=== PATIENT | female | born 1945 | race Caucasian/White ===

== ENCOUNTER 2020-06-01 00:33 | Outpatient (CLI) | payer OTHER, SELFPAY ==
[2020-06-01 18:37] LABS: SARS-CoV-2 RNA PCR Negative
== END 2020-06-01 00:34 | disposition home or self-care (01) ==
LOC: ANHCOVIDDT 00:33
PROVIDERS: PCP Family Medicine Adolescent Medicine; Visit Provider Internal Medicine Cardiovascular Disease
DX: Z01.812 Encounter for preprocedural laboratory examination (principal); Z20.828 Contact with and (suspected) exposure to other viral communicable diseases
CPT/HCPCS: 87635; C9803; U0003

== ENCOUNTER 2020-06-04 05:20 | Day surgery (SDC) | payer OTHER, SELFPAY ==
[2020-06-03 13:03] VITALS: BMI 38.8
[2020-06-04] VITALS (10 sets, daily range): BP systolic 123–156; BP diastolic 55–99; PULSE 67–97; RESP 16–25; O2SAT 96–100
--- NOTE | 2020-06-04 09:13 | P.PCNTEE_ITS ---
[facility] TransEsophageal Echocardiogram Date of procedure: 06/04/20 Findings: DATE OF PROCEDURE: 06/04/2020 INDICATION FOR PROCEDURE: Assessment of aortic stenosis BRIEF CLINICAL HISTORY: 74-year-old female with moderate aortic stenosis, hypertension, history of CA breast status post right lumpectomy. Patient has significant shortness of breath on mild exertion. Her recent echocardiogram showed moderate aortic stenosis with valve area 1.1 cm2. Her symptoms appear to be disproportionate to the severity of the aortic stenosis. In light of this, we proceeded with a transesophageal echocardiogram to re-evaluate aortic valve anatomy and assess aortic Stenosis. Benefits, risks and alternatives of the procedure were discussed with the patient and informed consent was taken prior to the procedure. PROCEDURES PERFORMED: 1. Multiplane transesophageal echocardiography with color flow and Doppler assessment 2. Moderate sedation- CPT code 69029 SEDATION: Midazolam 1 mg;Propofol 40 milligram IV; start time 0855 , stop time 0910 , total taee-gj-ifko time 15 minutes; Gallo Mahmood RN was trained observer for moderate sedation. PROCEDURE: After obtaining informed consent, patient was brought to the chest Pain Center. She was given lidocaine gel, followed by 2 sprays of benzocaine spray. Bite block was placed. Patient was positioned in the left lateral position. After adequate sedation with Midazolam and propofol, transesophageal scope was advanced and multiplanar transesophageal echocardiography was performed with and without color flow and Doppler assessment. Patient's vitals were monitored throughout the procedure. Patient tolerated procedure well. There were no immediate procedure related complications. LEFT VENTRICLE: normal LV size, mild LVH, normal LV systolic function, ej ection fraction 60-70%. RIGHT VENTRICLE: Normal size and systolic function LEFT ATRIUM: mild left atrial enlargement, no evidence of left atrial appendage thrombus. RIGHT ATRIUM: normal size ATRIAL SEPTUM: Lipomatous hypertrophy of septum. No evidence of shunt on color Doppler MITRAL VALVE: normal structure, trivial to mild MR. AORTIC VALVE: Aortic valve appears sclerotic, and is trileaflet. Moderate aortic stenosis based on average planimetered valve area of 1.2 cm2. Difficult to assess transaortic gradients on the transgastric view. Mild aortic regurgitation. TRICUSPID VALVE: Normal structure, trivial TR, unable to assess RVSP. PULMONIC VALVE: Not well visualized, trivial regurgitation. PERICARDIUM: Normal, no significant pericardial effusion AORTA: sinus of Valsalva 2.6 cm, sinotubular junction 2.2 cm, ascending aorta 2.8 cm. RHYTHM: Sinus rhythm Conclusions: 1. Normal LV size, mild LVH, normal LVEF, ejection fraction 60- 70%. 2. No evidence of left atrial appendage thrombus; lipomatous atrial septum without shunt on color Doppler 3. Normal mitral valve structure, mild MR. 4. Sclerotic aortic valve, trileaflet; moderate aortic stenosis, average plan admitted area 1.2 cm2; mild aortic regurgitation. 5. Trivial TR, unable to assess RVSP. PLAN/RECOMMENDATIONS- patient will undergo continued clinical and echocardiographic surveillance for progression of aortic stenosis. Outpatient cardiology follow-up.
--- NOTE | 2020-06-04 09:13 | WPDMODSED ---
Moderate Sedation Note-Pt Data Patient Data Allergies Allergy/AdvReac Type Severity Reaction Status Date / Time hydromorphone Allergy Mild Itching Verified 03/31/17 06:27 morphine Allergy Mild Itching Verified 03/31/17 06:27 Home Medications Medication Instructions Recorded Confirmed Type aspirin 81 mg PO DAILY 06/03/20 06/04/20 History calcitonin (salmon) 1 spray INTRANASAL DAILY 06/03/20 06/04/20 History lisinopril 30 mg PO DAILY 06/03/20 06/04/20 History metoclopramide HCl 10 mg PO DAILY 06/03/20 06/04/20 History pantoprazole 40 mg PO BID 06/03/20 06/04/20 History spironolactone 25 mg PO DAILY 06/03/20 06/04/20 History venlafaxine 150 mg PO DAILY 06/03/20 06/04/20 History Sedation/Anesthesia: No previous sedation/anesthesia problems (including family history). PMFSH Social History Social History Smoking status: Never smoker Alcohol intake: never Substance use: never Living arrangements: with family Spiritual care concerns: No Mod Sed Physical Exam Physical Exam Pre Procedural Exam: Normal: Airway Hours since solid foods: 10 Hours since liquid intake: 10 Internal Medicine - PN: Obj Da Vital Signs Vital Signs: Vital Signs - 24 hr 06/04/20 07:28 06/04/20 08:54 06/04/20 09:00 Pulse Rate 97 81 75 Respiratory Rate 24 H 23 H 25 H Blood Pressure 152/84 H 127/99 H 156/65 H Pulse Oximetry 98 100 99 06/04/20 09:05 06/04/20 09:10 Pulse Rate 74 74 Respiratory Rate 25 H 18 Blood Pressure 155/64 H 156/60 H Pulse Oximetry 100 100 ASA Classification/Sedation ASA Classification/Sedation Risks: Risks, benefits and alternatives explained and patient/family accepted plan for sedation. Patient re-evaluated immediately prior to sedation.
--- NOTE | 2020-06-04 09:13 | WPDHPUPDATE1 ---
History and Physical Update Update Date/Time: 06/04/20 09:13 History and Physical has been reviewed, including an updated exam of the patient. There are NO changes in the patient's condition. Risks, benefits, and alternatives have been discussed and questions answered. Patient agrees to proceed with procedure.
--- NOTE | 2020-06-04 11:00 | SUR.PHASEII ---
1030-pt given D/C orders and instructions. Questions answered and verbalized understanding. AOx4. PIV removed intact. Taken via wheelchair to waiting vehicle. Family having car trouble. Pt will waiti with family while car battery recharged. No distress noted or verbalized at time of departure from unit.
== END 2020-06-04 10:30 | disposition home or self-care (01) ==
PROVIDERS: PCP Family Medicine Adolescent Medicine; Visit Provider Internal Medicine Cardiovascular Disease
PROC: (CPT 93312; principal; 2020-06-04 08:30)
DX: I35.2 Nonrheumatic aortic (valve) stenosis with insufficiency (principal); I35.8 Other nonrheumatic aortic valve disorders; I34.0 Nonrheumatic mitral (valve) insufficiency; I10 Essential (primary) hypertension; Z85.3 Personal history of malignant neoplasm of breast
CPT/HCPCS: 93312; 93320; 93325; J2250; J2704; J3010; J7040

== ENCOUNTER 2020-10-24 12:23 | Outpatient (CLI) | payer OTHER, SELFPAY ==
--- NOTE | ~2020-10-24 | US_ITS ---
EXAMINATION: US venous doppler UE LT DATE: 10/24/2020 13:03 INDICATION: Left upper limb swelling. TECHNIQUE: Grayscale ultrasound images without and with compression and Doppler ultrasound images of the left upper extremity veins were obtained. COMPARISON: None. FINDINGS: The visualized portions of the left internal jugular vein, subclavian vein, axillary vein, brachial v eins, basilic vein, cephalic vein, radial vein, and ulnar vein are patent. IMPRESSION: 1. No deep venous thrombosis. Reviewed, dictated and finalized at location A. BILITY HEARING OFFICER
== END 2020-10-24 12:24 | disposition home or self-care (01) ==
PROVIDERS: PCP Family Medicine Adolescent Medicine; Visit Provider Physician Assistant
DX: M79.89 Other specified soft tissue disorders (principal)
CPT/HCPCS: 93971

== ENCOUNTER 2020-12-25 14:48 | Outpatient (CLI) | payer OTHER, MEDICARE, SELFPAY | END 2020-12-25 14:49 | disposition home or self-care (01) | LOC: ANHCOVIDVC 14:48 | PROVIDERS: PCP Family Medicine Adolescent Medicine | DX: Z23 Encounter for immunization (principal) | CPT/HCPCS: 0001A; 91300 ==

== ENCOUNTER 2021-01-15 14:47 | Outpatient (CLI) | payer OTHER, MEDICARE, SELFPAY | END 2021-01-15 14:48 | disposition home or self-care (01) | LOC: ANHCOVIDVC 14:47 | PROVIDERS: PCP Family Medicine Adolescent Medicine | DX: Z23 Encounter for immunization (principal) | CPT/HCPCS: 0002A; 91300 ==

== ENCOUNTER 2021-01-16 12:45 | Outpatient (RCR) | payer SELFPAY | END 2021-01-16 23:59 | disposition home or self-care (01) | LOC: ANHAUDIO 12:45 | PROVIDERS: PCP Family Medicine Adolescent Medicine; Visit Provider Family Medicine Adolescent Medicine | DX: Z46.1 Encounter for fitting and adjustment of hearing aid (principal) | CPT/HCPCS: 92593 ==

== ENCOUNTER 2021-01-16 13:30 | Outpatient (RCR) | payer OTHER, SELFPAY ==
--- NOTE | 2021-01-22 15:17 | PCCPR ---
Lakshmi discharged from program. She is currently admitted in ICU on ventilator following an acute CA. Will discharge at this time and if applicable in the future, will obtain new referral.
== END 2021-01-22 19:30 | disposition home or self-care (01) ==
LOC: ANHCPREHAB 13:30
PROVIDERS: PCP Family Medicine Adolescent Medicine; Visit Provider Internal Medicine Cardiovascular Disease
DX: Z95.2 Presence of prosthetic heart valve (principal)
CPT/HCPCS: 93798

== ENCOUNTER 2021-01-17 05:07 | Inpatient (IN) | payer OTHER, SELFPAY ==
[2021-01-17] VITALS (23 sets, daily range): BP systolic 98–153; BP diastolic 54–122; PULSE 50–100; RESP 12–36; TEMP 36.1–36.8; O2SAT 72–100; BMI 37.5
--- NOTE | 2021-01-17 | ECHO_ITS ---
Patient Info Name: Lakshmi Comer Age: 75 years : 1945 Gender: Female Ht: 60 in Wt: 200 lbs BSA: 2.01 m2 HR: 57 bpm BP: 166 / 63 mmHg Heart Rhythm: Bradycardia, Sinus Rhythm Technical Quality: Good Exam Date: 01/17/2021 11:43 AM Exam Location: [facility] Pulmonary Exam Room: ER 8 Patient Status: Emergency Admit Date: 01/17/2021 Staff Ordering Physician: Everardo Martinez MD Heat Pump Installer: BETTYE MALLORY [facility] Attending Provider: Everardo Martinez MD Referring Physician: Juan BUNN; Exam Type: CA echo doppler color flow Study Info Indications - CHEST PAIN S/P TAVR Complete two-dimensional, color flow and Doppler transthoracic echocardiogram is performed. Summary 1. Complete two-dimensional, color flow and Doppler transthoracic echocardiogram is performed. 2. There is moderate concentric increased left ventricular wall thickness. 3. Left ventricular systolic function is normal, estimated at 60-65%. 4. No wall-motion abnormalities. 5. Left atrial chamber dimension is moderately enlarged. 6. There is no regurgitation of the TAVR aortic valve. 7. Minimal normal transvalvular gradient. Left Ventricle Left ventricular chamber dimension is normal. Left ventricular systolic function is normal, estimated at 60-65%. There is moderate concentric increased left ventricular wall thickness. The left ventricular diastolic function is grade I diastolic dysfunction. No wall-motion abnormalities. Right Ventricle Right ventricular chamber dimension is normal. Left Atria Left atrial chamber dimension is moderately enlarged. Right Atria Right atrial chamber dimension is normal. Aortic Valve The TAVR aortic valve is not well visualized. There is no TAVR aortic valve stenosis. There is no regurgitation of the TAVR aortic valve. Minimal normal transvalvular gradient. Pulmonic Valve The pulmonic valve is not well visualized. Mitral Valve The mitral valve has normal leaflets. There is mild to moderate mitral valve regurgitation. Tricuspid Valve The tricuspid valve leaflets are normal. There is trace tricuspid valve regurgitation. Pericardium/Pleural The pericardium appears normal. Aorta The aortic root size at the sinus of Valsalva is normal. Left Ventricular Outflow Tract Name Value Normal LVOT 2D LVOT Diameter 1.4 cm LVOT Doppler LVOT Peak Gradient 2 mmHg LVOT Mean Gradient 1 mmHg LVOT VTI 17 cm LVOT VTI/AV VTI Ratio 0.4 LVOT Stroke Volume 26 ml LVOT CO 1.4 l/min LVOT CI 0.7 l/min/m2 Pulmonic Valve Name Value Normal PV Doppler PV Peak Gradient 2 mmHg Mitral Valve
--- NOTE | ~2021-01-17 | US_ITS ---
US venous doppler UE DATE: 01/26/2021 12:41 INDICATION: Upper extremity swelling TECHNIQUE: Real-time and color flow imaging and Doppler analysis of the veins of the upper extremitie s COMPARISON: 10/24/2020 venous duplex examination of the left upper extremity FINDINGS: There is spontaneous and phasic flow and normal augmentation and color flow signal and norm al compression where applicable at the internal jugular, subclavian, axillary, brachial, basilic, cep halic, radial and ulnar veins of the right upper extremity. There is likely similar normal flow at the left upper extremity veins with the exception of partial t hrombosis involving the left basilic vein in the region of the PICC catheter. IMPRESSION: Partial left basilic vein thrombosis the region of PICC catheter Reviewed, dictated and finalized at [facility]. Reviewed, dictated and finalized at [facility].
--- NOTE | ~2021-01-17 | XR_ITS ---
EXAMINATION: XR chest ET placement DATE: 01/17/2021 22:46 INDICATION: Endotracheal tube repositioning. TECHNIQUE: A single frontal view of the chest was obtained. COMPARISON: Chest single view at 10:00 PM FINDINGS: There are patchy airspace opacities in all lung zones bilaterally. There is a small left pl eural effusion. No pneumothorax. The heart size is normal. There are changes of aortic valve replacem ent. The endotracheal tube tip is in the right mainstem bronchus. The nasogastric tube tip is beyond the inferior margin of the radiograph, but at least to the stomach. Surgical clips overlie right ches t wall. IMPRESSION: 1. Endotracheal tube tip in the right mainstem bronchus. Retraction 2-3 cm is recommended. I called t his result to Margoth Oshea. 2. Stable diffuse lung disease, consistent with pulmonary edema versus pneumonia. 3. Small left pleural effusion. Reviewed, dictated and finalized at [facility]. IMPRESSION: 1. Endotracheal tube tip in the right mainstem bronchus. Retraction 2-3 cm is r ecommended. I called this result to Margoth Oshea. 2. Stable diffuse lung disease, consistent with pulmonary edema versus pneumoni a. 3. Small left pleural effusion.
--- NOTE | ~2021-01-17 | XR_ITS ---
EXAMINATION: XR chest 1V portable DATE: 02/13/2021 03:08 INDICATION: Ventilated patient with tachypnea and worsening hypoxia. TECHNIQUE: frontal view of the chest was obtained. COMPARISON: Chest radiograph dated 02/11/2021 FINDINGS: Tracheostomy tube at the thoracic inlet. Large bore right internal jugular central venous catheter wi th distal tip at the caudal superior vena cava along side the tip of a left upper extremity periphera lly inserted central venous catheter (PICC). No significant interval change in a diffuse increased interstitial pattern along with mild scattered patchy airspace opacities throughout both lungs. No pneumothorax. Tiny bilateral pleural effusions. C ardiomegaly. Aortic valve replacement. Calcified mediastinal lymph node consistent with old granuloma tous disease. Surgical clips at the right axilla. IMPRESSION: 1. Unchanged diffuse bilateral lung disease consistent with pulmonary edema and/or pneumonia. 2. Tiny bilateral pleural effusions. 3. Cardiomegaly. Reviewed, dictated and finalized at [facility]. IMPRESSION: 1. Unchanged diffuse bilateral lung disease consistent with pulmonary edema and /or pneumonia. 2. Tiny bilateral pleural effusions. 3. Cardiomegaly.
--- NOTE | ~2021-01-17 | XR_ITS ---
EXAMINATION: XR chest 1V portable DATE: 01/22/2021 05:34 INDICATION: Respiratory failure TECHNIQUE: frontal view of the chest was obtained. COMPARISON: Chest radiograph dated 01/21/2021 FINDINGS: Endotracheal tube tip 2.8 cm above the bj. Nasogastric tube extends below the left hemidiaphragm with distal tip collimated off the study. Patient is rotated towards the left with the chin obscurin g the left upper lung zone. Persistent opacities in the bilateral perihilar regions and lower lung zones. Bronchial wall thickeni ng versus bronchial cuffing. Small left pleural effusion. No pneumothorax. Cardiomegaly. Aortic valve repair. Calcified mediastinal lymph nodes consistent with old granulomatous disease. IMPRESSION: 1. Bilateral perihilar and lower lung opacities which could represent pulmonary edema, pneumonia, ate lectasis or some combination thereof. 2. Small left pleural effusion. 3. Cardiomegaly. Reviewed, dictated and finalized at location [facility]. IMPRESSION: 1. Bilateral perihilar and lower lung opacities which could represent pulmonary edema, pneumonia, atelectasis or some combination thereof. 2. Small left pleural effusion. 3. Cardiomegaly.
--- NOTE | ~2021-01-17 | XR_ITS ---
EXAMINATION: XR chest 1V portable DATE: 01/30/2021 05:34 INDICATION: Respiratory failure. Pneumonia. TECHNIQUE: A single frontal view of the chest was obtained. COMPARISON: Chest single view 01/29/2021, chest CT 01/26/2021 FINDINGS: There are airspace opacities in all lung zones bilaterally with a perihilar and right upper lobe predominance. There are small pleural effusions. No pneumothorax. Cardiomegaly is noted. There are changes of aortic valve replacement. The endotracheal tube tip is 3.9 cm above the bj. The na sogastric tube tip is beyond the inferior margin of the radiograph, but at least to the stomach. A le ft upper extremity peripherally inserted central venous catheter (PICC) is seen with tip in the super ior vena cava. There are surgical clips overlying right axilla. IMPRESSION: 1. Worsened diffuse lung disease, consistent with pneumonia without or with superimposed pulmonary ed simeon. 2. Small pleural effusions. 3. Cardiomegaly. Reviewed, dictated and finalized at location [facility]. IMPRESSION: 1. Worsened diffuse lung disease, consistent with pneumonia without or with sup erimposed pulmonary edema. 2. Small pleural effusions. 3. Cardiomegaly.
--- NOTE | ~2021-01-17 | XR_ITS ---
EXAMINATION: XR chest 1V portable DATE: 01/17/2021 21:20 INDICATION: Shortness of breath. TECHNIQUE: A single frontal view of the chest was obtained. COMPARISON: Chest single view at 6:02 AM FINDINGS: There are patchy airspace opacities in all lung zones bilaterally. There is a diffuse inter stitial pattern in the lungs. No pleural effusion or pneumothorax. Cardiomegaly is noted. There are c hanges of heart valve replacement. Calcified mediastinal lymph nodes are consistent with old granulom atous disease. There are surgical clips in right abdomen and right chest. IMPRESSION: 1. Worsened diffuse lung disease, consistent with pulmonary edema versus pneumonia. 2. Cardiomegaly. Reviewed, dictated and finalized at location A. IMPRESSION: 1. Worsened diffuse lung disease, consistent with pulmonary edema versus pneumo celi. 2. Cardiomegaly.
--- NOTE | ~2021-01-17 | XR_ITS ---
EXAMINATION: XR chest 1V portable INDICATION: Respiratory failure TECHNIQUE: Portable AP chest at 0518 hours COMPARISON: 02/04/2021 FINDINGS: A right internal jugular dialysis catheter ends with its tip in the proximal right atrium. There are diffuse interstitial and airspace opacities with worsening in the perihilar distribution. C ardiomegaly is noted. There are changes of endoluminal aortic valve replacement. A tracheostomy is no baldo. No pleural effusion or pneumothorax is identified. A left upper extremity PICC ends with its tip in the midsuperior vena cava. There are surgical clips in the right axilla. IMPRESSION: 1. Diffuse lung disease with interval worsening, consistent with pneumonia and/or pulmonary edema. 2. Cardiomegaly. Reviewed, dictated and finalized at location [facility]. IMPRESSION: 1. Diffuse lung disease with interval worsening, consistent with pneumonia and/ or pulmonary edema. 2. Cardiomegaly.
--- NOTE | ~2021-01-17 | XR_ITS ---
EXAMINATION: XR chest ET placement DATE: 01/17/2021 22:02 INDICATION: Intubation. TECHNIQUE: A single frontal view of the chest was obtained. COMPARISON: Chest single view at 9:21 PM FINDINGS: There are patchy airspace opacities throughout the lungs bilaterally. No pleural effusion o r pneumothorax. The heart size is normal. Calcified mediastinal lymph nodes are consistent with old g ranulomatous disease. There are changes of aortic valve replacement. The endotracheal tube tip is 8 m m above the bj. The nasogastric tube tip is beyond the inferior margin of the radiograph, but at least to the stomach. There are surgical clips in right chest. IMPRESSION: 1. Endotracheal tube tip 8 mm above the bj. 2. Worsened diffuse lung disease, consistent with pulmonary edema versus pneumonia. Reviewed, dictated and finalized at location [facility]. IMPRESSION: 1. Endotracheal tube tip 8 mm above the bj. 2. Worsened diffuse lung disease, consistent with pulmonary edema versus pneumo celi.
--- NOTE | ~2021-01-17 | XR_ITS ---
EXAMINATION: XR chest 1V portable DATE: 02/08/2021 04:59 INDICATION: Oxygen desaturation. TECHNIQUE: A single frontal view of the chest was obtained. COMPARISON: Chest single view 02/06/2021, chest CT 01/26/2021 FINDINGS: Right lateral costophrenic angle is excluded. There are airspace opacities in all lung zone s bilaterally, worst in right upper lobe and at left lung base. There is a small left pleural effusio n. No pneumothorax. Cardiomegaly is noted. There are changes of aortic valve replacement. A tracheost nicole tube is noted. A left upper extremity peripherally inserted central venous catheter (PICC) is see n with tip in the superior vena cava. Calcified mediastinal lymph nodes are consistent with old granu lomatous disease. A right internal jugular central venous catheter is seen with tip in the superior v antonio cava. IMPRESSION: 1. Stable diffuse lung disease, consistent with pneumonia and/or pulmonary edema. 2. Worsened small left pleural effusion. 3. Cardiomegaly. Reviewed, dictated and finalized at location [facility]. IMPRESSION: 1. Stable diffuse lung disease, consistent with pneumonia and/or pulmonary demetris a. 2. Worsened small left pleural effusion. 3. Cardiomegaly.
--- NOTE | ~2021-01-17 | US_ITS ---
EXAMINATION: US renal BI DATE: 01/21/2021 09:36 INDICATION: Acute kidney injury. TECHNIQUE: Multiple ultrasound grayscale images of the kidneys were obtained. COMPARISON: Chest CT 01/18/2021 FINDINGS: The right kidney measures 10.8 x 4.0 x 4.2 cm. The left kidney measures 11.0 x 4.2 x 5.5 cm. The kidn eys demonstrate normal parenchymal echogenicity. There is no hydronephrosis. The bladder is decompres sed by a Loza catheter. IMPRESSION: 1. Normal kidneys. No hydronephrosis. Reviewed, dictated and finalized at [facility].
--- NOTE | ~2021-01-17 | XR_ITS ---
EXAMINATION: XR chest 1V portable DATE: 01/28/2021 05:38 INDICATION: Pneumonia. Pulmonary edema. TECHNIQUE: A single frontal view of the chest was obtained. COMPARISON: Chest single view 01/27/2021 FINDINGS: The patient is rotated to her left. There are patchy airspace opacities in all lung zones b ilaterally, worst in right upper lobe. No pleural effusion or pneumothorax. Cardiomegaly is noted. Th ere are changes of aortic valve replacement. Calcified right hilar lymph nodes are consistent with ol d granulomatous disease. The endotracheal tube tip is 4.0 cm above the bj. A left upper extremity peripherally inserted central venous catheter (PICC) is seen with tip at the superior cavoatrial caitlin ction. The nasogastric tube tip is beyond the inferior margin of the radiograph, but at least to the stomach. Surgical clips overlie right chest. IMPRESSION: 1. Stable diffuse lung disease, likely pneumonia. 2. Cardiomegaly. Reviewed, dictated and finalized at location [facility].
--- NOTE | ~2021-01-17 | CT_ITS ---
EXAMINATION: CTA chest PE protocol DATE: 01/18/2021 07:45 CDT INDICATION: Respiratory failure TECHNIQUE: Computed tomographic angiography (CTA) of the chest was performed with 100 mL Omnipaque-35 0 intravenous contrast. The dose-length product was 813.22 mGy-cm. Maximum intensity projection 3D-re constructions of the aorta and other arteries were constructed by the technologist on a separate work station. Automated exposure control and iterative reconstruction technique were employed. COMPARISON: Chest dated 01/17/2021 FINDINGS: Endotracheal tube tip directed towards right mainstem bronchus. Moderate bilateral pleural effusions. Study is technically adequate without evidence for pulmonary embolism. NG tube in the stom ach. Cardiomegaly. There is an aortic valve replacement. No thoracic lymphadenopathy. Calcified granu reggie of the spleen. Extensive patchy airspace consolidation. No pneumothorax. Dextroscoliosis of the thoracic spine. No acute osseous abnormality. IMPRESSION: 1. No evidence for pulmonary embolism. 2: Extensive bilateral airspace consolidation which may represent pneumonia or edema. 3: Moderate pleural effusions. 4: Cardiomegaly. Reviewed, dictated and finalized at location A.
--- NOTE | ~2021-01-17 | XR_ITS ---
EXAMINATION: XR chest 1V portable DATE: 01/27/2021 05:32 INDICATION: Pneumonia. Pulmonary edema. TECHNIQUE: A single frontal view of the chest was obtained. COMPARISON: Chest single view 01/26/2021, chest CT 01/26/2021 FINDINGS: There are airspace opacities in all lung zones bilaterally, worst in right upper lobe. No p leural effusion or pneumothorax. Cardiomegaly is noted. There are changes of aortic valve replacement . Calcified mediastinal lymph nodes are consistent with old granulomatous disease. The endotracheal t ube tip is 4.1 cm above the bj. A left upper extremity peripherally inserted central venous naomi ter (PICC) is seen with tip in the superior vena cava. The nasogastric tube tip is beyond the inferio r margin of the radiograph, but at least to the stomach. There are surgical clips in right axilla. IMPRESSION: 1. Stable diffuse lung disease, likely pneumonia. 2. Cardiomegaly. Reviewed, dictated and finalized at location [facility].
--- NOTE | ~2021-01-17 | XR_ITS ---
EXAMINATION: XR chest 1V portable INDICATION: Respiratory failure, tracheostomy TECHNIQUE: Portable AP chest at 0741 hours COMPARISON: 02/05/2021 FINDINGS: A right internal jugular dialysis catheter ends with its tip in the distal superior vena ca va. A tracheostomy is in expected position. Changes of endoluminal aortic valve replacement are noted . Diffuse interstitial and airspace opacities persist with overall improvement. There is no pleural e ffusion or pneumothorax. Stable cardiomegaly is noted. A left upper extremity PICC ends with its tip in the superior vena cava. Surgical clips are noted in the right axilla. IMPRESSION: 1. Diffuse lung disease with interval improvement, consistent with pneumonia and/or pulmonary edema. 2. Cardiomegaly. Reviewed, dictated and finalized at location [facility]. IMPRESSION: 1. Diffuse lung disease with interval improvement, consistent with pneumonia an d/or pulmonary edema. 2. Cardiomegaly.
--- NOTE | ~2021-01-17 | XR_ITS ---
EXAMINATION: XR chest 1V portable DATE: 01/31/2021 05:30 INDICATION: Pneumonia. Respiratory failure. TECHNIQUE: A single frontal view of the chest was obtained. COMPARISON: Chest single view 01/30/2021 FINDINGS: There are airspace opacities and interstitial opacities in all lung zones bilaterally with a perihilar predominance. Calcified mediastinal lymph nodes are consistent with old granulomatous dis ease. There is a small left pleural effusion. No pneumothorax. Cardiomegaly is noted. There are das es of aortic valve replacement. The endotracheal tube tip is 3.4 cm above the bj. A left upper ex tremity peripherally inserted central venous catheter (PICC) is seen with tip in the superior vena ca va. The nasogastric tube tip is beyond the inferior margin of the radiograph, but at least to the sto mach. Surgical clips overlie right axilla. IMPRESSION: 1. Stable diffuse lung disease, consistent with pneumonia without or with superimposed pulmonary demetris a. 2. Small left pleural effusion. 3. Cardiomegaly. Reviewed, dictated and finalized at location A. IMPRESSION: 1. Stable diffuse lung disease, consistent with pneumonia without or with super imposed pulmonary edema. 2. Small left pleural effusion. 3. Cardiomegaly.
--- NOTE | ~2021-01-17 | XR_ITS ---
EXAMINATION: XR chest 1V portable DATE: 01/21/2021 05:25 INDICATION: Intubation TECHNIQUE: frontal view of the chest was obtained. COMPARISON: Chest radiograph dated 01/20/2021 FINDINGS: Endotracheal tube tip 2.1 cm above the bj. Nasogastric tube extends below the left hemidiaphragm with distal tip collimated off the study. Coronary artery stenting and change of prior aortic valve repair. Slight increase in airspace opacities in the left mid to lower lung zone and in the right perihilar a nd infrahilar regions. No pneumothorax. Mild cardiomegaly. IMPRESSION: 1. Slight increase in bilateral lung disease, left greater than right, consistent with pulmonary demetris a, pneumonia, atelectasis or some combination thereof, on the left superimposed over a small to moder ate left pleural effusion. 2. Mild cardiomegaly. Reviewed, dictated and finalized at location A. IMPRESSION: 1. Slight increase in bilateral lung disease, left greater than right, consiste nt with pulmonary edema, pneumonia, atelectasis or some combination thereof, on the left superimposed over a small to moderate left pleural effusion. 2. Mild cardiomegaly.
--- NOTE | ~2021-01-17 | XR_ITS ---
EXAMINATION: XR fl guide central line place DATE: 02/04/2021 10:47 INDICATION: Central line placement. TECHNIQUE: 2 intraoperative fluoroscopic views of the chest were obtained. I was not present. Fluoros copy exposure time was 25 seconds. COMPARISON: Chest single view 02/04/2021 FINDINGS: There is a right internal jugular central venous catheter with tip in the superior vena cav a. No pneumothorax. There is a tracheostomy tube in expected position. A left upper extremity periphe rally inserted central venous catheter (PICC) is seen with tip in the superior vena cava. IMPRESSION: 1. New central line tip in superior vena cava. Reviewed, dictated and finalized at location B.
--- NOTE | ~2021-01-17 | US_ITS ---
EXAMINATION: US renal BI DATE: 01/30/2021 13:34 INDICATION: Decreased kidney function. TECHNIQUE: Multiple ultrasound grayscale images of the kidneys were obtained. COMPARISON: CT abdomen and pelvis 01/26/2021 FINDINGS: The right kidney measures 11.2 x 5.1 x 6.1 cm. The left kidney measures 11.4 x 5.7 x 4.8 cm. The kidn eys demonstrate normal parenchymal echogenicity. There is no hydronephrosis. The bladder is decompres sed by Loza catheter. IMPRESSION: 1. Normal kidneys. No hydronephrosis. Reviewed, dictated and finalized at location A.
--- NOTE | ~2021-01-17 | XR_ITS ---
EXAMINATION: XR chest 1V portable INDICATION: Chest pain TECHNIQUE: Portable AP chest at 0604 hours COMPARISON: 08/25/2018 FINDINGS: There is mild atelectasis of the left midlung zone. Cardiomegaly is noted. There are change s of endoluminal aortic valve intervention. There is no pleural effusion or pneumothorax. Surgical cl ips are noted in the right axilla. Surgical clips in the right upper quadrant are likely from prior c holecystectomy. IMPRESSION: 1. Cardiomegaly. Reviewed, dictated and finalized at location A. IMPRESSION: 1. Cardiomegaly.
--- NOTE | ~2021-01-17 | XR_ITS ---
EXAMINATION: XR chest 1V portable DATE: 02/10/2021 05:18 INDICATION: Respiratory failure. TECHNIQUE: A single frontal view of the chest was obtained. COMPARISON: Chest single view 02/08/2021, chest CT 01/26/2021 FINDINGS: There are airspace opacities in all lung zones bilaterally with a perihilar predominance. T here is a small left pleural effusion. No pneumothorax. Cardiomegaly is noted. There are changes of a ortic valve replacement. Calcified mediastinal lymph nodes are consistent with old granulomatous dise ase. There is a tracheostomy tube in expected position. A right internal jugular central venous naomi ter is seen with tip in the superior vena cava. A left upper extremity peripherally inserted central venous catheter (PICC) is seen with tip in the superior vena cava. Surgical clips overlie right axill a. IMPRESSION: 1. Stable diffuse lung disease, consistent with pulmonary edema versus pneumonia. 2. Stable small left pleural effusion. 3. Cardiomegaly. Reviewed, dictated and finalized at location A. IMPRESSION: 1. Stable diffuse lung disease, consistent with pulmonary edema versus pneumoni a. 2. Stable small left pleural effusion. 3. Cardiomegaly.
--- NOTE | ~2021-01-17 | XR_ITS ---
EXAMINATION: XR chest 1V portable DATE: 01/29/2021 05:30 INDICATION: Pneumonia. Respiratory failure. TECHNIQUE: A single frontal view of the chest was obtained. COMPARISON: Chest single view 01/28/2021 FINDINGS: There are airspace opacities in all lung zones bilaterally, worst in right upper lobe. No p leural effusion or pneumothorax. Cardiomegaly is noted. There are changes of aortic valve replacement . The endotracheal tube tip is 7.3 cm above the bj. A left upper extremity peripherally inserted central venous catheter (PICC) is seen with tip in the superior vena cava. The nasogastric tube tip i s beyond the inferior margin of the radiograph, but at least to the stomach. IMPRESSION: 1. Stable diffuse lung disease, likely pneumonia. 2. Cardiomegaly. Reviewed, dictated and finalized at location A.
--- NOTE | ~2021-01-17 | XR_ITS ---
XR chest 1V portable 01/18/2021 05:26 Indication: Respiratory failure Procedure: AP portable chest Comparison: Comparison to multiple prior studies sequentially, with oldest reviewed study dated 03/2021. Findings: Endotracheal tube 1 cm above the bj. NG tube in the stomach. Cardiomegaly. There is ext ensive bilateral airspace disease. No significant effusion. No pneumothorax. There is aortic valve re placement. Impression: 1: Diffuse bilateral airspace disease which may represent edema or pneumonia. 2: Cardiomegaly. Reviewed, dictated and finalized at location A. Impression: 1: Diffuse bilateral airspace disease which may represent edema or pneumonia. 2: Cardiomegaly.
--- NOTE | ~2021-01-17 | XR_ITS ---
EXAMINATION: XR chest 1V portable DATE: 02/01/2021 05:27 INDICATION: Pneumonia. Respiratory failure. TECHNIQUE: frontal view of the chest was obtained. COMPARISON: Chest radiograph dated 01/31/2021 FINDINGS: Endotracheal tube tip 4.0 cm above the bj. Left upper extremity peripherally inserted central isela ous catheter (PICC) tip at the caudal superior vena cava. No significant interval change in bilateral perihilar predominant interstitial and airspace opacities . Small left pleural effusion. No pneumothorax. Cardiomegaly. Aortic valve replacement. Multiple surg ical clips the right axilla. IMPRESSION: 1. Unchanged bilateral perihilar predominant lung disease which could represent pneumonia, pulmonary edema, atelectasis or some combination thereof. 2. Small left pleural effusion. 3. Cardiomegaly. Reviewed, dictated and finalized at location A.
--- NOTE | ~2021-01-17 | XR_ITS ---
EXAMINATION: XR abdomen NG/feed tube insert DATE: 01/17/2021 22:10 INDICATION: Nasogastric tube placement. TECHNIQUE: A supine view of the abdomen was obtained. COMPARISON: None. FINDINGS: The lower abdomen is excluded. There are multiple dilated loops of small bowel. The colon i s decompressed. The nasogastric tube tip is in the distal stomach. Surgical clips in the right upper quadrant are likely from cholecystectomy. IMPRESSION: 1. Nasogastric tube tip in the distal stomach. 2. Dilated small bowel, consistent with adynamic ileus versus small bowel obstruction. Reviewed, dictated and finalized at location A. IMPRESSION: 1. Nasogastric tube tip in the distal stomach. 2. Dilated small bowel, consistent with adynamic ileus versus small bowel obstr uction.
--- NOTE | ~2021-01-17 | XR_ITS ---
EXAMINATION: XR chest 1V portable DATE: 01/20/2021 05:37 INDICATION: Intubation TECHNIQUE: frontal view of the chest was obtained. COMPARISON: Chest radiograph dated 01/19/2021 FINDINGS: Endotracheal tube tip 1.8 cm above the bj. Nasogastric tube extends below the left hemidiaphragm with distal tip collimated off the study. Mild cardiomegaly. Changes of prior aortic valve repair. C oronary artery stenting. Opacities in the left mid and lower lung zone consistent with small left pleural effusion and associa baldo atelectasis and/or pneumonia. Increased perihilar interstitial pattern. Old left rib fracture. IMPRESSION: 1. Increasing small left pleural effusion with associated left basilar atelectasis and/or pneumonia. 2. Bilateral increased perihilar interstitial pattern which could represent pulmonary edema or pneumo celi. 3. Cardiomegaly. Reviewed, dictated and finalized at location A. IMPRESSION: 1. Increasing small left pleural effusion with associated left basilar atelecta sis and/or pneumonia. 2. Bilateral increased perihilar interstitial pattern which could represent pul monary edema or pneumonia. 3. Cardiomegaly.
--- NOTE | ~2021-01-17 | XR_ITS ---
XR chest PICC line DATE: 01/26/2021 11:48 INDICATION: PICC line placement TECHNIQUE: Portable AP chest on 01/26/2021 at 1140 hours COMPARISON: 01/25/2021 portable AP chest at 0749 hours FINDINGS: ET tube in satisfactory position 4.8 cm above bj. NG tube is noted passing toward the s tomach at the inferior limit of the radiograph, the base of the chest excluded from this examination. Left upper extremity PIC catheter tip overlying superior vena cava. Cardiomegaly. Aortic valve repair. Aortic arch calcification. There is pulmonary vascular congestion and redistribution. There are bilateral pulmonary infiltrates, most prominent centrally, particularly in the right upper lobe and right perihilar and to lesser ext ent left perihilar areas, with involvement both lower lungs as well. The infiltrates are likely secon jeaneth to pulmonary edema, but pneumonia and aspiration are not excluded. No pneumothorax. Diffuse osteopenia. Surgical clips overlie the right axillary area consistent with prior axillary node dissection. IMPRESSION: Bilateral pulmonary infiltrates, prominently increased on the right since 01/26/2021; pulm onary edema and pneumonia and aspiration should be considered Reviewed, dictated and finalized at Location A. Reviewed, dictated and finalized at location A. IMPRESSION: Bilateral pulmonary infiltrates, prominently increased on the right since 01/26/2021; pulmonary edema and pneumonia and aspiration should be consid ered
--- NOTE | ~2021-01-17 | XR_ITS ---
XR chest 1V portable 01/19/2021 05:43 Indication: Respiratory distress Procedure: AP portable chest Comparison: Comparison to multiple prior studies sequentially, with oldest reviewed study dated 03/2021. Findings: Endotracheal tube 9 mm above the bj. Recommend retraction 2-3 cm. Heart size mildly enl arged. Prosthetic aortic valve. There is persistent diffuse bilateral airspace disease which is impro unqiue. Small pleural effusions. No pneumothorax. No acute osseous abnormality. Impression: 1: Improving bilateral airspace disease which may represent resolving edema or pneumonia. 2: Small pleural effusions. Reviewed, dictated and finalized at location A. Impression: 1: Improving bilateral airspace disease which may represent resolving edema or pneumonia. 2: Small pleural effusions.
--- NOTE | ~2021-01-17 | XR_ITS ---
XR chest 1V portable DATE: 01/25/2021 07:50 INDICATION: Pneumonia TECHNIQUE: Portable AP chest on 01/25/2021 at 0749 hours COMPARISON: 01/22/2021 portable AP chest at 0517 hours FINDINGS: ET tube in satisfactory position approximately 5 cm above bj. NG tube in stomach. No ce ntral lines. Status post aortic valve repair. Cardiomegaly. Is pulmonary vascular congestion and redistribution. There are bilateral primarily cent ral and lower lung zone infiltrates, greater on the left, suggesting pulmonary edema and/or pneumonia . Diffuse osteopenia. IMPRESSION: Cardiomegaly, pulmonary vascular congestion, bilateral central and lower lung infiltrates . Findings are consistent with congestive heart failure and pulmonary edema. Pneumonia is not exclude d Reviewed, dictated and finalized at location A. IMPRESSION: Cardiomegaly, pulmonary vascular congestion, bilateral central and lower lung infiltrates. Findings are consistent with congestive heart failure a nd pulmonary edema. Pneumonia is not excluded
--- NOTE | ~2021-01-17 | XR_ITS ---
EXAMINATION: XR chest 1V portable DATE: 02/11/2021 05:39 INDICATION: Respiratory failure TECHNIQUE: frontal view of the chest was obtained. COMPARISON: Chest radiograph dated 02/10/2021 FINDINGS: Tracheostomy tube in expected position at the thoracic inlet. Right internal jugular central venous c atheter with distal tip at the caudal superior vena cava. Left upper extremity peripherally inserted central venous catheter (PICC) tip also at the caudal superior vena cava. No significant interval change in airspace opacities throughout both lungs. Likely unchanged small le ft pleural effusion. No pneumothorax or right pleural effusion. Cardiomegaly. Aortic valve replacemen t. Surgical clips at the right axilla. IMPRESSION: 1. Unchanged diffuse bilateral lung disease with pulmonary edema and/or pneumonia. 2. Unchanged small left pleural effusion. 3. Cardiomegaly. Reviewed, dictated and finalized at location A. IMPRESSION: 1. Unchanged diffuse bilateral lung disease with pulmonary edema and/or pneumon ia. 2. Unchanged small left pleural effusion. 3. Cardiomegaly.
--- NOTE | ~2021-01-17 | XR_ITS ---
EXAMINATION: XR chest port-a-cath/central DATE: 02/04/2021 10:47 INDICATION: Dialysis catheter placement. TECHNIQUE: A single frontal view of the chest was obtained. COMPARISON: Chest single view 02/01/2021 FINDINGS: The patient is rotated to her left. There are airspace opacities in all lung zones bilatera lly, right worse than left. There is a diffuse interstitial pattern in the lungs. There is a small le ft pleural effusion. No pneumothorax. Cardiomegaly is noted. There are changes of aortic valve replac ement. The tracheostomy tube tip is 2.5 cm above the bj. A left upper extremity peripherally inse rted central venous catheter (PICC) is seen with tip in the superior vena cava. A right internal jugu lar central venous catheter is seen with tip in the superior vena cava. Surgical clips overlie right axilla. IMPRESSION: 1. Central line tip in superior vena cava. 2. Stable diffuse lung disease, consistent with pulmonary edema versus pneumonia. 3. Stable small left pleural effusion. 4. Cardiomegaly. Reviewed, dictated and finalized at location B. IMPRESSION: 1. Central line tip in superior vena cava. 2. Stable diffuse lung disease, consistent with pulmonary edema versus pneumoni a. 3. Stable small left pleural effusion. 4. Cardiomegaly.
--- NOTE | ~2021-01-17 | CT_ITS ---
EXAMINATION: CT chest abdomen pelvis wo con DATE: 01/26/2021 14:07 INDICATION: Worsening leukocytosis TECHNIQUE: Computed tomography (CT) of the chest, abdomen, and pelvis was performed without intraveno us contrast. Automated exposure control and iterative reconstruction technique were employed. Exam do se: 1673.29 mGy-cm total exam DLP. COMPARISON: 01/18/2021 CT pulmonary scan 01/26/2021 portable AP chest FINDINGS: CHEST CT: ET tube is present, distal tip approximately 4.8 cm above bj in satisfactory position. There is a nasogastric tube in the distal stomach. Status post endovascular aortic valve surgical repair. Cardiomegaly. No pericardial effusion. There is thoracic aortic atherosclerosis but no aneurysm. Coronary artery atherosclerosis. There are extensive patchy consolidating multifocal infiltrates scattered throughout all lobes of bot h lungs, most prominent in the right upper lobe There are mild bilateral pleural effusions. ABDOMEN/PELVIS CT: Examination is limited due to the absence of intravenous contrast material and also because of motion as well as artifact from overlying extremities. Status post cholecystectomy. No bile duct or pancreatic duct dilatation. No hepatic, splenic, pancreatic, and adrenal or renal space-occupying mass lesion is evident on this limited noncontrast examination. No urinary tract calculus or hydroureteronephrosis. There is a Loza catheter within the evacuated ur inary bladder, which is not optimally evaluated as a result. Status post hysterectomy. There is atherosclerotic calcification of the abdominal aorta and at the origins of the celiac and jara perior mesenteric and particularly renal arteries. No abdominal aortic aneurysm. No intraperitoneal or retroperitoneal or pelvic mass lesion or adenopathy or ascites. Normal appendix. No bowel obstruction, bowel wall thickening, pneumatosis or intraperitoneal free air is evident. Severe degenerative disc disease of the lumbar and lumbosacral spine. Degenerative change at the apophyseal joints of the lumbar spine with associated minimal grade 1 ante rolisthesis at L4-5. Diffuse osteopenia. No suspicious osteolytic or osteoblastic lesions are noted. IMPRESSION: Extensive bilateral pneumonia Mild bilateral pleural effusions Cardiomegaly Status post cholecystectomy Status post hysterectomy Reviewed, dictated and finalized at Location A. Reviewed, dictated and finalized at location A.
--- NOTE | ~2021-01-17 | CT_ITS ---
EXAMINATION: CT brain wo con DATE: 01/21/2021 09:54 INDICATION: Altered mental status. TECHNIQUE: Computed tomography (CT) of the head was performed without intravenous contrast. The mA wa s adjusted according to patient size. Iterative reconstruction technique was employed. The dose-lengt h product was 605.33 mGy-cm. COMPARISON: None FINDINGS: There is no intracranial hemorrhage, acute infarction, or abnormal intracranial mass lesion . The ventricles are normal in size. The paranasal sinuses are clear. The mastoid air cells are neli l. There are likely changes of ocular lens replacement surgeries. IMPRESSION: 1. Normal brain. Reviewed, dictated and finalized at location B. IMPRESSION: 1. Normal brain.
--- NOTE | 2021-01-17 05:12 | ECG_ITS ---
Measurements Intervals [place] Rate: 56 P: 81 IA: 136 QRS: 13 QRSD: 106 T: 78 QT: 457 QTc: 441 Interpretive Statements SINUS BRADYCARDIA BORDERLINE ST-T WAVE ABNORMALITY- ANT/HIGH LAT LEADS BASELINE ARTIFACT- I, II BORDERLINE ECG Electronically Signed On 01-17-2021 6:56:36 CDT by Ashok Palma D.O.
--- NOTE | 2021-01-17 05:13 | ED.GENADULT ---
HPI - General Adult General Chief complaint: Chest Pain <Elfego Hubbard MD - Last Filed: 01/17/21 07:11> Stated complaint: cp <Elfego Hubbard MD - Last Filed: 01/17/21 07:11> Time Seen by Provider: 01/17/21 05:07 <Elfego Hubbard MD - Last Filed: 01/17/21 07:11> History of Present Illness HPI narrative: Patient is a 5-year-old female who presents the emergency department chief abdominal pain. Patient reports that this evening she got up to go the bathroom and noticed that started having tightness in her chest. Patient reports she got short of breath diaphoretic when this occurred and EMS was called. Upon EMS arrival the patient had already taken a baby aspirin was given 3 additional aspirin. The patient was given a sublingual nitroglycerin that improved her pain to where it is almost gone at this point. Prehospital EKG showed some minor ST depressions but no ST elevations present on the EKG. Patient reports she has no history of ischemic cardiac disease but reports she has history of valvular disease with a valve replacement. Patient reports that she had a cardiac cath done in the last year at [facility] and did not require any stents to be placed at that time. <Elfego Hubbard MD - Last Filed: 01/17/21 07:11> Related Data Home medications: Home Medications Medication Instructions Recorded Confirmed aspirin 81 mg PO DAILY 06/03/20 12/16/20 calcitonin (salmon) 1 spray INTRANASAL DAILY 06/03/20 12/16/20 lisinopril 30 mg PO DAILY 06/03/20 12/16/20 spironolactone 25 mg PO DAILY 06/03/20 12/16/20 venlafaxine 150 mg PO DAILY 06/03/20 12/16/20 acetaminophen 500 mg PO Q6H PRN 12/16/20 12/16/20 ascorbic acid (vitamin C) [Vitamin 500 mg PO DAILY 12/16/20 12/16/20 C] cholecalciferol (vitamin D3) 50 mcg PO DAILY 12/16/20 12/16/20 [Vitamin D3] clopidogrel 75 mg PO DAILY 12/16/20 12/16/20 furosemide 20 mg PO DAILY 12/16/20 12/16/20 metoprolol succinate 50 mg PO 12/16/20 gwbdhlko-rqk-ceaf-FA-lutein 1 tablet PO DAILY 12/16/20 12/16/20 [Centrum Silver Women] omega 4-ypi-gpq-fish oil [Fish Oil] cap 12/16/20 vitamin E 400 unit PO DAILY 12/16/20 12/16/20 <Elfego Hubbard MD - Last Filed: 01/17/21 07:11> Allergies/adverse reactions: Allergies Allergy/AdvReac Type Severity Reaction Status Date / Time hydromorphone Allergy Mild Itching Verified 01/17/21 05:55 morphine Allergy Mild Itching Verified 01/17/21 05:55 <Elfego Hubbard MD - Last Filed: 01/17/21 07:11> Review of Systems Review of Systems: Narrative: A 10 system review of systems was completed on the patient and is negative except for what is stated in the HPI. Nursing and ancillary documentation was reviewed. <Elfego Hubbard MD - Last Filed: 01/17/21 07:11> PMFSH Family History Family History: Family History Grandparent Hypertension Cerebrovascular accident Father Heart disease <Elfego Hubbard MD - Last Filed: 01/17/21 07:11> Social History Social History: Social History Smoking status: Never smoker Alcohol intake: never Substance use: never Gender identity (if verbalized by the patient): Female Spiritual care concerns: No <Elfego Hubbard MD - Last Filed: 01/17/21 07:11> Comments Patient's past medical history significant for hypertension Surgical history significant for valve replacement Social history the patient denies smoking <Elfego Hubbard MD - Last Filed: 01/17/21 07:11> Exam Narrative: Exam Narrative: GENERAL: Well-appearing, well-nourished, and in no acute distress. HEAD: Normocephalic, atraumatic. EYES: PERRLA and EOMI. ENT: Nares clear, no rhinorrhea or epistaxis. Mucous membranes moist. NECK: Supple. CHEST: Clear to auscultation. No respiratory d
[2021-01-17] MEDS: NITROGLYCERIN SL 0.4 MG TABLET SUBLINGUAL ×2 (05:21→08:23)
[2021-01-17] MEDS: fentaNYL CITRATE INJ (*CRX) 100 MCG/2 ML VIAL 50 MCG IV PUSH (05:21)
[2021-01-17 05:28] LABS: Basophils Absolute Auto 0.1 K/mm3 (0.0-0.1); Basophils Percent Auto 0.9 % (0.2-1.2); Eosinophils Absolute Auto 0.3 K/mm3 (0-0.3); Eosinophils Percent Auto 2.9 % (0-4.4); Hematocrit 39.7 % (37.0-47.0); Immature Granulocyte Absolute 0.05 K/mm3 (0.00-0.031); Immature Granulocyte Percent A 0.4 % (0-0.5); Lymphocytes Absolute Auto 3.15 K/mm3 (0.9-3.2); Lymphocytes Percent Auto 27.9 % (18.3-44.2); Mean Corpuscular HGB Conc 32.7 g/dl (32-36); Mean Corpuscular Hemoglobin 30.6 pg (26-34); Mean Corpuscular Volume 93.4 fl (80-100); Mean Platelet Volume 11.7 fl (7.4-10.4); Monocytes Percent Auto 8.6 % (2.6-8.5); Neutrophils Absolute Auto 6.7 K/mm3 (1.3-6.7); Neutrophils Percent Auto 59.3 % (45.5-73.1); Platelet Count Result 322 k/mm3 (150-375); Red Blood Count 4.25 M/mm3 (4.2-5.4); Red Cell Distribution Width 14.6 % (11.5-14.5); White Blood Count 11.3 K/mm3 (4.5-10.0)
[2021-01-17 05:36] LABS: INR 0.9; Prothrombin Time 13.1 Seconds (11.1-14.7)
[2021-01-17 05:37] LABS: Partial Thromboplastin Time 23.1 SECONDS (22.3-36.8)
[2021-01-17 05:38] LABS: Alanine Aminotransferase 22 U/L (4-35); Albumin Level 4.6 g/dL (3.5-5.1); Alkaline Phosphatase 80 U/L (38-126); Anion Gap 6 mmol/L (8-16); Aspartate Amino Transferase 33 U/L (14-36); Bilirubin,Total 0.4 mg/dL (0.2-1.3); Blood Urea Nitrogen 18 mg/dL (7-17); Calcium 10.1 mg/dL (8.4-10.2); Carbon Dioxide 32 mmol/L (22-30); Chloride 101 mmol/L (98-107); Estimated CRCL calculation 38 ml/min; Estimated Glomerular Filt Rate 48; Glucose 138 mg/dL (65-105); Lipase 58 U/L (23-300); Potassium 3.8 mmol/L (3.4-5.0); Sodium 139 mmol/L (137-145)
[2021-01-17 05:50] LABS: Troponin I < 0.012 ng/mL (0.000-0.034)
--- NOTE | 2021-01-17 07:20 | PC.NURSE ---
Dr Hubbard notified of patient c/o pain 03/22 at this time, no new orders given.
--- NOTE | 2021-01-17 08:06 | ECG_ITS ---
Measurements Intervals [place] Rate: 56 P: 45 NM: 147 QRS: 27 QRSD: 76 T: 85 QT: 428 QTc: 416 Interpretive Statements SINUS BRADYCARDIA ATRIAL PREMATURE COMPLEX ST ABNORMALITY IN ANTERIOR LEADS- CONSIDER ISCHEMIA BASELINE ARTIFACT- II, III ABNORMAL ECG Electronically Signed On 01-17-2021 8:20:57 CDT by Ashok Palma D.O.
--- NOTE | 2021-01-17 08:28 | PC.NURSE ---
Patient states pain was originally 7/10 when first nitro administered now rates 5/10. Second dose given at this time. VS 57 NC, 92% on room air, 21 RR and BP 122/68.
--- NOTE | 2021-01-17 08:33 | PC.NURSE ---
States chest pain is currently 3/10 with second dose of nitro SL. Third dose given at this time. VS 56 W[place], 92% RA, 25 RR and bp 118/72.
--- NOTE | 2021-01-17 08:38 | PC.NURSE ---
Patient c/o pain 2/10 after 3rd dose of nitro. Patient became pale and diaphoretic with bp 98/54. Dr Martinez notified and no new orders.
--- NOTE | 2021-01-17 09:07 | PC.NURSE ---
Patient states at this time feeling much better after the nitro doses. Resting comfortably.
--- NOTE | 2021-01-17 09:29 | PC.NURSE ---
Called lab about d-dimer that was added on @ 08. division order technician called earlier when the order was placed. Joanne from lab states she 'will add it on now'.
[2021-01-17 09:36] LABS: D Dimer 0.73 ug/mL (<0.48)
[2021-01-17] MEDS: HEPARIN SODIUM 5,000 UNITS/ML VIAL 4000 UNITS IV PUSH (10:14)
[2021-01-17] MEDS: HEPARIN SOD/D5W 100 UNITS/ML 25,000 UNITS/250 ML BAG 8 UNITS IV CONT (11:04)
--- NOTE | 2021-01-17 11:13 | PC.NURSE ---
Patient c/o chest pain rating 4/10, Dr Martinez at bedside and verbal order recieved for another dose of nitro SL PRN. Current VS 57 NH, RR 22, pulse ox 92% with BP 121/59.
--- NOTE | 2021-01-17 11:18 | PC.NURSE ---
Patient states chest pain after 1st nitro is 2/10, second dose given. Current VS 54 MT, 92% on room air, RR 19, BP 106/63. Dr Martinez notified of decreased BP and states to continue to give second dose of nitro along with 1 Li NL saline at this time.
[2021-01-17] MEDS: SODIUM CHLORIDE 0.9% IV 1,000 ML 999 ML IV CONT (11:21)
--- NOTE | 2021-01-17 11:23 | PC.NURSE ---
After second dose chest pain noted to be 09/22. VS 54 FL, pulse ox 92% on room air, RR 20 and BP 97/61.
--- NOTE | 2021-01-17 11:27 | PC.NURSE ---
Verbal order Dr Martinez, place patient on 3 Li NC at this time for pulse ox at 90%, also given patient ice chips at this time.
--- NOTE | 2021-01-17 13:21 | ADMGEN ---
This patient, Lakshmi Comer, was admitted to IMU Room 207-01. Patient/family oriented to hospital policies and general routines including ID bracelet, bed and alarms, visiting hours, pain management, procedures, bathroom and other care routines, personal items, smoking policy, room service/diet, and visiting hours. Information on how to activate the Rapid Response Team has been discussed. Patient/Family are encouraged to report perceived risks to care and to ask questions if they do not understand what they are told or what they should do.
[2021-01-17] MEDS: SODIUM CHLORIDE 0.9% IV 1,000 ML 125 ML IV CONT (13:44)
--- NOTE | 2021-01-17 15:32 | PM.CNCAR ---
Assessment and Plan Additional Plan This is a 75-year-old white female with: History of aortic valve disease, aortic stenosis treated with a TAVR valve couple of months ago at [facility]. Her pre TAVR workup did not show any evidence of coronary disease. Surprisingly she is admitted to the hospital with an episode of ischemic sounding chest pain, some ST segment depression and a significant troponin rise. Echocardiogram earlier today did not show any obvious wall motion abnormalities but was not an ideal quality exam. The TAVR valve seems to be functioning well I do not see any aortic regurgitation nor any transvalvular TAVR gradient. At this time I would have to presume this was a embolic event as she is known not to have any coronary atherosclerosis. I would keep her anticoagulated with heparin for at least 24 hours. I am going to resume her clopidogrel, beta-syed lysine a and follow her closely with you. Since we know she did not have any coronary disease a couple of months ago at this point I do not see any strong argument for bringing her to the labor contract analyst here at [facility]. I did discuss with with my partner who performed the TAVR procedure who agrees with this plan as well. Karlos Cedillo MD [facility] History of Present Illness History of Present Illness Consult date/time: 01/17/21 15:32 Reason For Visit: nstemi Narrative: This is a 75-year-old woman I am seeing today at the request of the hospitalist because she came into the emergency room this morning reporting chest pain and by troponin criteria has had a non ST elevation VT. The patient is known to Dr. Conklin of our practice and apparently was referred last year for evaluation of aortic valve disease. She was found to have significant aortic valve stenosis which was felt to be symptomatic with exertional dyspnea. Some of the workup including the esophageal echo was done here at [facility]. She underwent the rest of her workup at [facility] and was treated with a TAVR valve in October of this year. The patient at the time of angiography before her aortic valve procedure was found to have non diseased coronary arteries. The procedure was felt to be successful and uneventful. She was seen in the office after this and was doing well and was referred for phase 2 cardiac rehab. The patient is also significantly obese with a BMI of 37 but otherwise reports that she has hypertension and no other significant medical problems. She was in her usual state of health when at about 4:00 a.m. this morning she was awakened with chest pain. She describes a pressure-like retrosternal pain radiating to the left scapular region which was associated with diaphoresis. After a little while she called 911 and was taken to the hospital's emergency room here where she was evaluated. Her initial ECG was felt to be essentially unremarkable in her troponin level was negative. A 2nd troponin level was elevated at 0.1 and she was then decided to be admitted to the hospital. The ECG at that time demonstrated is some additional precordial ST segment depression in comparison to the admission tracing. She states that at this time I am seeing her in the IMU and her discomfort is minimal, largely abated. She has been treated with intravenous heparin for anticoagulation. The remainder of her cardiac medicines included aspirin, clopidogrel, metoprolol lisinopril and spironolactone. The aspirin has been reordered but none of the other medications. Interestingly her troponin level on the 3rd sample was risen significantly to 6.3. She is relatively comfortable at this time and speaking to her who is with her in the room. Review of Systems Constitutional: Constitutional: Reports fatigue and Reports lethargy Eyes: Eyes: Reports no additional eye complaints ENT: Reports system reviewed and no additional complaints, except as documented Cardiovascular: Cardiovascular: Reports as per HPI Respiratory:
[2021-01-17] MEDS: METOPROLOL SUCCINATE EXT REL 50 MG TABCR PO (16:06)
[2021-01-17 18:01] LABS: Prothrombin Time 13.9 Seconds (11.1-14.7)
[2021-01-17 18:02] LABS: Partial Thromboplastin Time 58.2 SECONDS (22.3-36.8)
[2021-01-17] MEDS: HEPARIN SODIUM 5,000 UNITS/ML VIAL 2500 UNITS IV PUSH (18:09)
[2021-01-17] MEDS: ACETAMINOPHEN 325 MG TABLET 650 MG PO (18:13)
--- NOTE | 2021-01-17 21:09 | ECG_ITS ---
Measurements Intervals [place] Rate: 78 P: AK: 0 QRS: 24 QRSD: 81 T: 63 QT: 321 QTc: 367 Interpretive Statements SINUS RHYTHM LOW QRS VOLTAGE IN PRECORDIAL LEADS NONSPECIFIC ST & T-WAVE ABNORMALITY- INF/HIGH LAT LEADS BASELINE ARTIFACT- I, II, III, AVR, AVL, AVF, V1-V6 BORDERLINE ECG Electronically Signed On 01-18-2021 7:44:22 CDT by Ashok Palma D.O.
[2021-01-17 21:31] LABS: Glucose Point of Care 149 (65-105)
[2021-01-17] MEDS: FENTANYL 2,500MCG/NS250ML(*CRX 2,500 MCG/250 ML BAG 7.5 MCG IV CONT (22:05)
[2021-01-17] MEDS: MIDAZOLAM 100MG/NS 100ML(*CRX) 100 MG/100 ML BAG IV CONT (22:05)
--- NOTE | 2021-01-17 22:10 | PM.IMHP ---
H&P: HPI History of Present Illness Date/Time: 01/17/21 22:10 Chief Complaint: respriatory distress Narrative: Patient is a 75-year-old female who presents the emergency department who presented this am with shortness of breath and chest tightness. She called EMS and was brought in to the hopsital. she had already taken full dose aspirin, SL nitro which improved her pain. Prehospital EKG showed some minor ST depressions but no ST elevations. She has not histoyr of CAD but has hx of TAVR recently done at [facility]. TAVR workup did nt show any evidence of coronary artery dsiease as per cardiology note. ECHO was done today did not show any obvious WMA with well functioning TAVR. She was admitted and heparin gtt was started. her initaill troponi was normal, howeve bumped up to 1.2 and then eventually to 6.3 earlier today. This evening, rapid response was called wtih shortness of breath and respiratory distress, she was diaphoretic and wheezy. Her ivf was stopped. solumedrol given and also iv lasix. CXR with worsening pulmonary edema. she was placed on BIPAP however the respiratory distres continued and eventually needed to be intubated. see rapid sheet. she was enetually transferred to the ICU. Review of Systems Review of Systems: ROS unobtainable: Yes unobtainable due to medical condition PMFSH Family History Family History Grandparent Hypertension Cerebrovascular accident Father Heart disease Social History Social History Smoking status: Never smoker Alcohol intake: never Substance use: never Substance use type: does not use Gender identity (if verbalized by the patient): Male Spiritual care concerns: No Meds Home Medications and Allergies Home Medications Medication Instructions Recorded Confirmed Type aspirin 81 mg PO DAILY 06/03/20 01/17/21 History calcitonin (salmon) 1 spray INTRANASAL DAILY 06/03/20 01/17/21 History lisinopril 30 mg PO DAILY 06/03/20 01/17/21 History spironolactone 25 mg PO DAILY 06/03/20 01/17/21 History venlafaxine 150 mg PO DAILY 06/03/20 01/17/21 History acetaminophen 500 mg PO Q6H PRN 12/16/20 01/17/21 History ascorbic acid (vitamin C) [Vitamin 500 mg PO DAILY 12/16/20 01/17/21 History C] cholecalciferol (vitamin D3) 50 mcg PO DAILY 12/16/20 01/17/21 History [Vitamin D3] clopidogrel 75 mg PO DAILY 12/16/20 01/17/21 History furosemide 20 mg PO DAILY 12/16/20 01/17/21 History metoprolol succinate 50 mg PO DAILY 12/16/20 01/17/21 History errlpekk-ppu-bzdk-FA-lutein 1 tablet PO DAILY 12/16/20 01/17/21 History [Centrum Silver Women] omega 9-fam-jzm-fish oil [Fish Oil] 1 cap PO DAILY 12/16/20 01/17/21 History vitamin E 400 unit PO DAILY 12/16/20 01/17/21 History Allergies Allergy/AdvReac Type Severity Reaction Status Date / Time hydromorphone Allergy Mild Itching Verified 01/17/21 05:55 morphine Allergy Mild Itching Verified 01/17/21 05:55 Vital Signs Vital Signs - 24 hr 01/17/21 05:05 01/17/21 07:16 01/17/21 08:23 Temperature 97.8 F Pulse Rate 57 L 57 L 57 L Respiratory Rate 21 H 23 H 26 H Blood Pressure 140/73 137/68 129/81 Pulse Oximetry 98 93 93 01/17/21 09:06 01/17/21 09:31 01/17/21 10:16 Temperature Pulse Rate 50 L 52 L 57 L Respiratory Rate 12 21 H 18 Blood Pressure 98/54 L 115/57 L 121/63 Pulse Oximetry 92 95 94 01/17/21 11:22 01/17/21 12:27 01/17/21 12:31 Temperature Pulse Rate 54 L 60 60 Respiratory Rate 18 29 H 24 H Blood Pressure 106/63 120/67 128/66 Pulse Oximetry 92 96 95 01/17/21 12:50 01/17/21 13:00 01/17/21 16:00 Temperature 97 F L 98.1 F Pulse Rate 60 62 Respiratory Rate 28 H 24 H Blood Pressure 119/55 L 125/63 Pulse Oximetry 92 92 100 01/17/21 16:06 01/17/21 18:00 01/17/21 20:00 Temperature 98.3 F Pulse Rate 59 L 61 63 Respiratory Rate 28 H Blood Pressure 118/65 Pulse Oxim
--- NOTE | 2021-01-17 22:14 | PC.NURSE ---
At 2100, the patient put on her call light and said she couldn't breathe. Upon entering the room, patient was wheezing, cold and clammy, pale. O2 saturation is 92% on a 3L nasal cannula. Rapid Response was called.
--- NOTE | 2021-01-17 22:17 | PC.NURSE ---
At approximately 2130, the patient was transferred to ICU 10 for emergent intubation. Evelyn Justice NP intubated the patient without difficulty. Patient will need a central line, cramer, and OG tube.
--- NOTE | 2021-01-17 22:19 | PC.NURSE ---
I tried to call Karlos Comer (). There was no answer at [phone]. I then called patient's nephew, Sravan Cabezas and informed him of the patients condition. He will contact the rest of the family and continue to try and contact Karlos Comer. Answered all questions.
--- NOTE | 2021-01-17 22:20 | WPDPROCEDUR ---
Procedures Intubation Intubation Date: 01/17/21 Intubation Time: 21:46 A pre-procedural Time-Out was completed immediately before starting the procedure and confirmed: Patient Identification, Site, Procedure, Patient Position and the Availability of Requisite Equipment: Yes Sedative: etomidate Mg given: 40 Paralytic: succinylcholine Mg given: 60 Laryngoscope: fiber optic video scope ET tube size: cuffed Tube secured depth (cm): 25 Tube secured location: lips Tube placement confirmation: visualized tube passing through cords, equal breath sounds bilaterally and confirmation by capnometry Additional comments: I was able to pass the et tube after the third attempt. I was able to pass the ett after visualization of the cords. Chest x ray was noted that the ett was 8 mm above the bj so we will push the tube further once the patient is further sedated
--- NOTE | 2021-01-17 22:26 | PM.EVENT ---
Event Note Event Note Event Note: A rapid response had been called as patient was very short of breath and we tried the BiPAP we increase the settings up to 18/8 and the patient was still tachypneic and tachycardic she was diaphoretic. The patient was given Lasix IV and Solu-Medrol. Please see rapid she. The patient was taken ICU and intubated and placed on ventilator. Cardiology was notified as well as child & adolescent psychiatrist. The child & adolescent psychiatrist agreed to be the consultation. Her IV with the heparin drip also infiltrated in the left arm. It was difficult to get a IV access on the patient so we decided to do a central line.
[2021-01-17] MEDS: methylPREDNISolone SOD SUCC 125 MG VIAL IV PUSH (22:27)
[2021-01-17] MEDS: FUROSEMIDE INJ 40 MG/4 ML VIAL IV PUSH ×2 (22:29→23:05)
[2021-01-17 22:45] LABS: Alveolar/Arterial O2 Gradient 576.5 mmHg; Base Excess ABG -6.8 mEq/l (+/-2.0); Fractional Inspired Oxygen 100 %; HCO3 ABG 17.9 mEq/l (22.0-26.0); Oxygen Content ABG 21.2 %vol (16.0-22.0); Oxygen Saturation ABG 97.4 % (95.0-100.0); Oxyhemoglobin 96.5 % THb (90.0-100.0); PO2 ABG 102.5 mmHg (80.0-100.0); PO2 FiO2 Ratio Arterial Blood 1.02 %; Total Hemoglobin 15.6 g/dL (12.0-18.0); pH ABG 7.339 (7.350-7.450)
[2021-01-17 22:48] LABS: Device VENTILATOR; Site Drawn LEFT FEMORAL
[2021-01-17 22:49] LABS: Arterial Blood Gas PEEP 8 cmH2O; Arterial Blood Gas Tidal Volume 400 ml; Arterial Blood Gas Vent Mode CMV; Arterial Blood Gas Ventilator rate 16 /MIN
--- NOTE | 2021-01-17 23:14 | P.PCNBED_ITS ---
Procedures Central Line Placement Left Femoral: Central Line Date: 01/17/21 Central Line Time: 23:00 Discussed w/ the patient/family/POA,the placement of a central venous catheter, including its clinical necessity/indication & associated potential risks, benifits and alternatives.: Yes The patient/family/POA understand(s) and acknowledge(s) the need to proceed with central venous catheter insertion as an important element of the patient's clinical management.: Yes Time Out Performed: Yes Patient Position: supine Provider Prep: Max. sterile barrier precautions Local anesthesia used: lidocaine 1% Amount of anesthesia used (ml): 5 Central line lumen inserted: triple Romansh: 7 Length (cm): 16 Depth of Insertion (cm): 16 Post Procedure: sutured in place, good blood return, all ports aspirated, flushed, capped and transparent dressing
--- NOTE | 2021-01-17 23:32 | PC.NURSE ---
Attempted to reach for consent for central line due to lack of access. No answer, was perviously unreachable. Called nephew, Sravan Cabezas, who states he will keep trying to get ahold of [employer] but does not think he will be able too. Sravan Cabezas consents to central line with second verification by Margoth Oshea RN.
[2021-01-17 23:38] LABS: Basophils Absolute Auto 0.1 K/mm3 (0.0-0.1); Basophils Percent Auto 0.4 % (0.2-1.2); Hematocrit 44.4 % (37.0-47.0); Hemoglobin 14.5 g/dL (12.0-15.0); Immature Granulocyte Absolute 0.25 K/mm3 (0.00-0.031); Immature Granulocyte Percent A 0.8 % (0-0.5); Lymphocytes Absolute Auto 0.81 K/mm3 (0.9-3.2); Lymphocytes Percent Auto 2.8 % (18.3-44.2); Mean Corpuscular HGB Conc 32.7 g/dl (32-36); Mean Corpuscular Hemoglobin 30.9 pg (26-34); Mean Corpuscular Volume 94.5 fl (80-100); Mean Platelet Volume 11.4 fl (7.4-10.4); Monocytes Absolute Auto 0.7 K/mm3 (0.1-0.6); Monocytes Percent Auto 2.4 % (2.6-8.5); Neutrophils Absolute Auto 27.5 K/mm3 (1.3-6.7); Neutrophils Percent Auto 93.6 % (45.5-73.1); Platelet Count Result 360 k/mm3 (150-375); Red Cell Distribution Width 14.6 % (11.5-14.5); White Blood Count 29.4 K/mm3 (4.5-10.0)
[2021-01-17] MEDS: HEPARIN SOD/D5W 100 UNITS/ML 25,000 UNITS/250 ML BAG 9 UNITS IV CONT (23:47)
[2021-01-17 23:58] LABS: Alanine Aminotransferase 76 U/L (4-35); Albumin Level 4.2 g/dL (3.5-5.1); Alkaline Phosphatase 74 U/L (38-126); Aspartate Amino Transferase 740 U/L (14-36); Bilirubin,Total 1.2 mg/dL (0.2-1.3); Sodium 138 mmol/L (137-145)
[2021-01-18] VITALS (36 sets, daily range): BP systolic 94–112; BP diastolic 48–73; PULSE 50–77; RESP 16–20; TEMP 36–36.9; O2SAT 95–100
--- NOTE | 2021-01-18 | ECHO_ITS ---
Patient Info Name: Lakshmi Comer Age: 75 years : 1945 Gender: Female Ht: 60 in Wt: 192 lbs BSA: 1.97 m2 HR: 53 bpm BP: 98 / 52 mmHg Heart Rhythm: Sinus Rhythm Technical Quality: Fair Exam Date: 01/18/2021 9:51 AM Exam Location: [facility] Patient Status: Inpatient Admit Date: 01/17/2021 Staff Ordering Physician: Alireza Hidalgo MD Turnaround Planner: Kiana Love RDCS Attending Provider: Karon Lux MD Referring Physician: Rocky HOOVER; Exam Type: CA echo limited w contrast Study Info Complete two-dimensional, color flow and Doppler transthoracic echocardiogram is performed with contrast to opacify the left ventricle and to improve the deliniation of the left ventricle endocardial borders. Contrast/Agitated Saline Contrast/Ag. Saline: Definity Amount: 4.00 ml Summary 1. Left ventricular chamber dimension is normal. 2. Left ventricular systolic function is normal, estimated at 55%. There is mild hypokinesis of the mid and basal anterior wall and severe hypokinesis of the mid and basal inferolateral wall. 3. There is mildly increased left ventricular wall thickness. 4. The prosthetic aortic valve is not well visualized. There is no bioprosthetic aortic valve stenosis. Peak velocity averaging 1.6 m/sec unchanged compared to prior study. No color-flow Doppler evidence of regurgitation yet with the Pedoff probe at least mild regurgitation is suspected. 5. There is mild regurgitation of the bioprosthetic aortic valve. 6. There is mild to moderate mitral valve regurgitation. 7. There is small pericardial effusion with fibrinous material within the pericardial space. No evidence of tamponade physiology. Recommendations * Recommend transesophageal echocardiogram. Left Ventricle Left ventricular chamber dimension is normal. Left ventricular systolic function is normal, estimated at 55%. There is mild hypokinesis of the mid and basal anterior wall and severe hypokinesis of the mid and basal inferolateral wall. There is mildly increased left ventricular wall thickness. The left ventricular diastolic function is abnormal. Right Ventricle Right ventricular chamber dimension is normal. Right ventricular systolic function is normal. Aortic Valve The bioprosthetic aortic valve is not well visualized. The prosthetic aortic valve is not well visualized. There is no bioprosthetic aortic valve stenosis. Peak velocity averaging 1.6 m/sec unchanged compared to prior study. No color-flow Doppler evidence of regurgitation yet with the Pedoff probe at least mild regurgitation is suspected. There is mild regurgitation of the bioprosthetic aortic valve. Pulmonic Valve The pulmonic valve is not well visualized. Mitral Valve The mitral valve has normal leaflets. There is mild to moderate mitral valve regurgitation. The mitral valve annulus is mildly calcified. Tricuspid Valve The tricuspid valve leaflets are not well visualized. There is trace tricuspid valve regurgitation. Unable to estimate PA systolic pressure due to poor spectral resolution of tricuspid regurgitant jet velocity. Pericardium/Pleural The pericardium appears normal. There is small pericardial effusion with fibrinous material within the pericardial space. No evidence of tamponade physiology. Inferior Vena Cava Normal inferior vena cava with >50% collapse upon inspiration consistent with normal right atrial pressure, 5 mmHg. Aorta The aortic root size at the s
--- NOTE | 2021-01-18 00:01 | ECG_ITS ---
Measurements Intervals [place] Rate: 63 P: 51 NC: 133 QRS: 22 QRSD: 93 T: 125 QT: 446 QTc: 458 Interpretive Statements SINUS RHYTHM VENTRICULAR PREMATURE COMPLEX INCOMPLETE RIGHT BUNDLE BRANCH BLOCK NONSPECIFIC ST & T-WAVE ABNORMALITY- ANTEROLAT/HIGH LAT LEADS BORDERLINE ECG Electronically Signed On 01-18-2021 7:45:03 CDT by Ashok Palma D.O.
[2021-01-18 00:04] LABS: Troponin I > 80.000 ng/mL (0.000-0.034)
[2021-01-18 00:16] LABS: NT Pro B Type Natriuretic Pept 3520 pg/mL (5-100)
[2021-01-18 04:57] LABS: Alveolar/Arterial O2 Gradient 233.6 mmHg; Base Excess ABG -2.8 mEq/l (+/-2.0); Carboxyhemoglobin 0.1 % THb (0-2.0); Device VENTILATOR; Fractional Inspired Oxygen 50 %; HCO3 ABG 21.5 mEq/l (22.0-26.0); Methemoglobin ABG 0.2 %THb (0-1.5); Oxygen Content ABG 18.8 %vol (16.0-22.0); Oxygen Saturation ABG 96.1 % (95.0-100.0); Oxyhemoglobin 95.4 % THb (90.0-100.0); PCO2 ABG 36.4 mmHg (35.0-45.0); PO2 FiO2 Ratio Arterial Blood 1.64 %; Reduced Hemoglobin 4.3 %THb (0-5.0); Site Drawn LEFT RADIAL
[2021-01-18 04:58] LABS: Arterial Blood Gas PEEP 8 cmH2O; Arterial Blood Gas Tidal Volume 400 ml; Arterial Blood Gas Vent Mode CMV; Arterial Blood Gas Ventilator rate 16 /MIN
[2021-01-18 06:10] LABS: Basophils Absolute Auto 0.1 K/mm3 (0.0-0.1); Basophils Percent Auto 0.3 % (0.2-1.2); Hematocrit 39.4 % (37.0-47.0); Immature Granulocyte Absolute 0.24 K/mm3 (0.00-0.031); Immature Granulocyte Percent A 0.8 % (0-0.5); Lymphocytes Percent Auto 3.6 % (18.3-44.2); Mean Corpuscular Hemoglobin 30.7 pg (26-34); Mean Corpuscular Volume 93.1 fl (80-100); Mean Platelet Volume 11.7 fl (7.4-10.4); Monocytes Absolute Auto 0.6 K/mm3 (0.1-0.6); Monocytes Percent Auto 1.9 % (2.6-8.5); Neutrophils Absolute Auto 28.5 K/mm3 (1.3-6.7); Neutrophils Percent Auto 93.4 % (45.5-73.1); Platelet Count Result 289 k/mm3 (150-375); Red Blood Count 4.23 M/mm3 (4.2-5.4); Red Cell Distribution Width 14.6 % (11.5-14.5); White Blood Count 30.5 K/mm3 (4.5-10.0)
[2021-01-18 06:28] LABS: Partial Thromboplastin Time 77.3 SECONDS (22.3-36.8)
[2021-01-18 07:26] LABS: Anion Gap 4 mmol/L (8-16); Blood Urea Nitrogen 28 mg/dL (7-17); Calcium 8.8 mg/dL (8.4-10.2); Carbon Dioxide 28 mmol/L (22-30); Chloride 103 mmol/L (98-107); Estimated CRCL calculation 39 ml/min; Estimated Glomerular Filt Rate 48; Glucose 196 mg/dL (65-105); Potassium 4.4 mmol/L (3.4-5.0); Sodium 135 mmol/L (137-145)
[2021-01-18] MEDS: FAMOTIDINE 20 MG/2 ML VIAL IV PUSH ×2 (08:49→21:27)
--- NOTE | 2021-01-18 08:49 | WPDCNINT ---
Assessment and Plan Assessment and plan (1) Acute respiratory failure: Code(s): J96.00 - Acute respiratory failure, unspecified whether with hypoxia or hypercapnia Status: Acute Assessment and Plan: Acute Respiratory failure secondary to pulmonary edema, rule out pneumonia as patient had elevated white count and does show some areas consolidation on CT although CT mostly suggest pulmonary edema and effusions Continue full mechanical ventilation support to prevent hypoxemia/hypercarbia and end organ damage. ABG reviewed and will repeat in am. CTA Chest IMPRESSION: 1. No evidence for pulmonary embolism. 2: Extensive bilateral airspace consolidation which may represent pneumonia or edema. 3: Moderate pleural effusions. 4: Cardiomegaly. Low tidal volume ventilation strategy to prevent volutrauma Cultures Continue empiric vancomycin and cefepime (2) Acute pulmonary edema: Code(s): J81.0 - Acute pulmonary edema Status: Acute Assessment and Plan: Continue Lasix today (3) CHF (congestive heart failure): Code(s): I50.9 - Heart failure, unspecified Status: Acute Assessment and Plan: ECHO Summary 1. Complete two-dimensional, color flow and Doppler transthoracic echocardiogram is performed. 2. There is moderate concentric increased left ventricular wall thickness. 3. Left ventricular systolic function is normal, estimated at 60-65%. 4. No wall-motion abnormalities. 5. Left atrial chamber dimension is moderately enlarged. 6. There is no regurgitation of the TAVR aortic valve. 7. Minimal normal transvalvular gradient. Plan to repeat ECHO today (4) Non-ST elevation NJ (NSTEMI): Code(s): I21.4 - Non-ST elevation (NSTEMI) myocardial infarction Status: Acute Assessment and Plan: Continue IV heparin infusion aspirin Plavix beta-syed and DARYL-inhibitor Hold statin due to elevated liver enzymes at this time Cardiology following (5) S/P TAVR (transcatheter aortic valve replacement): Code(s): Z95.2 - Presence of prosthetic heart valve Status: Acute Assessment and Plan: Plan to repeat echo Additional Plan DVT prophylaxis -heparin infusion Stress ulcer prophylaxis -Pepcid Nutrition -start Tube Feeds Code Status - Full Code Case discussed with Dr. Hidalgo Total Critical Care Time - 35 minutes Due to a high probability of clinically significant, life threatening deterioration, the patient required my highest level of preparedness to intervene emergently and I personally spent this critical care time directly and personally managing the patient. This critical care time included obtaining a history; examining the patient; pulse oximetry; ordering and review of studies; arranging urgent treatment with development of a management plan; evaluation of patient's response to treatment; frequent reassessment; and discussions with other providers. It was exclusive of separately billable procedures and treating other patients and teaching time. Please see Assessment and Plan section and the rest of the note for further information on patient assessment and treatment Network Development Coordinator Consult Note Consult date: 01/18/21 Time Seen: 08:00 HPI: Lakshmi Comer is a 75 year old obese female with past medical history of aortic stenosis status post TAVR in October of this year who presented to ER yesterday morning with chief complaint of chest pain. Patient was seen by Cardiology and was diagnosed with non ST segment elevation NJ. Patient was started on IV heparin along with aspirin beta-syed and an echocardiogram was done. Last night rapid response was called as patient was short of breath and respiratory distress. Chest x-ray suggests pulmonary edema. She was initially placed on BiPAP but did not help and had to be intubated. Patient was intubated, left femoral central venous catheter was placed emergently for poor IV access and patient was t
[2021-01-18] MEDS: FUROSEMIDE INJ 40 MG/4 ML VIAL IV PUSH ×2 (08:50→17:11)
[2021-01-18] MEDS: CLOPIDOGREL BISULFATE 75 MG TABLET PO (08:50)
[2021-01-18] MEDS: ASPIRIN 81 MG CHEWABLE TABLET PO (08:50)
--- NOTE | 2021-01-18 09:12 | PM.PNCARD ---
Progress Note: A&P Assessment and Plan (1) Acute pulmonary edema: Code(s): J81.0 - Acute pulmonary edema Status: Acute Assessment and Plan: Pt with acute respiratory failure with flash pulmonary edema stabilized with intubation and IV Lasix. Elevated WBC possibly due to steroids and stress reaction but pt is not clinically in septic shock (afebrile, BP stable), no clear evidence of pneumonia although cannot exclude as infiltrates more likely pulmonary edema. Very concerning and in setting of marked Trop I elevation >80. [facility] 09/19/20 pre TAVR with no sig CAD and only luminal irregularities in RCA noted. Echo yesterday normal EF without WMA mod LVH. TAVR fxn stable. Cont IV Lasix, wean vent support as able Cont ASA, Clopidogrel, and heparin gtt. Repeat limited 2D Echo JULIÁN Repeat 12 lead EKG. EKG largely unchanged with stable ST depressions without ST elevations. Spent 65 minutes in the care of this patient at bedside and chart review. (2) Non-ST elevation [place] (NSTEMI): Code(s): I21.4 - Non-ST elevation (NSTEMI) myocardial infarction Status: Acute Assessment and Plan: As above. very high Trop I >80 curious in pt with minimal CAD luminal irregularities only on [facility] 09/2020. Other considerations include myocarditis or takotsubo depending upon Echo but coronary embolism and/or acute plaque rupture remain primary concerns. PT is hemodynamically stable and improving with current management. Cont DAPT and heparin gtt. Add statin therapy, but LFT's elevated predominant AST likely secondary to infarction. -2D echo at bedside reviewed. EF 55% moderate mid and basal anterior hypokinesis, possible mid basal inferolateral hypokinesis noted although difficult to visualize. Velocities through prosthetic aortic valve unchanged 1.6 m/sec. Pedoff probe after contrast administration to visualize LV wall motion revealed at least mild aortic regurgitation not visualized with color flow Doppler in any other view however. I personally reviewed prior echocardiogram again no AI appreciated, velocities and gradients unchanged. Most likely mechanism due to thrombotic embolism possibly late complication from TAVR and/or coronary compromise this patient did not have significant obstructive CAD and left heart catheterization is noted. Discussed with interventionalist Dr. Kennedi Casarez who agrees emergent coronary angiography warranted. Depending upon angiography findings, transesophageal echocardiogram may be performed post angiography. Attempted to obtain consent and or inform patient's spouse without success as he is unavailable. Pt's nephew Sravan Cabezas able to be contacted by nursing who reports that the patient's is unstable, apparently attempted suicide last week and cannot be located. They feel he might be a [employer] but are uncertain. He understands he is not legally able to provide consent has been doing so and when informed of the need for emergent cardiac catheterization you agree to would ever we felt was best for Ms. Comer. Given patient's acute decompensation with respiratory failure requiring intubation due to flash pulmonary edema, new WMA in the anterior and inferolateral garcia with marked troponin elevation, coronary angiography to be performed on emergent basis to delineate coronary anatomy and hopes to further stabilize pt and assess prognosis with recommendations on management to follow. Concerns around possible thrombotic complication of TAVR resulting in embolization to coronary artery which may need to be further confirmed with transesophageal echocardiogram. (3) Acute respiratory failure: Code(s): J96.00 - Acute respiratory failure, unspecified whether with hypoxia or hypercapnia Status: Acute Assessment and Plan: Per ciritical care. Intubated, wean as tolerated. IV ABx although seems less likely pneumonia. Cx sent. Pt does not appear to be septic at present. (4) S/P TAVR (transcatheter aortic valv
--- NOTE | 2021-01-18 11:10 | PM.IMPN ---
Progress Note: A&P Assessment and Plan (1) Acute pulmonary edema: Code(s): J81.0 - Acute pulmonary edema Status: Acute Assessment and Plan: Patient is intubated and sedated. Cardiology on consult. Will follow recommendations. (2) Non-ST elevation [place] (NSTEMI): Code(s): I21.4 - Non-ST elevation (NSTEMI) myocardial infarction Status: Acute Assessment and Plan: Cardiology on consult will continue current treatment. (3) S/P TAVR (transcatheter aortic valve replacement): Code(s): Z95.2 - Presence of prosthetic heart valve Status: Acute Assessment and Plan: Continue current plan of care and treatment. Cardiology on consult. (4) Pneumonia: Code(s): J18.9 - Pneumonia, unspecified organism Status: Acute Assessment and Plan: Will continue with antibiotics and follow culture. (5) Acute respiratory failure with hypoxemia: Code(s): J96.01 - Acute respiratory failure with hypoxia Status: Acute Assessment and Plan: Patient is on ventilator with continue monitor oxygen and adjust settings accordingly. Additional Plan # Chest pain/sob: diagnosed with NSTEMI with icnrease in [facility]. on heparin gtt. on aspirin, plavix. # NSTEMI: on heparin gtt. aspirin, plavix, bb, statin. # Acute pulmoanry edema: She was on i fluid running. iv lasix 40 mg iv given during the [employer]. will repeat another again. diuesis with 40 mg iv bid. repeat labs came with elevated wbc. will also cover for possible pneumonia with vancomycin ad cefepime. # hx of aortic valve stenosis s/p recent TAVR # Acute respiratory failure: due to above. intuabted and mechanically ventilated. PRVC: 450 ml/14/5/100%. abg montioring. # HTN # cancer breast s/p right lumpectomy # DVT Proph: heparin gtt Subjective Date/time seen: 01/18/21 11:10 Interval history: Patient was seen during the morning rounds today. Patient is intubated status. No acute distress. Review of Systems Review of Systems: ROS unobtainable: Yes unobtainable due to medical condition Exam Narrative: Exam Narrative: Const: Intubated and sedated HENMT: Mouth: dry mucous membranes Eyes: Sclera: sclerae normal Pupils: Equal, round and reactive pupils present Neck: Neck: supple Thyroid: thyroid normal Other: No carotid bruit, normal upstrokes JVD is difficult to assess but no obvious venous distention Resp: Effort & Inspection:severe respiratory distress Auscultation: wheezes diffusely with crakcles and rhonchi all over her chest. Cardio: Rate: regular rate Rhythm: regular rhythm Other: Soft systolic murmur at the base, no diastolic murmur no gallop GI: GI Palp: Yes Soft to palpation Auscultation: normal bowel sounds, distended, does nto seem tender to touch Skin: General skin exam: normal color Neuro: alert and conversant, moving all extremities Extrem: General: normal to inspection Other: Good pulses, no edema Objective Data Vital Signs Vital Signs: Vital Signs - 24 hr 01/17/21 11:22 01/17/21 12:27 01/17/21 12:31 Temperature Pulse Rate 54 L 60 60 Respiratory Rate 18 29 H 24 H Blood Pressure 106/63 120/67 128/66 Pulse Oximetry 92 96 95 01/17/21 12:50 01/17/21 13:00 01/17/21 16:00 Temperature 36.1 C L 36.7 C Pulse Rate 60 62 Respiratory Rate 28 H 24 H Blood Pressure 119/55 L 125/63 Pulse Oximetry 92 92 100 01/17/21 16:06 01/17/21 18:00 01/17/21 20:00 Temperature 36.8 C Pulse Rate 59 L 61 63 Respiratory Rate 28 H Blood Pressure 118/65 Pulse Oximetry 93 01/17/21 21:00 01/17/21 21:58 01/17/21 22:00 Temperature Pulse Rate 100 93 77 Respiratory Rate 36 H Blood Pressure 153/122 H Pulse Oximetry 93 97 01/17/21 22:05 01/17/21 22:15 01/17/21 22:28 Temperature Pulse Rate 92 92 77 Respiratory Rate 24 H 24 H 26 H Blood Pressure 143/106 H Pulse Oximetry 91 01/17/21 22:30 01/17/21 23:11 01/18/21 00:00 Temperature 36.9 C Pulse Rate 77 68 6
[2021-01-18 12:12] LABS: Partial Thromboplastin Time 100.5 SECONDS (22.3-36.8)
--- NOTE | 2021-01-18 14:06 | P.PCNCC_ITS ---
Cardiac Cath Procedure Note Date of procedure:: 01/18/21 Performing physician:: Pavel Edge MD Assessment and Plan Additional Plan PROCEDURE 1. LHC and coronary angiogram 2. PCI for culprit lesion of NSTEMI with MARIAN INDICATION 1. NSTEMI HISTORY 75 Yrs old female s/p TAVR with medtronic valve presented with NSTEMI and acute heart and respiratory failure PROCEDURE DETAILS Consent obtained from nephew for emergency procedure, patient draped and prepped in sterile fashion. Access obtained in rt [employer] with US and fluoroscopic guidance. Coronary angiogram was obtained with JL3.5 and Jr4 HEMODYNAMICS Aorta: 110/70 LV 120/20 CORONARY ANGIOGRAM 1. Left main: Normal and has take off behind brandy skirt but fills with no difficulty 2. LAD: Large vessel that reaches apex and gives one large diagonal. LAD and diagonal with no obstructive disease 3. LCX: Large non dominant vessel with filling defect, 99% occlusion culprit lesion for NSTEMI 4. RCA (non selective angiogram): Dominant vessel gives PDA and rPL with no o bstructive disease 5. Aortogram was done and revealed no AI INTERVENTION PROCEDURE DETAILS Lesion (pre): mid RCA subtotal occlusion culprit lesion for NSTEMI, 99% occlusion and KARY 1 Anticoagulation with heparin to target ACT 250 sec or longer Anti-platelet therapy with ASA and Plavix Guide catheter: CLS 3.0, It was not possible to achieve selective engagement because left main is behind valve skirt, Lesion crossed with Samurai wire, after making loop in coronary sinus and crossed to distal LCX Balloon angioplasty was done with Emerge 2.0 * 12 then stent done with 2 overlapping stents XIENCE Michelle 3.0 * 12 and 3.0 *8 mm stent. Stent post dilated with Emerge NC 3.0 * 12 at 18 WHITNEY lesion (post): 0% residual stenosis and KARY 3 flow COMPLICATIONS None Catheter and sheath removed and access closed with angioseal with no hematoma and intact distal pulses CONCLUSIONS Successful PCI to LCx acute thrombotic occlusion with 2 MARIAN XIENCE Michelle 3.0 * 12 and 3.0 * 8 mm Likely coronary embolism rather than plaque rupture RECOMMENDATIONS ROMEL (emergency ROMEL to evaluate cardiac source for embolic or valve thrombus) Oral anticoagulation (triple therapy for one week the OAC + Plavix)
--- NOTE | 2021-01-18 14:08 | SUR.OPER ---
Dr. Hidalgo arrives to assist in performing emergent ROMEL.
--- NOTE | 2021-01-18 15:01 | WPDMODSED ---
Moderate Sedation Note-Pt Data Patient Data Diagnosis: Coronary embolization, status post TAVR Present Complaint: intubated/sedated Transesophageal echocardiogram performed in Cardiac catheterization lab post emergent coronary angiography due to concern for thrombotic embolization to coronary artery likely from aortic valve prosthesis resulting in complicated NSTEMI. patient is already receiving sedation with Versed and Fentanyl. Procedure to be performed/Plan: transesophageal echocardiogram Allergies Allergy/AdvReac Type Severity Reaction Status Date / Time hydromorphone Allergy Mild Itching Verified 01/17/21 05:55 morphine Allergy Mild Itching Verified 01/17/21 05:55 Home Medications Medication Instructions Recorded Confirmed Type aspirin 81 mg PO DAILY 06/03/20 01/17/21 History calcitonin (salmon) 1 spray INTRANASAL DAILY 06/03/20 01/17/21 History lisinopril 30 mg PO DAILY 06/03/20 01/17/21 History spironolactone 25 mg PO DAILY 06/03/20 01/17/21 History venlafaxine 150 mg PO DAILY 06/03/20 01/17/21 History acetaminophen 500 mg PO Q6H PRN 12/16/20 01/17/21 History ascorbic acid (vitamin C) [Vitamin 500 mg PO DAILY 12/16/20 01/17/21 History C] cholecalciferol (vitamin D3) 50 mcg PO DAILY 12/16/20 01/17/21 History [Vitamin D3] clopidogrel 75 mg PO DAILY 12/16/20 01/17/21 History furosemide 20 mg PO DAILY 12/16/20 01/17/21 History metoprolol succinate 50 mg PO DAILY 12/16/20 01/17/21 History bfabuksv-kfj-umkl-FA-lutein 1 tablet PO DAILY 12/16/20 01/17/21 History [Centrum Silver Women] omega 6-eea-mrc-fish oil [Fish Oil] 1 cap PO DAILY 12/16/20 01/17/21 History vitamin E 400 unit PO DAILY 12/16/20 01/17/21 History Current Medications: Active Medications Acetaminophen (Acetaminophen 325 Mg Tablet) 650 mg PO Q4H PRN PRN Reason: Mild Pain (1-3) or Fever Last Admin: 01/17/21 18:13 Dose: 650 mg Documented by: Aspirin (Aspirin 81 Mg Chewable Tablet) 81 mg PO DAILY@0800 KINGA Last Admin: 01/18/21 08:50 Dose: 81 mg Documented by: Clopidogrel Bisulfate (Clopidogrel Bisulfate 75 Mg Tablet) 75 mg PO QAM KINGA Last Admin: 01/18/21 08:50 Dose: 75 mg Documented by: Famotidine (Famotidine 20 Mg/2 Ml Vial) 20 mg IV PUSH Q12HR KINGA Last Admin: 01/18/21 08:49 Dose: 20 mg Documented by: Furosemide (Furosemide Inj 40 Mg/4 Ml Vial) 40 mg IV PUSH BID KINGA Last Admin: 01/18/21 08:50 Dose: 40 mg Documented by: Heparin Sodium (Porcine) (Heparin Sodium 5,000 Units/Ml Vial) 4,000 units IV PUSH PRN PRN PRN Reason: aPTT less than 55 seconds Heparin Sodium (Porcine) (Heparin Sodium 5,000 Units/Ml Vial) 2,500 units IV PUSH PRN PRN PRN Reason: aPTT 55 - 70 seconds Last Admin: 01/17/21 18:09 Dose: 2,500 units Documented by: Heparin Sodium/Dextrose (Heparin Sodium/D5w 100 Units/Ml) 25,000 units in 250 mls @ 9 mls/hr IV CONT .Q24H KINGA; Protocol Last Titration: 01/18/21 06:04 Dose: 900 units/hr, 9 mls/hr Documented by: Fentanyl Citrate (Fentanyl 2,500 Mcg/Ns 250 Ml) 2,500 mcg in 250 mls @ 7.5 mls/hr IV CONT .[id number] KINGA; Protocol Last Titration: 01/18/21 08:30 Dose: 75 mcg/hr, 7.5 mls/hr Documented by: Midazolam HCl (Versed 100 Mg/Ns 100 Ml) 100 mg in 100 mls @ 3 mls/hr IV CONT .[id number] KINGA; Protocol Last Titration: 01/18/21 06:05 Dose: 3 mg/hr, 3 mls/hr Documented by: Cefepime HCl (Maxipime 2 Gm/D5w 50 Ml) 2 gm in 50 mls @ 100 mls/hr IVPB Q12H KINGA Vancomycin HCl (Vancomycin 1,250 Mg/D5w 250 Ml) 1,250 mg in 250 mls @ 200 mls/hr IVPB Q36H [facility] Last Infusion: 01/18/21 05:31 Dose: Infused Documented by: Norepinephrine Bitartrate (Levophed 8 Mg/D5w 250 Ml) 8 mg in 250 mls @ 9.375 mls/hr IV CONT .[id number] [facility]; Protocol Lisinopril (Lisinopril 2.5 Mg Tablet) 2.5 mg PO QAM [facility] Last Admin: 01/18/21 08:45 Dose: Not Given Documented by: Metoprolol Tartrate (Metoprolol Tartrate 6.25 Mg Tablet) 6.25 mg PO Q12HR [facility] Last Admin: 01/18/21 08:46 Dose: Not Given Documented by: Multi-Ingred Cream/Lotion/Oil/Oint (Mi
--- NOTE | 2021-01-18 15:09 | WPDTEECHO ---
ROMEL TransEsophageal Echocardiogram Date of procedure: 01/18/21 Procedure Type: Transesophageal echocardiogram Diagnosis: status post TAVR, coronary embolism Indications: status post TAVR, coronary embolism Image Quality: acceptable Findings: Brief history present illness: Patient is a 75-year-old white female with history of severe aortic stenosis status post TAVR October 2020 with history of known minimal CAD on left heart catheterization September 2020 who presented with chest pain, shortness of breath and elevated troponin with ST depressions who ventrally developed acute flash pulmonary edema with respiratory failure requiring intubation and a troponin greater than 80. Patient was emergently taken to the Cardiac catheterization lab had a concern for thrombotic embolism compromising coronary flow with TAVR prosthesis as possible embolic source. Patient also had developed a white blood cell count of greater than 30,000 although afebrile. Transesophageal echocardiogram is performed immediately post coronary angiography as advised by Dr. Kennedi Casarez due to suspicion for TAVR associated thrombus. Procedure in detail: As above, performed in setting of post emergent coronary angiography. The patient was evaluated at bedside in the cardiac catheterization procedure room. The patient was then placed in the appropriate 30 to 45 degree angle supine position. Patient was monitored throughout the study with telemetry, oxygen saturation, blood pressure, heart rate, and respirations. Patient remained on ventilatory support throughout the Study. Patient was given additional boluses of Versed and fentanyl. After confirmation of adequate moderate sedation, the transesophageal echocardiogram probe was advanced through the oral bite block into the posterior hypopharynx posterior to the endotracheal tube assisted by slight deflation ET tube cuff. The probe was then advanced into the esophagus easily and without complication. Multiple, multiplanar echocardiographic images were obtained in multiple standard re- projections. Pulsed wave, continuous-wave, and color-flow Doppler were utilized in conjunction with this study. At the conclusion of the study, the transesophageal echocardiogram probe was removed easily and without complication. The patient tolerated the procedure well without difficulty. Patient was in sinus rhythm throughout the study. The OG tube and ET tube remained in place. Moderate Sedation/Anesthesia administration: Please see pre-sedation noted for physical examination documentation. As noted above, pt was already on maintenance sedation with Versed and Fentanyl but required additional total of boluses of 2 mg intravenous Versed and 100mcg intravenous Fentanyl in multiple divided doses. Sedation start time was 1422 and end time was 1457 for a total intra-service/procedure face-face time of 35 minutes. Sedation was administered by a qualified/certified observer Kayce Alvarez RN under my supervision with intra-procedure [id number] observation and management throughout the entirety of the procedure. There were no other issues or complications and patient tolerated the procedure well. See post-anesthesia documentation. FINDINGS: LEFT VENTRICLE: Size and systolic function were within normal limits with inferolateral and anterior wall hypokinesis with ejection fraction of 55%. RIGHT VENTRICLE: Size and systolic function within normal limits. LEFT ATRIUM: Moderately enlarged with faint spontaneous contrast RIGHT ATRIUM: Normal size. INTERATRIAL SEPTUM: Interatrial septum is anatomically normal without evidence of shunt with color-flow Doppler. MITRAL VALVE: Mitral valve is anatomically normal with evidence of mal-coaptation, preserved leaflet excursion and moderate regurgitation. AORTIC VALVE: The aortic valve bioprosthesis was well seated without rocking motion. Trace to mild valvular regurgitation was appreciated. leaflets were
[2021-01-18 15:18] LABS: Activated Clotting Time 109 sec (74-137)
[2021-01-18 15:18] LABS: Activated Clotting Time 263 sec (74-137)
[2021-01-18] MEDS: FENTANYL 2,500MCG/NS250ML(*CRX 2,500 MCG/250 ML BAG 7.5 MCG IV CONT (19:29)
[2021-01-18] MEDS: METOPROLOL TARTRATE 6.25 MG TABLET PO (21:26)
[2021-01-19] VITALS (32 sets, daily range): BP systolic 97–116; BP diastolic 45–73; PULSE 62–93; RESP 14–20; TEMP 36.2–36.9; O2SAT 93–100
[2021-01-19] MEDS: MIDAZOLAM 100MG/NS 100ML(*CRX) 100 MG/100 ML BAG IV CONT (00:43)
[2021-01-19 04:30] LABS: Alveolar/Arterial O2 Gradient 179.9 mmHg; Base Excess ABG -1.5 mEq/l (+/-2.0); Carboxyhemoglobin 0.3 % THb (0-2.0); Fractional Inspired Oxygen 40 %; HCO3 ABG 22.1 mEq/l (22.0-26.0); Methemoglobin ABG 0.2 %THb (0-1.5); Oxygen Content ABG 16.1 %vol (16.0-22.0); Oxyhemoglobin 91.7 % THb (90.0-100.0); PCO2 ABG 33.6 mmHg (35.0-45.0); PO2 ABG 66.7 mmHg (80.0-100.0); PO2 FiO2 Ratio Arterial Blood 1.67 %; Reduced Hemoglobin 7.8 %THb (0-5.0); Total Hemoglobin 12.5 g/dL (12.0-18.0); pH ABG 7.436 (7.350-7.450)
[2021-01-19 04:31] LABS: Arterial Blood Gas PEEP 8 cmH2O; Arterial Blood Gas Tidal Volume 400 ml; Arterial Blood Gas Vent Mode CMV; Arterial Blood Gas Ventilator rate 16 /MIN; Device VENTILATOR; Modified Allen's Test Pass; Site Drawn LEFT RADIAL
[2021-01-19 06:18] LABS: Basophils Percent Auto 0.2 % (0.2-1.2); Hematocrit 33.2 % (37.0-47.0); Hemoglobin 10.8 g/dL (12.0-15.0); Immature Granulocyte Absolute 0.19 K/mm3 (0.00-0.031); Immature Granulocyte Percent A 0.7 % (0-0.5); Lymphocytes Absolute Auto 2.11 K/mm3 (0.9-3.2); Lymphocytes Percent Auto 8.3 % (18.3-44.2); Mean Corpuscular HGB Conc 32.5 g/dl (32-36); Mean Corpuscular Hemoglobin 30.1 pg (26-34); Mean Corpuscular Volume 92.5 fl (80-100); Monocytes Absolute Auto 1.7 K/mm3 (0.1-0.6); Monocytes Percent Auto 6.5 % (2.6-8.5); Neutrophils Absolute Auto 21.4 K/mm3 (1.3-6.7); Neutrophils Percent Auto 84.3 % (45.5-73.1); Platelet Count Result 268 k/mm3 (150-375); Red Blood Count 3.59 M/mm3 (4.2-5.4); Red Cell Distribution Width 14.7 % (11.5-14.5); White Blood Count 25.4 K/mm3 (4.5-10.0)
[2021-01-19 06:39] LABS: Partial Thromboplastin Time 86.1 SECONDS (22.3-36.8)
[2021-01-19 06:51] LABS: Alanine Aminotransferase 53 U/L (4-35); Albumin Level 3.5 g/dL (3.5-5.1); Alkaline Phosphatase 58 U/L (38-126); Anion Gap 5 mmol/L (8-16); Aspartate Amino Transferase 262 U/L (14-36); Bilirubin,Total 0.6 mg/dL (0.2-1.3); Blood Urea Nitrogen 36 mg/dL (7-17); Calcium 8.9 mg/dL (8.4-10.2); Carbon Dioxide 28 mmol/L (22-30); Chloride 105 mmol/L (98-107); Estimated CRCL calculation 33 ml/min; Estimated Glomerular Filt Rate 40; Glucose 129 mg/dL (65-105); Potassium 3.7 mmol/L (3.4-5.0); Sodium 138 mmol/L (137-145)
[2021-01-19] MEDS: ASPIRIN 81 MG CHEWABLE TABLET PO (08:44)
[2021-01-19] MEDS: FUROSEMIDE INJ 40 MG/4 ML VIAL IV PUSH ×2 (08:44→16:53)
[2021-01-19] MEDS: FAMOTIDINE 20 MG/2 ML VIAL IV PUSH ×2 (08:44→21:07)
[2021-01-19] MEDS: lisinopriL 2.5 MG TABLET PO (08:44)
[2021-01-19] MEDS: METOPROLOL TARTRATE 6.25 MG TABLET PO ×2 (08:44→21:07)
[2021-01-19] MEDS: CLOPIDOGREL BISULFATE 75 MG TABLET PO (09:00)
[2021-01-19] MEDS: POTASSIUM CHLORIDE 20 MEQ PACKET (FOR LIQUID) 40 MEQ FEED TUBE (09:00)
--- NOTE | 2021-01-19 09:07 | PM.IMPN ---
Progress Note: A&P Assessment and Plan (1) Acute pulmonary edema: Code(s): J81.0 - Acute pulmonary edema Status: Acute Assessment and Plan: Patient is intubated and sedated. Cardiology on consult. Will follow recommendations. (2) Non-ST elevation [place] (NSTEMI): Code(s): I21.4 - Non-ST elevation (NSTEMI) myocardial infarction Status: Acute Assessment and Plan: Cardiology on consult will continue current treatment. (3) S/P TAVR (transcatheter aortic valve replacement): Code(s): Z95.2 - Presence of prosthetic heart valve Status: Acute Assessment and Plan: Continue current plan of care and treatment. Cardiology on consult. (4) Pneumonia: Code(s): J18.9 - Pneumonia, unspecified organism Status: Acute Assessment and Plan: Will continue with antibiotics and follow culture. (5) Acute respiratory failure with hypoxemia: Code(s): J96.01 - Acute respiratory failure with hypoxia Status: Acute Assessment and Plan: Patient is on ventilator with continue monitor oxygen and adjust settings accordingly. Additional Plan # Chest pain/sob: diagnosed with NSTEMI with icnrease in [facility]. on heparin gtt. on aspirin, plavix. # NSTEMI: on heparin gtt. aspirin, plavix, bb, statin. # Acute pulmoanry edema: She was on i fluid running. iv lasix 40 mg iv given during the [employer]. will repeat another again. diuesis with 40 mg iv bid. repeat labs came with elevated wbc. will also cover for possible pneumonia with vancomycin ad cefepime. # hx of aortic valve stenosis s/p recent TAVR # Acute respiratory failure: due to above. intuabted and mechanically ventilated. PRVC: 450 ml/14/5/100%. abg montioring. # HTN # cancer breast s/p right lumpectomy # DVT Proph: heparin gtt Possible weaning trial tomorrow morning. Repeat x-ray and labs in the morning. Subjective Date/time seen: 01/19/21 09:07 Interval history: Patient was seen during the morning rounds today. Patient is intubated status. No acute distress. No new complaints. Review of Systems Review of Systems: ROS unobtainable: Yes unobtainable due to medical condition Exam Narrative: Exam Narrative: Const: Intubated and sedated HENMT: Mouth: dry mucous membranes Eyes: Sclera: sclerae normal Pupils: Equal, round and reactive pupils present Neck: Neck: supple Thyroid: thyroid normal Other: No carotid bruit, normal upstrokes JVD is difficult to assess but no obvious venous distention Resp: Effort & Inspection:severe respiratory distress Auscultation: wheezes diffusely with crakcles and rhonchi all over her chest. Cardio: Rate: regular rate Rhythm: regular rhythm Other: Soft systolic murmur at the base, no diastolic murmur no gallop GI: GI Palp: Yes Soft to palpation Auscultation: normal bowel sounds, distended, does nto seem tender to touch Skin: General skin exam: normal color Neuro: alert and conversant, moving all extremities Extrem: General: normal to inspection Other: Good pulses, no edema Objective Data Vital Signs Vital Signs: Vital Signs - 24 hr 01/18/21 10:00 01/18/21 11:00 01/18/21 12:00 Temperature Pulse Rate 54 L 53 L 51 L Respiratory Rate 20 16 Blood Pressure 105/57 L 102/67 Pulse Oximetry 98 97 99 01/18/21 12:15 01/18/21 15:13 01/18/21 15:20 Temperature Pulse Rate 60 52 L 50 L Respiratory Rate 16 Blood Pressure 98/48 L Pulse Oximetry 95 100 100 01/18/21 15:28 01/18/21 15:58 01/18/21 16:00 Temperature 36.0 C L Pulse Rate 52 L 52 L 52 L Respiratory Rate 16 16 Blood Pressure 95/48 L 101/48 L Pulse Oximetry 100 100 100 01/18/21 16:28 01/18/21 17:35 01/18/21 18:00 Temperature Pulse Rate 52 L 54 L 55 L Respiratory Rate 16 16 Blood Pressure 94/51 L 102/55 L Pulse Oximetry 100 100 99 01/18/21 19:00 01/18/21 19:29 01/18/21 19:37 Temperature Pulse Rate 56 L 57 L 57 L Respiratory Rate 16 16 Blood Pressure 96/57 L Pulse
--- NOTE | 2021-01-19 09:40 | WPDINTPN ---
Progress Note: A&P Assessment and Plan (1) Acute respiratory failure: Code(s): J96.00 - Acute respiratory failure, unspecified whether with hypoxia or hypercapnia Status: Acute Assessment and Plan: Acute Respiratory failure secondary to pulmonary edema, rule out pneumonia as patient had elevated white count and does show some areas consolidation on CT which could be atelectasis from effusion although CT mostly suggest pulmonary edema and effusions Continue full mechanical ventilation support to prevent hypoxemia/hypercarbia and end organ damage. ABG reviewed and will repeat in am. I tried patient on pressure support ventilation but her saturation dropped to 80s. Will continue mechanical ventilation today and try to remove more fluid and re-attempt weaning trial tomorrow Chest x-ray reviewed -withdraw ET tube by 2 cm CTA Chest IMPRESSION: 1. No evidence for pulmonary embolism. 2: Extensive bilateral airspace consolidation which may represent pneumonia or edema. 3: Moderate pleural effusions. 4: Cardiomegaly. Low tidal volume ventilation strategy to prevent volutrauma Cultures Continue empiric vancomycin and cefepime (2) Acute pulmonary edema: Code(s): J81.0 - Acute pulmonary edema Status: Acute Assessment and Plan: Continue Lasix today (3) CHF (congestive heart failure): Code(s): I50.9 - Heart failure, unspecified Status: Acute Assessment and Plan: ECHO Summary 1. Complete two-dimensional, color flow and Doppler transthoracic echocardiogram is performed. 2. There is moderate concentric increased left ventricular wall thickness. 3. Left ventricular systolic function is normal, estimated at 60-65%. 4. No wall-motion abnormalities. 5. Left atrial chamber dimension is moderately enlarged. 6. There is no regurgitation of the TAVR aortic valve. 7. Minimal normal transvalvular gradient. Plan to repeat ECHO today (4) Non-ST elevation [place] (NSTEMI): Code(s): I21.4 - Non-ST elevation (NSTEMI) myocardial infarction Status: Acute Assessment and Plan: Secondary to thrombus. Patient underwent PCI yesterday and had to MARIAN x 2 placed in circumflex ROMEL was performed and report reviewed Continue IV heparin infusion aspirin Plavix beta-syed Hold statin due to elevated liver enzymes at this time Cardiology following (5) S/P TAVR (transcatheter aortic valve replacement): Code(s): Z95.2 - Presence of prosthetic heart valve Status: Acute Assessment and Plan: ROMEL reviewed (6) Electrolyte abnormality: Code(s): E87.8 - Other disorders of electrolyte and fluid balance, not elsewhere classified Status: Acute Assessment and Plan: Replace low potassium (7) DEBRA (acute kidney injury): Code(s): N17.9 - Acute kidney failure, unspecified Status: Acute Assessment and Plan: Creatinine is slightly elevated today Continue Lasix for volume overload Monitor in electrolytes and urine output Additional Plan DVT prophylaxis -heparin infusion Stress ulcer prophylaxis -Pepcid Nutrition -continue Tube Feeds Code Status - Full Code Case discussed with Dr. Hidalgo Total Critical Care Time - 32 minutes Due to a high probability of clinically significant, life threatening deterioration, the patient required my highest level of preparedness to intervene emergently and I personally spent this critical care time directly and personally managing the patient. This critical care time included obtaining a history; examining the patient; pulse oximetry; ordering and review of studies; arranging urgent treatment with development of a management plan; evaluation of patient's response to treatment; frequent reassessment; and discussions with other providers. It was exclusive of separately billable procedures and treating other patients and teaching time. Please see Assessment and Plan section and the rest of the note for further i
--- NOTE | 2021-01-19 10:37 | PM.PNCARD ---
Progress Note: A&P Assessment and Plan (1) Acute pulmonary edema: Code(s): J81.0 - Acute pulmonary edema Status: Acute Assessment and Plan: Pt with acute respiratory failure with flash pulmonary edema stabilized with intubation and IV Lasix. Elevated WBC possibly due to steroids and stress reaction but pt is not clinically in septic shock (afebrile, BP stable), no clear evidence of pneumonia although cannot exclude as infiltrates more likely pulmonary edema. Very concerning and in setting of marked Trop I elevation >80. [facility] 09/19/20 pre TAVR with no sig CAD and only luminal irregularities in RCA noted. Echo yesterday normal EF without WMA mod LVH. TAVR fxn stable. Cont IV Lasix, wean vent support as able Cont ASA, Clopidogrel, and heparin gtt for now. EF preserved 55%, pulmonary edema secondary to large NSTEMI due to thrombotic embolization to Circumflex. Spent 25 minutes in the care of this patient at bedside, chart review, and discussions with Critical Care.. (2) Non-ST elevation [place] (NSTEMI): Code(s): I21.4 - Non-ST elevation (NSTEMI) myocardial infarction Status: Acute Assessment and Plan: As above. very high Trop I >80 curious in pt with minimal CAD luminal irregularities only on [facility] 09/2020. Other considerations include myocarditis or takotsubo depending upon Echo but coronary embolism and/or acute plaque rupture remain primary concerns. PT is hemodynamically stable and improving with current management. Cont DAPT and heparin gtt. Add statin therapy, but LFT's elevated predominant AST likely secondary to infarction. -2D echo at bedside reviewed. EF 55% moderate mid and basal anterior hypokinesis, possible mid basal inferolateral hypokinesis noted although difficult to visualize. Velocities through prosthetic aortic valve unchanged 1.6 m/sec. Pedoff probe after contrast administration to visualize LV wall motion revealed at least mild aortic regurgitation not visualized with color flow Doppler in any other view however. I personally reviewed prior echocardiogram again no AI appreciated, velocities and gradients unchanged. Most likely mechanism due to thrombotic embolism from TAVR to circumflex. Patient did not have significant obstructive CAD previously and once again on angiography yesterday. After review of angiography and ROMEL results we feel best management would include nursing home systemic A/C. Recommend ASA, Clopidogrel, and anticoagulation together for 1 week then stop ASA and continue Clopidogrel and oral anticoagulation such as Eliquis longer term. (3) Acute respiratory failure: Code(s): J96.00 - Acute respiratory failure, unspecified whether with hypoxia or hypercapnia Status: Acute Assessment and Plan: Per ciritical care. Intubated, wean as tolerated. (4) S/P TAVR (transcatheter aortic valve replacement): Code(s): Z95.2 - Presence of prosthetic heart valve Status: Acute Assessment and Plan: Stable function by Echo 01/17/21. no clear evidence or concern for infection/endocarditis at this time other than high WBC. No murmur on exam, fever or shock. As above. no documented h/o A.Fib and given course reuired to end up in Circumflex very unlikely thrombus arose in left atrial appendage. Clinically, much more likely secondary to embolization from TAVR related to localized thrombus which is not readily visualized with exception of small thin filamentous echodensity on ROMEL. Cont IV ABx for now but do not highly suspect endocarditis at this time. Subjective Date/time seen: Date of service: 01/19/21 10:37 Follow up for NSTEMI, s/p TAVR, respiratory failure s/p intubation Patient was taken emergently to the cardiac catheterization lab yesterday which revealed a subtotal acute thrombus in proximal circumflex status post overlapping drug-eluting stents XIENCE Michelle 3.0 x 12 and 3.0 x 8 mm stent. Following this given concern for embolization related to TAVR transmanuel
[2021-01-19] MEDS: HEPARIN SOD/D5W 100 UNITS/ML 25,000 UNITS/250 ML BAG 9 UNITS IV CONT (11:56)
[2021-01-19] MEDS: FENTANYL 2,500MCG/NS250ML(*CRX 2,500 MCG/250 ML BAG 12.5 MCG IV CONT (16:10)
[2021-01-20] VITALS (28 sets, daily range): BP systolic 91–121; BP diastolic 45–61; PULSE 62–75; RESP 14–16; TEMP 36.4–36.9; O2SAT 97–100; BMI 41.5
[2021-01-20 04:05] LABS: Alveolar/Arterial O2 Gradient 133.7 mmHg; Base Excess ABG -1.6 mEq/l (+/-2.0); Carboxyhemoglobin 0.3 % THb (0-2.0); Device VENTILATOR; Fractional Inspired Oxygen 35 %; HCO3 ABG 21.8 mEq/l (22.0-26.0); Methemoglobin ABG 0.2 %THb (0-1.5); Modified Allen's Test Unable to perform; Oxygen Content ABG 14.7 %vol (16.0-22.0); Oxygen Saturation ABG 96.1 % (95.0-100.0); Oxyhemoglobin 94.4 % THb (90.0-100.0); PCO2 ABG 32.6 mmHg (35.0-45.0); PO2 FiO2 Ratio Arterial Blood 2.23 %; Reduced Hemoglobin 5.1 %THb (0-5.0); Site Drawn LEFT RADIAL; pH ABG 7.444 (7.350-7.450)
[2021-01-20 04:06] LABS: Arterial Blood Gas PEEP 5 cmH2O; Arterial Blood Gas Tidal Volume 400 ml; Arterial Blood Gas Vent Mode CMV; Arterial Blood Gas Ventilator rate 16 /MIN
[2021-01-20 05:56] LABS: Partial Thromboplastin Time 97.1 SECONDS (22.3-36.8)
[2021-01-20 06:00] LABS: Estimated CRCL calculation 22 ml/min; Estimated Glomerular Filt Rate 24
--- NOTE | 2021-01-20 08:29 | PM.IMPN ---
Progress Note: A&P Assessment and Plan (1) Acute respiratory failure with hypoxemia: Code(s): J96.01 - Acute respiratory failure with hypoxia Status: Acute Assessment and Plan: Patient remains intubated. Appreciate help from microfiche duplicator. Sedation off at this time. Hopeful attempt at weaning today. Continue to monitor closely. (2) Acute pulmonary edema: Code(s): J81.0 - Acute pulmonary edema Status: Acute Assessment and Plan: Chest x-ray today with increasing small left pleural effusion. Patient remains on ventilator as noted. ROMEL on 01/18/2021 with EF 55% and stable, intact bioprosthetic aortic valve with no sign of intracardiac source of embolization. Cardiology following in addition to microfiche duplicator. Continue IV Lasix. Will continue to monitor closely. (3) CHF (congestive heart failure): Qualifiers: Heart failure type: diastolic Heart failure chronicity: acute Qualified Code(s): I50.31 - Acute diastolic (congestive) heart failure Code(s): I50.9 - Heart failure, unspecified Status: Acute Assessment and Plan: Acute pulmonary edema as noted above. Result of large NSTEMI. ROMEL results as noted above. Continue IV Lasix as noted. (4) Non-ST elevation [place] (NSTEMI): Code(s): I21.4 - Non-ST elevation (NSTEMI) myocardial infarction Status: Acute Assessment and Plan: Cardiology following. Initial 2D echocardiogram at bedside with EF 55 % along with moderate bid and basal inferior hypokinesis and hospital related basal inferolateral hypokinesis. ROMEL of 01/18/2021 with results as noted above. Now S/P cardiac catheterization on 01/18/2021 with successful PCI to left circumflex. Most likely mechanism felt to be thrombotic embolism from TAVR to circumflex. Will continue ASA, Plavix, heparin drip, lisinopril and metoprolol. Appreciate help from Cardiology. Telemetry reviewed on 01/20/2021 with sinus rhythm. (5) S/P TAVR (transcatheter aortic valve replacement): Code(s): Z95.2 - Presence of prosthetic heart valve Status: Acute Assessment and Plan: Previous history. Intact based on ROMEL. Now with NSTEMI as noted above. Continue management of NSTEMI as noted above. (6) DEBRA (acute kidney injury): Code(s): N17.9 - Acute kidney failure, unspecified Status: Acute Assessment and Plan: Creatinine up to 2.00 today but has been on IV Lasix. Will need to continue to monitor closely. (7) Electrolyte abnormality: Code(s): E87.8 - Other disorders of electrolyte and fluid balance, not elsewhere classified Status: Acute Assessment and Plan: Electrolytes corrected at this point with potassium 3.7 today. Will monitor with diuretic use. Time Spent With Patient Time with patient: 25 - 35 minutes Subjective Date/time seen: 01/20/21 08:29 Interval history: Date of Service: 01/20/2021. Patient admitted with NSTEMI, CHF, acute respiratory failure. Patient remains on ventilator. Sedation has been discontinued but not awake. No new issues overnight per nursing. Review of Systems Review of Systems: ROS unobtainable: Yes unobtainable due to endotracheal tube Genitourinary: Genitourinary: Reports other (Loza catheter in place) Exam Narrative: Exam Narrative: Not on sedation but not awake. Const: General: No acute distress HENMT: Mouth: Yes moist mucous membranes and Yes other (ET tube in place) Neck: Neck: supple Resp: Auscultation: diminished lung sounds Other: coarse breath sounds bilaterally Cardio: Rate: regular rate Rhythm: regular rhythm GI: GI Palp: Yes Soft to palpation Auscultation: normal bowel sounds Other: no masses palpated Urinary Catheter: Urinary Catheter: patent and draining and urine clear Skin: General skin exam: no rashes or lesions noted Neuro: General: other (off sedation but not awake) Extrem: General: no pedal edema Psych: Other: no agitation Objective
--- NOTE | 2021-01-20 09:14 | WPDINTPN ---
Progress Note: A&P Assessment and Plan (1) Acute respiratory failure: Code(s): J96.00 - Acute respiratory failure, unspecified whether with hypoxia or hypercapnia Status: Acute Assessment and Plan: Acute Respiratory failure secondary to pulmonary edema, rule out pneumonia as patient had elevated white count and does show some areas consolidation on CT which could be atelectasis from effusion although CT mostly suggest pulmonary edema and effusions Continue full mechanical ventilation support to prevent hypoxemia/hypercarbia and end organ damage. ABG reviewed and will repeat in am. I tried patient on pressure support ventilation yesterday but her saturation dropped to 80s. Will re-attempt weaning trial today Chest x-ray reviewed and shows persistent bilateral infiltrates but her oxygen requirement has improved and she is down to 35% and 5 of PEEP CTA Chest IMPRESSION: 1. No evidence for pulmonary embolism. 2: Extensive bilateral airspace consolidation which may represent pneumonia or edema. 3: Moderate pleural effusions. 4: Cardiomegaly. Low tidal volume ventilation strategy to prevent volutrauma Cultures Continue cefepime will discontinue vancomycin as cultures as stated negative (2) Acute pulmonary edema: Code(s): J81.0 - Acute pulmonary edema Status: Acute Assessment and Plan: Hold Lasix (3) CHF (congestive heart failure): Qualifiers: Heart failure type: diastolic Heart failure chronicity: acute Qualified Code(s): I50.31 - Acute diastolic (congestive) heart failure Code(s): I50.9 - Heart failure, unspecified Status: Acute Assessment and Plan: ECHO Summary 1. Complete two-dimensional, color flow and Doppler transthoracic echocardiogram is performed. 2. There is moderate concentric increased left ventricular wall thickness. 3. Left ventricular systolic function is normal, estimated at 60-65%. 4. No wall-motion abnormalities. 5. Left atrial chamber dimension is moderately enlarged. 6. There is no regurgitation of the TAVR aortic valve. 7. Minimal normal transvalvular gradient. (4) Non-ST elevation [place] (NSTEMI): Code(s): I21.4 - Non-ST elevation (NSTEMI) myocardial infarction Status: Acute Assessment and Plan: Secondary to thrombus. Patient underwent PCI yesterday and had to MARIAN x 2 placed in circumflex ROMEL was performed and report reviewed Continue IV heparin infusion aspirin Plavix Hold statin due to elevated liver enzymes at this time Cardiology following (5) S/P TAVR (transcatheter aortic valve replacement): Code(s): Z95.2 - Presence of prosthetic heart valve Status: Acute Assessment and Plan: ROMEL reviewed (6) Electrolyte abnormality: Code(s): E87.8 - Other disorders of electrolyte and fluid balance, not elsewhere classified Status: Acute Assessment and Plan: Replace low potassium (7) DEBRA (acute kidney injury): Code(s): N17.9 - Acute kidney failure, unspecified Status: Acute Assessment and Plan: Creatinine further increased to 2.0 Likely multifactorial as patient was being diuresed for pulmonary edema and also received contrast with cardiac catheterization Hold Lasix today Monitor in electrolytes and urine output Consult nephrology Additional Plan DVT prophylaxis -heparin infusion Stress ulcer prophylaxis -Pepcid Nutrition -continue Tube Feeds Code Status - Full Code Total Critical Care Time - 02 minutes Due to a high probability of clinically significant, life threatening deterioration, the patient required my highest level of preparedness to intervene emergently and I personally spent this critical care time directly and personally managing the patient. This critical care time included obtaining a history; examining the patient; pulse oximetry; ordering and review of studies; arranging urgent treatment with development of a management plan; evalua
[2021-01-20] MEDS: ASPIRIN 81 MG CHEWABLE TABLET PO (09:38)
[2021-01-20] MEDS: FAMOTIDINE 20 MG/2 ML VIAL IV PUSH ×2 (09:38→20:02)
[2021-01-20] MEDS: CLOPIDOGREL BISULFATE 75 MG TABLET PO (09:38)
[2021-01-20] MEDS: METOPROLOL TARTRATE 6.25 MG TABLET PO ×2 (09:38→20:02)
[2021-01-20] MEDS: PROPOFOL IV EMULSION 100 ML 2.89 MG IV CONT (10:06)
[2021-01-20 11:01] LABS: NT Pro B Type Natriuretic Pept 15100 pg/mL (5-100)
[2021-01-20 11:12] LABS: Triglycerides 163 mg/dL (<150)
[2021-01-20] MEDS: HEPARIN SOD/D5W 100 UNITS/ML 25,000 UNITS/250 ML BAG 9 UNITS IV CONT (14:44)
[2021-01-20] MEDS: CENTRAL LINE FLUSH 10 ML IV PUSH ×3 (14:49→20:02)
--- NOTE | 2021-01-20 15:59 | PM.CNNEP ---
Assessment and Plan Assessment and plan (1) DEBRA (acute kidney injury): Code(s): N17.9 - Acute kidney failure, unspecified Status: Acute Assessment and Plan: multifactorial etiology: -contrast exposure x 2 (from CT scan of chest and cardiac catheterization) - previous IV diuresis - NSTEMI - use of DARYL-I/diuretics prior to admission check renal ultrasound and urine electrolytes follow trend of repeat labs and UOP remains at risk for renal replacement therapy/dialysis (2) Acute respiratory failure with hypoxemia: Code(s): J96.01 - Acute respiratory failure with hypoxia Status: Acute Assessment and Plan: due to pulmonary edema (flash pulmonary edema?) on mechanical ventilation weaning as tolerated (3) Non-ST elevation [place] (NSTEMI): Code(s): I21.4 - Non-ST elevation (NSTEMI) myocardial infarction Status: Acute Assessment and Plan: s/p cardiac catheterizartion with stenting as noted Cardiology following continue supportive therapy (4) S/P TAVR (transcatheter aortic valve replacement): Code(s): Z95.2 - Presence of prosthetic heart valve Status: Chronic Assessment and Plan: valve appearst to be functioning well by Echo Will continue to follow. History of Present Illness Reason for Consult Consult date: 01/20/21 Reason for consult: acute renal failure Chief Complaint Chief complaint: nstemi History of Present Illness Narrative: Most of the information I have obtained is from review of the electronic medical record as well as discussion with the medical staff involved in the patient's care as she is unable to provide me any history as she is currently intubated and on mechanical ventilation. The patient is a 75-year-old female with a past medical history as outlined below who presented to [facility] Emergency room with complaints of chest pain. The patient started having chest pain suddenly around 4:00 a.m. on the morning of admission which woke her up from her sleep. She described as a pressure-like sensation with radiation up to her left scapular area. Associated symptoms included some mild shortness of breath and diaphoresis. Given the persistence of the symptoms, she called 911 and was taken to the emergency room here at [facility]. Workup and evaluation emergency room demonstrated the patient to be hemodynamically stable with relatively stable CBC and chemistries by routine blood test. Her initial troponin was negative and her EKG did not show any significant ischemic changes either. However, her 2nd troponin was mildly elevated and repeat EKG did show some ST segment depression that was not present previously. Given these findings as well as her complex medical history, she was admitted the hospital for further evaluation and therapy. Since her admission, her overall status has declined. She apparently had episode of flash pulmonary edema resulting in significant respiratory distress that was unresponsive to conservative therapy with regard to supplemental oxygen and BiPAP therapy. IV diuretics were given however her respiratory status continued to decline where she eventually had to be transferred to the intensive care unit and subsequently intubated and placed on mechanical ventilation. She subsequently received further IV diuretics given evidence of pulmonary edema on her chest x-ray. Given the significant change in conjunction with her elevated troponins, she was taken to the cardiac catheterization lab and underwent catheterization with with subsequent stenting as outlined. She currently appears to be hemodynamically stable but remains on ventilator support. Renal consultation was requested due to her acute kidney injury/acute renal failure as evidence by her blood work this morning. From review of her records, the patient has normal kidney function with
--- NOTE | 2021-01-20 16:38 | PM.PNCARD ---
Progress Note: A&P Additional Plan 75-year-old lady who unfortunately has had a myocardial infarction appears to be a embolic event presumably from the structure of her TAVR valve as she had no coronary disease prior to her valve replacement procedure. Fortunately the vessel was recanalized with stenting however it was very challenging difficult procedure because of the structure of the TAVR valve making engagement of the left main coronary artery very difficult. I would expect she will improve clinically as her LV function is quite good on echo. Expect her ventilator will be able to be weaned relatively soon and she needs to be on dual anti-platelet therapy for the short term and I would agree with Dr. Hidalgo's assessment that systemic anticoagulation is going to be necessary as well. Karlos Cedillo MD [facility] Subjective Date/time seen: Date of service: 01/20/21 16:38 Interval history: Follow-up visit in this 75-year-old lady with: Aortic valve disease recent TAVR procedure at [facility]. Patient was found not to have any coronary disease angiographically prior to her valve replacement. She entered this hospital on Wednesday with an episode of ischemic chest pain which was self-limited but was associated with a moderate troponin rise. When this was assumed to be due to thrombotic/embolic coronary events since she did not have any coronary disease just a couple of months ago. She then destabilized yesterday rate will went into pulmonary edema required intubation and was brought to the laboratory aide. As expected she did have a embolic clot in her circumflex which was treated with stenting of the circumflex. The TAVR stent material prevented good engagement of the left main coronary artery and so extraction thrombectomy could not be performed. With great difficulty the area was stented restoring good patency in the circumflex. She remains in the ICU intubated on mechanical ventilator support. She is on dual anti-platelet therapy and is also anticoagulated with heparin. Echocardiogram prior to and after the procedure demonstrates good left ventricular systolic function and good function of her TAVR valve. Exam Const: Other: Sedated elderly patient in the ICU on ventilator support HENMT: Mouth: Yes moist mucous membranes Eyes: Sclera: sclerae normal Pupils: Equal, round and reactive pupils present Neck: Neck: supple and no JVD Resp: Other: Central rhonchi are noted with ventilator breath sounds Cardio: Rate: regular rate Rhythm: regular rhythm GI: GI Palp: Yes Soft to palpation Auscultation: normal bowel sounds Skin: General skin exam: normal color Neuro: Other: Sedated Objective Data Vital Signs Vital Signs: Vital Signs - 24 hr 01/19/21 18:00 01/19/21 19:28 01/19/21 20:00 Temperature 36.5 C Pulse Rate 75 71 70 Respiratory Rate 16 16 Blood Pressure 116/60 107/54 L Pulse Oximetry 99 100 100 01/19/21 21:07 01/19/21 22:00 01/19/21 22:01 Temperature Pulse Rate 69 72 67 Respiratory Rate 16 Blood Pressure 97/48 L Pulse Oximetry 97 99 01/20/21 00:00 01/20/21 00:34 01/20/21 02:00 Temperature 36.7 C Pulse Rate 67 66 67 Respiratory Rate 16 16 Blood Pressure 102/51 L 96/46 L Pulse Oximetry 100 100 100 01/20/21 03:48 01/20/21 04:00 01/20/21 05:16 Temperature 36.8 C Pulse Rate 65 65 65 Respiratory Rate 16 16 Blood Pressure 91/45 L Pulse Oximetry 100 98 01/20/21 06:00 01/20/21 07:43 01/20/21 07:47 Temperature Pulse Rate 65 63 62 Respiratory Rate 16 16 Blood Pressure 97/49 L Pulse Oximetry 100 97 01/20/21 07:48 01/20/21 08:00 01/20/21 09:38 Temperature 36.6 C Pulse Rate 62 66 67 Respiratory Rate 16 16 Blood Pressure 98/48 L Pulse Oximetry 99 01/20/21 10:00 01/20/21 10:06 01/20/21 10:46 Temperature Pulse Rate 75 67 65 Respiratory Rate 16 16 Blood Pressure 103/45 L Pulse Oximetry 97 98 01/20/21 12:00 01/20/21 13:56 01/20/21 14:0
[2021-01-21] VITALS (26 sets, daily range): BP systolic 91–135; BP diastolic 47–62; PULSE 64–100; RESP 15–25; TEMP 36.2–36.9; O2SAT 64–100
[2021-01-21] MEDS: PROPOFOL IV EMULSION 100 ML 5.78 MG IV CONT (04:16)
[2021-01-21] MEDS: CENTRAL LINE FLUSH 10 ML IV PUSH ×4 (04:20→20:25)
[2021-01-21 04:29] LABS: Alveolar/Arterial O2 Gradient 117.3 mmHg; Base Excess ABG -2.5 mEq/l (+/-2.0); Carboxyhemoglobin 0.3 % THb (0-2.0); Device VENTILATOR; Fractional Inspired Oxygen 35 %; HCO3 ABG 21.4 mEq/l (22.0-26.0); Methemoglobin ABG 0.2 %THb (0-1.5); Modified Allen's Test Unable to perform; Oxygen Content ABG 14.7 %vol (16.0-22.0); Oxygen Saturation ABG 97.3 % (95.0-100.0); Oxyhemoglobin 95.9 % THb (90.0-100.0); PCO2 ABG 33.6 mmHg (35.0-45.0); PO2 ABG 93.2 mmHg (80.0-100.0); PO2 FiO2 Ratio Arterial Blood 2.66 %; Reduced Hemoglobin 3.6 %THb (0-5.0); Site Drawn LEFT RADIAL; Total Hemoglobin 10.8 g/dL (12.0-18.0); pH ABG 7.422 (7.350-7.450)
[2021-01-21 04:30] LABS: Arterial Blood Gas PEEP 5 cmH2O; Arterial Blood Gas Tidal Volume 400 ml; Arterial Blood Gas Vent Mode CMV; Arterial Blood Gas Ventilator rate 16 /MIN
[2021-01-21 04:35] LABS: Hematocrit 28.4 % (37.0-47.0); Hemoglobin 9.6 g/dL (12.0-15.0); Mean Corpuscular HGB Conc 33.8 g/dl (32-36); Mean Corpuscular Hemoglobin 31.1 pg (26-34); Mean Corpuscular Volume 91.9 fl (80-100); Mean Platelet Volume 12.2 fl (7.4-10.4); Platelet Count Result 191 k/mm3 (150-375); Red Blood Count 3.09 M/mm3 (4.2-5.4); Red Cell Distribution Width 14.8 % (11.5-14.5); White Blood Count 14.4 K/mm3 (4.5-10.0)
[2021-01-21 04:56] LABS: Partial Thromboplastin Time 85.4 SECONDS (22.3-36.8)
[2021-01-21 05:10] LABS: Alanine Aminotransferase 41 U/L (4-35); Albumin Level 3.1 g/dL (3.5-5.1); Alkaline Phosphatase 57 U/L (38-126); Anion Gap 3 mmol/L (8-16); Aspartate Amino Transferase 72 U/L (14-36); Bilirubin,Total 0.5 mg/dL (0.2-1.3); Blood Urea Nitrogen 56 mg/dL (7-17); Calcium 8.8 mg/dL (8.4-10.2); Carbon Dioxide 27 mmol/L (22-30); Chloride 104 mmol/L (98-107); Estimated CRCL calculation 22 ml/min; Estimated Glomerular Filt Rate 24; Glucose 132 mg/dL (65-105); Magnesium 2.2 mg/dL (1.6-2.3); Potassium 3.8 mmol/L (3.4-5.0); Sodium 134 mmol/L (137-145)
[2021-01-21] MEDS: ASPIRIN 81 MG CHEWABLE TABLET PO (08:09)
[2021-01-21] MEDS: FAMOTIDINE 20 MG/2 ML VIAL IV PUSH ×2 (08:10→20:25)
[2021-01-21] MEDS: CLOPIDOGREL BISULFATE 75 MG TABLET PO (08:10)
[2021-01-21] MEDS: METOPROLOL TARTRATE 6.25 MG TABLET PO ×2 (08:10→20:25)
--- NOTE | 2021-01-21 08:44 | PM.IMPN ---
Progress Note: A&P Assessment and Plan (1) Acute respiratory failure with hypoxemia: Code(s): J96.01 - Acute respiratory failure with hypoxia Status: Acute Assessment and Plan: Patient remains intubated but on minimal settings. CXR reviewed showing persistent bilateral airspace disease. Currently, IV Lasix on hold due to DEBRA. Propofol added yesterday but weaning off at this time. Mental status still poor. Wean off sedation. Check CT brain. Appreciate help from day camp unit leader. (2) Acute pulmonary edema: Code(s): J81.0 - Acute pulmonary edema Status: Acute Assessment and Plan: Chest x-ray today with increasing bilateral lung infiltrates L>R with small to moderate left pleural effusion. Patient remains on ventilator as noted. 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 Cardiology following in addition to day camp unit leader. Lasix on hold due to rising Cr (but one dose given today). Sharon 43 with FENa 0.7% to suggest pre-renal. Consider other etiologies such as bacterial or viral (COVID) PNA. Not terribly hypoxic making COVID less likely but not excluded. Check sputum Cx. (3) CHF (congestive heart failure): Qualifiers: Heart failure chronicity: acute Heart failure type: diastolic Qualified Code(s): I50.31 - Acute diastolic (congestive) heart failure Code(s): I50.9 - Heart failure, unspecified Status: Acute Assessment and Plan: Possible acute pulmonary edema as noted above but resistent to diuretic therapy and now appears pre-renal DEBRA. ROMEL showing EF 55% with inferolateral and anterior wall hypokinesis a result of large NSTEMI. As above. (4) Non-ST elevation [place] (NSTEMI): Code(s): I21.4 - Non-ST elevation (NSTEMI) myocardial infarction Status: Acute Assessment and Plan: Cardiology following. Initial 2D echocardiogram at bedside with EF 55% along with mild hypokinesis of the mid and basal anterior wall and severe hypokinesis of the mid and basal inferolateral wall. ROMEL of 01/18/2021 with results as noted above. Now S/P cardiac catheterization on 01/18/2021 with successful PCI to left circumflex. Most likely mechanism felt to be embolic source from TAVR to circumflex. Will continue ASA, Plavix, heparin drip and metoprolol. Lisinopril held. Appreciate help from Cardiology. (5) Anemia: Code(s): D64.9 - Anemia, unspecified Status: Acute Assessment and Plan: Hemoglobin 13 on admission. Hemoglobin has dropped to 9.6 today without clear source of blood loss. No obvious hematoma at the catheterization site. Patient is on heparin drip. Repeat hemoglobin later today. Follow closely. (6) S/P TAVR (transcatheter aortic valve replacement): Code(s): Z95.2 - Presence of prosthetic heart valve Status: Chronic Assessment and Plan: The AV is well seated by ROMEL. Also noted is a filamentous mobile echodensity appreciated below the valve leaflets. Now with NSTEMI as noted above. Continue management of NSTEMI as noted above. (7) DEBRA (acute kidney injury): Code(s): N17.9 - Acute kidney failure, unspecified Status: Acute Assessment and Plan: Creatinine 1.1 on admission and was stable at 1.1-1.3 range until climbed to 2.0 on 01/20. Lasix and Lisinopril were held. Nephrology consulted. Labs appear pre-renal. Will need to continue to monitor closely. (8) Electrolyte abnormality: Code(s): E87.8 - Other disorders of electrolyte and fluid balance, not elsewhere classified Status: Acute Assessment and Plan: Electrolytes corrected at this point with potassium 3.8 today. mag normal as well. Continue to monitor. (9) DVT prophylaxis: Code(s): Z29.9 - Encounter for prophylactic measures, unspecified Status: Acute Assessment and Plan: Heparin drip Subjective Date/time seen: 01/21
[2021-01-21 09:01] LABS: Creatinine Urine 87.8 mg/dL
[2021-01-21 09:06] LABS: Potassium Urine Random 27.8 meq/L; Sodium Urine Random 45 meq/L
--- NOTE | 2021-01-21 09:48 | PM.PNNEP ---
Progress Note: A&P Assessment and Plan (1) DEBRA (acute kidney injury): Code(s): N17.9 - Acute kidney failure, unspecified Status: Acute Assessment and Plan: multifactorial etiology: -contrast exposure x 2 (from CT scan of chest and cardiac catheterization) - previous IV diuresis - NSTEMI - use of DARYL-I/diuretics prior to admission urine electrolytes with some pre-renal component renal ultrasound without evidence of obstruction or masses creatinine appears to have peaked/plateaued at 2.0mg/dl follow trend of repeat labs and UOP (2) Acute respiratory failure with hypoxemia: Code(s): J96.01 - Acute respiratory failure with hypoxia Status: Acute Assessment and Plan: due to pulmonary edema (flash pulmonary edema?) on mechanical ventilation weaning as tolerated (3) Non-ST elevation [place] (NSTEMI): Code(s): I21.4 - Non-ST elevation (NSTEMI) myocardial infarction Status: Acute Assessment and Plan: s/p cardiac catheterizartion with stenting as noted Cardiology following continue supportive therapy (4) S/P TAVR (transcatheter aortic valve replacement): Code(s): Z95.2 - Presence of prosthetic heart valve Status: Chronic Assessment and Plan: valve appears to be functioning well by Echo Will continue to follow. Subjective Date/time seen: 01/21/21 09:48 No apparent issues or problems overnight; remains on ventilator support; making more urine in the last 24 hours; remains hemodynamically stable; no other acute issues/events overnight or earlier this AM Exam Narrative: Exam Narrative: General: Elderly Causian female in NAD; intubated/on ventilator Heart: normal S1 and S2; no rub Lungs: coarse breath sounds Abdomen: soft, nontender, nondistended, positive bowel sounds Extremities: no cyanosis or clubbing; no edema Skin: warm and dry Objective Data Vital Signs Vital Signs: Vital Signs Temp Pulse Resp BP Pulse Ox 01/21/21 08:10 82 01/21/21 08:00 36.2 C L 78 18 116/59 L 98 01/21/21 07:59 69 100 01/21/21 06:00 67 16 118/57 L 99 01/21/21 04:16 70 16 01/21/21 04:10 69 100 01/21/21 04:00 36.8 C 69 16 107/51 L 100 01/21/21 02:06 71 98 01/21/21 02:00 78 25 H 91/55 L 94 01/21/21 00:00 36.9 C 67 16 109/55 L 98 01/20/21 22:43 69 100 01/20/21 22:00 68 16 121/60 100 01/20/21 20:02 69 01/20/21 20:00 36.9 C 68 16 117/58 L 99 01/20/21 19:35 70 100 01/20/21 18:00 74 16 118/61 97 01/20/21 16:32 65 99 01/20/21 16:19 69 16 01/20/21 16:00 36.7 C 65 16 102/48 L 97 01/20/21 14:00 36.7 C 75 14 112/54 L 99 01/20/21 13:56 66 99 01/20/21 12:00 36.4 C 68 16 115/56 L 99 01/20/21 10:46 65 98 01/20/21 10:06 67 16 01/20/21 10:00 75 16 103/45 L 97 Intake/Output Intake/Output: Intake & Output 01/18/21 01/19/21 01/20/21 01/21/21 23:59 23:59 23:59 23:59 Intake Total 804 2010 1735.5 915 Output Total 1125 1100 700 450 Balance -486 788 8801.5 465 Meds/Results Medications: Active Medications Generic Name Dose Route Start Last Admin Trade Name Zackq PRN Reason Stop Dose Admin Acetaminophen 650 mg 01/17/21 11:17 01/17/21 18:13 Acetaminophen 325 Mg Tablet PO 650 mg Q4H PRN Administration Mild Pain (1-3) or Fever Aspirin 81 mg 01/18/21 08:00 01/21/21 08:09 Aspirin 81 Mg Chewable Tablet PO 81 mg DAILY@0800 KINGA Administration Clopidogrel Bisulfate 75 mg 01/18/21 09:00 01/21/21 08:10 Clopidogrel Bisulfate 75 Mg Tablet PO 75 mg QAM KINGA Administration Famotidine 20 mg 01/17/21 21:00 01/21/21 08:10 Famotidine 20 Mg/2 Ml Vial IV PUSH 20 mg Q12HR KINGA Administration Furosemide 40 mg 01/18/21 09:00 01/19/21 16:53 Furosemide Inj 40 Mg/4 Ml Vial IV PUSH 40 mg BID KINGA Administration Hepari
--- NOTE | 2021-01-21 09:58 | PM.PNCARD ---
Progress Note: A&P Assessment and Plan (1) Acute pulmonary edema: Code(s): J81.0 - Acute pulmonary edema Status: Acute Assessment and Plan: patient remains intubated. Cont IV Lasix, wean vent support as able (2) Non-ST elevation [place] (NSTEMI): Code(s): I21.4 - Non-ST elevation (NSTEMI) myocardial infarction Status: Acute Assessment and Plan: Patient found to have occluded LCX, likely embolic event from the aortic valve prosthesis. Status post complex PCI/stenting. Continue anticoagulation with heparin for now, monitor APTT. Continue dual antiplatelet therapy with aspirin and clopidogrel for now. Long-term, use single antiplatelet treatment with clopidogrel along with either apixaban or rivaroxaban. (3) Acute respiratory failure: Code(s): J96.00 - Acute respiratory failure, unspecified whether with hypoxia or hypercapnia Status: Acute Assessment and Plan: Per ciritical care. Intubated, wean as tolerated. Recommend further evaluation of neurological status by Neurology.. (4) S/P TAVR (transcatheter aortic valve replacement): Code(s): Z95.2 - Presence of prosthetic heart valve Status: Chronic Assessment and Plan: no definite vegetation or thrombus reported on ROMEL. Subjective Date/time seen: 01/21/21 09:58 Date of service 01/21/2021: Patient remains intubated, and has nonpurposeful movements. CT head unremarkable. Patient remains on anticoagulation with heparin. Exam Narrative: Exam Narrative: PHYSICAL EXAMINATION: GENERAL: Sedated, mildly agitated MENTAL STATUS: sedated EYES: pallor EARS: External ears appear normal NOSE: Normal and patent, no discharge MOUTH: orotracheal tube is in place NECK: Supple, no JVD CHEST: vent sounds HEART: Normal rate, regular rhythm, normal S1 and S2 ABDOMEN: Soft, nontender NEUROLOGICAL: sedated, mildly agitated MUSCULOSKELETAL: No major deformity, no amputation EXTREMITIES: No pedal edema SKIN: no rash on the exposed area, no cyanosis PSYCHIATRIC: mildly agitated Objective Data Vital Signs Vital Signs: Vital Signs - 24 hr 01/20/21 10:00 01/20/21 10:06 01/20/21 10:46 Temperature Pulse Rate 75 67 65 Respiratory Rate 16 16 Blood Pressure 103/45 L Pulse Oximetry 97 98 01/20/21 12:00 01/20/21 13:56 01/20/21 14:00 Temperature 36.4 C 36.7 C Pulse Rate 68 66 75 Respiratory Rate 16 14 Blood Pressure 115/56 L 112/54 L Pulse Oximetry 99 99 99 01/20/21 16:00 01/20/21 16:19 01/20/21 16:32 Temperature 36.7 C Pulse Rate 65 69 65 Respiratory Rate 16 16 Blood Pressure 102/48 L Pulse Oximetry 97 99 01/20/21 18:00 01/20/21 19:35 01/20/21 20:00 Temperature 36.9 C Pulse Rate 74 70 68 Respiratory Rate 16 16 Blood Pressure 118/61 117/58 L Pulse Oximetry 97 100 99 01/20/21 20:02 01/20/21 22:00 01/20/21 22:43 Temperature Pulse Rate 69 68 69 Respiratory Rate 16 Blood Pressure 121/60 Pulse Oximetry 100 100 01/21/21 00:00 01/21/21 02:00 01/21/21 02:06 Temperature 36.9 C Pulse Rate 67 78 71 Respiratory Rate 16 25 H Blood Pressure 109/55 L 91/55 L Pulse Oximetry 98 94 98 01/21/21 04:00 01/21/21 04:10 01/21/21 04:16 Temperature 36.8 C Pulse Rate 69 69 70 Respiratory Rate 16 16 Blood Pressure 107/51 L Pulse Oximetry 100 100 01/21/21 06:00 01/21/21 07:59 01/21/21 08:00 Temperature 36.2 C L Pulse Rate 67 69 78 Respiratory Rate 16 18 Blood Pressure 118/57 L 116/59 L Pulse Oximetry 99 100 98 01/21/21 08:10 Temperature Pulse Rate 82 Respiratory Rate Blood Pressure Pulse Oximetry Intake/Output Intake/Output: Intake & Output 01/18/21 01/19/21 01/20/21 01/21/21 23:59 23:59 23:59 23:59 Intake Total 804 2010 1735.5 915 Output Total 1125 1100 700 450 Balance -178 967 1386.5 465 Meds/Results Medications: Active Medications Generic Name Dose Route Start Last Admin Trad
[2021-01-21] MEDS: FUROSEMIDE INJ 40 MG/4 ML VIAL IV PUSH (10:43)
--- NOTE | 2021-01-21 11:00 | PCDIET ---
Nutrition Follow-Up Complete: Nutrition Diagnosis: Inadequate oral intake related to oral intubation as evidenced by need for tube feeding. Nutrition Goal: Patient to meet estimated nutritional needs. Goal met. Patient tolerating Vital 1.2 at 50mL/hr with 30mL water flush every 4 hours. MD considering change to more concentrated formula. Residuals 100mL and below. Last recorded weight is 97.1 kg which is slightly increased from last review. +I/O. Bowel Motility: No BM documented. Labs Reviewed: Hgb (9.6), Hct (28.4), Glu (132), BUN (56), Cr (2.0), TG (163), Na (134), Alb (3.1) Meds Noted: Cefepime, Lasix, Levophed, Pepcid, Lisinopril, Lopressor, Propofol (rate of 5.78mL/hr provides 152kcal per day) Additional Notes: MD planning to taper Propofol. Right groin with Band-Aid. No documented pressure sores. Will continue to monitor with same goal. Nutrition Monitoring and Evaluation: Follow up every Wednesday/Wednesday. Follow daily in ICU rounds.
[2021-01-21 13:32] LABS: Hematocrit 29.3 % (37.0-47.0); Hemoglobin 9.8 g/dL (12.0-15.0)
--- NOTE | 2021-01-21 14:36 | WPDINTPN ---
Progress Note: A&P Assessment and Plan (1) Acute respiratory failure: Code(s): J96.00 - Acute respiratory failure, unspecified whether with hypoxia or hypercapnia Status: Acute Assessment and Plan: Acute Respiratory failure secondary to pulmonary edema, rule out pneumonia as patient had elevated white count and does show some areas consolidation on CT which could be atelectasis from effusion although CT mostly suggest pulmonary edema and effusions Continue full mechanical ventilation support to prevent hypoxemia/hypercarbia and end organ damage. ABGs and chest x-ray reviewed, currently on 35% FiO2 and peep of 5 Patient encephalopathic with tried patient on ASV mode of ventilation, she had central breathing Low tidal volume ventilation strategy to prevent volutrauma Continue cefepime, blood cultures negative x2 (2) Acute pulmonary edema: Code(s): J81.0 - Acute pulmonary edema Status: Acute Assessment and Plan: Increased bilateral infiltrates left greater than right. -will diurese again today (3) CHF (congestive heart failure): Qualifiers: Heart failure type: diastolic Heart failure chronicity: acute Qualified Code(s): I50.31 - Acute diastolic (congestive) heart failure Code(s): I50.9 - Heart failure, unspecified Status: Acute Assessment and Plan: ECHO Summary 1. Complete two-dimensional, color flow and Doppler transthoracic echocardiogram is performed. 2. There is moderate concentric increased left ventricular wall thickness. 3. Left ventricular systolic function is normal, estimated at 60-65%. 4. No wall-motion abnormalities. 5. Left atrial chamber dimension is moderately enlarged. 6. There is no regurgitation of the TAVR aortic valve. 7. Minimal normal transvalvular gradient. (4) Non-ST elevation [place] (NSTEMI): Code(s): I21.4 - Non-ST elevation (NSTEMI) myocardial infarction Status: Acute Assessment and Plan: Secondary to thrombus. Patient underwent PCI yesterday and had to MARIAN x 2 placed in circumflex ROMEL was performed and report reviewed Continue IV heparin infusion aspirin Plavix Hold statin due to elevated liver enzymes at this time Cardiology following (5) S/P TAVR (transcatheter aortic valve replacement): Code(s): Z95.2 - Presence of prosthetic heart valve Status: Chronic Assessment and Plan: ROMEL reviewed (6) Electrolyte abnormality: Code(s): E87.8 - Other disorders of electrolyte and fluid balance, not elsewhere classified Status: Acute Assessment and Plan: Low potassium levels resolved (7) DEBRA (acute kidney injury): Code(s): N17.9 - Acute kidney failure, unspecified Status: Acute Assessment and Plan: Creatinine further increased to 2.0 Likely multifactorial as patient was being diuresed for pulmonary edema and also received contrast with cardiac catheterization Monitor in electrolytes and urine output Appreciate Nephrology evaluation recommendation Additional Plan DVT prophylaxis -heparin infusion Stress ulcer prophylaxis -Pepcid Nutrition -continue Tube Feeds Code Status - Full Code Total Critical Care Time - 34 minutes Due to a high probability of clinically significant, life threatening deterioration, the patient required my highest level of preparedness to intervene emergently and I personally spent this critical care time directly and personally managing the patient. This critical care time included obtaining a history; examining the patient; pulse oximetry; ordering and review of studies; arranging urgent treatment with development of a management plan; evaluation of patient's response to treatment; frequent reassessment; and discussions with other providers. It was exclusive of separately billable procedures and treating other patients and teaching time. Please see Assessment and Plan section and the rest of the note for further information on
[2021-01-21] MEDS: PROPOFOL IV EMULSION 100 ML 8.68 MG IV CONT (16:02)
[2021-01-21] MEDS: HEPARIN SOD/D5W 100 UNITS/ML 25,000 UNITS/250 ML BAG 9 UNITS IV CONT (16:04)
[2021-01-21 16:22] LABS: Iron 40 ug/dL (37-170)
[2021-01-21 16:37] LABS: Percent Iron Saturation 19 % (20-50)
[2021-01-22] VITALS (27 sets, daily range): BP systolic 109–140; BP diastolic 52–82; PULSE 69–106; RESP 16–22; TEMP 36.6–37.1; O2SAT 73–100
[2021-01-22] MEDS: PROPOFOL IV EMULSION 100 ML 11.57 MG IV CONT (01:17)
[2021-01-22 04:50] LABS: Alveolar/Arterial O2 Gradient 126.4 mmHg; Base Excess ABG -0.9 mEq/l (+/-2.0); Carboxyhemoglobin 0.2 % THb (0-2.0); Fractional Inspired Oxygen 35 %; Methemoglobin ABG 0.2 %THb (0-1.5); Oxygen Content ABG 14.3 %vol (16.0-22.0); Oxygen Saturation ABG 96.5 % (95.0-100.0); Oxyhemoglobin 95.1 % THb (90.0-100.0); PCO2 ABG 34.9 mmHg (35.0-45.0); PO2 ABG 82.6 mmHg (80.0-100.0); PO2 FiO2 Ratio Arterial Blood 2.36 %; Reduced Hemoglobin 4.5 %THb (0-5.0); Total Hemoglobin 10.6 g/dL (12.0-18.0); pH ABG 7.436 (7.350-7.450)
[2021-01-22 04:51] LABS: Device VENTILATOR; Modified Allen's Test Pass; Site Drawn RIGHT RADIAL
[2021-01-22 04:52] LABS: Arterial Blood Gas PEEP 5 cmH2O; Arterial Blood Gas Tidal Volume 400 ml; Arterial Blood Gas Vent Mode CMV; Arterial Blood Gas Ventilator rate 16 /MIN
[2021-01-22 05:07] LABS: Hematocrit 29.2 % (37.0-47.0); Hemoglobin 9.7 g/dL (12.0-15.0); Mean Corpuscular HGB Conc 33.2 g/dl (32-36); Mean Corpuscular Hemoglobin 30.6 pg (26-34); Mean Corpuscular Volume 92.1 fl (80-100); Mean Platelet Volume 12.2 fl (7.4-10.4); Platelet Count Result 216 k/mm3 (150-375); Red Blood Count 3.17 M/mm3 (4.2-5.4); Red Cell Distribution Width 14.9 % (11.5-14.5); White Blood Count 14.1 K/mm3 (4.5-10.0)
[2021-01-22 05:19] LABS: Alanine Aminotransferase 39 U/L (4-35); Albumin Level 3.4 g/dL (3.5-5.1); Alkaline Phosphatase 59 U/L (38-126); Anion Gap 5 mmol/L (8-16); Aspartate Amino Transferase 49 U/L (14-36); Bilirubin,Total 0.4 mg/dL (0.2-1.3); Blood Urea Nitrogen 55 mg/dL (7-17); Calcium 9.4 mg/dL (8.4-10.2); Carbon Dioxide 28 mmol/L (22-30); Chloride 102 mmol/L (98-107); Estimated CRCL calculation 26 ml/min; Estimated Glomerular Filt Rate 29; Glucose 137 mg/dL (65-105); Magnesium 2.3 mg/dL (1.6-2.3); Phosphorus 4.1 mg/dL (2.5-4.5); Potassium 4.2 mmol/L (3.4-5.0); Sodium 135 mmol/L (137-145)
[2021-01-22 05:22] LABS: Partial Thromboplastin Time 56.9 SECONDS (22.3-36.8)
[2021-01-22] MEDS: HEPARIN SODIUM 5,000 UNITS/ML VIAL 2500 UNITS IV PUSH ×2 (05:35→18:44)
[2021-01-22] MEDS: CENTRAL LINE FLUSH 10 ML IV PUSH ×4 (05:36→21:47)
[2021-01-22 06:24] LABS: Folic Acid 19.1 ng/mL (2.76->20)
[2021-01-22 06:28] LABS: Thyroid Stimulating Hormone Reflex 0.875 uIU/mL (0.465-4.68)
[2021-01-22] MEDS: CLOPIDOGREL BISULFATE 75 MG TABLET PO (08:20)
[2021-01-22] MEDS: ASPIRIN 81 MG CHEWABLE TABLET PO (08:20)
[2021-01-22] MEDS: FAMOTIDINE 20 MG/2 ML VIAL IV PUSH ×2 (08:20→20:10)
[2021-01-22] MEDS: METOPROLOL TARTRATE 6.25 MG TABLET PO ×2 (08:21→20:10)
[2021-01-22] MEDS: PROPOFOL IV EMULSION 100 ML 14.46 MG IV CONT ×2 (08:27→16:00)
--- NOTE | 2021-01-22 11:10 | PCDIET ---
ICU Rounding Note: Patient tolerating Vital 1.2 at 50mL/hr goal rate with 30mL water flush every 4 hours. Recommended decreasing rate to 40mL/hr for 1437kcal and 66g protein with current Propofol dose, given 22 hour daily tube feeding infusion. Last recorded weight is 95.3kg which is down from last review. Bowel Motility: No BM documented. MD adding scheduled Miralax. Labs Reviewed: Hgb (9.7), Hct (29.2), Glu (137), BUN (55), Cr (1.7), Na (135), Alb (3.4) Meds Noted: Miralax, Cefepime, Lisinopril, Propofol (rate of 14.46mL/hr provides 381kcal per day), Pepcid, Lopressor, Lasix, Levophed Additional Notes: Right groin cath site with Band-Aid. No documented pressure sores. Following daily in ICU rounds. Assessing/reassessing every Wednesday/Wednesday.
[2021-01-22 11:33] LABS: Partial Thromboplastin Time 82.5 SECONDS (22.3-36.8)
--- NOTE | 2021-01-22 11:43 | WPDINTPN ---
Progress Note: A&P Assessment and Plan (1) Acute respiratory failure: Code(s): J96.00 - Acute respiratory failure, unspecified whether with hypoxia or hypercapnia Status: Acute Assessment and Plan: Acute Respiratory failure secondary to pulmonary edema, rule out pneumonia as patient had elevated white count and does show some areas consolidation on CT which could be atelectasis from effusion although CT mostly suggest pulmonary edema and effusions Continue full mechanical ventilation support to prevent hypoxemia/hypercarbia and end organ damage. ABGs and chest x-ray reviewed, currently on 35% FiO2 and peep of 5 Patient encephalopathic, try to place patient on ASV but she was using abdominal muscles to breathe so switched her back to CMV Propofol for sedation Low tidal volume ventilation strategy to prevent volutrauma Continue cefepime, blood cultures negative x2 (2) Acute pulmonary edema: Code(s): J81.0 - Acute pulmonary edema Status: Acute Assessment and Plan: Increased bilateral infiltrates left greater than right. -diuresed well on 01/21 -diurese again today (3) CHF (congestive heart failure): Qualifiers: Heart failure type: diastolic Heart failure chronicity: acute Qualified Code(s): I50.31 - Acute diastolic (congestive) heart failure Code(s): I50.9 - Heart failure, unspecified Status: Acute Assessment and Plan: ECHO Summary 1. Complete two-dimensional, color flow and Doppler transthoracic echocardiogram is performed. 2. There is moderate concentric increased left ventricular wall thickness. 3. Left ventricular systolic function is normal, estimated at 60-65%. 4. No wall-motion abnormalities. 5. Left atrial chamber dimension is moderately enlarged. 6. There is no regurgitation of the TAVR aortic valve. 7. Minimal normal transvalvular gradient. (4) Non-ST elevation [place] (NSTEMI): Code(s): I21.4 - Non-ST elevation (NSTEMI) myocardial infarction Status: Acute Assessment and Plan: Secondary to thrombus. Patient underwent PCI yesterday and had to MARIAN x 2 placed in circumflex ROMEL was performed and report reviewed Continue IV heparin infusion aspirin Plavix Hold statin due to elevated liver enzymes at this time Cardiology following (5) S/P TAVR (transcatheter aortic valve replacement): Code(s): Z95.2 - Presence of prosthetic heart valve Status: Chronic Assessment and Plan: ROMEL reviewed - cardiology following (6) Electrolyte abnormality: Code(s): E87.8 - Other disorders of electrolyte and fluid balance, not elsewhere classified Status: Acute Assessment and Plan: Low potassium levels resolved (7) DEBRA (acute kidney injury): Code(s): N17.9 - Acute kidney failure, unspecified Status: Acute Assessment and Plan: Creatinine improved to 1.7 Likely multifactorial as patient was being diuresed for pulmonary edema and also received contrast with cardiac catheterization Monitor in electrolytes and urine output Appreciate Nephrology evaluation recommendation (8) Encephalopathy: Code(s): G93.40 - Encephalopathy, unspecified Status: Acute Additional Plan DVT prophylaxis -heparin infusion Stress ulcer prophylaxis -Pepcid Nutrition -continue Tube Feeds Code Status - Full Code Total Critical Care Time - 33 minutes Due to a high probability of clinically significant, life threatening deterioration, the patient required my highest level of preparedness to intervene emergently and I personally spent this critical care time directly and personally managing the patient. This critical care time included obtaining a history; examining the patient; pulse oximetry; ordering and review of studies; arranging urgent treatment with development of a management plan; evaluation of patient's response to treatment; frequent reassessment; and discussions with other providers. It wa
[2021-01-22] MEDS: polyethylene glycoL 3350 17 GM POWD.PACK PO (12:11)
--- NOTE | 2021-01-22 12:17 | PM.PNCARD ---
Progress Note: A&P Additional Plan 75-year-old lady with: Acute posterolateral myocardial infarction with thrombotic embolization of the circumflex from the structure of her recently deployed TAVR valve. PCI of the circumflex was done successfully but was difficult because of difficulty engaging the left main ostium due to the TAVR structure. It is favorable that her left ventricular functions to looks good on echo. Her TAVR valve continues to function normally. Neurological status at this time is principal concern as she is minimally/poorly responsive. Dual anti-platelet therapy and anticoagulation are being administered as mentioned above Karlos Cedillo MD [facility] Subjective Date/time seen: Date of service: 01/22/21 12:17 Interval history: Follow-up visit in this 75-year-old lady with: Aortic valve disease recent TAVR procedure at [facility]. Patient was found not to have any coronary disease angiographically prior to her valve replacement. She entered this hospital on Wednesday with an episode of ischemic chest pain which was self-limited but was associated with a moderate troponin rise. When this was assumed to be due to thrombotic/embolic coronary events since she did not have any coronary disease just a couple of months ago. She then destabilized yesterday rate will went into pulmonary edema required intubation and was brought to the bed laborer. As expected she did have a embolic clot in her circumflex which was treated with stenting of the circumflex. The TAVR stent material prevented good engagement of the left main coronary artery and so extraction thrombectomy could not be performed. With great difficulty the area was stented restoring good patency in the circumflex. She remains in the ICU intubated on mechanical ventilator support. She is on dual anti-platelet therapy and is also anticoagulated with heparin. Echocardiogram prior to and after the procedure demonstrates good left ventricular systolic function and good function of her TAVR valve. 01/22/2021: Patient remains intubated in the ventilator in the ICU. Remains on dual anti-platelet therapy as well as heparin. Concern now centers around her mental status as she is minimally sedated but is only minimally responsive. Does not follow commands or respond purposefully. Exam Narrative: Exam Narrative: PHYSICAL EXAMINATION: GENERAL: Sedated, mildly agitated MENTAL STATUS: sedated EYES: pallor EARS: External ears appear normal NOSE: Normal and patent, no discharge MOUTH: orotracheal tube is in place NECK: Supple, no JVD CHEST: vent sounds HEART: Normal rate, regular rhythm, normal S1 and S2 ABDOMEN: Soft, nontender NEUROLOGICAL: sedated, mildly agitated MUSCULOSKELETAL: No major deformity, no amputation EXTREMITIES: No pedal edema SKIN: no rash on the exposed area, no cyanosis PSYCHIATRIC: mildly agitated Const: General: no acute distress Other: Sedated elderly patient in the ICU on ventilator support She does respond and arouse to verbal stimulation but does not follow commands. HENMT: Mouth: Yes moist mucous membranes Eyes: Sclera: sclerae normal Pupils: Equal, round and reactive pupils present Neck: Neck: supple and no JVD Thyroid: thyroid normal Other: No carotid bruit, normal upstrokes JVD is difficult to assess but no obvious venous distention Resp: Effort & Inspection: normal respiratory effort Auscultation: clear to auscultation bilaterally Other: Central rhonchi are noted with ventilator breath sounds Cardio: Rate: regular rate Rhythm: regular rhythm Other: Soft systolic murmur at the base, no diastolic murmur no gallop GI: Auscultation: normal bowel sounds Skin: General skin exam: normal color Neuro: Cranial nerves: Yes Equal, round and reactive pupils present Cognition (Neuro): normal cognition Other: Sedated Extrem: General: normal to inspection Other: Good pulses, no edema Objective Data Vital
--- NOTE | 2021-01-22 12:41 | WPDNEUROLOGY ---
Neurology EEG Report General Information Date of Study: 01/22/21 TEST EEG DIAGNOSIS encephalopathy CONDITION OF RECORDING unresponsive EEG NUMBER 2020 CLINICAL HISTORY patient came into hospital about 5 days ago with complaints of chest pain. He was transferred to ICU and intubated and at present remains on vent and propofol EEG DESCRIPTION whole record consists of low to medium voltage 5 to 7 hertz per second theta admixed with small amount of low-voltage 15 to 18 hertz per second beta activity. Bilateral symmetrical sleep activity seen during sleep. Throughout the tracing, periods of decrease in amplitude are seen lasting for 1 to 2 seconds. Hyperventilation not done. Photic stimulation not done. Non paroxysmal. Nonfocal. Nonlateralizing. IMPRESSION Severely abnormal record due to the presence of bihemispheric theta and delta activity even during sleep without any paroxysmal discharge ,these abnormalities could be consistent with organic or metabolic encephalopathy. Possibility of hypoxic insult cannot be ruled out.
--- NOTE | 2021-01-22 12:58 | PM.PNNEP ---
Progress Note: A&P Assessment and Plan (1) DEBRA (acute kidney injury): Code(s): N17.9 - Acute kidney failure, unspecified Status: Acute Assessment and Plan: resolving multifactorial etiology: -contrast exposure x 2 (from CT scan of chest and cardiac catheterization) - previous IV diuresis - NSTEMI - use of DARYL-I/diuretics prior to admission urine electrolytes with some pre-renal component renal ultrasound without evidence of obstruction or masses creatinine appears to have peaked/plateaued at 2.0mg/dl follow trend of repeat labs and UOP (2) Acute respiratory failure with hypoxemia: Code(s): J96.01 - Acute respiratory failure with hypoxia Status: Acute Assessment and Plan: due to pulmonary edema (flash pulmonary edema?) on mechanical ventilation weaning as tolerated PRN IV lasix for diuresis (3) Non-ST elevation SD (NSTEMI): Code(s): I21.4 - Non-ST elevation (NSTEMI) myocardial infarction Status: Acute Assessment and Plan: s/p cardiac catheterizartion with stenting as noted Cardiology following continue supportive therapy (4) S/P TAVR (transcatheter aortic valve replacement): Code(s): Z95.2 - Presence of prosthetic heart valve Status: Chronic Assessment and Plan: valve appears to be functioning well by Echo Will continue to follow. Subjective Date/time seen: 01/22/21 12:58 Remains on intubated and on mechanical ventilation; opens eyes at times but not following commands; remains hemodynamically stable and making better urine output (with PRN IV diuretics); no other acute issues/events overnight or earlier this AM. Exam Narrative: Exam Narrative: General: Elderly Causian female in NAD; intubated/on ventilator Heart: normal S1 and S2; no rub Lungs: coarse breath sounds Abdomen: soft, nontender, nondistended, positive bowel sounds Extremities: no cyanosis or clubbing; no edema Skin: no rash Objective Data Vital Signs Vital Signs: Vital Signs Temp Pulse Resp BP Pulse Ox 01/22/21 12:08 69 16 01/22/21 12:00 36.8 C 70 19 118/59 L 100 01/22/21 11:41 69 99 01/22/21 10:00 71 16 116/58 L 98 01/22/21 08:27 87 16 01/22/21 08:22 94 17 01/22/21 08:21 93 01/22/21 08:00 36.9 C 90 19 125/57 L 97 01/22/21 07:45 100 97 01/22/21 06:00 73 16 109/52 L 100 01/22/21 04:38 98 73 L 01/22/21 04:00 36.6 C 88 22 H 138/59 L 96 01/22/21 02:12 96 86 L 01/22/21 02:00 78 16 127/55 L 97 01/22/21 01:17 82 16 01/22/21 00:00 36.6 C 70 16 116/54 L 99 01/21/21 22:52 100 66 L 01/21/21 22:00 66 16 115/56 L 96 01/21/21 20:25 82 01/21/21 20:15 98 01/21/21 20:00 36.8 C 87 15 135/62 98 01/21/21 18:00 73 16 113/49 L 99 01/21/21 16:50 99 71 L 01/21/21 16:02 67 16 01/21/21 16:00 36.2 C L 73 16 104/51 L 99 01/21/21 14:02 100 64 L 01/21/21 14:00 64 16 119/59 L 100 Intake/Output Intake/Output: Intake & Output 01/19/21 01/20/21 01/21/21 01/22/21 23:59 23:59 23:59 23:59 Intake Total 2009 1735.5 1701 1412 Output Total 1564 370 0729 975 Balance 910 1035.5 251 437 Meds/Results Medications: Active Medications Generic Name Dose Route Start Last Admin Trade Name Freq PRN Reason Stop Dose Admin Acetaminophen 650 mg 01/17/21 11:17 01/17/21 18:13 Acetaminophen 325 Mg Tablet PO 650 mg Q4H PRN Administration Mild Pain (1-3) or Fever Aspirin 81 mg 01/18/21 08:00 01/22/21 08:20 Aspirin 81 Mg Chewable Tablet PO 81 mg DAILY@0800 [facility] Administration Clopidogrel Bisulfate 75 mg 01/18/21 09:00 01/22/21 08:20 Clopidogrel Bisulfate 75 Mg Tablet PO 75 mg QAM KINGA Administration Famotidine 20 mg 01/17/21 21:00 01/22/21 08:20 Famotidine 20 Mg/2 Ml Vial IV PUSH 20 mg Q12HR KINGA Administration
--- NOTE | 2021-01-22 13:09 | WPDNEURCNPN ---
Assessment and Plan Additional Plan severe neurological deficit with bihemispheric signs and abnormal EEG without evidence of paroxysmal activity treatment as such will discuss with the family if necessary Consult date: 01/22/21 Time Seen: 12:45 HPI: Lakshmi Comer is a 75 year old female has been in intensive care for acute respiratory failure in addition to pulmonary edema and possible pneumonia additionally in heart failure neuro consultation has been obtained to evaluate her neurological status recent CT scan on 511 is normal without evidence of hydrocephalus, epidural or subdural, or any space-occupying lesion, most recent lab with leukocytosis WBC 14.1 hemoglobin 9.7 platelet count 216 APTT 82.5 BUN 55 creatinine 1.70 COVID serology negative EEG on 01/22 was severely abnormal with bihemispheric theta and delta activity without any paroxysmal discharge Review of Systems Review of Systems: All systems reviewed & are unremarkable except as noted in HPI and below PMFSH Past Medical History Medical History Acute pulmonary edema Acute respiratory failure with hypoxemia CHF (congestive heart failure) Non-ST elevation [place] (NSTEMI) Surgical History Surgical History S/P TAVR (transcatheter aortic valve replacement) Family History Family History Grandparent Hypertension Cerebrovascular accident Father Heart disease Social History Social History Smoking status: Never smoker Alcohol intake: never Substance use: never Substance use type: does not use Gender identity (if verbalized by the patient): Male Spiritual care concerns: No Meds Home Medications and Allergies Home Medications Medication Instructions Recorded Confirmed Type aspirin 81 mg PO DAILY 06/03/20 01/17/21 History calcitonin (salmon) 1 spray INTRANASAL DAILY 06/03/20 01/17/21 History lisinopril 30 mg PO DAILY 06/03/20 01/17/21 History spironolactone 25 mg PO DAILY 06/03/20 01/17/21 History venlafaxine 150 mg PO DAILY 06/03/20 01/17/21 History acetaminophen 500 mg PO Q6H PRN 12/16/20 01/17/21 History ascorbic acid (vitamin C) [Vitamin 500 mg PO DAILY 12/16/20 01/17/21 History C] cholecalciferol (vitamin D3) 50 mcg PO DAILY 12/16/20 01/17/21 History [Vitamin D3] clopidogrel 75 mg PO DAILY 12/16/20 01/17/21 History furosemide 20 mg PO DAILY 12/16/20 01/17/21 History metoprolol succinate 50 mg PO DAILY 12/16/20 01/17/21 History gmectfye-pkq-gcgz-FA-lutein 1 tablet PO DAILY 12/16/20 01/17/21 History [Centrum Silver Women] omega 3-cal-qxr-fish oil [Fish Oil] 1 cap PO DAILY 12/16/20 01/17/21 History vitamin E 400 unit PO DAILY 12/16/20 01/17/21 History Allergies Allergy/AdvReac Type Severity Reaction Status Date / Time hydromorphone Allergy Mild Itching Verified 01/17/21 05:55 morphine Allergy Mild Itching Verified 01/17/21 05:55 Vital Signs Vital Signs - 24 hr 01/21/21 14:00 01/21/21 14:02 01/21/21 16:00 Temperature 36.2 C L Pulse Rate 64 100 73 Respiratory Rate 16 16 Blood Pressure 119/59 L 104/51 L Pulse Oximetry 100 64 L 99 01/21/21 16:02 01/21/21 16:50 01/21/21 18:00 Temperature Pulse Rate 67 99 73 Respiratory Rate 16 16 Blood Pressure 113/49 L Pulse Oximetry 71 L 99 01/21/21 20:00 01/21/21 20:15 01/21/21 20:25 Temperature 36.8 C Pulse Rate 87 98 82 Respiratory Rate 15 Blood Pressure 135/62 Pulse Oximetry 98 01/21/21 22:00 01/21/21 22:52 01/22/21 00:00 Temperature 36.6 C Pulse Rate 66 100 70 Respiratory Rate 16 16 Blood Pressure 115/56 L 116/54 L Pulse Oximetry 96 66 L 99 01/22/21 01:17 01/22/21 02:00 01/22/21 02:12 Temperature Pulse Rate 82 78 96 Respiratory Rate 16 16 Blood Pressure 127/55 L Pulse Oximetry 97 86 L 01/22/21 04:00 01/22/21 04:38 01/22/21 0
[2021-01-22] MEDS: FUROSEMIDE INJ 40 MG/4 ML VIAL 20 MG IV PUSH (13:26)
--- NOTE | 2021-01-22 14:14 | PM.IMPN ---
Progress Note: A&P Assessment and Plan (1) Encephalopathy: Code(s): G93.40 - Encephalopathy, unspecified Status: Acute Assessment and Plan: Mental status still poor. CT brain showing no acute findings. EEG showing severely abnormal record due to the presence of bihemispheric theta and delta activity even during sleep without any paroxysmal discharge ,these abnormalities could be consistent with organic or metabolic encephalopathy. Possibility of hypoxic insult cannot be ruled out . Concern for HIE. Wean sedation as possible. (2) Acute respiratory failure with hypoxemia: Code(s): J96.01 - Acute respiratory failure with hypoxia Status: Acute Assessment and Plan: Patient remains intubated but on minimal settings. CXR reviewed showing persistent bilateral airspace disease without much change taking into account position. Currently, IV Lasix on hold due to DEBRA. Propofol added but trying to wean off at this time. Appreciate help from charter boat operator. (3) Acute pulmonary edema: Code(s): J81.0 - Acute pulmonary edema Status: Acute Assessment and Plan: Chest x-ray today was reviewed showing bilateraly perry-hilar and BLL opacities with small left pleural effusion (no change in relation to position). Patient remains on ventilator as noted. 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 Cardiology following in addition to charter boat operator. Lasix on hold due to rising Cr (but one dose given yesterday). Sharon 45 with FENa 0.7% to suggest pre-renal. Consider other etiologies such as bacterial or viral (COVID) PNA. Not terribly hypoxic making COVID less likely but not excluded. Sputum Cx ordered. (4) CHF (congestive heart failure): Qualifiers: Heart failure chronicity: acute Heart failure type: diastolic Qualified Code(s): I50.31 - Acute diastolic (congestive) heart failure Code(s): I50.9 - Heart failure, unspecified Status: Acute Assessment and Plan: Possible acute pulmonary edema as noted above but resistent to diuretic therapy and now appears pre-renal DEBRA. ROMEL showing EF 55% with inferolateral and anterior wall hypokinesis a result of large NSTEMI. As above. (5) Non-ST elevation [place] (NSTEMI): Code(s): I21.4 - Non-ST elevation (NSTEMI) myocardial infarction Status: Acute Assessment and Plan: Cardiology following. Initial 2D echocardiogram at bedside with EF 55% along with mild hypokinesis of the mid and basal anterior wall and severe hypokinesis of the mid and basal inferolateral wall. ROMEL of 01/18/2021 with results as noted above. Now S/P cardiac catheterization on 01/18/2021 with successful PCI to left circumflex. Most likely mechanism felt to be embolic source from TAVR to circumflex. Will continue ASA, Plavix, heparin drip and metoprolol. Lisinopril held. Appreciate help from Cardiology. (6) DEBRA (acute kidney injury): Code(s): N17.9 - Acute kidney failure, unspecified Status: Acute Assessment and Plan: Creatinine 1.1 on admission and was stable at 1.1-1.3 range until climbed to 2.0 on 01/20. Lasix and Lisinopril were held. Nephrology consulted. Labs appear pre-renal. Creatinine better today at 1.7. Continue to monitor closely. (7) Anemia: Code(s): D64.9 - Anemia, unspecified Status: Acute Assessment and Plan: Hemoglobin 13 on admission. Hemoglobin has dropped to 9.6 yesterday without clear source of blood loss. No obvious hematoma at the catheterization site. Patient is on heparin drip. Repeat hemoglobin later today. Follow closely. (8) S/P TAVR (transcatheter aortic valve replacement): Code(s): Z95.2 - Presence of prosthetic heart valve Status: Chronic Assessment and Plan: The AV is well seated by ROMEL. Also noted is a filamentous mobile echodensity appreciated below the valve aruna
[2021-01-22] MEDS: HEPARIN SOD/D5W 100 UNITS/ML 25,000 UNITS/250 ML BAG 10 UNITS IV CONT (16:31)
[2021-01-22 18:34] LABS: Partial Thromboplastin Time 63.4 SECONDS (22.3-36.8)
[2021-01-22] MEDS: PROPOFOL IV EMULSION 100 ML 17.35 MG IV CONT (21:43)
[2021-01-23] VITALS (30 sets, daily range): BP systolic 99–168; BP diastolic 45–88; PULSE 62–133; RESP 15–29; TEMP 36.8–37.3; O2SAT 93–97
[2021-01-23] MEDS: PROPOFOL IV EMULSION 100 ML 17.35 MG IV CONT ×2 (03:21→20:59)
[2021-01-23 04:36] LABS: Alveolar/Arterial O2 Gradient 94.2 mmHg; Base Excess ABG 0.9 mEq/l (+/-2.0); Carboxyhemoglobin 0.3 % THb (0-2.0); Fractional Inspired Oxygen 30 %; Methemoglobin ABG 0.2 %THb (0-1.5); Oxygen Content ABG 14.6 %vol (16.0-22.0); Oxygen Saturation ABG 95.7 % (95.0-100.0); Oxyhemoglobin 94.1 % THb (90.0-100.0); PCO2 ABG 37.5 mmHg (35.0-45.0); PO2 ABG 75.6 mmHg (80.0-100.0); PO2 FiO2 Ratio Arterial Blood 2.52 %; Reduced Hemoglobin 5.4 %THb (0-5.0); pH ABG 7.441 (7.350-7.450)
[2021-01-23 04:37] LABS: Device VENTILATOR; Modified Allen's Test Pass; Site Drawn LEFT RADIAL
[2021-01-23 04:38] LABS: Arterial Blood Gas PEEP 5 cmH2O; Arterial Blood Gas Tidal Volume 400 ml; Arterial Blood Gas Vent Mode CMV; Arterial Blood Gas Ventilator rate 16 /MIN
[2021-01-23] MEDS: CENTRAL LINE FLUSH 10 ML IV PUSH (05:17)
[2021-01-23 07:18] LABS: Hematocrit 31.2 % (37.0-47.0); Hemoglobin 10.4 g/dL (12.0-15.0); Mean Corpuscular HGB Conc 33.3 g/dl (32-36); Mean Corpuscular Hemoglobin 30.1 pg (26-34); Mean Corpuscular Volume 90.4 fl (80-100); Mean Platelet Volume 12.5 fl (7.4-10.4); Platelet Count Result 268 k/mm3 (150-375); Red Blood Count 3.45 M/mm3 (4.2-5.4); Red Cell Distribution Width 14.8 % (11.5-14.5); White Blood Count 15.8 K/mm3 (4.5-10.0)
[2021-01-23 07:27] LABS: Partial Thromboplastin Time 31.4 SECONDS (22.3-36.8)
[2021-01-23 07:34] LABS: Potassium 4.5 mmol/L (3.4-5.0)
[2021-01-23 07:36] LABS: Alanine Aminotransferase 38 U/L (4-35); Albumin Level 3.8 g/dL (3.5-5.1); Alkaline Phosphatase 69 U/L (38-126); Anion Gap 6 mmol/L (8-16); Aspartate Amino Transferase 44 U/L (14-36); Bilirubin,Total 0.5 mg/dL (0.2-1.3); Blood Urea Nitrogen 46 mg/dL (7-17); Calcium 9.9 mg/dL (8.4-10.2); Carbon Dioxide 27 mmol/L (22-30); Chloride 102 mmol/L (98-107); Estimated CRCL calculation 36 ml/min; Estimated Glomerular Filt Rate 44; Glucose 118 mg/dL (65-105); Magnesium 2.4 mg/dL (1.6-2.3); Sodium 135 mmol/L (137-145)
[2021-01-23] MEDS: HEPARIN SODIUM 5,000 UNITS/ML VIAL 4000 UNITS IV PUSH (07:56)
[2021-01-23] MEDS: METOPROLOL TARTRATE 6.25 MG TABLET PO ×2 (07:57→12:10)
[2021-01-23] MEDS: CLOPIDOGREL BISULFATE 75 MG TABLET PO (07:58)
[2021-01-23] MEDS: ASPIRIN 81 MG CHEWABLE TABLET PO (07:58)
[2021-01-23] MEDS: polyethylene glycoL 3350 17 GM POWD.PACK PO (07:58)
[2021-01-23] MEDS: FAMOTIDINE 20 MG/2 ML VIAL IV PUSH ×2 (07:59→21:05)
--- NOTE | 2021-01-23 08:01 | WPDINTPN ---
Progress Note: A&P Assessment and Plan (1) Acute respiratory failure: Code(s): J96.00 - Acute respiratory failure, unspecified whether with hypoxia or hypercapnia Status: Acute Assessment and Plan: Acute Respiratory failure secondary to pulmonary edema, rule out pneumonia as patient had elevated white count and does show some areas consolidation on CT which could be atelectasis from effusion although CT mostly suggest pulmonary edema and effusions Continue full mechanical ventilation support to prevent hypoxemia/hypercarbia and end organ damage. ABGs and chest x-ray reviewed, currently on 35% FiO2 and peep of 5 Patient encephalopathic, try to place patient on ASV but she was using abdominal muscles to breathe so switched her back to CMV Propofol for sedation -continue ceftriaxone (initiated on 01/22/2021), will add vancomycin given persistent infiltrates and opacities on chest x-ray Low tidal volume ventilation strategy to prevent volutrauma (2) Acute pulmonary edema: Code(s): J81.0 - Acute pulmonary edema Status: Acute Assessment and Plan: Persistent bilateral infiltrates and opacities -diuresed well on 01/21, 01/22 -diurese again today (3) CHF (congestive heart failure): Qualifiers: Heart failure type: diastolic Heart failure chronicity: acute Qualified Code(s): I50.31 - Acute diastolic (congestive) heart failure Code(s): I50.9 - Heart failure, unspecified Status: Acute Assessment and Plan: ECHO Summary 1. Complete two-dimensional, color flow and Doppler transthoracic echocardiogram is performed. 2. There is moderate concentric increased left ventricular wall thickness. 3. Left ventricular systolic function is normal, estimated at 60-65%. 4. No wall-motion abnormalities. 5. Left atrial chamber dimension is moderately enlarged. 6. There is no regurgitation of the TAVR aortic valve. 7. Minimal normal transvalvular gradient. (4) Non-ST elevation PR (NSTEMI): Code(s): I21.4 - Non-ST elevation (NSTEMI) myocardial infarction Status: Acute Assessment and Plan: Secondary to thrombus. Patient underwent PCI and had to MARIAN x 2 placed in circumflex likely due to acute thrombotic occlusion ROMEL on 01/18/2021: Preserved LV systolic function with motion abnormalities as noted Stable, intact bioprosthetic aortic valve with preserved leaflet excursion of those visualized with suggestion of faint subvalvular thin filamentous mobile echodensity unable to further characterize. Continue IV heparin infusion aspirin Plavix per Cardiology Hold statin due to elevated liver enzymes at this time Cardiology following (5) S/P TAVR (transcatheter aortic valve replacement): Code(s): Z95.2 - Presence of prosthetic heart valve Status: Chronic Assessment and Plan: ROMEL as above - cardiology following (6) Electrolyte abnormality: Code(s): E87.8 - Other disorders of electrolyte and fluid balance, not elsewhere classified Status: Acute Assessment and Plan: Low potassium levels resolved (7) DEBRA (acute kidney injury): Code(s): N17.9 - Acute kidney failure, unspecified Status: Acute Assessment and Plan: Creatinine improved to 1.2 Likely multifactorial as patient was being diuresed for pulmonary edema and also received contrast with cardiac catheterization Monitor in electrolytes and urine output Appreciate Nephrology evaluation recommendation (8) Encephalopathy: Code(s): G93.40 - Encephalopathy, unspecified Status: Acute Assessment and Plan: Could be related to embolic disease, infection, toxic metabolic encephalopathy, -EEG showed severe neurological deficit without seizure activity, consistent with organic a metabolic encephalopathy, possibility of hypoxic insult cannot be ruled out. -will further discuss with neurology -patient not tolerating weaning off propofol, becomes very restles
[2021-01-23] MEDS: PROPOFOL IV EMULSION 100 ML 11.57 MG IV CONT (08:22)
[2021-01-23] MEDS: FUROSEMIDE INJ 40 MG/4 ML VIAL 20 MG IV PUSH (08:28)
--- NOTE | 2021-01-23 10:15 | PM.PNCARD ---
Progress Note: A&P Assessment and Plan (1) Acute pulmonary edema: Code(s): J81.0 - Acute pulmonary edema Status: Acute Assessment and Plan: patient remains intubated. Cont IV Lasix, wean vent support as able Increase metoprolol tartrate to 25 mg p.o. b.i.d. (2) Non-ST elevation [place] (NSTEMI): Code(s): I21.4 - Non-ST elevation (NSTEMI) myocardial infarction Status: Acute Assessment and Plan: Patient found to have occluded LCX, likely embolic event from the aortic valve prosthesis. Status post complex PCI/stenting. Continue anticoagulation with heparin for now, monitor APTT. Continue dual antiplatelet therapy with aspirin and clopidogrel for now. Long-term, use single antiplatelet treatment with clopidogrel along with either apixaban or rivaroxaban. (3) Acute respiratory failure: Code(s): J96.00 - Acute respiratory failure, unspecified whether with hypoxia or hypercapnia Status: Acute Assessment and Plan: Per ciritical care. Intubated, wean as tolerated. Recommend further evaluation of neurological status by Neurology.. (4) S/P TAVR (transcatheter aortic valve replacement): Code(s): Z95.2 - Presence of prosthetic heart valve Status: Chronic Assessment and Plan: no definite vegetation or thrombus reported on ROMEL. (5) Hypertension: Code(s): I10 - Essential (primary) hypertension Status: Acute Assessment and Plan: Increasing metoprolol to 25 mg p.o. b.i.d. Additional Plan 75-year-old lady with: Acute posterolateral myocardial infarction with thrombotic embolization of the circumflex from the structure of her recently deployed TAVR valve. PCI of the circumflex was done successfully but was difficult because of difficulty engaging the left main ostium due to the TAVR structure. It is favorable that her left ventricular functions to looks good on echo. Her TAVR valve continues to function normally. Dual anti-platelet therapy and anticoagulation are being administered as mentioned above Subjective Date/time seen: 01/23/21 10:15 Interval history: Follow-up visit in this 75-year-old lady with: Aortic valve disease recent TAVR procedure at [facility]. Patient was found not to have any coronary disease angiographically prior to her valve replacement. She entered this hospital on Wednesday with an episode of ischemic chest pain which was self-limited but was associated with a moderate troponin rise. When this was assumed to be due to thrombotic/embolic coronary events since she did not have any coronary disease just a couple of months ago. She then destabilized yesterday rate will went into pulmonary edema required intubation and was brought to the laborer airport maintenance. As expected she did have a embolic clot in her circumflex which was treated with stenting of the circumflex. The TAVR stent material prevented good engagement of the left main coronary artery and so extraction thrombectomy could not be performed. With great difficulty the area was stented restoring good patency in the circumflex. She remains in the ICU intubated on mechanical ventilator support. She is on dual anti-platelet therapy and is also anticoagulated with heparin. Echocardiogram prior to and after the procedure demonstrates good left ventricular systolic function and good function of her TAVR valve. 01/22/2021: Patient remains intubated in the ventilator in the ICU. Remains on dual anti-platelet therapy as well as heparin. Concern now centers around her mental status as she is minimally sedated but is only minimally responsive. Does not follow commands or respond purposefully. Date of service 01/23/2021: She is moving quite a bit but still not responding upon command. No arrhythmia. Blood pressure is increasing as is her heart rate Review of Systems Review of Systems: All systems reviewed & are unremarkable except as noted in HPI and below ROS unobtainab
--- NOTE | 2021-01-23 10:50 | PCDIET ---
ICU Rounding Note: Patient tolerating Vital 1.2 at 40mL/hr with 30mL water flush every 4 hours. Residuals 150mL and below. Last recorded weight is 95.6kg which is stable with last review. Bowel Motility: No BM; RN reports flatus. Patient on scheduled Miralax. MD to add another medication if no BM later today. Labs Reviewed: Hgb (10.4), Hct (31.2), Glu (118), BUN (46), Cr (1.2), Na (135), Mg (2.4) Meds Noted: Propofol (rate of 14.46mL/hr provides 381kcal per day), Miralax, Cefepime, Pepcid, Lisinopril, Lopressor, Vancomycin Additional Notes: Right groin with puncture site. No pressure sores documented. Following daily in ICU rounds. Assessing/reassessing every Wednesday/Wednesday.
[2021-01-23] MEDS: METOPROLOL TARTRATE 12.5 MG TABLET PO (12:09)
--- NOTE | 2021-01-23 12:23 | PM.PNNEP ---
Progress Note: A&P Assessment and Plan (1) DEBRA (acute kidney injury): Code(s): N17.9 - Acute kidney failure, unspecified Status: Acute Assessment and Plan: resolving multifactorial etiology: -contrast exposure x 2 (from CT scan of chest and cardiac catheterization) - previous IV diuresis - NSTEMI - use of DARYL-I/diuretics prior to admission urine electrolytes with some pre-renal component renal ultrasound without evidence of obstruction or masses creatinine appears to have peaked/plateaued at 2.0mg/dl follow trend of repeat labs and UOP (2) Acute respiratory failure with hypoxemia: Code(s): J96.01 - Acute respiratory failure with hypoxia Status: Acute Assessment and Plan: due to pulmonary edema (flash pulmonary edema?) on mechanical ventilation weaning as tolerated (3) Non-ST elevation [place] (NSTEMI): Code(s): I21.4 - Non-ST elevation (NSTEMI) myocardial infarction Status: Acute Assessment and Plan: s/p cardiac catheterizartion with stenting as noted Cardiology following continue supportive therapy (4) Encephalopathy: Code(s): G93.40 - Encephalopathy, unspecified Status: Acute Assessment and Plan: Neurology following EEG results noted further testing(?) (5) S/P TAVR (transcatheter aortic valve replacement): Code(s): Z95.2 - Presence of prosthetic heart valve Status: Chronic Assessment and Plan: valve appears to be functioning well by Echo Will continue to follow. Subjective Date/time seen: 01/23/21 12:23 Remains intubated and sedated at the time of my visit; remains hemodynamically stable and with good urine output as well; seen by Neurology yesterday; no apparent distress noted; no real significant change noted since I last saw her; continues to respond to IV diuretic therapy. Exam Narrative: Exam Narrative: General: Elderly Causian female in NAD; intubated/sedated Heart: normal S1 and S2; no rub Lungs: coarse breath sounds; decreased at bases Abdomen: soft, nontender, nondistended, positive bowel sounds Extremities: no cyanosis or clubbing; no edema Skin: no nodules Objective Data Vital Signs Vital Signs: Vital Signs Temp Pulse Resp BP Pulse Ox 01/23/21 12:10 94 01/23/21 12:09 94 01/23/21 11:10 124 H 94 01/23/21 10:00 37.3 C 89 16 164/67 H 95 01/23/21 09:18 110 H 25 H 01/23/21 08:20 118 H 22 H 01/23/21 08:18 133 H 29 H 01/23/21 08:04 124 H 94 01/23/21 08:00 36.9 C 109 H 21 H 131/74 93 01/23/21 07:57 117 H 01/23/21 07:36 106 H 22 H 01/23/21 07:11 99 18 01/23/21 06:00 83 16 130/87 94 01/23/21 05:06 98 95 01/23/21 04:00 37.1 C 90 17 127/58 L 96 01/23/21 03:21 85 15 01/23/21 02:30 101 H 96 01/23/21 02:00 75 16 102/48 L 97 01/23/21 00:00 37.0 C 81 16 123/66 97 01/22/21 23:45 98 01/22/21 23:00 78 99 01/22/21 22:00 72 16 111/63 97 01/22/21 21:43 104 H 16 01/22/21 20:10 106 H 01/22/21 20:00 36.8 C 96 18 115/52 L 97 01/22/21 18:00 82 17 112/72 97 01/22/21 16:51 92 97 01/22/21 16:00 37.1 C 91 18 140/82 97 01/22/21 14:40 80 99 01/22/21 14:00 70 16 110/54 L 99 Intake/Output Intake/Output: Intake & Output 01/20/21 01/21/21 01/22/21 01/23/21 23:59 23:59 23:59 23:59 Intake Total 1735.5 1701 2386 1031 Output Total 700 1450 2375 1150 Balance 1035.5 251 11 -119 Meds/Results Medications: Active Medications Generic Name Dose Route Start Last Admin Trade Name Freq PRN Reason Stop Dose Admin Acetaminophen 650 mg 01/17/21 11:17 01/17/21 18:13 Acetaminophen 325 Mg Tablet PO 650 mg Q4H PRN Administration Mild Pain (1-3) or Fever Aspirin 81 mg 01/18/21 08:00 01/23/21 07:58 Aspirin 81 Mg Chewable Tablet PO 81 mg WILLIAMS
--- NOTE | 2021-01-23 13:55 | PM.IMPN ---
Progress Note: A&P Assessment and Plan (1) Encephalopathy: Code(s): G93.40 - Encephalopathy, unspecified Status: Acute Assessment and Plan: Mental status still poor. CT brain showing no acute findings. EEG showing severely abnormal record due to the presence of bihemispheric theta and delta activity even during sleep without any paroxysmal discharge ,these abnormalities could be consistent with organic or metabolic encephalopathy. Possibility of hypoxic insult cannot be ruled out . Concern for HIE. Wean sedation as possible. (2) Acute respiratory failure with hypoxemia: Code(s): J96.01 - Acute respiratory failure with hypoxia Status: Acute Assessment and Plan: Patient remains intubated but on minimal settings. Currently, IV Lasix on hold due to DEBRA. Propofol added but trying to wean off at this time. Appreciate help from paper reclaiming machine operator. (3) Acute pulmonary edema: Code(s): J81.0 - Acute pulmonary edema Status: Acute Assessment and Plan: Patient remains on ventilator as noted. 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 Cardiology following in addition to paper reclaiming machine operator. Lasix on hold due to rising Cr (but one dose given 01/21). Sharon 45 with FENa 0.7% to suggest pre-renal. Consider other etiologies such as bacterial PNA. Not terribly hypoxic making COVID less likely but not excluded. Sputum Cx growing Pseudomonas and yeast. Rocephin changed to Cefepime and Vanco added. (4) CHF (congestive heart failure): Qualifiers: Heart failure chronicity: acute Heart failure type: diastolic Qualified Code(s): I50.31 - Acute diastolic (congestive) heart failure Code(s): I50.9 - Heart failure, unspecified Status: Acute Assessment and Plan: Possible acute pulmonary edema as noted above but Lasix held due to DEBRA. ROMEL showing EF 55% with inferolateral and anterior wall hypokinesis a result of large NSTEMI. As above. (5) Non-ST elevation [place] (NSTEMI): Code(s): I21.4 - Non-ST elevation (NSTEMI) myocardial infarction Status: Acute Assessment and Plan: Cardiology following. Initial 2D echocardiogram at bedside with EF 55% along with mild hypokinesis of the mid and basal anterior wall and severe hypokinesis of the mid and basal inferolateral wall. ROMEL of 01/18/2021 with results as noted above. Now S/P cardiac catheterization on 01/18/2021 with successful PCI to left circumflex. Most likely mechanism felt to be embolic source from TAVR to circumflex. Will continue ASA, Plavix, heparin drip and metoprolol. Lisinopril held. Appreciate help from Cardiology. (6) DEBRA (acute kidney injury): Code(s): N17.9 - Acute kidney failure, unspecified Status: Acute Assessment and Plan: Creatinine 1.1 on admission and was stable at 1.1-1.3 range until climbed to 2.0 on 01/20. Lasix and Lisinopril were held. Nephrology consulted. Labs appear pre-renal. Creatinine better today at 1.2. Continue to monitor closely. (7) Anemia: Code(s): D64.9 - Anemia, unspecified Status: Acute Assessment and Plan: Hemoglobin 13 on admission. Hemoglobin has dropped to 9.6 without clear source of blood loss. No obvious hematoma at the catheterization site. Patient is on heparin drip. Repeat hemoglobin 10.4. Follow closely. (8) S/P TAVR (transcatheter aortic valve replacement): Code(s): Z95.2 - Presence of prosthetic heart valve Status: Chronic Assessment and Plan: The AV is well seated by ROMEL. Also noted is a filamentous mobile echodensity appreciated below the valve leaflets. Now with NSTEMI as noted above. Continue management of NSTEMI as noted above. On anti-coagulation. (9) DVT prophylaxis: Code(s): Z29.9 - Encounter for prophylactic measures, unspecified Status: Acute Assessment and Plan: Heparin
[2021-01-23 14:36] LABS: Partial Thromboplastin Time 95.4 SECONDS (22.3-36.8)
[2021-01-23] MEDS: PROPOFOL IV EMULSION 100 ML 14.46 MG IV CONT (15:31)
[2021-01-23 19:51] LABS: Partial Thromboplastin Time 97.4 SECONDS (22.3-36.8)
[2021-01-23] MEDS: METOPROLOL TARTRATE 25 MG TABLET PO (21:05)
[2021-01-23] MEDS: HEPARIN SOD/D5W 100 UNITS/ML 25,000 UNITS/250 ML BAG 14 UNITS IV CONT (21:06)
[2021-01-24] VITALS (24 sets, daily range): BP systolic 87–137; BP diastolic 46–100; PULSE 57–91; RESP 15–23; TEMP 36.4–37.1; O2SAT 93–99
[2021-01-24] MEDS: PROPOFOL IV EMULSION 100 ML 17.35 MG IV CONT ×2 (02:45→06:14)
[2021-01-24 04:26] LABS: Alveolar/Arterial O2 Gradient 113.5 mmHg; Base Excess ABG 0.9 mEq/l (+/-2.0); Carboxyhemoglobin 0.3 % THb (0-2.0); Device VENTILATOR; Fractional Inspired Oxygen 30 %; HCO3 ABG 24.4 mEq/l (22.0-26.0); Methemoglobin ABG 0.2 %THb (0-1.5); Modified Allen's Test Pass; Oxygen Content ABG 14.9 %vol (16.0-22.0); Oxygen Saturation ABG 92.3 % (95.0-100.0); Oxyhemoglobin 89.7 % THb (90.0-100.0); PCO2 ABG 34.9 mmHg (35.0-45.0); PO2 ABG 59.4 mmHg (80.0-100.0); PO2 FiO2 Ratio Arterial Blood 1.98 %; Reduced Hemoglobin 9.8 %THb (0-5.0); Site Drawn LEFT RADIAL; Total Hemoglobin 11.8 g/dL (12.0-18.0); pH ABG 7.462 (7.350-7.450)
[2021-01-24 04:27] LABS: Arterial Blood Gas PEEP 5 cmH2O; Arterial Blood Gas Tidal Volume 400 ml; Arterial Blood Gas Vent Mode CMV; Arterial Blood Gas Ventilator rate 16 /MIN
[2021-01-24 05:47] LABS: Alanine Aminotransferase 41 U/L (4-35); Albumin Level 3.7 g/dL (3.5-5.1); Alkaline Phosphatase 71 U/L (38-126); Anion Gap 7 mmol/L (8-16); Aspartate Amino Transferase 47 U/L (14-36); Bilirubin,Total 0.5 mg/dL (0.2-1.3); Blood Urea Nitrogen 44 mg/dL (7-17); Calcium 9.9 mg/dL (8.4-10.2); Carbon Dioxide 26 mmol/L (22-30); Chloride 101 mmol/L (98-107); Estimated CRCL calculation 39 ml/min; Estimated Glomerular Filt Rate 48; Glucose 119 mg/dL (65-105); Magnesium 2.5 mg/dL (1.6-2.3); Potassium 4.2 mmol/L (3.4-5.0); Sodium 134 mmol/L (137-145)
[2021-01-24 05:48] LABS: Partial Thromboplastin Time 99.1 SECONDS (22.3-36.8)
[2021-01-24 06:07] LABS: Hematocrit 30.7 % (37.0-47.0); Hemoglobin 10.2 g/dL (12.0-15.0); Mean Corpuscular HGB Conc 33.2 g/dl (32-36); Mean Corpuscular Hemoglobin 30.9 pg (26-34); Mean Platelet Volume 12.6 fl (7.4-10.4); Platelet Count Result 285 k/mm3 (150-375); Red Cell Distribution Width 14.9 % (11.5-14.5)
[2021-01-24] MEDS: polyethylene glycoL 3350 17 GM POWD.PACK PO (07:50)
[2021-01-24] MEDS: CLOPIDOGREL BISULFATE 75 MG TABLET PO (07:50)
[2021-01-24] MEDS: ASPIRIN 81 MG CHEWABLE TABLET PO (07:50)
[2021-01-24] MEDS: FAMOTIDINE 20 MG/2 ML VIAL IV PUSH ×2 (07:51→20:00)
[2021-01-24] MEDS: METOPROLOL TARTRATE 25 MG TABLET PO ×2 (07:51→20:00)
[2021-01-24] MEDS: FUROSEMIDE INJ 40 MG/4 ML VIAL 20 MG IV PUSH (08:30)
[2021-01-24 09:19] LABS: Ammonia 48 umol/L (9-30)
--- NOTE | 2021-01-24 09:49 | WPDINTPN ---
Progress Note: A&P Assessment and Plan (1) Encephalopathy: Code(s): G93.40 - Encephalopathy, unspecified Status: Acute Assessment and Plan: Could be related to embolic disease, infection, toxic metabolic encephalopathy, -EEG showed severe neurological deficit without seizure activity, consistent with organic a metabolic encephalopathy, possibility of hypoxic insult cannot be ruled out. -will further discuss with neurology -patient not tolerating weaning off propofol, becomes very restless. Patient does open her eyes to name but does not follow simple commands or track -ammonia levels elevated, will start patient on lactulose and recheck ammonia levels in a.m. (2) Acute respiratory failure: Code(s): J96.00 - Acute respiratory failure, unspecified whether with hypoxia or hypercapnia Status: Acute Assessment and Plan: Acute Respiratory failure secondary to pulmonary edema, rule out pneumonia as patient had elevated white count and does show some areas consolidation on CT which could be atelectasis from effusion although CT mostly suggest pulmonary edema and effusions Continue full mechanical ventilation support to prevent hypoxemia/hypercarbia and end organ damage. ABGs and chest x-ray reviewed, currently on 35% FiO2 and peep of 5 Patient encephalopathic, try to place patient on ASV but she was using abdominal muscles to breathe so switched her back to CMV Patient has been restless on propofol, having to go up on the dose. Will add small dose of Seroquel try to wean propofol -continue ceftriaxone (initiated on 01/22/2021), added vancomycin on 01/23/2021 persistent infiltrates and opacities on chest x-ray Low tidal volume ventilation strategy to prevent volutrauma (3) Acute pulmonary edema: Code(s): J81.0 - Acute pulmonary edema Status: Acute Assessment and Plan: Persistent bilateral infiltrates and opacities -diuresed well on 01/21, 01/22 -diurese again today (4) CHF (congestive heart failure): Qualifiers: Heart failure chronicity: acute Heart failure type: diastolic Qualified Code(s): I50.31 - Acute diastolic (congestive) heart failure Code(s): I50.9 - Heart failure, unspecified Status: Acute Assessment and Plan: ECHO Summary 1. Complete two-dimensional, color flow and Doppler transthoracic echocardiogram is performed. 2. There is moderate concentric increased left ventricular wall thickness. 3. Left ventricular systolic function is normal, estimated at 60-65%. 4. No wall-motion abnormalities. 5. Left atrial chamber dimension is moderately enlarged. 6. There is no regurgitation of the TAVR aortic valve. 7. Minimal normal transvalvular gradient. (5) Non-ST elevation [place] (NSTEMI): Code(s): I21.4 - Non-ST elevation (NSTEMI) myocardial infarction Status: Acute Assessment and Plan: Secondary to thrombus. Patient underwent PCI and had to MARIAN x 2 placed in circumflex likely due to acute thrombotic occlusion ROMEL on 01/18/2021: Preserved LV systolic function with motion abnormalities as noted Stable, intact bioprosthetic aortic valve with preserved leaflet excursion of those visualized with suggestion of faint subvalvular thin filamentous mobile echodensity unable to further characterize. Continue IV heparin infusion, aspirin, Plavix per Cardiology Hold statin due to elevated liver enzymes at this time Cardiology following (6) S/P TAVR (transcatheter aortic valve replacement): Code(s): Z95.2 - Presence of prosthetic heart valve Status: Chronic Assessment and Plan: ROMEL as above - cardiology following (7) Electrolyte abnormality: Code(s): E87.8 - Other disorders of electrolyte and fluid balance, not elsewhere classified Status: Acute Assessment and Plan: Low potassium levels resolved (8) DEBRA (acute kidney injury): Code(s): N17.9 - Acute kidney failure, unspecified Status
--- NOTE | 2021-01-24 10:30 | PCDIET ---
Nutrition Follow-Up Complete: Nutrition Diagnosis: Inadequate oral intake related to oral intubation as evidenced by need for tube feeding. Nutrition Goal: Patient to meet estimated nutritional needs. Goal met. Patient tolerating Vital 1.2 at 40mL/hr goal rate with 30mL water flush every 4 hours. Last recorded weight is 88.5 kg which is down significantly from last review. -I/O. Will monitor. Bowel Motility: No BM reported. MD adding Lactulose, and Miralax continued. Labs Reviewed: WBC (18.0), Hgb (10.2), Hct (30.7), Glu (119), BUN (44), Cr (1.1), Na (134) Meds Noted: Cefepime, Lisinopril, Pepcid, Fentanyl, Lopressor, Miralax, Vancomycin, Seroquel, Lactulose Additional Notes: Groin puncture site without issues. No documented pressure sores. MD plan to titrate down on Propofol. Will continue to monitor with same goal. Nutrition Monitoring and Evaluation: Follow up every Wednesday/Wednesday. Follow daily in ICU rounds.
[2021-01-24] MEDS: PROPOFOL IV EMULSION 100 ML 16.2 MG IV CONT ×2 (11:32→17:28)
[2021-01-24] MEDS: QUEtiapine FUMARATE 12.5 MG TABLET PO ×2 (11:32→20:00)
[2021-01-24] MEDS: LACTULOSE 20 GM/30 ML UDC FEED TUBE ×2 (11:39→23:34)
--- NOTE | 2021-01-24 11:47 | PM.PNCARD ---
Progress Note: A&P Assessment and Plan (1) Acute pulmonary edema: Code(s): J81.0 - Acute pulmonary edema Status: Acute Assessment and Plan: patient remains intubated. wean vent support as able continue metoprolol tartrate to 25 mg p.o. b.i.d. (2) Non-ST elevation [place] (NSTEMI): Code(s): I21.4 - Non-ST elevation (NSTEMI) myocardial infarction Status: Acute Assessment and Plan: Patient found to have occluded LCX, likely embolic event from the aortic valve prosthesis. Status post complex PCI/stenting. Continue anticoagulation with heparin for now, monitor APTT. Continue dual antiplatelet therapy with aspirin and clopidogrel for now. Long-term, use single antiplatelet treatment with clopidogrel along with either apixaban or rivaroxaban. (3) Acute respiratory failure: Code(s): J96.00 - Acute respiratory failure, unspecified whether with hypoxia or hypercapnia Status: Acute Assessment and Plan: Per ciritical care. Intubated, wean as tolerated. Recommend further evaluation of neurological status by Neurology.. (4) S/P TAVR (transcatheter aortic valve replacement): Code(s): Z95.2 - Presence of prosthetic heart valve Status: Chronic Assessment and Plan: no definite vegetation or thrombus reported on ROMEL. (5) Hypertension: Code(s): I10 - Essential (primary) hypertension Status: Acute Assessment and Plan: continue metoprolol to 25 mg p.o. b.i.d. Subjective Date/time seen: 01/24/21 11:47 Interval history: Follow-up visit in this 75-year-old lady with: Aortic valve disease recent TAVR procedure at [facility]. Patient was found not to have any coronary disease angiographically prior to her valve replacement. She entered this hospital on Wednesday with an episode of ischemic chest pain which was self-limited but was associated with a moderate troponin rise. When this was assumed to be due to thrombotic/embolic coronary events since she did not have any coronary disease just a couple of months ago. She then destabilized yesterday rate will went into pulmonary edema required intubation and was brought to the laboratory development technician. As expected she did have a embolic clot in her circumflex which was treated with stenting of the circumflex. The TAVR stent material prevented good engagement of the left main coronary artery and so extraction thrombectomy could not be performed. With great difficulty the area was stented restoring good patency in the circumflex. She remains in the ICU intubated on mechanical ventilator support. She is on dual anti-platelet therapy and is also anticoagulated with heparin. Echocardiogram prior to and after the procedure demonstrates good left ventricular systolic function and good function of her TAVR valve. 01/22/2021: Patient remains intubated in the ventilator in the ICU. Remains on dual anti-platelet therapy as well as heparin. Concern now centers around her mental status as she is minimally sedated but is only minimally responsive. Does not follow commands or respond purposefully. Date of service 01/24/2021: blood pressure rate are better. More sedation today and less responsive. Review of Systems Review of Systems: All systems reviewed & are unremarkable except as noted in HPI and below ROS unobtainable: Yes unobtainable due to endotracheal tube and unobtainable due to medical condition Constitutional: Constitutional: Reports as per HPI and Reports no additional constitutional complaints Eyes: Eyes: Reports as per HPI and Reports no additional eye complaints ENT: Reports system reviewed and no additional complaints, except as documented and Reports as per HPI Cardiovascular: Cardiovascular: Reports as per HPI and Reports no additional cardiovascular complaints Respiratory: Respiratory: Reports as per HPI and Reports no additional respiratory complaints Gastrointestinal: Gastrointestinal: Reports a
--- NOTE | 2021-01-24 11:55 | PM.PNNEP ---
Progress Note: A&P Assessment and Plan (1) DEBRA (acute kidney injury): Code(s): N17.9 - Acute kidney failure, unspecified Status: Acute Assessment and Plan: resolving multifactorial etiology: -contrast exposure x 2 (from CT scan of chest and cardiac catheterization) - previous IV diuresis - NSTEMI - use of DARYL-I/diuretics prior to admission urine electrolytes with some pre-renal component renal ultrasound without evidence of obstruction or masses creatinine appears to have peaked/plateaued at 2.0mg/dl follow trend of repeat labs and UOP (2) Acute respiratory failure with hypoxemia: Code(s): J96.01 - Acute respiratory failure with hypoxia Status: Acute Assessment and Plan: due to pulmonary edema (flash pulmonary edema?) on mechanical ventilation weaning as tolerated (3) Non-ST elevation [place] (NSTEMI): Code(s): I21.4 - Non-ST elevation (NSTEMI) myocardial infarction Status: Acute Assessment and Plan: s/p cardiac catheterizartion with stenting as noted Cardiology following continue supportive therapy (4) Encephalopathy: Code(s): G93.40 - Encephalopathy, unspecified Status: Acute Assessment and Plan: Neurology following EEG results noted further testing(?) (5) S/P TAVR (transcatheter aortic valve replacement): Code(s): Z95.2 - Presence of prosthetic heart valve Status: Chronic Assessment and Plan: valve appears to be functioning well by Echo Not much else to add -- will continue to follow from a distance. Subjective Date/time seen: 01/24/21 11:55 No real change noted; making good urine output in response to diuretics; remains hemodynamically stable but remains on mechanical ventilation; no other acute issues/events overnight or earlier this AM. Exam Narrative: Exam Narrative: General: Elderly Causian female in NAD; intubated/sedated Heart: normal S1 and S2; no rub Lungs: coarse breath sounds; decreased at bases Abdomen: soft, nontender, nondistended, positive bowel sounds Extremities: no cyanosis or clubbing; no edema Skin: no nodules Objective Data Vital Signs Vital Signs: Vital Signs Temp Pulse Resp BP Pulse Ox 01/24/21 11:32 76 15 01/24/21 11:14 69 96 01/24/21 10:15 76 19 01/24/21 10:00 66 17 110/56 L 97 01/24/21 08:00 36.8 C 88 17 126/100 H 95 01/24/21 07:51 88 01/24/21 07:42 82 96 01/24/21 06:00 36.8 C 84 16 128/69 95 01/24/21 05:09 82 93 01/24/21 04:00 77 16 119/55 L 95 01/24/21 03:20 65 96 01/24/21 02:00 64 16 103/66 95 01/24/21 00:00 37.1 C 62 16 103/54 L 97 01/23/21 23:15 62 97 01/23/21 22:00 64 16 99/57 L 96 01/23/21 21:05 92 01/23/21 20:00 36.8 C 91 18 132/45 L 96 01/23/21 18:00 99 17 137/79 94 01/23/21 17:29 98 95 01/23/21 16:00 36.9 C 88 16 130/88 95 01/23/21 15:31 87 15 01/23/21 14:03 65 95 01/23/21 14:00 63 16 101/55 L 95 01/23/21 12:10 94 01/23/21 12:09 94 01/23/21 12:00 37.2 C 101 H 20 168/77 H 95 Intake/Output Intake/Output: Intake & Output 01/21/21 01/22/21 01/23/21 01/24/21 23:59 23:59 23:59 23:59 Intake Total 1701 2386 2031 1356 Output Total 1450 2375 2925 1000 Balance 251 09 -436 356 Meds/Results Medications: Active Medications Generic Name Dose Route Start Last Admin Trade Name Freq PRN Reason Stop Dose Admin Acetaminophen 650 mg 01/17/21 11:17 01/17/21 18:13 Acetaminophen 325 Mg Tablet PO 650 mg Q4H PRN Administration Mild Pain (1-3) or Fever Aspirin 81 mg 01/18/21 08:00 01/24/21 07:50 Aspirin 81 Mg Chewable Tablet PO 81 mg DAILY@0800 KINGA Administration Clopidogrel Bisulfate 75 mg 01/18/21 09:00 01/24/21 07:50 Clopidogrel Bisulfate 75 Mg Tablet PO 75 mg QAM KINGA Administration Famotid
[2021-01-24] MEDS: HEPARIN SOD/D5W 100 UNITS/ML 25,000 UNITS/250 ML BAG 14 UNITS IV CONT (14:58)
--- NOTE | 2021-01-24 18:08 | PM.IMPN ---
Progress Note: A&P Assessment and Plan (1) Encephalopathy: Code(s): G93.40 - Encephalopathy, unspecified Status: Acute Assessment and Plan: Mental status still poor. CT brain showing no acute findings. EEG showing severely abnormal record due to the presence of bihemispheric theta and delta activity even during sleep without any paroxysmal discharge ,these abnormalities could be consistent with organic or metabolic encephalopathy. Possibility of hypoxic insult cannot be ruled out . Concern for HIE. Wean sedation as possible. Seroquel added to try to control the agitation. Appreciate neurology and electrical technology instructor help. (2) Acute respiratory failure with hypoxemia: Code(s): J96.01 - Acute respiratory failure with hypoxia Status: Acute Assessment and Plan: Patient remains intubated but on minimal settings. Currently, IV Lasix on hold due to DEBRA. Propofol added but trying to wean off at this time. Appreciate help from electrical technology instructor. (3) Acute pulmonary edema: Code(s): J81.0 - Acute pulmonary edema Status: Acute Assessment and Plan: Patient remains on ventilator as noted. 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 Cardiology following in addition to electrical technology instructor. Lasix on hold due to rising Cr (but one dose given 01/21). Sharon 45 with FENa 0.7% to suggest pre-renal. Consider other etiologies such as bacterial PNA. Not terribly hypoxic making COVID less likely but not excluded. Sputum Cx growing Pseudomonas and yeast. Rocephin changed to Cefepime and Vanco added 01/23/21. (4) CHF (congestive heart failure): Qualifiers: Heart failure chronicity: acute Heart failure type: diastolic Qualified Code(s): I50.31 - Acute diastolic (congestive) heart failure Code(s): I50.9 - Heart failure, unspecified Status: Acute Assessment and Plan: Possible acute pulmonary edema as noted above but Lasix held due to DEBRA. ROMEL showing EF 55% with inferolateral and anterior wall hypokinesis a result of large NSTEMI. As above. (5) Non-ST elevation [place] (NSTEMI): Code(s): I21.4 - Non-ST elevation (NSTEMI) myocardial infarction Status: Acute Assessment and Plan: Cardiology following. Initial 2D echocardiogram at bedside with EF 55% along with mild hypokinesis of the mid and basal anterior wall and severe hypokinesis of the mid and basal inferolateral wall. ROMEL of 01/18/2021 with results as noted above. Now S/P cardiac catheterization on 01/18/2021 with successful PCI to left circumflex. Most likely mechanism felt to be embolic source from TAVR to circumflex. Will continue ASA, Plavix, heparin drip and metoprolol. Lisinopril held. Appreciate help from Cardiology. (6) DEBRA (acute kidney injury): Code(s): N17.9 - Acute kidney failure, unspecified Status: Acute Assessment and Plan: Creatinine 1.1 on admission and was stable at 1.1-1.3 range until climbed to 2.0 on 01/20. Lasix and Lisinopril were held. Nephrology consulted. Labs appear pre-renal. Creatinine better today at 1.1. Continue to monitor closely. (7) Anemia: Code(s): D64.9 - Anemia, unspecified Status: Acute Assessment and Plan: Hemoglobin 13 on admission. Hemoglobin has dropped to 9.6 on 01/21 without clear source of blood loss. No obvious hematoma at the catheterization site. Patient is on heparin drip. Repeat hemoglobin 10 range now. Follow closely. (8) S/P TAVR (transcatheter aortic valve replacement): Code(s): Z95.2 - Presence of prosthetic heart valve Status: Chronic Assessment and Plan: The AV is well seated by ROMEL. Also noted is a filamentous mobile echodensity appreciated below the valve leaflets. Now with NSTEMI as noted above. Continue management of NSTEMI as noted above. On anti-coagulation. (9) DVT prophylaxis: Code(s):
[2021-01-25] VITALS (37 sets, daily range): BP systolic 74–142; BP diastolic 44–114; PULSE 53–114; RESP 16–31; TEMP 36.6–37.4; O2SAT 84–99
[2021-01-25] MEDS: PROPOFOL IV EMULSION 100 ML 16.2 MG IV CONT (01:59)
[2021-01-25 04:31] LABS: Alveolar/Arterial O2 Gradient 103.3 mmHg; Carboxyhemoglobin 0.3 % THb (0-2.0); Device VENTILATOR; Fractional Inspired Oxygen 30 %; Methemoglobin ABG 0.2 %THb (0-1.5); Modified Allen's Test Unable to perform; Oxygen Content ABG 15.8 %vol (16.0-22.0); Oxygen Saturation ABG 93.9 % (95.0-100.0); Oxyhemoglobin 91.9 % THb (90.0-100.0); PCO2 ABG 37.6 mmHg (35.0-45.0); PO2 ABG 66.4 mmHg (80.0-100.0); PO2 FiO2 Ratio Arterial Blood 2.21 %; Reduced Hemoglobin 7.6 %THb (0-5.0); Site Drawn RIGHT RADIAL; Total Hemoglobin 12.2 g/dL (12.0-18.0); pH ABG 7.441 (7.350-7.450)
[2021-01-25 04:32] LABS: Arterial Blood Gas PEEP 5 cmH2O; Arterial Blood Gas Tidal Volume 400 ml; Arterial Blood Gas Vent Mode CMV; Arterial Blood Gas Ventilator rate 16 /MIN
[2021-01-25 05:00] LABS: Alanine Aminotransferase 48 U/L (4-35); Albumin Level 3.7 g/dL (3.5-5.1); Alkaline Phosphatase 60 U/L (38-126); Anion Gap 6 mmol/L (8-16); Aspartate Amino Transferase 59 U/L (14-36); Bilirubin,Total 0.7 mg/dL (0.2-1.3); Blood Urea Nitrogen 48 mg/dL (7-17); Calcium 9.4 mg/dL (8.4-10.2); Carbon Dioxide 25 mmol/L (22-30); Chloride 100 mmol/L (98-107); Estimated CRCL calculation 32 ml/min; Estimated Glomerular Filt Rate 40; Glucose 116 mg/dL (65-105); Magnesium 2.6 mg/dL (1.6-2.3); Potassium 4.8 mmol/L (3.4-5.0); Sodium 131 mmol/L (137-145)
[2021-01-25 06:44] LABS: Hematocrit 34.4 % (37.0-47.0); Hemoglobin 11.3 g/dL (12.0-15.0); Mean Corpuscular HGB Conc 32.8 g/dl (32-36); Mean Corpuscular Hemoglobin 30.6 pg (26-34); Mean Corpuscular Volume 93.2 fl (80-100); Mean Platelet Volume 12.4 fl (7.4-10.4); Platelet Count Result 315 k/mm3 (150-375); Red Blood Count 3.69 M/mm3 (4.2-5.4); White Blood Count 22.2 K/mm3 (4.5-10.0)
[2021-01-25] MEDS: LACTULOSE 20 GM/30 ML UDC FEED TUBE (06:45)
[2021-01-25 06:53] LABS: Ammonia < 9 umol/L (9-30)
[2021-01-25 08:06] LABS: Partial Thromboplastin Time 67.7 SECONDS (22.3-36.8)
--- NOTE | 2021-01-25 08:20 | WPDINTPN ---
Progress Note: A&P Assessment and Plan (1) Encephalopathy: Code(s): G93.40 - Encephalopathy, unspecified Status: Acute Assessment and Plan: Could be related to embolic disease, infection, toxic metabolic encephalopathy, -EEG showed severe neurological deficit without seizure activity, consistent with organic a metabolic encephalopathy, possibility of hypoxic insult cannot be ruled out. -will further discuss with neurology -01/25/2021: Patient is open her eyes, tracks and follows simple commands. Off propofol. Status post Seroquel on 01/24/2021 -ammonia levels were elevated on 01/24/2021, patient given lactulose, repeat ammonia this morning is < 9 (2) Acute respiratory failure: Code(s): J96.00 - Acute respiratory failure, unspecified whether with hypoxia or hypercapnia Status: Acute Assessment and Plan: Acute Respiratory failure secondary to pulmonary edema, rule out pneumonia as patient had elevated white count and does show some areas consolidation on CT which could be atelectasis from effusion although CT mostly suggest pulmonary edema and effusions Continue full mechanical ventilation support to prevent hypoxemia/hypercarbia and end organ damage. ABGs and chest x-ray reviewed, currently on 30% FiO2 and peep of 5 Placed patient on ASV, will place patient on SBT and evaluate for extubation -continue ceftriaxone (initiated on 01/22/2021), added vancomycin on 01/23/2021 persistent infiltrates and opacities on chest x-ray Low tidal volume ventilation strategy to prevent volutrauma (3) Pneumonia: Code(s): J18.9 - Pneumonia, unspecified organism Status: Acute Assessment and Plan: Since Pseudomonas pneumonia, sputum cultures growing Pseudomonas castellanos susceptible -continue cefepime -patient mechanically ventilated, will try SBT and evaluate for extubation (4) Acute pulmonary edema: Code(s): J81.0 - Acute pulmonary edema Status: Acute Assessment and Plan: Persistent bilateral infiltrates and opacities -diuresed well on 01/21, 01/22 -hold diuresis kidney functions trending up (5) CHF (congestive heart failure): Qualifiers: Heart failure type: diastolic Heart failure chronicity: acute Qualified Code(s): I50.31 - Acute diastolic (congestive) heart failure Code(s): I50.9 - Heart failure, unspecified Status: Acute Assessment and Plan: ECHO Summary 1. Complete two-dimensional, color flow and Doppler transthoracic echocardiogram is performed. 2. There is moderate concentric increased left ventricular wall thickness. 3. Left ventricular systolic function is normal, estimated at 60-65%. 4. No wall-motion abnormalities. 5. Left atrial chamber dimension is moderately enlarged. 6. There is no regurgitation of the TAVR aortic valve. 7. Minimal normal transvalvular gradient. (6) Non-ST elevation [place] (NSTEMI): Code(s): I21.4 - Non-ST elevation (NSTEMI) myocardial infarction Status: Acute Assessment and Plan: Secondary to thrombus. Patient underwent PCI and had to MARIAN x 2 placed in circumflex likely due to acute thrombotic occlusion ROMEL on 01/18/2021: Preserved LV systolic function with motion abnormalities as noted Stable, intact bioprosthetic aortic valve with preserved leaflet excursion of those visualized with suggestion of faint subvalvular thin filamentous mobile echodensity unable to further characterize. Continue IV heparin infusion, aspirin, Plavix per Cardiology Hold statin due to elevated liver enzymes at this time Cardiology following (7) S/P TAVR (transcatheter aortic valve replacement): Code(s): Z95.2 - Presence of prosthetic heart valve Status: Chronic Assessment and Plan: ROMEL as above - cardiology following (8) Electrolyte abnormality: Code(s): E87.8 - Other disorders of electrolyte and fluid balance, not elsewhere classified Status: Acute Assessment and [place]
[2021-01-25] MEDS: HEPARIN SODIUM 5,000 UNITS/ML VIAL 2500 UNITS IV PUSH (08:22)
[2021-01-25] MEDS: FAMOTIDINE 20 MG/2 ML VIAL IV PUSH ×2 (08:25→20:56)
[2021-01-25] MEDS: CLOPIDOGREL BISULFATE 75 MG TABLET PO (08:25)
[2021-01-25] MEDS: ASPIRIN 81 MG CHEWABLE TABLET PO (08:25)
[2021-01-25] MEDS: METOPROLOL TARTRATE 25 MG TABLET PO ×2 (08:26→20:56)
[2021-01-25] MEDS: dexmedeTOMIDine 400 MCG/100 ML 400 MCG/100 ML BAG IV CONT (09:59)
[2021-01-25] MEDS: HEPARIN SOD/D5W 100 UNITS/ML 25,000 UNITS/250 ML BAG 15 UNITS IV CONT (10:28)
--- NOTE | 2021-01-25 12:07 | PM.IMPN ---
Progress Note: A&P Assessment and Plan (1) Encephalopathy: Code(s): G93.40 - Encephalopathy, unspecified Status: Acute Assessment and Plan: Mental status was poor. CT brain 01/21 showing no acute findings. EEG 01/22 showing severely abnormal record due to the presence of bihemispheric theta and delta activity even during sleep without any paroxysmal discharge ,these abnormalities could be consistent with organic or metabolic encephalopathy. Possibility of hypoxic insult cannot be ruled out . Concern for HIE. Patietn has become more awake, alert and responsive. Wean sedation as possible. Appreciate neurology and auto salvage worker help. (2) Acute respiratory failure with hypoxemia: Code(s): J96.01 - Acute respiratory failure with hypoxia Status: Acute Assessment and Plan: Patient remains intubated but on minimal settings. Currently, IV Lasix on hold due to DEBRA. Propofol changed to Precedex and Seroquel stopped. Continue to wean vent as toelrated. Appreciate help from auto salvage worker. (3) Acute pulmonary edema: Code(s): J81.0 - Acute pulmonary edema Status: Acute Assessment and Plan: Patient remains on ventilator as noted. 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 Cardiology and auto salvage worker following. Lisinopril and Lasix on hold due to rising Cr. Consider other etiologies such as bacterial PNA - sputum growing Pseudomonas and yeast. Not terribly hypoxic making COVID less likely but not excluded. SRocephin changed to Cefepime and Vanco added 01/23/21. WBC peaked at 30K on 01/18/21 but trended down to 14K on 01/22. WBC climbing since and now at 22K. On appropriate abx for the pseudomonas. Not covering the yeast but not felt to be causing a lower tract infection. Consider CDiff - diarrhea but patient received lactulose. Not on steroids and does not have CLL. Follow (4) CHF (congestive heart failure): Qualifiers: Heart failure chronicity: acute Heart failure type: diastolic Qualified Code(s): I50.31 - Acute diastolic (congestive) heart failure Code(s): I50.9 - Heart failure, unspecified Status: Acute Assessment and Plan: Possible acute pulmonary edema as noted above but Lasix held due to DEBRA. ROMEL showing EF 55% with inferolateral and anterior wall hypokinesis as a result from large NSTEMI. As above. (5) Non-ST elevation [place] (NSTEMI): Code(s): I21.4 - Non-ST elevation (NSTEMI) myocardial infarction Status: Acute Assessment and Plan: Cardiology following. Initial 2D echocardiogram at bedside with EF 55% along with mild hypokinesis of the mid and basal anterior wall and severe hypokinesis of the mid and basal inferolateral wall. ROMEL of 01/18/2021 with results as noted above. Now S/P cardiac catheterization on 01/18/2021 with successful PCI to left circumflex. Most likely mechanism felt to be embolic source from TAVR to circumflex. Will continue ASA, Plavix, heparin drip and metoprolol. Lisinopril held. Appreciate help from Cardiology. (6) DEBRA (acute kidney injury): Code(s): N17.9 - Acute kidney failure, unspecified Status: Acute Assessment and Plan: Creatinine 1.1 on admission and was stable at 1.1-1.3 range until climbed to 2.0 on 01/20. Lasix and Lisinopril were held. Nephrology consulted. Sharon 43 with FENa 0.7% to suggest pre-renal. Creatinine improved to 1.1 but back up to 1.3 today but still within her baseline. Continue to monitor closely. (7) Anemia: Code(s): D64.9 - Anemia, unspecified Status: Acute Assessment and Plan: Hemoglobin 13 on admission. Hemoglobin has dropped to 9.6 on 01/21 without clear source of blood loss; Dilutional?. No obvious hematoma at the catheterization site. Patient is on heparin drip. Repeat hemoglobin 10-11 range now. Follow closely. (8) S/P TAVR (transcatheter ao
[2021-01-25 14:57] LABS: Partial Thromboplastin Time 71.9 SECONDS (22.3-36.8)
[2021-01-25] MEDS: dexmedeTOMIDine 400 MCG/100 ML 400 MCG/100 ML BAG 17.7 MCG IV CONT (15:55)
[2021-01-25 16:44] LABS: Chloride Rand Ur 26 mmol/L (32-290); Chloride/Creatinine Rand Ur 31 (38-318); Creatinine Random Urine 83 mg/dL (20-275)
[2021-01-25] MEDS: PROPOFOL IV EMULSION 100 ML 14.46 MG IV CONT ×2 (17:08→22:43)
[2021-01-25 21:42] LABS: Partial Thromboplastin Time 84.6 SECONDS (22.3-36.8)
[2021-01-26] VITALS (29 sets, daily range): BP systolic 88–138; BP diastolic 36–72; PULSE 62–85; RESP 16–24; TEMP 35.8–37.1; O2SAT 92–100
[2021-01-26] MEDS: PROPOFOL IV EMULSION 100 ML 14.46 MG IV CONT (04:58)
[2021-01-26] MEDS: HEPARIN SOD/D5W 100 UNITS/ML 25,000 UNITS/250 ML BAG 15 UNITS IV CONT ×2 (04:59→21:06)
[2021-01-26 05:07] LABS: Alveolar/Arterial O2 Gradient 105.3 mmHg; Base Excess ABG 0.3 mEq/l (+/-2.0); Carboxyhemoglobin 0.3 % THb (0-2.0); Fractional Inspired Oxygen 30 %; HCO3 ABG 23.5 mEq/l (22.0-26.0); Methemoglobin ABG 0.2 %THb (0-1.5); Oxygen Content ABG 15.5 %vol (16.0-22.0); Oxygen Saturation ABG 95.1 % (95.0-100.0); PCO2 ABG 33.1 mmHg (35.0-45.0); PO2 ABG 69.7 mmHg (80.0-100.0); PO2 FiO2 Ratio Arterial Blood 2.32 %; Reduced Hemoglobin 6.5 %THb (0-5.0); Total Hemoglobin 11.8 g/dL (12.0-18.0); pH ABG 7.469 (7.350-7.450)
[2021-01-26 05:09] LABS: Arterial Blood Gas PEEP 5 cmH2O; Arterial Blood Gas Vent Mode CMV; Arterial Blood Gas Ventilator rate 16 /MIN; Device VENTILATOR; Site Drawn LEFT BRACHIAL
[2021-01-26 05:10] LABS: Arterial Blood Gas Tidal Volume 400 ml
[2021-01-26 08:10] LABS: Basophils Absolute Auto 0.2 K/mm3 (0.0-0.1); Basophils Percent Auto 0.6 % (0.2-1.2); Eosinophils Absolute Auto 0.6 K/mm3 (0-0.3); Eosinophils Percent Auto 2.3 % (0-4.4); Hematocrit 29.3 % (37.0-47.0); Hemoglobin 9.7 g/dL (12.0-15.0); Immature Granulocyte Absolute 0.88 K/mm3 (0.00-0.031); Immature Granulocyte Percent A 3.4 % (0-0.5); Lymphocytes Absolute Auto 2.92 K/mm3 (0.9-3.2); Lymphocytes Percent Auto 11.4 % (18.3-44.2); Mean Corpuscular HGB Conc 33.1 g/dl (32-36); Mean Corpuscular Hemoglobin 30.1 pg (26-34); Mean Platelet Volume 12.6 fl (7.4-10.4); Monocytes Absolute Auto 2.2 K/mm3 (0.1-0.6); Monocytes Percent Auto 8.4 % (2.6-8.5); Neutrophils Percent Auto 73.9 % (45.5-73.1); Nucleated Red Blood Cells Perc 0.1 % (0.0-0.2); Platelet Count Result 288 k/mm3 (150-375); Red Blood Count 3.22 M/mm3 (4.2-5.4); Red Cell Distribution Width 14.9 % (11.5-14.5); White Blood Count 25.7 K/mm3 (4.5-10.0)
[2021-01-26 08:37] LABS: Vancomycin Trough 14.1 ug/mL (10.0-20.0)
[2021-01-26] MEDS: ASPIRIN 81 MG CHEWABLE TABLET PO (09:15)
[2021-01-26] MEDS: CLOPIDOGREL BISULFATE 75 MG TABLET PO (09:15)
--- NOTE | 2021-01-26 09:15 | WPDINTPN ---
Progress Note: A&P Assessment and Plan (1) Encephalopathy: Code(s): G93.40 - Encephalopathy, unspecified Status: Acute Assessment and Plan: Resolved: Could be related to embolic disease, infection, toxic metabolic encephalopathy, -EEG showed severe neurological deficit without seizure activity, consistent with organic a metabolic encephalopathy, possibility of hypoxic insult cannot be ruled out. -will further discuss with neurology -01/25/2021: Patient is open her eyes, tracks and follows simple commands. Off propofol. Status post Seroquel on 01/24/2021 -ammonia levels were elevated on 01/24/2021, patient given lactulose, repeat ammonia this morning is < 9. Lactulose on hold since patient has had multiple bowel movements (2) Acute respiratory failure: Code(s): J96.00 - Acute respiratory failure, unspecified whether with hypoxia or hypercapnia Status: Acute Assessment and Plan: Acute Respiratory failure secondary to pulmonary edema, rule out pneumonia as patient had elevated white count and does show some areas consolidation on CT which could be atelectasis from effusion although CT mostly suggest pulmonary edema and effusions Continue full mechanical ventilation support to prevent hypoxemia/hypercarbia and end organ damage. ABGs and chest x-ray reviewed, currently on 30% FiO2 and peep of 5 Patient remains on 30% FiO2, peep of 5 on mechanical ventilation, low tidal volume strategy -continue ceftriaxone (initiated on 01/22/2021), vancomycin was discontinued as blood cultures were negative and no MRSA in the sputum (3) Pneumonia: Code(s): J18.9 - Pneumonia, unspecified organism Status: Acute Assessment and Plan: Since Pseudomonas pneumonia, sputum cultures growing Pseudomonas castellanos susceptible -continue cefepime, -continues to have elevation in WBC count, will add Levaquin 750 mg IV 48 hours -will have ID evaluate the patient (4) Acute pulmonary edema: Code(s): J81.0 - Acute pulmonary edema Status: Acute Assessment and Plan: Persistent bilateral infiltrates and opacities -diuresed well on 01/21, 01/22 -hold diuresis kidney functions trending up (5) CHF (congestive heart failure): Qualifiers: Heart failure type: diastolic Heart failure chronicity: acute Qualified Code(s): I50.31 - Acute diastolic (congestive) heart failure Code(s): I50.9 - Heart failure, unspecified Status: Acute Assessment and Plan: ECHO Summary 1. Complete two-dimensional, color flow and Doppler transthoracic echocardiogram is performed. 2. There is moderate concentric increased left ventricular wall thickness. 3. Left ventricular systolic function is normal, estimated at 60-65%. 4. No wall-motion abnormalities. 5. Left atrial chamber dimension is moderately enlarged. 6. There is no regurgitation of the TAVR aortic valve. 7. Minimal normal transvalvular gradient. (6) Non-ST elevation [place] (NSTEMI): Code(s): I21.4 - Non-ST elevation (NSTEMI) myocardial infarction Status: Acute Assessment and Plan: Secondary to thrombus. Patient underwent PCI and had to MARIAN x 2 placed in circumflex likely due to acute thrombotic occlusion ROMEL on 01/18/2021: Preserved LV systolic function with motion abnormalities as noted Stable, intact bioprosthetic aortic valve with preserved leaflet excursion of those visualized with suggestion of faint subvalvular thin filamentous mobile echodensity unable to further characterize. Continue IV heparin infusion, aspirin, Plavix per Cardiology Hold statin due to elevated liver enzymes at this time Cardiology following (7) S/P TAVR (transcatheter aortic valve replacement): Code(s): Z95.2 - Presence of prosthetic heart valve Status: Chronic Assessment and Plan: ROMEL as above - cardiology following (8) Electrolyte abnormality: Code(s): E87.8 - Other disorders of electrolyte and fluid
[2021-01-26] MEDS: METOPROLOL TARTRATE 25 MG TABLET PO ×2 (09:16→21:08)
[2021-01-26] MEDS: FAMOTIDINE 20 MG/2 ML VIAL IV PUSH ×2 (09:16→21:08)
[2021-01-26] MEDS: PROPOFOL IV EMULSION 100 ML 17.35 MG IV CONT ×3 (09:17→21:07)
[2021-01-26 09:49] LABS: Alanine Aminotransferase 36 U/L (4-35); Albumin Level 3.5 g/dL (3.5-5.1); Alkaline Phosphatase 87 U/L (38-126); Anion Gap 8 mmol/L (8-16); Aspartate Amino Transferase 38 U/L (14-36); Bilirubin,Total 0.7 mg/dL (0.2-1.3); Blood Urea Nitrogen 55 mg/dL (7-17); Calcium 9.6 mg/dL (8.4-10.2); Carbon Dioxide 25 mmol/L (22-30); Chloride 101 mmol/L (98-107); Estimated CRCL calculation 26 ml/min; Estimated Glomerular Filt Rate 29; Glucose 114 mg/dL (65-105); Magnesium 2.7 mg/dL (1.6-2.3); Phosphorus 4.9 mg/dL (2.5-4.5); Potassium 4.8 mmol/L (3.4-5.0); Sodium 134 mmol/L (137-145)
--- NOTE | 2021-01-26 10:26 | PM.PNCARD ---
Progress Note: A&P Assessment and Plan (1) Acute pulmonary edema: Code(s): J81.0 - Acute pulmonary edema Status: Acute Assessment and Plan: Pt remains intubated and in diastolic CHF by chest x-ray. (EF 60-65%) wean vent support as able Continue metoprolol tartrate 25 mg p.o. b.i.d.and lisinopril 2.5 qd. Not on diuretic tx, and will not add today as creatinine is rising. (2) Non-ST elevation [place] (NSTEMI): Code(s): I21.4 - Non-ST elevation (NSTEMI) myocardial infarction Status: Acute Assessment and Plan: Patient found to have occluded LCX, likely embolic event from the aortic valve prosthesis. Status post complex PCI/stenting. Continue anticoagulation with heparin for now, monitor APTT. Continue dual antiplatelet therapy with aspirin and clopidogrel for now. Long-term, use single antiplatelet treatment with clopidogrel along with either apixaban or rivaroxaban. (3) Acute respiratory failure: Code(s): J96.00 - Acute respiratory failure, unspecified whether with hypoxia or hypercapnia Status: Acute Assessment and Plan: Per ciritical care. Intubated, wean as tolerated. (4) S/P TAVR (transcatheter aortic valve replacement): Code(s): Z95.2 - Presence of prosthetic heart valve Status: Chronic Assessment and Plan: no definite vegetation or thrombus reported on ROMEL. Normal valve function. (5) Hypertension: Code(s): I10 - Essential (primary) hypertension Status: Acute Assessment and Plan: BP somewhat soft but continue metoprolol and lisinopril as BP allows. Hold for SBP < 110. (6) DEBRA (acute kidney injury): Code(s): N17.9 - Acute kidney failure, unspecified Status: Acute Assessment and Plan: Creatinine back up to 1.7, perhaps 2nd low BPs? (7) Encephalopathy: Code(s): G93.40 - Encephalopathy, unspecified Status: Acute Assessment and Plan: Improving. Subjective Date/time seen: 01/26/21 10:26 Interval history: Follow-up visit in this 75-year-old lady with: Aortic valve disease recent TAVR procedure at [facility]. Patient was found not to have any coronary disease angiographically prior to her valve replacement. She entered this hospital on 01/17/2021 with an episode of ischemic chest pain which was self-limited but was associated with a moderate troponin rise. When this was assumed to be due to thrombotic/embolic coronary events since she did not have any coronary disease just a couple of months ago. She then destabilized and went into pulmonary edema required intubation and was brought to the laborer/grade check 01/18/2021. As expected she did have a embolic clot in her circumflex which was treated with stenting of the circumflex. The TAVR stent material prevented good engagement of the left main coronary artery and so extraction thrombectomy could not be performed. With great difficulty the area was stented restoring good patency in the circumflex. She remains in the ICU intubated on mechanical ventilator support. She is on dual anti-platelet therapy and is also anticoagulated with heparin. Echocardiogram prior to and after the procedure demonstrates good left ventricular systolic function and good function of her TAVR valve. 01/22/2021: Patient remains intubated in the ventilator in the ICU. Remains on dual anti-platelet therapy as well as heparin. Concern now centers around her mental status as she is minimally sedated but is only minimally responsive. Does not follow commands or respond purposefully. 01/24/2021: blood pressure rate are better. More sedation today and less responsive. Date of service 01/26/2021: Remains on the ventilator, FiO2 reduced from 60% to 30%.. SBP 98-120 mmHg, was lower yesterday. I/O yesterday was 1800/1100 CC'S. Was off propofol yesterday and follows some commands, but got restless and was trying to get out of bed, so back on propofol today. Chest x-
--- NOTE | 2021-01-26 13:12 | WPDNEUROPN ---
Progress Note: A&P Additional Plan as such Review of Systems Review of Systems: All systems reviewed & are unremarkable except as noted in HPI and below Exam Const: General: comfortable, ill appearing and patient obtunded Nutritional Appearance: obese Limitations: behavioral limitations and physical limitations HENMT: Head: normal to inspection General nose exam: Normal external nose present Face and sinus: normal facial exam Mouth: Yes Normal oral and palatal mucosa present Neck: Neck: normal visual inspection Resp: Auscultation: rhonchi Cardio: Rhythm: regular rhythm Neuro: Cranial nerves: Yes Other cranial nerve findings present ( intubated sedated, opens eyes then goes back) Deep tendon reflexes (DTR's): Right triceps reflex intensity grade: 0, Left triceps reflex intensity grade: 0, Rt Biceps (C5, C6): 0, Left biceps reflex intensity grade: 0, Right brachioradialis reflex intensity grade: 0, Left brachioradialis reflex intensity grade: 0, Right patellar reflex intensity grade: 0, Left patellar reflex intensity grade: 0 and Right ankle reflex intensity grade: 0 Plantar Reflex Responses: equivocal: bilateral Objective Data Vital Signs Vital Signs: Vital Signs - 24 hr 01/25/21 13:45 01/25/21 14:00 01/25/21 14:03 Temperature Pulse Rate 88 88 83 Respiratory Rate 25 H 25 H Blood Pressure 128/60 Pulse Oximetry 95 96 01/25/21 15:55 01/25/21 16:00 01/25/21 16:22 Temperature 37.4 C Pulse Rate 95 83 81 Respiratory Rate 18 25 H 23 H Blood Pressure 94/47 L Pulse Oximetry 93 01/25/21 16:53 01/25/21 17:08 01/25/21 17:12 Temperature Pulse Rate 87 81 73 Respiratory Rate 27 H 19 Blood Pressure Pulse Oximetry 97 01/25/21 18:00 01/25/21 18:03 01/25/21 18:36 Temperature Pulse Rate 53 L 54 L 54 L Respiratory Rate 26 H 26 H 31 H Blood Pressure 74/44 L Pulse Oximetry 93 01/25/21 18:47 01/25/21 19:57 01/25/21 20:00 Temperature 36.8 C Pulse Rate 69 84 84 Respiratory Rate 24 H 22 H Blood Pressure 104/60 Pulse Oximetry 95 95 01/25/21 20:56 01/25/21 22:00 01/25/21 22:43 Temperature Pulse Rate 86 75 72 Respiratory Rate 18 24 H Blood Pressure 103/50 L Pulse Oximetry 95 01/25/21 22:51 01/26/21 00:00 01/26/21 02:00 Temperature 36.7 C Pulse Rate 72 78 80 Respiratory Rate 24 H 21 H Blood Pressure 98/64 L 116/55 L Pulse Oximetry 95 95 95 01/26/21 02:15 01/26/21 04:00 01/26/21 05:11 Temperature Pulse Rate 76 76 81 Respiratory Rate 23 H Blood Pressure 106/49 L Pulse Oximetry 96 95 97 01/26/21 06:00 01/26/21 06:30 01/26/21 08:00 Temperature 36.8 C 36.0 C L Pulse Rate 77 83 82 Respiratory Rate 17 16 Blood Pressure 120/52 L 114/57 L Pulse Oximetry 94 96 01/26/21 09:16 01/26/21 09:17 01/26/21 10:00 Temperature 35.8 C L Pulse Rate 73 73 62 Respiratory Rate 16 16 Blood Pressure 96/53 L Pulse Oximetry 95 01/26/21 12:00 Temperature Pulse Rate Respiratory Rate Blood Pressure Pulse Oximetry 94 Intake/Output Intake/Output: Intake & Output 01/23/21 01/24/21 01/25/21 01/26/21 23:59 23:59 23:59 23:59 Intake Total 2031 2930 1829 896 Output Total 2925 1950 1125 350 Balance -894 980 704 546 Meds/Results Medications: Active Medications Generic Name Dose Route Start Last Admin Trade Name Zackq PRN Reason Stop Dose Admin Acetaminophen 650 mg 01/17/21 11:17 01/17/21 18:13 Acetaminophen 325 Mg Tablet PO 650 mg Q4H PRN Administration Mild Pain (1-3) or Fever Aspirin 81 mg 01/18/21 08:00 01/26/21 09:15 Aspirin 81 Mg Chewable Tablet PO 81 mg DAILY@0800 [facility] Administration Clopidogrel Bisulfate 75 mg 01/18/21 09:00 01/26/21 09:15 Clopidogrel Bisulfate 75 Mg Tablet PO 75 mg QAM KINGA Administration Famotidine 20 mg 01/17/21 21:00 01/26/21 09:16 Famotidine 20 Mg/2 Ml Vial IV PUSH 20 mg Q12HR KINGA Administration Heparin Sodium (Porcine) 4,000 units 01/17
[2021-01-26] MEDS: CENTRAL LINE FLUSH 10 ML IV PUSH ×2 (14:38→21:09)
--- NOTE | 2021-01-26 14:57 | PM.PNNEP ---
Progress Note: A&P Assessment and Plan (1) DEBRA (acute kidney injury): Code(s): N17.9 - Acute kidney failure, unspecified Status: Acute Assessment and Plan: had improved but now worse again multifactorial etiology to original insult: -contrast exposure x 2 (from CT scan of chest and cardiac catheterization) - previous IV diuresis - NSTEMI - use of DARYL-I/diuretics prior to admission urine electrolytes with some pre-renal component renal ultrasound without evidence of obstruction or masses creatinine peaked/plateaued at 2.0mg/dl and then improved down to 1.1mg/dl now back up to 1.7mg/dl -- reason??? - recheck urine electrolytes - due to pneumonia/infection -- possible ATN? follow trend of repeat labs and UOP (2) Acute respiratory failure with hypoxemia: Code(s): J96.01 - Acute respiratory failure with hypoxia Status: Acute Assessment and Plan: due to pulmonary edema (flash pulmonary edema?) on mechanical ventilation weaning as tolerated (3) Non-ST elevation [place] (NSTEMI): Code(s): I21.4 - Non-ST elevation (NSTEMI) myocardial infarction Status: Acute Assessment and Plan: s/p cardiac catheterizartion with stenting as noted Cardiology following continue supportive therapy (4) Encephalopathy: Code(s): G93.40 - Encephalopathy, unspecified Status: Acute Assessment and Plan: Neurology following EEG results noted slow improvement noted (5) S/P TAVR (transcatheter aortic valve replacement): Code(s): Z95.2 - Presence of prosthetic heart valve Status: Chronic Assessment and Plan: valve appears to be functioning well by Echo Will continue to follow. Subjective Date/time seen: 01/26/21 14:47 Chart reviewed since last seen -- remains intubated and on ventilator support; issues with agitation necessitated being switched from precedex to propofol; remains hemodynamically stable with adequate urine output but AM labs demonstrate creatinine back up again. Exam Narrative: Exam Narrative: General: Elderly Causian female in NAD; intubated/sedated Heart: normal S1 and S2; no rub Lungs: coarse breath sounds; decreased at bases Abdomen: soft, nontender, nondistended, positive bowel sounds Extremities: no cyanosis or clubbing; no edema Skin: no nodules Objective Data Vital Signs Vital Signs: Vital Signs Temp Pulse Resp BP Pulse Ox 01/26/21 14:11 72 97 01/26/21 14:00 36.0 C L 80 21 H 138/36 L 95 01/26/21 13:00 73 16 01/26/21 12:30 70 100 01/26/21 12:00 35.8 C L 67 23 H 88/72 L 96 01/26/21 11:00 75 16 01/26/21 10:00 35.8 C L 62 16 96/53 L 95 01/26/21 09:17 73 16 01/26/21 09:16 73 01/26/21 08:00 36.0 C L 82 16 114/57 L 96 01/26/21 07:51 85 97 01/26/21 06:30 83 01/26/21 06:00 36.8 C 77 17 120/52 L 94 01/26/21 05:11 81 97 01/26/21 04:00 76 23 H 106/49 L 95 01/26/21 02:15 76 96 01/26/21 02:00 80 21 H 116/55 L 95 01/26/21 00:00 36.7 C 78 24 H 98/64 L 95 01/25/21 22:51 72 95 01/25/21 22:43 72 24 H 01/25/21 22:00 75 18 103/50 L 95 01/25/21 20:56 86 01/25/21 20:00 36.8 C 84 22 H 104/60 95 01/25/21 19:57 84 95 01/25/21 18:47 69 24 H 01/25/21 18:36 54 L 31 H 01/25/21 18:03 54 L 26 H 01/25/21 18:00 53 L 26 H 74/44 L 93 01/25/21 17:12 73 19 01/25/21 17:08 81 27 H 01/25/21 16:53 87 97 01/25/21 16:22 81 23 H Intake/Output Intake/Output: Intake & Output 01/23/21 01/24/21 01/25/21 01/26/21 23:59 23:59 23:59 23:59 Intake Total 2031 2930 1829 1196 Output Total 2925 1950 1125 350 Balance -894 980 704 846 Meds/Results Medications: Active Medications Generic Name Dose Route Start Last Admin Trade Name Freq PRN Reason Stop Dos
--- NOTE | 2021-01-26 15:19 | PM.IMPN ---
Progress Note: A&P Assessment and Plan (1) Pneumonia: Code(s): J18.9 - Pneumonia, unspecified organism Status: Acute Assessment and Plan: Consider bacterial PNA - sputum growing Pseudomonas and yeast. Not terribly hypoxic making COVID less likely but not excluded. Rocephin changed to Cefepime and Vanco added 01/23/21. WBC peaked at 30K on 01/18/21 but trended down to 14K on 01/22. WBC climbing since and now at 25.7K. On appropriate abx for the pseudomonas; Levaquin added for double coverage. Not covering the yeast but not felt to be causing a lower tract infection. Consider CDiff but not having diarrhea. Not on steroids and does not have CLL. CT Ch/A/P showing bilateral extensive PNA. Venous doppler of the left UE showing partial left basilic vein thrombosis the region of PICC catheter; already on Heparin. Follow. Appreciate military cook input. (2) Encephalopathy: Code(s): G93.40 - Encephalopathy, unspecified Status: Acute Assessment and Plan: Mental status was poor. CT brain 01/21 showing no acute findings. EEG 01/22 showing severely abnormal record due to the presence of bihemispheric theta and delta activity even during sleep without any paroxysmal discharge ,these abnormalities could be consistent with organic or metabolic encephalopathy. Possibility of hypoxic insult cannot be ruled out . Concern for HIE but patient has been showing signs of improvement. Wean sedation as tolerated. Appreciate neurology and military cook help. (3) Acute respiratory failure with hypoxemia: Code(s): J96.01 - Acute respiratory failure with hypoxia Status: Acute Assessment and Plan: Patient remains intubated but on minimal settings. Currently, IV Lasix on hold due to DEBRA. Sedation being adjusted. Continue to wean vent as tolerated. Appreciate help from military cook. (4) Acute pulmonary edema: Code(s): J81.0 - Acute pulmonary edema Status: Acute Assessment and Plan: Patient remains on ventilator as noted. 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 Cardiology and military cook following. Lisinopril and Lasix on hold due to rising Cr. Follow (5) Leukocytosis: Code(s): D72.829 - Elevated white blood cell count, unspecified Status: Acute Assessment and Plan: As above. (6) CHF (congestive heart failure): Qualifiers: Heart failure chronicity: acute Heart failure type: diastolic Qualified Code(s): I50.31 - Acute diastolic (congestive) heart failure Code(s): I50.9 - Heart failure, unspecified Status: Acute Assessment and Plan: Possible acute pulmonary edema as noted above but Lasix held due to DEBRA. ROMEL showing EF 55% with inferolateral and anterior wall hypokinesis as a result from large NSTEMI. As above. (7) Non-ST elevation [place] (NSTEMI): Code(s): I21.4 - Non-ST elevation (NSTEMI) myocardial infarction Status: Acute Assessment and Plan: Cardiology following. Initial 2D echocardiogram at bedside with EF 55% along with mild hypokinesis of the mid and basal anterior wall and severe hypokinesis of the mid and basal inferolateral wall. ROMEL of 01/18/2021 with results as noted above. Now S/P cardiac catheterization on 01/18/2021 with successful PCI to left circumflex. Most likely mechanism felt to be embolic source from TAVR to circumflex. Will continue ASA, Plavix, heparin drip and metoprolol. Lisinopril held. Appreciate help from Cardiology. (8) DEBRA (acute kidney injury): Code(s): N17.9 - Acute kidney failure, unspecified Status: Acute Assessment and Plan: Creatinine 1.1 on admission and was stable at 1.1-1.3 range until climbed to 2.0 on 01/20. Lasix and Lisinopril were held. Nephrology consulted. Sharon 45 with FENa 0.7% to suggest pre-renal. Creatinine improved to 1.1 but back up to 1.7 today.
[2021-01-27] VITALS (25 sets, daily range): BP systolic 90–148; BP diastolic 24–99; PULSE 56–99; RESP 16–30; TEMP 36.6–37.4; O2SAT 94–97
[2021-01-27] MEDS: PROPOFOL IV EMULSION 100 ML 14.46 MG IV CONT ×2 (04:02→09:00)
[2021-01-27 04:30] LABS: Alveolar/Arterial O2 Gradient 101.2 mmHg; Base Excess ABG -2.7 mEq/l (+/-2.0); Carboxyhemoglobin 0.3 % THb (0-2.0); Fractional Inspired Oxygen 30 %; HCO3 ABG 20.8 mEq/l (22.0-26.0); Methemoglobin ABG 0.1 %THb (0-1.5); Oxygen Content ABG 12.7 %vol (16.0-22.0); PCO2 ABG 30.9 mmHg (35.0-45.0); PO2 ABG 76.4 mmHg (80.0-100.0); PO2 FiO2 Ratio Arterial Blood 2.55 %; Reduced Hemoglobin 5.6 %THb (0-5.0); Total Hemoglobin 9.5 g/dL (12.0-18.0); pH ABG 7.445 (7.350-7.450)
[2021-01-27 04:32] LABS: Arterial Blood Gas Vent Mode ASSIST CONTROL; Arterial Blood Gas Ventilator rate 16 /MIN; Device VENTILATOR; Site Drawn RIGHT BRACHIAL
[2021-01-27 04:33] LABS: Arterial Blood Gas PEEP 5 cmH2O; Arterial Blood Gas Tidal Volume 400 ml
[2021-01-27] MEDS: CENTRAL LINE FLUSH 10 ML IV PUSH ×3 (06:24→21:47)
[2021-01-27 06:38] LABS: Hematocrit 24.4 % (37.0-47.0); Hemoglobin 8.5 g/dL (12.0-15.0); Mean Corpuscular HGB Conc 34.8 g/dl (32-36); Mean Corpuscular Hemoglobin 31.8 pg (26-34); Mean Corpuscular Volume 91.4 fl (80-100); Mean Platelet Volume 12.6 fl (7.4-10.4); Platelet Count Result 252 k/mm3 (150-375); Red Blood Count 2.67 M/mm3 (4.2-5.4); Red Cell Distribution Width 14.8 % (11.5-14.5); White Blood Count 22.2 K/mm3 (4.5-10.0)
[2021-01-27 07:08] LABS: Alanine Aminotransferase 34 U/L (4-35); Albumin Level 3.3 g/dL (3.5-5.1); Alkaline Phosphatase 75 U/L (38-126); Anion Gap 10 mmol/L (8-16); Aspartate Amino Transferase 32 U/L (14-36); Bilirubin,Total 0.3 mg/dL (0.2-1.3); Blood Urea Nitrogen 66 mg/dL (7-17); Calcium 9.3 mg/dL (8.4-10.2); Carbon Dioxide 21 mmol/L (22-30); Chloride 96 mmol/L (98-107); Estimated CRCL calculation 21 ml/min; Estimated Glomerular Filt Rate 23; Glucose 124 mg/dL (65-105); Magnesium 2.8 mg/dL (1.6-2.3); Phosphorus 6.3 mg/dL (2.5-4.5); Potassium 4.5 mmol/L (3.4-5.0); Sodium 127 mmol/L (137-145)
--- NOTE | 2021-01-27 07:15 | P.PNNP_ITS ---
Progress Note: A&P Assessment and Plan (1) DEBRA (acute kidney injury): Code(s): N17.9 - Acute kidney failure, unspecified Status: Acute Assessment and Plan: * had improved but now worsening * Originally: * multifactorial etiology -contrast exposure x 2 (from CT scan of chest and cardiac catheterization) - previous IV diuresis/prerenal component - NSTEMI - use of DARYL-I/diuretics prior to admission * renal ultrasound without evidence of obstruction or masses * creatinine peaked/plateaued at 2.0mg/dl and then improved down to 1.1mg/dl * now on its way back up: 2.1 today. - urine electrolytes reordered by dr Toledo - due to pneumonia/infection -- possible ATN? * making urine. * no rash but does have peripheral eosinophilia. could have allergic ISN but this seems a bit too rapid for this. on cefipime and levoquin could be atheroembolic disease. * check complements and urine eos. * consider steroids if it keeps rising? (2) Acute respiratory failure with hypoxemia: Code(s): J96.01 - Acute respiratory failure with hypoxia Status: Acute Assessment and Plan: * due to pulmonary edema (flash pulmonary edema?) * on mechanical ventilation * cxr looks stable. * weaning as tolerated (3) Non-ST elevation PR (NSTEMI): Code(s): I21.4 - Non-ST elevation (NSTEMI) myocardial infarction Status: Acute Assessment and Plan: * s/p cardiac catheterizartion with stenting as noted * Cardiology following * continue supportive therapy (4) Encephalopathy: Code(s): G93.40 - Encephalopathy, unspecified Status: Acute Assessment and Plan: * Neurology following * EEG results noted * slow improvement noted (5) S/P TAVR (transcatheter aortic valve replacement): Code(s): Z95.2 - Presence of prosthetic heart valve Status: Chronic Assessment and Plan: * valve appears to be functioning well by Echo Will continue to follow. Subjective Date/time seen: 01/27/21 07:15 Interval history: Patient is sedated and on the ventilator. Blood pressure okay overnight. Exam Narrative: Exam Narrative: General: Elderly Causian female in NAD; intubated/sedated Heart: normal S1 and S2; no rub or gallop Lungs: coarse breath sounds; decreased at bases Abdomen: soft, nontender, nondistended, positive bowel sounds Extremities: no edema Skin: no nodules or skin rash Objective Data Vital Signs Vital Signs: Vital Signs - 24 hr 01/26/21 07:51 01/26/21 08:00 01/26/21 09:16 Temperature 36.0 C L Pulse Rate 85 82 73 Respiratory Rate 16 Blood Pressure 114/57 L Pulse Oximetry 97 96 01/26/21 09:17 01/26/21 10:00 01/26/21 11:00 Temperature 35.8 C L Pulse Rate 73 62 75 Respiratory Rate 16 16 16 Blood Pressure 96/53 L Pulse Oximetry 95 01/26/21 12:00 01/26/21 12:30 01/26/21 13:00 Temperature 35.8 C L Pulse Rate 67 70 73 Respiratory Rate 23 H 16 Blood Pressure 88/72 L Pulse Oximetry 96 100 01/26/21 14:00 01/26/21 14:11 01/26/21 15:03 Temperature 36.0 C L Pulse Rate 80 72 66 Respiratory Rate 21 H 16 Blood P
--- NOTE | 2021-01-27 07:15 | PM.PNNEP ---
Progress Note: A&P Assessment and Plan (1) DEBRA (acute kidney injury): Code(s): N17.9 - Acute kidney failure, unspecified Status: Acute Assessment and Plan: had improved but now worsening Originally: multifactorial etiology -contrast exposure x 2 (from CT scan of chest and cardiac catheterization) - previous IV diuresis/prerenal component - NSTEMI - use of DARYL-I/diuretics prior to admission renal ultrasound without evidence of obstruction or masses creatinine peaked/plateaued at 2.0mg/dl and then improved down to 1.1mg/dl now on its way back up: 2.1 today. - urine electrolytes reordered by dr Toledo - due to pneumonia/infection -- possible ATN? making urine. no rash but does have peripheral eosinophilia. could have allergic ISN but this seems a bit too rapid for this. on cefipime and levoquin could be atheroembolic disease. check complements and urine eos. consider steroids if it keeps rising? (2) Acute respiratory failure with hypoxemia: Code(s): J96.01 - Acute respiratory failure with hypoxia Status: Acute Assessment and Plan: due to pulmonary edema (flash pulmonary edema?) on mechanical ventilation cxr looks stable. weaning as tolerated (3) Non-ST elevation [place] (NSTEMI): Code(s): I21.4 - Non-ST elevation (NSTEMI) myocardial infarction Status: Acute Assessment and Plan: s/p cardiac catheterizartion with stenting as noted Cardiology following continue supportive therapy (4) Encephalopathy: Code(s): G93.40 - Encephalopathy, unspecified Status: Acute Assessment and Plan: Neurology following EEG results noted slow improvement noted (5) S/P TAVR (transcatheter aortic valve replacement): Code(s): Z95.2 - Presence of prosthetic heart valve Status: Chronic Assessment and Plan: valve appears to be functioning well by Echo Will continue to follow. Subjective Date/time seen: 01/27/21 07:15 Interval history: Patient is sedated and on the ventilator. Blood pressure okay overnight. Exam Narrative: Exam Narrative: General: Elderly Causian female in NAD; intubated/sedated Heart: normal S1 and S2; no rub or gallop Lungs: coarse breath sounds; decreased at bases Abdomen: soft, nontender, nondistended, positive bowel sounds Extremities: no edema Skin: no nodules or skin rash Objective Data Vital Signs Vital Signs: Vital Signs - 24 hr 01/26/21 07:51 01/26/21 08:00 01/26/21 09:16 Temperature 36.0 C L Pulse Rate 85 82 73 Respiratory Rate 16 Blood Pressure 114/57 L Pulse Oximetry 97 96 01/26/21 09:17 01/26/21 10:00 01/26/21 11:00 Temperature 35.8 C L Pulse Rate 73 62 75 Respiratory Rate 16 16 16 Blood Pressure 96/53 L Pulse Oximetry 95 01/26/21 12:00 01/26/21 12:30 01/26/21 13:00 Temperature 35.8 C L Pulse Rate 67 70 73 Respiratory Rate 23 H 16 Blood Pressure 88/72 L Pulse Oximetry 96 100 01/26/21 14:00 01/26/21 14:11 01/26/21 15:03 Temperature 36.0 C L Pulse Rate 80 72 66 Respiratory Rate 21 H 16 Blood Pressure 138/36 L Pulse Oximetry 95 97 01/26/21 15:25 01/26/21 16:00 01/26/21 16:41 Temperature 36.1 C L Pulse Rate 63 65 84 Respiratory Rate 16 20 Blood Pressure 115/45 L Pulse Oximetry 95 93 01/26/21 17:30 01/26/21 18:00 01/26/21 19:36 Temperature 36.1 C L Pulse Rate 75 80 75 Respiratory Rate 16 16 Blood Pressure 117/36 L Pulse Oximetry 93 93 01/26/21 20:00 01/26/21 21:08 01/26/21 22:00 Temperature 37.1 C Pulse Rate 76 83 69 Respiratory Rate 24 H 23 H Blood Pressure 116/40 L 117/45 L Pulse Oximetry 92 96 01/26/21 23:26 01/27/21 00:00 01/27/21 00:26 Temperature 37.2 C Pulse Rate 66 74 73 Respiratory Rate 27 H Blood Pressure 98/59 L Pulse Oximetry 95 94 01/27/21 01:52 01/27/21
--- NOTE | 2021-01-27 08:18 | WPDINTPN ---
Progress Note: A&P Assessment and Plan (1) Sepsis: Code(s): A41.9 - Sepsis, unspecified organism Status: Acute Assessment and Plan: Leukocytosis, hypotension, acute kidney injury -check lactic acid -patient is not a fluid responder on noninvasive hemodynamic monitoring -continue cefepime and Levaquin -mean arterial pressures remain low will start Levophed to maintain adequate perfusion pressures to prevent end-organ damage -01/18/2021: Blood cultures negative x2 -01/21/2021: Sputum culture growing Pseudomonas pansensitive, Yeast was also isolated (2) Encephalopathy: Code(s): G93.40 - Encephalopathy, unspecified Status: Acute Assessment and Plan: Improved Could be related to embolic disease, infection, toxic metabolic encephalopathy, -EEG showed severe neurological deficit without seizure activity, consistent with organic a metabolic encephalopathy, possibility of hypoxic insult cannot be ruled out. -will further discuss with neurology -01/25/2021: Patient is open her eyes, tracks and follows simple commands. Off propofol. Status post Seroquel on 01/24/2021 -ammonia levels were elevated on 01/24/2021, patient given lactulose, repeat ammonia this morning is < 9. Lactulose on hold since patient has had multiple bowel movements (3) Acute respiratory failure: Code(s): J96.00 - Acute respiratory failure, unspecified whether with hypoxia or hypercapnia Status: Acute Assessment and Plan: Acute Respiratory failure secondary to pulmonary edema, rule out pneumonia as patient had elevated white count and does show some areas consolidation on CT which could be atelectasis from effusion although CT mostly suggest pulmonary edema and effusions Continue full mechanical ventilation support to prevent hypoxemia/hypercarbia and end organ damage. ABGs and chest x-ray reviewed, currently on 30% FiO2 and peep of 5 Patient remains on 30% FiO2, peep of 5 on mechanical ventilation, low tidal volume strategy -continue ceftriaxone (initiated on 01/22/2021) and levaquin (initiated on 01/27/21) - vancomycin was discontinued as blood cultures were negative and no MRSA in the sputum (4) Pneumonia: Code(s): J18.9 - Pneumonia, unspecified organism Status: Acute Assessment and Plan: Since Pseudomonas pneumonia, sputum cultures growing Pseudomonas castellanos susceptible -continue cefepime and Levaquin -CT scan of the chest on 01/26/2021 showed extensive bilateral pneumonia, mild bilateral pleural effusion, cardiomegaly, status post cholecystectomy, status post hysterectomy Infectious disease has been consulted (5) Acute pulmonary edema: Code(s): J81.0 - Acute pulmonary edema Status: Acute Assessment and Plan: Persistent bilateral infiltrates and opacities -diuresed well on 01/21, 01/22 -hold diuresis kidney functions trending up (6) CHF (congestive heart failure): Qualifiers: Heart failure type: diastolic Heart failure chronicity: acute Qualified Code(s): I50.31 - Acute diastolic (congestive) heart failure Code(s): I50.9 - Heart failure, unspecified Status: Acute Assessment and Plan: ECHO Summary 1. Complete two-dimensional, color flow and Doppler transthoracic echocardiogram is performed. 2. There is moderate concentric increased left ventricular wall thickness. 3. Left ventricular systolic function is normal, estimated at 60-65%. 4. No wall-motion abnormalities. 5. Left atrial chamber dimension is moderately enlarged. 6. There is no regurgitation of the TAVR aortic valve. 7. Minimal normal transvalvular gradient. (7) Non-ST elevation [place] (NSTEMI): Code(s): I21.4 - Non-ST elevation (NSTEMI) myocardial infarction Status: Acute Assessment and Plan: Secondary to thrombus. Patient underwent PCI and had to MARIAN x 2 placed in circumflex likely due to acute thrombotic occlusion ROMEL on 01/18/2021: Preserved LV sy
[2021-01-27] MEDS: ASPIRIN 81 MG CHEWABLE TABLET PO (08:46)
[2021-01-27] MEDS: FAMOTIDINE 20 MG/2 ML VIAL IV PUSH (08:46)
[2021-01-27] MEDS: METOPROLOL TARTRATE 25 MG TABLET PO ×2 (08:46→21:47)
[2021-01-27] MEDS: CLOPIDOGREL BISULFATE 75 MG TABLET PO (08:46)
[2021-01-27 09:25] LABS: Lactic Acid Reflex 0.6 mmol/L (0.7-2.1)
[2021-01-27 09:28] LABS: Complement C3 130 mg/dL (88-165)
[2021-01-27 09:36] LABS: Creatinine Urine 68.2 mg/dL; Total Protein Urine Random 69 mg/dL; Ur Ttl Prot Creatinine Ratio 1.01 mg/mg (0-0.20)
[2021-01-27 09:43] LABS: Sodium Urine Random 27 meq/L
[2021-01-27 10:16] LABS: Eosinophil Urine None Seen % (None Seen)
[2021-01-27] MEDS: SODIUM CHLORIDE 0.9% IV 500 ML IV CONT (10:41)
[2021-01-27] MEDS: NOREPINEPHRINE 8 MG/D5W 250 ML 8 MG/250 ML BAG 9.38 MG IV CONT (10:42)
--- NOTE | 2021-01-27 11:10 | PCDIET ---
ICU Rounding Note: Patient tolerating Vital 1.2 at 40mL/hr goal rate with 30mL water flush every 4 hours. Last recorded weight is 90.7kg which is increased from last review. +I/O. Bowel Motility: Liquid BM reported yesterday, so Lactulose was held. Labs Reviewed: Hgb (8.5), Hct (24.4), Glu (124), BUN (66), Cr (2.1), Na (127), Alb (3.3), PO4 (6.3), Mg (2.8) Meds Noted: Cefepime, Precedex, Pepcid, Fentanyl, Levaquin, Lisinopril, Lopressor, Miralax, Propofol (rate of 14.46mL/hr provides 381kcal per day) Additional Notes: No pressure sores documented. Following daily in ICU rounds. Assessing/reassessing every Wednesday/Wednesday.
[2021-01-27] MEDS: HEPARIN SOD/D5W 100 UNITS/ML 25,000 UNITS/250 ML BAG 15 UNITS IV CONT (11:11)
--- NOTE | 2021-01-27 11:42 | WPDINFPN2 ---
Progress Note: A&P Assessment and Plan (1) Leukocytosis: Code(s): D72.829 - Elevated white blood cell count, unspecified Status: Acute Assessment and Plan: Leukocytosis due to HCAP. Steroids on admission, and physiologic reaction also contributory to a much lesser extent REC Cefepime # 5 (prior dosing also) and levofloxacin #2, continue until resolution in pneumonia findings. Call if Qs Subjective Date/time seen: 01/27/21 11:42 Objective Data Vital Signs Vital Signs: Vital Signs - 24 hr 01/26/21 12:00 01/26/21 12:30 01/26/21 13:00 Temperature 35.8 C L Pulse Rate 67 70 73 Respiratory Rate 23 H 16 Blood Pressure 88/72 L Pulse Oximetry 96 100 01/26/21 14:00 01/26/21 14:11 01/26/21 15:03 Temperature 36.0 C L Pulse Rate 80 72 66 Respiratory Rate 21 H 16 Blood Pressure 138/36 L Pulse Oximetry 95 97 01/26/21 15:25 01/26/21 16:00 01/26/21 16:41 Temperature 36.1 C L Pulse Rate 63 65 84 Respiratory Rate 16 20 Blood Pressure 115/45 L Pulse Oximetry 95 93 01/26/21 17:30 01/26/21 18:00 01/26/21 19:36 Temperature 36.1 C L Pulse Rate 75 80 75 Respiratory Rate 16 16 Blood Pressure 117/36 L Pulse Oximetry 93 93 01/26/21 20:00 01/26/21 21:08 01/26/21 22:00 Temperature 37.1 C Pulse Rate 76 83 69 Respiratory Rate 24 H 23 H Blood Pressure 116/40 L 117/45 L Pulse Oximetry 92 96 01/26/21 23:26 01/27/21 00:00 01/27/21 00:26 Temperature 37.2 C Pulse Rate 66 74 73 Respiratory Rate 27 H Blood Pressure 98/59 L Pulse Oximetry 95 94 01/27/21 01:52 01/27/21 02:00 01/27/21 04:00 Temperature 37.2 C 37.4 C Pulse Rate 80 78 78 Respiratory Rate 23 H 23 H Blood Pressure 108/36 L 124/99 H Pulse Oximetry 95 94 97 01/27/21 04:39 01/27/21 06:00 01/27/21 08:00 Temperature 36.6 C Pulse Rate 74 69 75 Respiratory Rate 21 H 25 H Blood Pressure 100/50 L 113/40 L Pulse Oximetry 96 95 96 01/27/21 08:02 01/27/21 08:46 01/27/21 10:00 Temperature Pulse Rate 74 67 58 L Respiratory Rate 16 Blood Pressure 100/41 L Pulse Oximetry 96 96 Intake/Output Intake/Output: Intake & Output 01/24/21 01/25/21 01/26/21 01/27/21 23:59 23:59 23:59 23:59 Intake Total 2930 1829 2070.0 1465 Output Total 1950 1125 700 600 Balance 806 783 7624.0 865 Meds/Results Medications: Active Medications Generic Name Dose Route Start Last Admin Trade Name Freq PRN Reason Stop Dose Admin Acetaminophen 650 mg 01/17/21 11:17 01/17/21 18:13 Acetaminophen 325 Mg Tablet PO 650 mg Q4H PRN Administration Mild Pain (1-3) or Fever Aspirin 81 mg 01/18/21 08:00 01/27/21 08:46 Aspirin 81 Mg Chewable Tablet PO 81 mg DAILY@0800 [facility] Administration Clopidogrel Bisulfate 75 mg 01/18/21 09:00 01/27/21 08:46 Clopidogrel Bisulfate 75 Mg Tablet PO 75 mg QAM KINGA Administration Famotidine 20 mg 01/17/21 21:00 01/27/21 08:46 Famotidine 20 Mg/2 Ml Vial IV PUSH 20 mg Q12HR KINGA Administration Heparin Sodium (Porcine) 4,000 units 01/17/21 10:08 01/23/21 07:56 Heparin Sodium 5,000 Units/Ml Vial IV PUSH 4,000 units PRN PRN Administration aPTT less than 55 seconds Heparin Sodium (Porcine) 2,500 units 01/17/21 10:08 01/25/21 08:22 Heparin Sodium 5,000 Units/Ml Vial IV PUSH 2,500 units PRN PRN Administration aPTT 55 - 70 seconds Heparin Sodium/Dextrose 25,000 units in 250 mls @ 15 mls/hr 01/17/21 10:10 01/27/21 11:11 Heparin Sodium/D5w 100 Units/Ml IV CONT 1,500 units/hr .[id number] KINGA 15 mls/hr Administration Protocol 1,500 UNITS/HR Fentanyl Citrate 2,500 mcg in 250 mls @ 0 mls/hr 01/17/21 21:55 01/20/21 12:24 Fentanyl 2,500 Mcg/Ns 250 Ml IV CONT Not Given .Q0M KINGA Protocol 0 MCG/HR Propofol 100 mls @ 8.676 mls/hr 01/20/21 10:00 01/27/21 10:21 Diprivan IV CONT 15 mcg/kg/min .[id number] KINGA 8.68 mls/hr Titration Protocol 15 MCG/KG/MIN
--- NOTE | 2021-01-27 12:16 | PM.IMPN ---
Progress Note: A&P Assessment and Plan (1) Sepsis: Code(s): A41.9 - Sepsis, unspecified organism Status: Acute Assessment and Plan: Pateint with soft BP and now with decreasing UOP and rising Cr. Concern for sepsis given the rising WBC. Levophed added. Continue to closely monitor. (2) Pneumonia: Code(s): J18.9 - Pneumonia, unspecified organism Status: Acute Assessment and Plan: Consider bacterial PNA - sputum growing Pseudomonas and yeast. Not terribly hypoxic making COVID less likely but not excluded. Rocephin changed to Cefepime and Vanco added 01/23/21. WBC peaked at 30K on 01/18/21 but trended down to 14K on 01/22. WBC climbed again so levaquin added 01/26; WBC peaked at 25.7K but back down today to 22K. On appropriate abx for the pseudomonas. Not covering the yeast but not felt to be causing a lower tract infection. Consider CDiff but not having diarrhea. Not on steroids and does not have CLL. CT Ch/A/P showing bilateral extensive PNA. Venous doppler of the left UE showing partial left basilic vein thrombosis the region of PICC catheter; already on Heparin. Follow. Appreciate hydraulic riveter and ID input. (3) Encephalopathy: Code(s): G93.40 - Encephalopathy, unspecified Status: Acute Assessment and Plan: Mental status was poor. CT brain 01/21 showing no acute findings. EEG 01/22 showing severely abnormal record due to the presence of bihemispheric theta and delta activity even during sleep without any paroxysmal discharge ,these abnormalities could be consistent with organic or metabolic encephalopathy. Possibility of hypoxic insult cannot be ruled out . Concern for HIE but patient has been showing some signs of improvement. Wean sedation as tolerated. Appreciate neurology and hydraulic riveter help. (4) Acute respiratory failure with hypoxemia: Code(s): J96.01 - Acute respiratory failure with hypoxia Status: Acute Assessment and Plan: Patient remains intubated but on minimal settings. Currently, IV Lasix on hold due to DEBRA. Sedation being adjusted. Continue to wean vent as tolerated. Appreciate help from hydraulic riveter. (5) Hyponatremia: Code(s): E87.1 - Hypo-osmolality and hyponatremia Status: Acute Assessment and Plan: Sodium has been low in the low 130's but dropped to 127 today. Concern for dehydration with decreased UOP and rising Cr. Repeat urine studies showing Sharon 27 and FENa 0.65%. Not fluid response but she was given a fluid bolus. Monitor fluid status. (6) CHF (congestive heart failure): Qualifiers: Heart failure chronicity: acute Heart failure type: diastolic Qualified Code(s): I50.31 - Acute diastolic (congestive) heart failure Code(s): I50.9 - Heart failure, unspecified Status: Acute Assessment and Plan: Patietn with acute pulmonary edema. Patient remains on ventilator as noted. 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 Lisinopril and Lasix on hold due to rising Cr. Cardiology and hydraulic riveter following. (7) Leukocytosis: Code(s): D72.829 - Elevated white blood cell count, unspecified Status: Acute Assessment and Plan: WBC climbing and Levaquin added 01/26. As above. (8) Non-ST elevation [place] (NSTEMI): Code(s): I21.4 - Non-ST elevation (NSTEMI) myocardial infarction Status: Acute Assessment and Plan: Cardiology following. Initial 2D echocardiogram at bedside with EF 55% along with mild hypokinesis of the mid and basal anterior wall and severe hypokinesis of the mid and basal inferolateral wall. ROMEL of 01/18/2021 with results as noted above. Now S/P cardiac catheterization on 01/18/2021 with successful PCI to left circumflex. Most likely mechanism felt to be embolic
--- NOTE | 2021-01-27 12:49 | PM.PNCARD ---
Progress Note: A&P Assessment and Plan (1) Acute pulmonary edema: Code(s): J81.0 - Acute pulmonary edema Status: Acute Assessment and Plan: Pt remains intubated and in diastolic CHF by chest x-ray. (EF 60-65%) wean vent support as able Continue metoprolol tartrate 25 mg p.o. b.i.d.and lisinopril 2.5 qd. diuretic therapy. Chest x-ray suggestive of pneumonia with diffuse infiltrates bilaterally. IV Antibiotics. (2) Anemia: Code(s): D64.9 - Anemia, unspecified Status: Acute Assessment and Plan: Acute on chronic. Monitor for evidence of bleeding. Follow H&H closely. If ongoing decline in H&H and/or bleeding concern may need to hold systemic anticoagulation. (3) Non-ST elevation [place] (NSTEMI): Code(s): I21.4 - Non-ST elevation (NSTEMI) myocardial infarction Status: Acute Assessment and Plan: Patient found to have occluded LCX, likely embolic event from the aortic valve prosthesis. Status post complex PCI/stenting. Continue anticoagulation with heparin for now, monitor APTT. Continue dual antiplatelet therapy with aspirin and clopidogrel for now. Long-term, use single antiplatelet treatment with clopidogrel along with either apixaban or rivaroxaban. (4) Sepsis: Code(s): A41.9 - Sepsis, unspecified organism Status: Acute Assessment and Plan: now in shock. Blood Cultures, follow H&H closely. Antibiotics per primary service. BP although this morning. Levophed started. patient remains critically ill with poor prognosis overall. (5) Acute respiratory failure: Code(s): J96.00 - Acute respiratory failure, unspecified whether with hypoxia or hypercapnia Status: Acute Assessment and Plan: Per ciritical care. Intubated, wean as tolerated. (6) S/P TAVR (transcatheter aortic valve replacement): Code(s): Z95.2 - Presence of prosthetic heart valve Status: Chronic Assessment and Plan: no definite vegetation or thrombus reported on ROMEL. Normal valve function. (7) Hypertension: Code(s): I10 - Essential (primary) hypertension Status: Acute Assessment and Plan: Now in shock, requiring Levophed. continue to hold lisinopril. Hold metoprolol for now. (8) DEBRA (acute kidney injury): Code(s): N17.9 - Acute kidney failure, unspecified Status: Acute Assessment and Plan: Creatinine back up to 2.1, (9) Encephalopathy: Code(s): G93.40 - Encephalopathy, unspecified Status: Acute Assessment and Plan: Remains intubated/ sedated. Was making progress in this regard. Subjective Date/time seen: date of service: 01/27/21 12:49 Interval history: Follow-up visit in this 75-year-old lady with: Aortic valve disease recent TAVR procedure at [facility]. Patient was found not to have any coronary disease angiographically prior to her valve replacement. She entered this hospital on 01/17/2021 with an episode of ischemic chest pain which was self-limited but was associated with a moderate troponin rise. When this was assumed to be due to thrombotic/embolic coronary events since she did not have any coronary disease just a couple of months ago. She then destabilized and went into pulmonary edema required intubation and was brought to the [facility] 01/18/2021. As expected she did have a embolic clot in her circumflex which was treated with stenting of the circumflex. The TAVR stent material prevented good engagement of the left main coronary artery and so extraction thrombectomy could not be performed. With great difficulty the area was stented restoring good patency in the circumflex. She remains in the ICU intubated on mechanical ventilator support. She is on dual anti-platelet therapy and is also anticoagulated with heparin. Echocardiogram prior to and after the procedure demonstrates good left ventricular systolic function and good function of her TAVR valv
--- NOTE | 2021-01-27 16:37 | CONS_ITS ---
DATE OF CONSULTATION: 01/27/2021 REASON FOR CONSULTATION: Leukocytosis. HISTORY OF PRESENT ILLNESS: A 75-year-old female who cannot provide any history due to intubated and sedated status. She was admitted to the hospital on January 17 with acute CA and she has undergone appropriate treatment for the same. Her hospital course has been complicated by persistent leukocytosis, pressor dependence, respiratory failure, encephalopathy, pulmonary edema, heart failure, hypokalemia, and renal insufficiency. She was given methylprednisolone 2 doses on admission and shortly thereafter also received short courses of vancomycin and cefepime for unclear reasons. She has had resumption of the cefepime on the and levofloxacin added yesterday. No surgical intervention has been needed. ALLERGIES: NONE PERTINENT. HABITS: No tobacco. No alcohol. PRESENT MEDICATIONS: List reviewed. No ongoing immunosuppressants. FAMILY HISTORY: Stroke, hypertension, heart disease. Not pertinent to her present illness. PAST MEDICAL HISTORY: TAVR, previous heart failure. SOCIAL HISTORY: No family at the bedside. She lives locally. REVIEW OF SYSTEMS: A 14-point review otherwise negative though cannot obtain directly from the patient due to intubated, sedated status. PHYSICAL EXAMINATION: GENERAL: Elderly female appears her actual age. No acute distress. VITAL SIGNS: She has been consistently afebrile. 100/41, 56, 16. SKIN: No rashes. Warm and dry. NODES: She has no axillary or cervical adenopathy. EENT: Conjunctivae are clear. She is orally intubated. Dry mucous membranes. No thrush is evident. NECK: Supple. No masses, tenderness. LUNGS: Clear to auscultation other than dry rales at the right lung base. Clear to percussion. CHEST: She has no indwelling vascular devices in the chest, so a PICC is present in the left upper extremity without evidence of phlebitis. CARDIAC: Bradycardic, regular. No murmurs or gallops. Pulses 1+. ABDOMEN: Nontender, soft, obese. No organomegaly. No masses. EXTREMITIES: 1+ nonpitting edema at the ankles. LABORATORY DATA: Blood cultures from the , final no growth. Sputum from the with pseudomonas and yeast with a compatible Gram stain. White blood cell count 11.3 on admission, 22.2 today, slightly higher than mid teens where it was before. Hemoglobin down to 8.5, platelets are 252. Her blood gases show mildly increased AA gradient of 101. I reviewed all results, chemistries with hyponatremia, hypochloremia, BUN 66, creatinine 2.1 up from 1.3. Transaminases normal. Urinalysis, no evidence of infection. Her coronavirus assay was nonreactive in May. RADIOLOGY: Chest x-ray and CT of the chest, abdomen, pelvis all performed yesterday and today show diffuse lung infiltrates. No infectious process evident otherwise. ASSESSMENT: 1. Leukocytosis due to healthcare-associated pneumonia. Also contributing would be physiologic reaction, pressors, and steroids given on admission. No evidence for other sources including primary bloodstream infection, Clostridium difficile infection, IV catheter phlebitis, biliary tract disease, upper respiratory infection including nosocomial sinusitis or infection of her bilateral knee replacements. 2. Respiratory failure. 3. Coronary artery disease and past transcatheter aortic valve replacement. No endocarditis by echo. RECOMMENDATIONS: 1. Continue antibiotics as above. 2. Would discontinue antibiotics once findings of pneumonia have resolved or nearly so. 3. Supportive care. 4. Antibiotics have already been adjusted for renal insufficiency. Thank you for asking me to see her. Call if questions arise otherwise.
[2021-01-27 16:54] LABS: Add Urine Microscopic? YES; Appearance Urine Cloudy (Clear); Bilirubin Urine Negative (Negative); Blood Urine Negative (Negative); Color Urine Yellow (Yellow); Glucose Urine UA Negative (Negative); Ketones Urine Negative (Negative); Leukocyte Esterase Ur Negative LEU/UL (Negative); Mucus Urine Rare /lpf; Nitrate Urine Negative (Negative); Protein Urine 2+ mg/dL (Negative); RBC Urine 0-2 /hpf (0-2); Specific Grav Ur 1.011 (1.001-1.035); Squamous Epithelial Cell Urine Rare /hpf (Few); Urobilinogen Urine Negative mg/dL (<2.0); WBC Urine 0-3 /hpf
[2021-01-27] MEDS: PROPOFOL IV EMULSION 100 ML 11.57 MG IV CONT (17:50)
[2021-01-27] MEDS: PANTOPRAZOLE SODIUM IV 40 MG VIAL IV PUSH (21:47)
[2021-01-28] VITALS (44 sets, daily range): BP systolic 69–175; BP diastolic 38–88; PULSE 63–105; RESP 16–31; TEMP 36.3–37; O2SAT 82–100
[2021-01-28] MEDS: PROPOFOL IV EMULSION 100 ML 17.35 MG IV CONT (01:33)
[2021-01-28 04:24] LABS: Alveolar/Arterial O2 Gradient 94.4 mmHg; Base Excess ABG -2.5 mEq/l (+/-2.0); Carboxyhemoglobin 0.3 % THb (0-2.0); Fractional Inspired Oxygen 30 %; HCO3 ABG 21.2 mEq/l (22.0-26.0); Methemoglobin ABG 0.2 %THb (0-1.5); Oxygen Content ABG 13.1 %vol (16.0-22.0); Oxygen Saturation ABG 96.4 % (95.0-100.0); Oxyhemoglobin 94.5 % THb (90.0-100.0); PCO2 ABG 32.5 mmHg (35.0-45.0); PO2 ABG 81.3 mmHg (80.0-100.0); PO2 FiO2 Ratio Arterial Blood 2.71 %; Total Hemoglobin 9.8 g/dL (12.0-18.0); pH ABG 7.432 (7.350-7.450)
[2021-01-28 04:25] LABS: Arterial Blood Gas Ventilator rate 16 /MIN; Device VENTILATOR; Site Drawn LEFT RADIAL
[2021-01-28 04:26] LABS: Arterial Blood Gas PEEP 5 cmH2O; Arterial Blood Gas Tidal Volume 400 ml; Arterial Blood Gas Vent Mode CMV
[2021-01-28] MEDS: HEPARIN SOD/D5W 100 UNITS/ML 25,000 UNITS/250 ML BAG 15 UNITS IV CONT ×2 (04:38→21:55)
[2021-01-28 05:19] LABS: Hematocrit 23.9 % (37.0-47.0); Hemoglobin 8.1 g/dL (12.0-15.0); Mean Corpuscular HGB Conc 33.9 g/dl (32-36); Mean Corpuscular Hemoglobin 30.3 pg (26-34); Mean Corpuscular Volume 89.5 fl (80-100); Mean Platelet Volume 12.9 fl (7.4-10.4); Platelet Count Result 272 k/mm3 (150-375); Red Blood Count 2.67 M/mm3 (4.2-5.4); Red Cell Distribution Width 14.8 % (11.5-14.5); White Blood Count 22.8 K/mm3 (4.5-10.0)
[2021-01-28 05:34] LABS: Alanine Aminotransferase 44 U/L (4-35); Albumin Level 3.4 g/dL (3.5-5.1); Alkaline Phosphatase 92 U/L (38-126); Anion Gap 10 mmol/L (8-16); Aspartate Amino Transferase 32 U/L (14-36); Bilirubin,Total 0.4 mg/dL (0.2-1.3); Blood Urea Nitrogen 70 mg/dL (7-17); Calcium 9.5 mg/dL (8.4-10.2); Carbon Dioxide 23 mmol/L (22-30); Chloride 98 mmol/L (98-107); Estimated CRCL calculation 20 ml/min; Estimated Glomerular Filt Rate 22; Glucose 141 mg/dL (65-105); Magnesium 2.8 mg/dL (1.6-2.3); Phosphorus 5.9 mg/dL (2.5-4.5); Potassium 4.4 mmol/L (3.4-5.0); Sodium 131 mmol/L (137-145)
[2021-01-28] MEDS: CENTRAL LINE FLUSH 10 ML IV PUSH ×3 (06:13→21:55)
[2021-01-28] MEDS: PROPOFOL IV EMULSION 100 ML 14.46 MG IV CONT (06:44)
--- NOTE | 2021-01-28 07:12 | P.PNNP_ITS ---
Progress Note: A&P Assessment and Plan (1) DEBRA (acute kidney injury): Code(s): N17.9 - Acute kidney failure, unspecified Status: Acute Assessment and Plan: * had improved but now worsening * Originally: * multifactorial etiology - contrast exposure x 2 (from CT scan of chest and cardiac catheterization) - previous IV diuresis/prerenal component - NSTEMI - use of DARYL-I/diuretics prior to admission * renal ultrasound without evidence of obstruction or masses * creatinine peaked/plateaued at 2.0mg/dl and then improved down to 1.1mg/dl * Creatinine arely again starting on Wednesday. 1.7-2.1 and now 2.2. Rate of rise has significantly decreased and patient is making some urine. She had 950cc overnight. - urine electrolytes reordered by dr Toledo - due to pneumonia/infection -- possible ATN? - consider atheroembolic disease. - consider AIN * Complements okay so far. * Urine eosinophils are negative. * consider steroids if it keeps rising? Creatinine seems to be turning around. Will hold off on steroids for now (2) Acute respiratory failure with hypoxemia: Code(s): J96.01 - Acute respiratory failure with hypoxia Status: Acute Assessment and Plan: * due to pulmonary edema (flash pulmonary edema?) * on mechanical ventilation * cxr looks stable. * weaning as tolerated (3) Non-ST elevation [place] (NSTEMI): Code(s): I21.4 - Non-ST elevation (NSTEMI) myocardial infarction Status: Acute Assessment and Plan: * s/p cardiac catheterizartion with stenting as noted * Cardiology following * continue supportive therapy (4) Encephalopathy: Code(s): G93.40 - Encephalopathy, unspecified Status: Acute Assessment and Plan: * Neurology following * EEG results noted * On sedatives now (5) S/P TAVR (transcatheter aortic valve replacement): Code(s): Z95.2 - Presence of prosthetic heart valve Status: Chronic Assessment and Plan: * valve appears to be functioning well by Echo * Cardiology on the case Subjective Date/time seen: 01/28/21 07:12 Interval history: Patient is sedated and on the ventilator. Blood pressure okay overnight. Was placed on norepinephrine yesterday. Down to 2 mics now. Still sedated. She does follow some commands for nursing when sedatives are lightened. Review of Systems Review of Systems: ROS unobtainable: Yes unobtainable due to medical condition Exam Narrative: Exam Narrative: General: Elderly Causian female in NAD; intubated/sedated Heart: normal S1 and S2; no rub or gallop Lungs: coarse breath sounds; decreased at bases Abdomen: soft, nontender, nondistended, positive bowel sounds Extremities: no edema Skin: no skin rash Objective Data Vital Signs Vital Signs: Vital Signs - 24 hr 01/27/21 08:00 01/27/21 08:02 01/27/21 08:46 Temperature Pulse Rate 75 74 67 Respiratory Rate 25 H Blood Pressure 113/40 L Pulse Oximetry 96 96 01/27/21 10:00 01/27/21 11:10 01/27/21 12:00 Temperature Pulse Rate 58 L 90 77 Respiratory Rate 16 29 H Blood Pressure 100/41 L 148/69 H Pulse Oximetry 96 94 96 01/27/21 14:00 01/27/21 14:30 01/27/21 16:00
--- NOTE | 2021-01-28 07:12 | PM.PNNEP ---
Progress Note: A&P Assessment and Plan (1) DEBRA (acute kidney injury): Code(s): N17.9 - Acute kidney failure, unspecified Status: Acute Assessment and Plan: had improved but now worsening Originally: multifactorial etiology - contrast exposure x 2 (from CT scan of chest and cardiac catheterization) - previous IV diuresis/prerenal component - NSTEMI - use of DARYL-I/diuretics prior to admission renal ultrasound without evidence of obstruction or masses creatinine peaked/plateaued at 2.0mg/dl and then improved down to 1.1mg/dl Creatinine arely again starting on Wednesday. 1.7-2.1 and now 2.2. Rate of rise has significantly decreased and patient is making some urine. She had 950cc overnight. - urine electrolytes reordered by dr Toledo - due to pneumonia/infection -- possible ATN? - consider atheroembolic disease. - consider AIN Complements okay so far. Urine eosinophils are negative. consider steroids if it keeps rising? Creatinine seems to be turning around. Will hold off on steroids for now (2) Acute respiratory failure with hypoxemia: Code(s): J96.01 - Acute respiratory failure with hypoxia Status: Acute Assessment and Plan: due to pulmonary edema (flash pulmonary edema?) on mechanical ventilation cxr looks stable. weaning as tolerated (3) Non-ST elevation [place] (NSTEMI): Code(s): I21.4 - Non-ST elevation (NSTEMI) myocardial infarction Status: Acute Assessment and Plan: s/p cardiac catheterizartion with stenting as noted Cardiology following continue supportive therapy (4) Encephalopathy: Code(s): G93.40 - Encephalopathy, unspecified Status: Acute Assessment and Plan: Neurology following EEG results noted On sedatives now (5) S/P TAVR (transcatheter aortic valve replacement): Code(s): Z95.2 - Presence of prosthetic heart valve Status: Chronic Assessment and Plan: valve appears to be functioning well by Echo Cardiology on the case Subjective Date/time seen: 01/28/21 07:12 Interval history: Patient is sedated and on the ventilator. Blood pressure okay overnight. Was placed on norepinephrine yesterday. Down to 2 mics now. Still sedated. She does follow some commands for nursing when sedatives are lightened. Review of Systems Review of Systems: ROS unobtainable: Yes unobtainable due to medical condition Exam Narrative: Exam Narrative: General: Elderly Causian female in NAD; intubated/sedated Heart: normal S1 and S2; no rub or gallop Lungs: coarse breath sounds; decreased at bases Abdomen: soft, nontender, nondistended, positive bowel sounds Extremities: no edema Skin: no skin rash Objective Data Vital Signs Vital Signs: Vital Signs - 24 hr 01/27/21 08:00 01/27/21 08:02 01/27/21 08:46 Temperature Pulse Rate 75 74 67 Respiratory Rate 25 H Blood Pressure 113/40 L Pulse Oximetry 96 96 01/27/21 10:00 01/27/21 11:10 01/27/21 12:00 Temperature Pulse Rate 58 L 90 77 Respiratory Rate 16 29 H Blood Pressure 100/41 L 148/69 H Pulse Oximetry 96 94 96 01/27/21 14:00 01/27/21 14:30 01/27/21 16:00 Temperature 36.8 C Pulse Rate 90 92 95 Respiratory Rate 24 H 29 H Blood Pressure 106/82 142/63 H Pulse Oximetry 96 95 96 01/27/21 17:07 01/27/21 18:00 01/27/21 19:27 Temperature Pulse Rate 90 94 91 Respiratory Rate 30 H Blood Pressure 133/49 L Pulse Oximetry 95 95 96 01/27/21 20:00 01/27/21 20:19 01/27/21 20:30 Temperature 37.0 C Pulse Rate 88 94 99 Respiratory Rate 28 H 29 H Blood Pressure 90/24 L 95/75 L 120/93 H Pulse Oximetry 94 95 01/27/21 21:47 01/27/21 22:00 01/27/21 22:14 Temperature Pulse Rate 94 95 77 Respiratory Rate 24 H Blood Pressure 110/48 L Pulse Oximetry 94 94 01/28/21 00:00 01/28/21 01:06
[2021-01-28 07:55] LABS: Partial Thromboplastin Time 100.6 SECONDS (22.3-36.8)
[2021-01-28] MEDS: PANTOPRAZOLE SODIUM IV 40 MG VIAL IV PUSH ×2 (07:55→21:55)
[2021-01-28] MEDS: ASPIRIN 81 MG CHEWABLE TABLET PO (07:55)
[2021-01-28] MEDS: CLOPIDOGREL BISULFATE 75 MG TABLET PO (07:55)
--- NOTE | 2021-01-28 08:57 | WPDINTPN ---
Progress Note: A&P Assessment and Plan (1) Acute respiratory failure: Code(s): J96.00 - Acute respiratory failure, unspecified whether with hypoxia or hypercapnia Status: Acute Assessment and Plan: Acute Respiratory failure secondary to pulmonary edema and pneumonia as patient had elevated white count and does show some areas consolidation on CT which could be atelectasis from effusion although CT mostly suggest pulmonary edema and effusions Continue full mechanical ventilation support to prevent hypoxemia/hypercarbia and end organ damage. ABGs and chest x-ray reviewed, currently on 30% FiO2 and peep of 5 Patient remains on 30% FiO2, peep of 5 on mechanical ventilation, low tidal volume strategy -continue cefepime (initiated on 01/22/2021) and levaquin (initiated on 01/27/21) - vancomycin was discontinued as blood cultures were negative and no MRSA in the sputum Will try weaning trial today. May need tracheostomy if unable to wean this week Check COVID PCR although her presentation is not classical (2) Sepsis: Code(s): A41.9 - Sepsis, unspecified organism Status: Acute Assessment and Plan: Lactic acid was checked and was normal -patient was not a fluid responder on noninvasive hemodynamic monitoring -continue cefepime and Levaquin for Pseudomonas pneumonia -mean arterial pressures remain low will start Levophed to maintain adequate perfusion pressures to prevent end-organ damage -01/18/2021: Blood cultures negative x2 -01/21/2021: Sputum culture growing Pseudomonas pansensitive, Yeast was also isolated (3) Encephalopathy: Code(s): G93.40 - Encephalopathy, unspecified Status: Acute Assessment and Plan: Improved Could be related to embolic disease, infection, toxic metabolic encephalopathy, -EEG showed severe neurological deficit without seizure activity, consistent with organic a metabolic encephalopathy, possibility of hypoxic insult cannot be ruled out. -will further discuss with neurology -01/25/2021: Patient is open her eyes, tracks and follows simple commands. Off propofol. Status post Seroquel on 01/24/2021 -ammonia levels were elevated on 01/24/2021, patient given lactulose, repeat ammonia this morning is < 9. Lactulose on hold since patient has had multiple bowel movements (4) Pneumonia: Code(s): J18.9 - Pneumonia, unspecified organism Status: Acute Assessment and Plan: Since Pseudomonas pneumonia, sputum cultures growing Pseudomonas castellanos susceptible -continue cefepime and Levaquin -CT scan of the chest on 01/26/2021 showed extensive bilateral pneumonia, mild bilateral pleural effusion, cardiomegaly, status post cholecystectomy, status post hysterectomy Infectious disease is following (5) Acute pulmonary edema: Code(s): J81.0 - Acute pulmonary edema Status: Acute Assessment and Plan: Persistent bilateral infiltrates and opacities -diuresed well on 01/21, 01/22 -hold diuresis kidney functions trending up (6) CHF (congestive heart failure): Qualifiers: Heart failure type: diastolic Heart failure chronicity: acute Qualified Code(s): I50.31 - Acute diastolic (congestive) heart failure Code(s): I50.9 - Heart failure, unspecified Status: Acute Assessment and Plan: ECHO Summary 1. Complete two-dimensional, color flow and Doppler transthoracic echocardiogram is performed. 2. There is moderate concentric increased left ventricular wall thickness. 3. Left ventricular systolic function is normal, estimated at 60-65%. 4. No wall-motion abnormalities. 5. Left atrial chamber dimension is moderately enlarged. 6. There is no regurgitation of the TAVR aortic valve. 7. Minimal normal transvalvular gradient. (7) Non-ST elevation [place] (NSTEMI): Code(s): I21.4 - Non-ST elevation (NSTEMI) myocardial infarction Status: Acute Assessment and Plan: Secondary to thrombus. Patient underwent
--- NOTE | 2021-01-28 10:22 | PCDIET ---
Nutrition Follow-Up Complete: Nutrition Diagnosis: Inadequate oral intake related to oral intubation as evidenced by need for tube feeding. Nutrition Goal: Patient to meet estimated nutritional needs. Goal met. Tube feedings currently on hold for SBT, but patient previously tolerating Vital 1.2 at 40mL/hr goal rate with 30mL water flush every 4 hours. Tube feedings to resume today if unable to extubate. Last recorded weight is 93.6 kg which is increased from last review. +I/O. Bowel Motility: Last documented BM on 01/27/21 x 1. Labs Reviewed: Hgb (8.1), Hct (23.9), BUN (70), Cr (2.2), Na (131), Alb (3.4), PO4 (5.9), Mg (2.8) Meds Noted: Cefepime, Lisinopril, Lopressor, Protonix, Levaquin, Levophed, Miralax Additional Notes: No pressure sores documented. Will continue to monitor with same goal. Nutrition Monitoring and Evaluation: Follow up every Wednesday/Wednesday. Follow daily in ICU rounds.
[2021-01-28] MEDS: PROPOFOL IV EMULSION 100 ML 2.81 MG IV CONT (16:56)
--- NOTE | 2021-01-28 17:15 | PM.PNCARD ---
Progress Note: A&P Assessment and Plan (1) Acute pulmonary edema: Code(s): J81.0 - Acute pulmonary edema Status: Acute Assessment and Plan: Patient remains intubated. Continue to wean vent support as appropriate. On IV abx. Continue diuresis. (2) Anemia: Code(s): D64.9 - Anemia, unspecified Status: Acute Assessment and Plan: H&H stable. If ongoing decline in H&H and/or bleeding concern may need to hold systemic anticoagulation. (3) Non-ST elevation [place] (NSTEMI): Code(s): I21.4 - Non-ST elevation (NSTEMI) myocardial infarction Status: Acute Assessment and Plan: Patient found to have occluded LCX, likely embolic event from the aortic valve prosthesis. Status post complex PCI/stenting. Continue anticoagulation with heparin for now, monitor APTT. Continue dual antiplatelet therapy with aspirin and clopidogrel for now. Long-term, use single antiplatelet treatment with clopidogrel along with either apixaban or rivaroxaban. (4) Sepsis: Code(s): A41.9 - Sepsis, unspecified organism Status: Acute Assessment and Plan: ID following for HCAP. Antibiotics per ID service. (5) Acute respiratory failure: Code(s): J96.00 - Acute respiratory failure, unspecified whether with hypoxia or hypercapnia Status: Acute Assessment and Plan: Per ciritical care. Intubated, wean as tolerated. (6) S/P TAVR (transcatheter aortic valve replacement): Code(s): Z95.2 - Presence of prosthetic heart valve Status: Chronic Assessment and Plan: No definite vegetation or thrombus reported on ROMEL. Normal valve function. (7) Hypertension: Code(s): I10 - Essential (primary) hypertension Status: Acute Assessment and Plan: Currently on levophed - continue to hold metoprolol and lisinopril. (8) DEBRA (acute kidney injury): Code(s): N17.9 - Acute kidney failure, unspecified Status: Acute Assessment and Plan: Creatinine continues to trend up. 2.2 today. Renal is following. (9) Encephalopathy: Code(s): G93.40 - Encephalopathy, unspecified Status: Acute Assessment and Plan: Intubated and sedated at this time. Subjective Date/time seen: Date of service 01/28/2021: Patient remans sedated and on the ventilator. She did open her eyes to my voice. Remains on norepinephrine at 2 mcs/min. Interval history: Patient is sedated and on the ventilator. Blood pressure okay overnight. Was placed on norepinephrine yesterday. Down to 2 mics now. Still sedated. She does follow some commands for nursing when sedatives are lightened. Review of Systems Review of Systems: All systems reviewed & are unremarkable except as noted in HPI and below ROS unobtainable: Yes unobtainable due to endotracheal tube, unobtainable due to medical condition and unobtainable due to mental status Constitutional: Constitutional: Reports as per HPI and Reports no additional constitutional complaints Eyes: Eyes: Reports as per HPI and Reports no additional eye complaints ENT: Reports system reviewed and no additional complaints, except as documented and Reports as per HPI Cardiovascular: Cardiovascular: Reports as per HPI and Reports no additional cardiovascular complaints Respiratory: Respiratory: Reports as per HPI and Reports no additional respiratory complaints Gastrointestinal: Gastrointestinal: Reports as per HPI and Reports no additional gastrointestinal complaints Genitourinary: Genitourinary: Reports as per HPI Musculoskeletal: Musculoskeletal: Reports no additional musculoskeletal complaints and Reports as per HPI Integumentary/Breasts: Skin/Breast: Reports system reviewed and no additional complaints, except as docu and Reports as per HPI Neurologic: Reports system reviewed and no additional complaints, except as documented and Reports as per HPI Psychiatric: Psychiatric: Reports no jamison
[2021-01-28 20:07] LABS: SARS-CoV-2 RNA PCR Negative
[2021-01-29] VITALS (48 sets, daily range): BP systolic 79–153; BP diastolic 40–109; PULSE 68–182; RESP 18–33; TEMP 35.8–36.8; O2SAT 91–100
[2021-01-29] MEDS: PROPOFOL IV EMULSION 100 ML 8.42 MG IV CONT (02:44)
[2021-01-29 03:47] LABS: Alveolar/Arterial O2 Gradient 91.2 mmHg; Base Excess ABG -3.1 mEq/l (+/-2.0); Carboxyhemoglobin 0.3 % THb (0-2.0); Fractional Inspired Oxygen 30 %; HCO3 ABG 20.7 mEq/l (22.0-26.0); Methemoglobin ABG 0.2 %THb (0-1.5); Oxygen Content ABG 12.7 %vol (16.0-22.0); Oxygen Saturation ABG 96.7 % (95.0-100.0); Oxyhemoglobin 95.4 % THb (90.0-100.0); PCO2 ABG 32.1 mmHg (35.0-45.0); PO2 FiO2 Ratio Arterial Blood 2.83 %; Reduced Hemoglobin 4.1 %THb (0-5.0); Total Hemoglobin 9.4 g/dL (12.0-18.0); pH ABG 7.427 (7.350-7.450)
[2021-01-29 03:49] LABS: Device VENTILATOR; Modified Allen's Test Pass; Site Drawn LEFT RADIAL
[2021-01-29 03:50] LABS: Arterial Blood Gas PEEP 5 cmH2O; Arterial Blood Gas Tidal Volume 400 ml; Arterial Blood Gas Vent Mode CMV; Arterial Blood Gas Ventilator rate 16 /MIN
[2021-01-29 05:30] LABS: Hemoglobin 8.3 g/dL (12.0-15.0); Mean Corpuscular HGB Conc 33.2 g/dl (32-36); Mean Corpuscular Hemoglobin 29.9 pg (26-34); Mean Corpuscular Volume 89.9 fl (80-100); Mean Platelet Volume 12.3 fl (7.4-10.4); Platelet Count Result 322 k/mm3 (150-375); Red Blood Count 2.78 M/mm3 (4.2-5.4); Red Cell Distribution Width 14.8 % (11.5-14.5); White Blood Count 24.1 K/mm3 (4.5-10.0)
[2021-01-29 05:43] LABS: Partial Thromboplastin Time 135.6 SECONDS (22.3-36.8)
[2021-01-29 05:46] LABS: Alanine Aminotransferase 39 U/L (4-35); Albumin Level 3.6 g/dL (3.5-5.1); Alkaline Phosphatase 93 U/L (38-126); Anion Gap 8 mmol/L (8-16); Aspartate Amino Transferase 30 U/L (14-36); Bilirubin,Total 0.5 mg/dL (0.2-1.3); Blood Urea Nitrogen 71 mg/dL (7-17); Calcium 10.3 mg/dL (8.4-10.2); Carbon Dioxide 24 mmol/L (22-30); Chloride 102 mmol/L (98-107); Estimated CRCL calculation 20 ml/min; Estimated Glomerular Filt Rate 22; Glucose 127 mg/dL (65-105); Magnesium 2.7 mg/dL (1.6-2.3); Phosphorus 5.8 mg/dL (2.5-4.5); Potassium 4.6 mmol/L (3.4-5.0); Sodium 134 mmol/L (137-145)
[2021-01-29] MEDS: CENTRAL LINE FLUSH 10 ML IV PUSH ×3 (06:51→21:27)
[2021-01-29] MEDS: PANTOPRAZOLE SODIUM IV 40 MG VIAL IV PUSH ×2 (07:44→21:27)
[2021-01-29] MEDS: CLOPIDOGREL BISULFATE 75 MG TABLET PO (07:44)
[2021-01-29] MEDS: ASPIRIN 81 MG CHEWABLE TABLET PO (07:44)
[2021-01-29] MEDS: NOREPINEPHRINE 8 MG/D5W 250 ML 8 MG/250 ML BAG 5.63 MG IV CONT (07:46)
--- NOTE | 2021-01-29 08:17 | WPDINTPN ---
Progress Note: A&P Assessment and Plan (1) Acute respiratory failure: Code(s): J96.00 - Acute respiratory failure, unspecified whether with hypoxia or hypercapnia Status: Acute Assessment and Plan: Acute Respiratory failure secondary to pulmonary edema and pneumonia as patient had elevated white count and does show some areas consolidation on CT which could be atelectasis from effusion although CT mostly suggest pulmonary edema and effusions Continue full mechanical ventilation support to prevent hypoxemia/hypercarbia and end organ damage. ABGs reviewed, currently on 30% FiO2 and peep of 5 Chest x-ray reviewed and will advance ET tube by 3 cm Patient failed weaning trial yesterday due to high RSBI Will again try today -continue cefepime (initiated on 01/22/2021) and levaquin (initiated on 01/27/21) - vancomycin was discontinued as blood cultures were negative and no MRSA in the sputum May need tracheostomy if unable to wean this week COVID PCR came back negative (2) Sepsis: Code(s): A41.9 - Sepsis, unspecified organism Status: Acute Assessment and Plan: Lactic acid was checked and was normal -patient was not a fluid responder on noninvasive hemodynamic monitoring -continue cefepime and Levaquin for Pseudomonas pneumonia -mean arterial pressures remain low will start Levophed to maintain adequate perfusion pressures to prevent end-organ damage -01/18/2021: Blood cultures negative x2 -01/21/2021: Sputum culture growing Pseudomonas pansensitive, Yeast was also isolated (3) Encephalopathy: Code(s): G93.40 - Encephalopathy, unspecified Status: Acute Assessment and Plan: Improved Could be related to embolic disease, infection, toxic metabolic encephalopathy, -EEG showed severe neurological deficit without seizure activity, consistent with organic a metabolic encephalopathy, possibility of hypoxic insult cannot be ruled out. -will further discuss with neurology -01/25/2021: Patient is open her eyes, tracks and follows simple commands. Off propofol. Status post Seroquel on 01/24/2021 -ammonia levels were elevated on 01/24/2021, patient given lactulose, repeat ammonia this morning is < 9. Lactulose on hold since patient has had multiple bowel movements (4) Pneumonia: Code(s): J18.9 - Pneumonia, unspecified organism Status: Acute Assessment and Plan: Since Pseudomonas pneumonia, sputum cultures growing Pseudomonas castellanos susceptible -continue cefepime and Levaquin -CT scan of the chest on 01/26/2021 showed extensive bilateral pneumonia, mild bilateral pleural effusion, cardiomegaly, status post cholecystectomy, status post hysterectomy Infectious disease is following (5) Acute pulmonary edema: Code(s): J81.0 - Acute pulmonary edema Status: Acute Assessment and Plan: Persistent bilateral infiltrates and opacities -diuresed well on 01/21, 01/22 -hold further diuresis at this time due to elevated creatinine and patient is only on 30% FiO2 (6) CHF (congestive heart failure): Qualifiers: Heart failure type: diastolic Heart failure chronicity: acute Qualified Code(s): I50.31 - Acute diastolic (congestive) heart failure Code(s): I50.9 - Heart failure, unspecified Status: Acute Assessment and Plan: ECHO Summary 1. Complete two-dimensional, color flow and Doppler transthoracic echocardiogram is performed. 2. There is moderate concentric increased left ventricular wall thickness. 3. Left ventricular systolic function is normal, estimated at 60-65%. 4. No wall-motion abnormalities. 5. Left atrial chamber dimension is moderately enlarged. 6. There is no regurgitation of the TAVR aortic valve. 7. Minimal normal transvalvular gradient. (7) Non-ST elevation [place] (NSTEMI): Code(s): I21.4 - Non-ST elevation (NSTEMI) myocardial infarction Status: Acute Assessment and Plan: Secondary to thrombus. Nabor
--- NOTE | 2021-01-29 10:31 | P.PNNP_ITS ---
Progress Note: A&P Assessment and Plan (1) DEBRA (acute kidney injury): Code(s): N17.9 - Acute kidney failure, unspecified Status: Acute Assessment and Plan: * had improved but now worsening * Originally: * multifactorial etiology - contrast exposure x 2 (from CT scan of chest and cardiac catheterization) - previous IV diuresis/prerenal component - NSTEMI - use of DARYL-I/diuretics prior to admission * renal ultrasound without evidence of obstruction or masses * creatinine peaked/plateaued at 2.0mg/dl and then improved down to 1.1mg/dl * Creatinine arely again starting on Wednesday. 1.7-2.1 and now 2.2. Rate of rise has significantly decreased and patient is making some urine. She had 950cc overnight. - urine electrolytes reordered by dr Toledo - due to pneumonia/infection -- possible ATN? - consider atheroembolic disease. - consider AIN * Complements okay so far. * Urine eosinophils are negative. * I think we should hold off on steroid because of the pneumonia. (2) Acute respiratory failure with hypoxemia: Code(s): J96.01 - Acute respiratory failure with hypoxia Status: Acute Assessment and Plan: * due to pulmonary edema (flash pulmonary edema?) * on mechanical ventilation * numbers look okay. Patient is weak obviating extubated blue. * cxr looks stable. * weaning as tolerated (3) Non-ST elevation [place] (NSTEMI): Code(s): I21.4 - Non-ST elevation (NSTEMI) myocardial infarction Status: Acute Assessment and Plan: * s/p cardiac catheterizartion with stenting as noted * Cardiology following * continue supportive therapy (4) Encephalopathy: Code(s): G93.40 - Encephalopathy, unspecified Status: Acute Assessment and Plan: * Neurology following * EEG results noted * Seems to be improved. (5) S/P TAVR (transcatheter aortic valve replacement): Code(s): Z95.2 - Presence of prosthetic heart valve Status: Chronic Assessment and Plan: * valve appears to be functioning well by Echo * Cardiology on the case Subjective Date/time seen: 01/29/21 10:31 Interval history: Patient is sedated and on the ventilator. Blood pressure stable. still on some norepi. opens eyes and regards examiner. she follows some commands. Exam Narrative: Exam Narrative: General: Elderly Causian female in NAD; intubated/sedated Heart: normal S1 and S2; no rub or gallop Lungs: coarse breath sounds; decreased at bases Abdomen: soft, nontender, nondistended, positive bowel sounds Extremities: no edema Skin: no skin rash Or subcu nodules Objective Data Vital Signs Vital Signs: Vital Signs - 24 hr 01/28/21 10:50 01/28/21 12:00 01/28/21 12:45 Temperature 36.4 C Pulse Rate 105 H 70 72 Respiratory Rate 21 H Blood Pressure 129/38 L 129/38 L Pulse Oximetry 95 92 01/28/21 14:00 01/28/21 15:00 01/28/21 15:11 Temperature Pulse Rate 86 90 86 Respiratory Rate 26 H 24 H Blood Pressure 112/81 Pulse Oximetry 82 L 94 95 01/28/21 16:00 01/28/21 16:38 01/28/21 16:52 Temperature 36.4 C Pulse Rate 72 86 83 Respiratory Rate 20 30 H Blood Pressure 115/38 L 134/40 L Pulse Oxim
--- NOTE | 2021-01-29 10:31 | PM.PNNEP ---
Progress Note: A&P Assessment and Plan (1) DEBRA (acute kidney injury): Code(s): N17.9 - Acute kidney failure, unspecified Status: Acute Assessment and Plan: had improved but now worsening Originally: multifactorial etiology - contrast exposure x 2 (from CT scan of chest and cardiac catheterization) - previous IV diuresis/prerenal component - NSTEMI - use of DARYL-I/diuretics prior to admission renal ultrasound without evidence of obstruction or masses creatinine peaked/plateaued at 2.0mg/dl and then improved down to 1.1mg/dl Creatinine arely again starting on Wednesday. 1.7-2.1 and now 2.2. Rate of rise has significantly decreased and patient is making some urine. She had 950cc overnight. - urine electrolytes reordered by dr Toledo - due to pneumonia/infection -- possible ATN? - consider atheroembolic disease. - consider AIN Complements okay so far. Urine eosinophils are negative. I think we should hold off on steroid because of the pneumonia. (2) Acute respiratory failure with hypoxemia: Code(s): J96.01 - Acute respiratory failure with hypoxia Status: Acute Assessment and Plan: due to pulmonary edema (flash pulmonary edema?) on mechanical ventilation numbers look okay. Patient is weak obviating extubated blue. cxr looks stable. weaning as tolerated (3) Non-ST elevation [place] (NSTEMI): Code(s): I21.4 - Non-ST elevation (NSTEMI) myocardial infarction Status: Acute Assessment and Plan: s/p cardiac catheterizartion with stenting as noted Cardiology following continue supportive therapy (4) Encephalopathy: Code(s): G93.40 - Encephalopathy, unspecified Status: Acute Assessment and Plan: Neurology following EEG results noted Seems to be improved. (5) S/P TAVR (transcatheter aortic valve replacement): Code(s): Z95.2 - Presence of prosthetic heart valve Status: Chronic Assessment and Plan: valve appears to be functioning well by Echo Cardiology on the case Subjective Date/time seen: 01/29/21 10:31 Interval history: Patient is sedated and on the ventilator. Blood pressure stable. still on some norepi. opens eyes and regards examiner. she follows some commands. Exam Narrative: Exam Narrative: General: Elderly Causian female in NAD; intubated/sedated Heart: normal S1 and S2; no rub or gallop Lungs: coarse breath sounds; decreased at bases Abdomen: soft, nontender, nondistended, positive bowel sounds Extremities: no edema Skin: no skin rash Or subcu nodules Objective Data Vital Signs Vital Signs: Vital Signs - 24 hr 01/28/21 10:50 01/28/21 12:00 01/28/21 12:45 Temperature 36.4 C Pulse Rate 105 H 70 72 Respiratory Rate 21 H Blood Pressure 129/38 L 129/38 L Pulse Oximetry 95 92 01/28/21 14:00 01/28/21 15:00 01/28/21 15:11 Temperature Pulse Rate 86 90 86 Respiratory Rate 26 H 24 H Blood Pressure 112/81 Pulse Oximetry 82 L 94 95 01/28/21 16:00 01/28/21 16:38 01/28/21 16:52 Temperature 36.4 C Pulse Rate 72 86 83 Respiratory Rate 20 30 H Blood Pressure 115/38 L 134/40 L Pulse Oximetry 93 92 01/28/21 16:56 01/28/21 17:05 01/28/21 17:23 Temperature Pulse Rate 87 93 65 Respiratory Rate 18 26 H 20 Blood Pressure 109/42 L Pulse Oximetry 01/28/21 18:00 01/28/21 20:00 01/28/21 20:08 Temperature 36.3 C L Pulse Rate 68 74 87 Respiratory Rate 16 18 Blood Pressure 112/43 L 123/54 L Pulse Oximetry 100 93 94 01/28/21 22:00 01/28/21 22:20 01/28/21 22:56 Temperature Pulse Rate 89 89 88 Respiratory Rate 21 H 21 H Blood Pressure 145/55 H Pulse Oximetry 94 95 01/29/21 00:00 01/29/21 01:00 01/29/21 02:00 Temperature 35.8 C L Pulse Rate 91 78 94 Respiratory Rate 25 H 21 H 18 Blood Pressure 120/78 122/46 L 146/42
--- NOTE | 2021-01-29 12:45 | PCDIET ---
ICU Rounding Note: Tube feedings held this morning for SBT. Otherwise tolerating Vital 1.2 at 40mL/hr goal rate. Tube feedings to resume after SBT. Last recorded weight is 93.2kg which is stable. Bowel Motility: Last documented BM on 01/27/21 x 1. Labs Reviewed: Hgb (8.3), Hct (25.0), Glu (127), BUN (71), Cr (2.2), Na (134), Ca (10.3), PO4 (5.8), Alb (2.7) Meds Noted: Cefepime, Levaquin, Fentanyl, Lisinopril, Heparin, Lopressor, Levophed, Protonix, Miralax Additional Notes: No documented pressure sores. Following daily in ICU rounds. Assessing/reassessing every Wednesday/Wednesday.
[2021-01-29 12:54] LABS: Complement Total CH50 >60 U/mL (31-60)
[2021-01-29 14:02] LABS: Partial Thromboplastin Time 81.8 SECONDS (22.3-36.8)
[2021-01-29] MEDS: PROPOFOL IV EMULSION 100 ML 16.85 MG IV CONT (14:48)
[2021-01-29] MEDS: HEPARIN SOD/D5W 100 UNITS/ML 25,000 UNITS/250 ML BAG 13 UNITS IV CONT (14:49)
[2021-01-29] MEDS: METOPROLOL TARTRATE INJ 5 MG/5 ML VIAL IV PUSH (14:50)
--- NOTE | 2021-01-29 17:40 | PM.IMPN ---
Progress Note: A&P Assessment and Plan (1) Sepsis: Code(s): A41.9 - Sepsis, unspecified organism Status: Acute Assessment and Plan: Pateint with soft BP and now with decreasing UOP and rising Cr. Concern for sepsis given the rising WBC. Levophed was added. Continue to closely monitor. WBC still high will continue current treatment. Monitor cultures. (2) Pneumonia: Code(s): J18.9 - Pneumonia, unspecified organism Status: Acute Assessment and Plan: Consider bacterial PNA - sputum growing Pseudomonas and yeast. Not terribly hypoxic making COVID less likely but not excluded. Rocephin changed to Cefepime and Vanco added 01/23/21. WBC peaked at 30K on 01/18/21 but trended down to 14K on 01/22. WBC climbed again so levaquin added 01/26; WBC peaked at 25.7K but back down today to 22K. On appropriate abx for the pseudomonas. Not covering the yeast but not felt to be causing a lower tract infection. Consider CDiff but not having diarrhea. Not on steroids and does not have CLL. CT Ch/A/P showing bilateral extensive PNA. Venous doppler of the left UE showing partial left basilic vein thrombosis the region of PICC catheter; already on Heparin. Follow. Appreciate vessel slag worker and ID input. Will continue current treatment and monitor labs. (3) Encephalopathy: Code(s): G93.40 - Encephalopathy, unspecified Status: Acute Assessment and Plan: Mental status was poor. CT brain 01/21 showing no acute findings. EEG 01/22 showing severely abnormal record due to the presence of bihemispheric theta and delta activity even during sleep without any paroxysmal discharge ,these abnormalities could be consistent with organic or metabolic encephalopathy. Possibility of hypoxic insult cannot be ruled out . Concern for HIE but patient has been showing some signs of improvement. Wean sedation as tolerated. Appreciate neurology and vessel slag worker help. (4) Acute respiratory failure with hypoxemia: Code(s): J96.01 - Acute respiratory failure with hypoxia Status: Acute Assessment and Plan: Patient remains intubated but on minimal settings. Currently, IV Lasix on hold due to DEBRA. Sedation being adjusted. Continue to wean vent as tolerated. Appreciate help from vessel slag worker. (5) Hyponatremia: Code(s): E87.1 - Hypo-osmolality and hyponatremia Status: Acute Assessment and Plan: Sodium has been low in the low 130's but dropped to 127 today. Concern for dehydration with decreased UOP and rising Cr. Repeat urine studies showing Sharon 27 and FENa 0.65%. Not fluid response but she was given a fluid bolus. Monitor fluid status. (6) CHF (congestive heart failure): Qualifiers: Heart failure type: diastolic Heart failure chronicity: acute Qualified Code(s): I50.31 - Acute diastolic (congestive) heart failure Code(s): I50.9 - Heart failure, unspecified Status: Acute Assessment and Plan: Patietn with acute pulmonary edema. Patient remains on ventilator as noted. 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 Lisinopril and Lasix on hold due to rising Cr. Cardiology and vessel slag worker following. (7) Leukocytosis: Code(s): D72.829 - Elevated white blood cell count, unspecified Status: Acute Assessment and Plan: WBC climbing and Levaquin added 01/26. As above. (8) Non-ST elevation [place] (NSTEMI): Code(s): I21.4 - Non-ST elevation (NSTEMI) myocardial infarction Status: Acute Assessment and Plan: Cardiology following. Initial 2D echocardiogram at bedside with EF 55% along with mild hypokinesis of the mid and basal anterior wall and severe hypokinesis of the mid and basal inferolateral wall. ROMEL of 01/18/2021 with results as noted above.
[2021-01-29] MEDS: PROPOFOL IV EMULSION 100 ML 19.66 MG IV CONT (18:38)
[2021-01-29 20:26] LABS: Partial Thromboplastin Time 99.6 SECONDS (22.3-36.8)
[2021-01-30] VITALS (36 sets, daily range): BP systolic 109–168; BP diastolic 40–69; PULSE 61–183; RESP 16–30; TEMP 36.5–37.1; O2SAT 92–97
[2021-01-30] MEDS: PROPOFOL IV EMULSION 100 ML 19.66 MG IV CONT ×2 (00:08→04:44)
[2021-01-30 04:37] LABS: Hematocrit 24.2 % (37.0-47.0); Mean Corpuscular HGB Conc 33.1 g/dl (32-36); Mean Corpuscular Hemoglobin 30.2 pg (26-34); Mean Corpuscular Volume 91.3 fl (80-100); Mean Platelet Volume 11.8 fl (7.4-10.4); Platelet Count Result 330 k/mm3 (150-375); Red Blood Count 2.65 M/mm3 (4.2-5.4); White Blood Count 24.2 K/mm3 (4.5-10.0)
[2021-01-30] MEDS: CENTRAL LINE FLUSH 10 ML IV PUSH ×3 (04:46→20:27)
[2021-01-30 04:50] LABS: Partial Thromboplastin Time 96.6 SECONDS (22.3-36.8)
[2021-01-30 04:53] LABS: Alveolar/Arterial O2 Gradient 100.2 mmHg; Base Excess ABG -3.1 mEq/l (+/-2.0); Carboxyhemoglobin 0.3 % THb (0-2.0); Fractional Inspired Oxygen 30 %; HCO3 ABG 20.1 mEq/l (22.0-26.0); Methemoglobin ABG 0.2 %THb (0-1.5); Oxygen Content ABG 11.5 %vol (16.0-22.0); Oxygen Saturation ABG 96.5 % (95.0-100.0); Oxyhemoglobin 93.3 % THb (90.0-100.0); PO2 ABG 79.6 mmHg (80.0-100.0); PO2 FiO2 Ratio Arterial Blood 2.65 %; Reduced Hemoglobin 6.2 %THb (0-5.0); Total Hemoglobin 8.7 g/dL (12.0-18.0); pH ABG 7.458 (7.350-7.450)
[2021-01-30 04:54] LABS: Arterial Blood Gas Ventilator rate 16 /MIN; Device VENTILATOR; Modified Allen's Test Pass; Site Drawn LEFT RADIAL
[2021-01-30 04:55] LABS: Arterial Blood Gas PEEP 5 cmH2O; Arterial Blood Gas Tidal Volume 400 ml; Arterial Blood Gas Vent Mode CMV
[2021-01-30 04:56] LABS: Alanine Aminotransferase 32 U/L (4-35); Albumin Level 3.4 g/dL (3.5-5.1); Alkaline Phosphatase 85 U/L (38-126); Anion Gap 9 mmol/L (8-16); Aspartate Amino Transferase 32 U/L (14-36); Bilirubin,Total 0.4 mg/dL (0.2-1.3); Blood Urea Nitrogen 71 mg/dL (7-17); Carbon Dioxide 23 mmol/L (22-30); Chloride 103 mmol/L (98-107); Estimated CRCL calculation 20 ml/min; Estimated Glomerular Filt Rate 22; Glucose 119 mg/dL (65-105); Magnesium 2.6 mg/dL (1.6-2.3); Potassium 4.7 mmol/L (3.4-5.0); Sodium 135 mmol/L (137-145)
--- NOTE | 2021-01-30 07:41 | PM.IMPN ---
Progress Note: A&P Assessment and Plan (1) Sepsis: Code(s): A41.9 - Sepsis, unspecified organism Status: Acute Assessment and Plan: Pateint with soft BP and now with decreasing UOP and rising Cr. Concern for sepsis given the rising WBC. Levophed was added. Continue to closely monitor. WBC still high will continue current treatment. Monitor cultures. Repeat labs and chest x-ray. (2) Pneumonia: Code(s): J18.9 - Pneumonia, unspecified organism Status: Acute Assessment and Plan: Consider bacterial PNA - sputum growing Pseudomonas and yeast. Not terribly hypoxic making COVID less likely but not excluded. Rocephin changed to Cefepime and Vanco added 01/23/21. WBC peaked at 30K on 01/18/21 but trended down to 14K on 01/22. WBC climbed again so levaquin added 01/26; WBC peaked at 25.7K but back down today to 22K. On appropriate abx for the pseudomonas. Not covering the yeast but not felt to be causing a lower tract infection. Consider CDiff but not having diarrhea. Not on steroids and does not have CLL. CT Ch/A/P showing bilateral extensive PNA. Venous doppler of the left UE showing partial left basilic vein thrombosis the region of PICC catheter; already on Heparin. Follow. Appreciate configuration management specialist and ID input. Will continue current treatment and monitor labs. Repeat chest x-ray. (3) Encephalopathy: Code(s): G93.40 - Encephalopathy, unspecified Status: Acute Assessment and Plan: Mental status was poor. CT brain 01/21 showing no acute findings. EEG 01/22 showing severely abnormal record due to the presence of bihemispheric theta and delta activity even during sleep without any paroxysmal discharge ,these abnormalities could be consistent with organic or metabolic encephalopathy. Possibility of hypoxic insult cannot be ruled out . Concern for HIE but patient has been showing some signs of improvement. Wean sedation as tolerated. Appreciate neurology and configuration management specialist help. (4) Acute respiratory failure with hypoxemia: Code(s): J96.01 - Acute respiratory failure with hypoxia Status: Acute Assessment and Plan: Patient remains intubated but on minimal settings. Currently, IV Lasix on hold due to DEBRA. Sedation being adjusted. Continue to wean vent as tolerated. Appreciate help from configuration management specialist. (5) Hyponatremia: Code(s): E87.1 - Hypo-osmolality and hyponatremia Status: Acute Assessment and Plan: Sodium has been low in the low 130's but dropped to 127 today. Concern for dehydration with decreased UOP and rising Cr. Repeat urine studies showing Sharon 27 and FENa 0.65%. Not fluid response but she was given a fluid bolus. Monitor fluid status. (6) CHF (congestive heart failure): Qualifiers: Heart failure type: diastolic Heart failure chronicity: acute Qualified Code(s): I50.31 - Acute diastolic (congestive) heart failure Code(s): I50.9 - Heart failure, unspecified Status: Acute Assessment and Plan: Patietn with acute pulmonary edema. Patient remains on ventilator as noted. 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 Lisinopril and Lasix on hold due to rising Cr. Cardiology and configuration management specialist following. (7) Leukocytosis: Code(s): D72.829 - Elevated white blood cell count, unspecified Status: Acute Assessment and Plan: WBC climbing and Levaquin added 01/26. As above. (8) Non-ST elevation [place] (NSTEMI): Code(s): I21.4 - Non-ST elevation (NSTEMI) myocardial infarction Status: Acute Assessment and Plan: Cardiology following. Initial 2D echocardiogram at bedside with EF 55% along with mild hypokinesis of the mid and basal anterior wall and severe hypokinesis of the mid and basal inferolateral wall.
[2021-01-30] MEDS: ASPIRIN 81 MG CHEWABLE TABLET PO (08:21)
[2021-01-30] MEDS: FUROSEMIDE INJ 40 MG/4 ML VIAL IV PUSH (08:21)
[2021-01-30] MEDS: PANTOPRAZOLE SODIUM IV 40 MG VIAL IV PUSH ×2 (08:21→20:26)
[2021-01-30] MEDS: CLOPIDOGREL BISULFATE 75 MG TABLET PO (08:21)
[2021-01-30] MEDS: polyethylene glycoL 3350 17 GM POWD.PACK PO (08:22)
--- NOTE | 2021-01-30 09:08 | P.PNNP_ITS ---
Progress Note: A&P Assessment and Plan (1) DEBRA (acute kidney injury): Code(s): N17.9 - Acute kidney failure, unspecified Status: Acute Assessment and Plan: * had improved but now worsening * Originally: * multifactorial etiology - contrast exposure x 2 (from CT scan of chest and cardiac catheterization) - previous IV diuresis/prerenal component - NSTEMI - use of DARYL-I/diuretics prior to admission * renal ultrasound without evidence of obstruction or masses * creatinine peaked/plateaued at 2.0mg/dl and then improved down to 1.1mg/dl * Creatinine arely again starting on Wednesday. 1.7-2.1 and now it seems to have plateaued in the low 2s. - urine electrolytes reordered by dr Toledo - due to pneumonia/infection -- possible ATN? - consider atheroembolic disease. - consider AIN * Complements okay so far. * Urine eosinophils are negative. * Will recheck an ultrasound. (2) Acute respiratory failure with hypoxemia: Code(s): J96.01 - Acute respiratory failure with hypoxia Status: Acute Assessment and Plan: * due to pulmonary edema (flash pulmonary edema?) * on mechanical ventilation * numbers look okay. Patient is weak obviating extubated blue. * She is being seen for trach placement. It will probably happen tomorrow. (3) Non-ST elevation [place] (NSTEMI): Code(s): I21.4 - Non-ST elevation (NSTEMI) myocardial infarction Status: Acute Assessment and Plan: * s/p cardiac catheterizartion with stenting as noted * Cardiology following * continue supportive therapy (4) Encephalopathy: Code(s): G93.40 - Encephalopathy, unspecified Status: Acute Assessment and Plan: * Neurology following * EEG results noted * Seems to be improved. (5) S/P TAVR (transcatheter aortic valve replacement): Code(s): Z95.2 - Presence of prosthetic heart valve Status: Chronic Assessment and Plan: * valve appears to be functioning well by Echo * Cardiology on the case Subjective Date/time seen: 01/30/21 09:08 Interval history: Patient is Sedated. Still on the ventilator. Planning for tracheostomy tomorrow. Exam Narrative: Exam Narrative: WDWN in NAD skin no rash or subcu nodules head ncat lungs coarse bilaterally cor reg no rub or gallop abd BS+ nontender and soft ext no edema. Objective Data Vital Signs Vital Signs: Vital Signs - 24 hr 01/29/21 10:00 01/29/21 11:10 01/29/21 11:25 Temperature Pulse Rate 86 82 95 Respiratory Rate 26 H Blood Pressure 144/44 H 133/57 L Pulse Oximetry 96 96 01/29/21 12:00 01/29/21 12:12 01/29/21 14:00 Temperature Pulse Rate 98 99 160 H Respiratory Rate 28 H 33 H Blood Pressure 82/65 L 82/65 L 153/109 H Pulse Oximetry 96 98 01/29/21 14:08 01/29/21 14:13 01/29/21 14:20 Temperature Pulse Rate 146 H 167 H 162 H Respiratory Rate 27 H 33 H 28 H Blood Pressure Pulse Oximetry 98 01/29/21 14:25 01/29/21 14:30 01/29/21 14:43 Temperature Pulse Rate 180 H 176 H 156 H Respiratory Rate 28 H 26 H 18 Blood Pressure Pulse Oximetry
--- NOTE | 2021-01-30 09:08 | PM.PNNEP ---
Progress Note: A&P Assessment and Plan (1) DEBRA (acute kidney injury): Code(s): N17.9 - Acute kidney failure, unspecified Status: Acute Assessment and Plan: had improved but now worsening Originally: multifactorial etiology - contrast exposure x 2 (from CT scan of chest and cardiac catheterization) - previous IV diuresis/prerenal component - NSTEMI - use of DARYL-I/diuretics prior to admission renal ultrasound without evidence of obstruction or masses creatinine peaked/plateaued at 2.0mg/dl and then improved down to 1.1mg/dl Creatinine arely again starting on Wednesday. 1.7-2.1 and now it seems to have plateaued in the low 2s. - urine electrolytes reordered by dr Toledo - due to pneumonia/infection -- possible ATN? - consider atheroembolic disease. - consider AIN Complements okay so far. Urine eosinophils are negative. Will recheck an ultrasound. (2) Acute respiratory failure with hypoxemia: Code(s): J96.01 - Acute respiratory failure with hypoxia Status: Acute Assessment and Plan: due to pulmonary edema (flash pulmonary edema?) on mechanical ventilation numbers look okay. Patient is weak obviating extubated blue. She is being seen for trach placement. It will probably happen tomorrow. (3) Non-ST elevation [place] (NSTEMI): Code(s): I21.4 - Non-ST elevation (NSTEMI) myocardial infarction Status: Acute Assessment and Plan: s/p cardiac catheterizartion with stenting as noted Cardiology following continue supportive therapy (4) Encephalopathy: Code(s): G93.40 - Encephalopathy, unspecified Status: Acute Assessment and Plan: Neurology following EEG results noted Seems to be improved. (5) S/P TAVR (transcatheter aortic valve replacement): Code(s): Z95.2 - Presence of prosthetic heart valve Status: Chronic Assessment and Plan: valve appears to be functioning well by Echo Cardiology on the case Subjective Date/time seen: 01/30/21 09:08 Interval history: Patient is Sedated. Still on the ventilator. Planning for tracheostomy tomorrow. Exam Narrative: Exam Narrative: WDWN in NAD skin no rash or subcu nodules head ncat lungs coarse bilaterally cor reg no rub or gallop abd BS+ nontender and soft ext no edema. Objective Data Vital Signs Vital Signs: Vital Signs - 24 hr 01/29/21 10:00 01/29/21 11:10 01/29/21 11:25 Temperature Pulse Rate 86 82 95 Respiratory Rate 26 H Blood Pressure 144/44 H 133/57 L Pulse Oximetry 96 96 01/29/21 12:00 01/29/21 12:12 01/29/21 14:00 Temperature Pulse Rate 98 99 160 H Respiratory Rate 28 H 33 H Blood Pressure 82/65 L 82/65 L 153/109 H Pulse Oximetry 96 98 01/29/21 14:08 01/29/21 14:13 01/29/21 14:20 Temperature Pulse Rate 146 H 167 H 162 H Respiratory Rate 27 H 33 H 28 H Blood Pressure Pulse Oximetry 98 01/29/21 14:25 01/29/21 14:30 01/29/21 14:43 Temperature Pulse Rate 180 H 176 H 156 H Respiratory Rate 28 H 26 H 18 Blood Pressure Pulse Oximetry 01/29/21 14:48 01/29/21 14:50 01/29/21 15:42 Temperature Pulse Rate 81 80 84 Respiratory Rate 21 H 18 Blood Pressure 143/55 H Pulse Oximetry 100 01/29/21 16:00 01/29/21 16:37 01/29/21 17:14 Temperature 36.6 C Pulse Rate 87 83 80 Respiratory Rate 18 Blood Pressure 80/59 L 79/62 L Pulse Oximetry 99 98 01/29/21 17:17 01/29/21 17:37 01/29/21 17:41 Temperature Pulse Rate 77 68 78 Respiratory Rate 18 20 Blood Pressure 130/44 L Pulse Oximetry 01/29/21 18:00 01/29/21 18:38 01/29/21 20:00 Temperature 36.8 C Pulse Rate 69 71 85 Respiratory Rate 18 26 H 21 H Blood Pressure 113/43 L 140/50 L Pulse Oximetry 91 96 01/29/21 21:00 01/29/21 21:30 01/29/21 21:45 Temperature Pulse Rate 87 90 87 R
[2021-01-30 09:20] LABS: Creatinine Urine 58.7 mg/dL; Total Protein Urine Random 102 mg/dL; Ur Ttl Prot Creatinine Ratio 1.74 mg/mg (0-0.20)
[2021-01-30 09:22] LABS: Sodium Urine Random 32 meq/L
--- NOTE | 2021-01-30 09:57 | WPDINTPN ---
Progress Note: A&P Assessment and Plan (1) Acute respiratory failure: Code(s): J96.00 - Acute respiratory failure, unspecified whether with hypoxia or hypercapnia Status: Acute Assessment and Plan: Acute Respiratory failure secondary to pulmonary edema and pneumonia as patient had elevated white count and does show some areas consolidation on CT which could be atelectasis from effusion although CT mostly suggest pulmonary edema and effusions Continue full mechanical ventilation support to prevent hypoxemia/hypercarbia and end organ damage. ABGs reviewed, currently on 30% FiO2 and peep of 5 Chest x-ray reviewed Lasix 40 mg IV today Patient failed weaning trial daily due to high RSBI. Yesterday she had adequate RSBI on pressure support ventilation of 08/17 Will again try today but patient is no where close to extubation. This is day 13. I think she needs to are tracheostomy for continued support with mechanical ventilation. I spoke to patient's and nephew yesterday by phone and both were agreeable for trach and PEG if needed. I will consult ENT -continue cefepime (initiated on 01/22/2021) and levaquin (initiated on 01/27/21) - vancomycin was discontinued as blood cultures were negative and no MRSA in the sputum COVID PCR came back negative (2) Sepsis: Code(s): A41.9 - Sepsis, unspecified organism Status: Acute Assessment and Plan: Lactic acid was checked and was normal -patient was not a fluid responder on noninvasive hemodynamic monitoring -continue cefepime and Levaquin for Pseudomonas pneumonia -mean arterial pressures remain low will start Levophed to maintain adequate perfusion pressures to prevent end-organ damage -01/18/2021: Blood cultures negative x2 -01/21/2021: Sputum culture growing Pseudomonas pansensitive, Yeast was also isolated (3) Encephalopathy: Code(s): G93.40 - Encephalopathy, unspecified Status: Acute Assessment and Plan: Improved Could be related to embolic disease, infection, toxic metabolic encephalopathy, -EEG showed severe neurological deficit without seizure activity, consistent with organic a metabolic encephalopathy, possibility of hypoxic insult cannot be ruled out. -will further discuss with neurology -01/25/2021: Patient is open her eyes, tracks and follows simple commands. Off propofol. Status post Seroquel on 01/24/2021 -ammonia levels were elevated on 01/24/2021, patient given lactulose, repeat ammonia this morning is < 9. Lactulose on hold since patient has had multiple bowel movements (4) Pneumonia: Code(s): J18.9 - Pneumonia, unspecified organism Status: Acute Assessment and Plan: Since Pseudomonas pneumonia, sputum cultures growing Pseudomonas castellanos susceptible -continue cefepime and Levaquin -CT scan of the chest on 01/26/2021 showed extensive bilateral pneumonia, mild bilateral pleural effusion, cardiomegaly, status post cholecystectomy, status post hysterectomy Infectious disease is following (5) Acute pulmonary edema: Code(s): J81.0 - Acute pulmonary edema Status: Acute Assessment and Plan: Persistent bilateral infiltrates and opacities -diuresed well on 01/21, 01/22 -resume diuresis (6) CHF (congestive heart failure): Qualifiers: Heart failure type: diastolic Heart failure chronicity: acute Qualified Code(s): I50.31 - Acute diastolic (congestive) heart failure Code(s): I50.9 - Heart failure, unspecified Status: Acute Assessment and Plan: ECHO Summary 1. Complete two-dimensional, color flow and Doppler transthoracic echocardiogram is performed. 2. There is moderate concentric increased left ventricular wall thickness. 3. Left ventricular systolic function is normal, estimated at 60-65%. 4. No wall-motion abnormalities. 5. Left atrial chamber dimension is moderately enlarged. 6. There is no regurgitation of the TAVR aortic valve. 7. Minimal
--- NOTE | 2021-01-30 10:42 | PCDIET ---
ICU Rounding Note: Patient receiving Vital 1.2 at 40mL/hr with 30mL water flush every 4 hours. No issues, per RN, with plan for tracheostomy tomorrow, 01/31/21. Last recorded weight is 95.3kg which is increased from last review. -I/O. Bowel Motility: Smear BM documented on 01/29/21. Labs Reviewed: WBC (24.2), Hct (8.0), Hct (24.2), Glu (119), BUN (71), Cr (2.2), Na (135), Alb (3.4), PO4 (5.0), Mg (2.6) Meds Noted: Cefepime, Pepcid, Lasix, Lisinopril, Lopressor, Versed, Levophed, Vancomycin, KCl Additional Notes: Propofol (rate of 5.62mL/hr provides 148kcal per day), Heparin, Levaquin, Cefepime, Lisinopril, Lasix, Plavix, Lopressor, Protonix, Miralax Following daily in ICU rounds. Assessing/reassessing every Wednesday/Wednesday.
[2021-01-30] MEDS: HEPARIN SOD/D5W 100 UNITS/ML 25,000 UNITS/250 ML BAG 13 UNITS IV CONT (10:49)
[2021-01-30] MEDS: PROPOFOL IV EMULSION 100 ML 11.23 MG IV CONT (10:50)
[2021-01-30] MEDS: METOPROLOL TARTRATE INJ 5 MG/5 ML VIAL (11:10)
--- NOTE | 2021-01-30 15:30 | PM.PNCARD ---
Progress Note: A&P Assessment and Plan (1) Non-ST elevation [place] (NSTEMI): Code(s): I21.4 - Non-ST elevation (NSTEMI) myocardial infarction Status: Acute Assessment and Plan: Patient found to have occluded LCX, likely embolic event from the aortic valve prosthesis. Status post complex PCI/stenting. Continue anticoagulation with heparin for now, monitor APTT. Continue dual antiplatelet therapy with aspirin and clopidogrel for now. Long-term, use single antiplatelet treatment with clopidogrel along with either apixaban or rivaroxaban. Post trach and PEG transition to long-term systemic anticoagulation such as Eliquis. Remains on heparin drip in the interval. (2) Anemia: Code(s): D64.9 - Anemia, unspecified Status: Acute Assessment and Plan: H&H stable. Continue to monitor closely. (3) Atrial fibrillation: Code(s): I48.91 - Unspecified atrial fibrillation Status: Acute Assessment and Plan: New onset AFib with RVR self-limited. Add metoprolol 2.5 mg IV Q 6 hours as BP permits or per tube metoprolol tartrate 12.5 mg b.i.d.. Continue to monitor for recurrence. Electrolytes stable. (4) Sepsis: Code(s): A41.9 - Sepsis, unspecified organism Status: Acute Assessment and Plan: HCAP. Antibiotics per ID service. (5) Acute respiratory failure: Code(s): J96.00 - Acute respiratory failure, unspecified whether with hypoxia or hypercapnia Status: Acute Assessment and Plan: Per ciritical care. Intubated, wean as tolerated. Plan trach due to inability to wean. (6) S/P TAVR (transcatheter aortic valve replacement): Code(s): Z95.2 - Presence of prosthetic heart valve Status: Chronic Assessment and Plan: No definite vegetation or thrombus reported on ROMEL. Normal valve function. (7) Acute pulmonary edema: Code(s): J81.0 - Acute pulmonary edema Status: Acute Assessment and Plan: Resolved. Patient remains intubated. Continue to wean vent support as appropriate. On IV abx. (8) Hypertension: Code(s): I10 - Essential (primary) hypertension Status: Acute Assessment and Plan: Currently on levophed - continue to hold metoprolol and lisinopril. (9) DEBRA (acute kidney injury): Code(s): N17.9 - Acute kidney failure, unspecified Status: Acute Assessment and Plan: Stable at 2.2. (10) Encephalopathy: Code(s): G93.40 - Encephalopathy, unspecified Status: Acute Assessment and Plan: Intubated and sedated at this time. Subjective Date/time seen: Date of service: 01/30/21 09:45 Follow-up for NSTEMI Interval history: Patient remains sedated and on ventilatory support. Blood pressure okay overnight. Off norepinephrine. Follow some commands but unable to be weaned from the vent. Plan for trach and PEG. She remains on heparin drip. Episode of atrial fibrillation with very rapid ventricle response of to the 180s self-limited, currently sinus rhythm with PVCs and PACs. Review of Systems Review of Systems: All systems reviewed & are unremarkable except as noted in HPI and below ROS unobtainable: Yes unobtainable due to endotracheal tube, unobtainable due to medical condition and unobtainable due to mental status Constitutional: Constitutional: Reports as per HPI and Reports no additional constitutional complaints Eyes: Eyes: Reports as per HPI and Reports no additional eye complaints ENT: Reports system reviewed and no additional complaints, except as documented and Reports as per HPI Cardiovascular: Cardiovascular: Reports as per HPI and Reports no additional cardiovascular complaints Respiratory: Respiratory: Reports as per HPI and Reports no additional respiratory complaints Gastrointestinal: Gastrointestinal: Reports as per HPI and Reports no additional gastrointestinal complaints Genitourinary: Genitourinary: Reports as per HPI Musc
[2021-01-30] MEDS: METOPROLOL TARTRATE INJ 5 MG/5 ML VIAL 2.5 MG IV PUSH ×2 (16:31→20:26)
[2021-01-30] MEDS: PROPOFOL IV EMULSION 100 ML 16.85 MG IV CONT ×2 (16:32→22:00)
--- NOTE | 2021-01-30 17:09 | WPDGICN ---
Assessment and Plan Assessment and plan (1) Dysphagia: Code(s): R13.10 - Dysphagia, unspecified Status: Acute Assessment and Plan: unable to extubated and ENT was called to place tracheostomy and we will do G-tube, probably tomorrow heparin gtt to discontinue 2 hours prior scope (2) Non-ST elevation [place] (NSTEMI): Code(s): I21.4 - Non-ST elevation (NSTEMI) myocardial infarction Status: Acute Assessment and Plan: treated by cardiology with hepatin gtt then will need oral AC (3) Acute respiratory failure with hypoxemia: Code(s): J96.01 - Acute respiratory failure with hypoxia Status: Acute Assessment and Plan: vent dependent and plan is to place tracheostomy (4) S/P TAVR (transcatheter aortic valve replacement): Code(s): Z95.2 - Presence of prosthetic heart valve Status: Chronic Assessment and Plan: it was done at outside facility (5) Encephalopathy: Code(s): G93.40 - Encephalopathy, unspecified Status: Acute (6) Atrial fibrillation: Code(s): I48.91 - Unspecified atrial fibrillation Status: Acute GI Consult Note Consult date/time: 01/30/21 17:09 Reason for consult: dysphagia, unable to wean off ventilation HPI: Lakshmi Comer is a 75 year old female who was admitted about 2 weeks ago to ICU with worsening respiratory distress, she was intubated and evaluted by cardiology who found occluded LCX, likely embolic event from the aortic valve prosthesis that she had recently and treated with complex PCI/stenting. She has remained intubated and unable to wean, now on anticoagulation with heparin. Instrumentation Controls Engineer consulted ENT for trach placement and me for G-tube. She has now OGT for feeding. at bedside. Review of Systems Review of Systems: ROS unobtainable: Yes unobtainable due to endotracheal tube and unobtainable due to mental status PMFSH Past Medical History Medical History (Updated 01/30/21 @ 17:14 by Damien Peoples MD) Acute pulmonary edema Acute respiratory failure with hypoxemia CHF (congestive heart failure) Dysphagia Non-ST elevation [place] (NSTEMI) Surgical History Surgical History S/P TAVR (transcatheter aortic valve replacement) Family History Family History Grandparent Hypertension Cerebrovascular accident Father Heart disease Social History Social History Smoking status: Never smoker Alcohol intake: never Substance use: never Substance use type: does not use Gender identity (if verbalized by the patient): Male Spiritual care concerns: No Meds Home Medications and Allergies Home Medications Medication Instructions Recorded Confirmed Type aspirin 81 mg PO DAILY 06/03/20 01/17/21 History calcitonin (salmon) 1 spray INTRANASAL DAILY 06/03/20 01/17/21 History lisinopril 30 mg PO DAILY 06/03/20 01/17/21 History spironolactone 25 mg PO DAILY 06/03/20 01/17/21 History venlafaxine 150 mg PO DAILY 06/03/20 01/17/21 History acetaminophen 500 mg PO Q6H PRN 12/16/20 01/17/21 History ascorbic acid (vitamin C) [Vitamin 500 mg PO DAILY 12/16/20 01/17/21 History C] cholecalciferol (vitamin D3) 50 mcg PO DAILY 12/16/20 01/17/21 History [Vitamin D3] clopidogrel 75 mg PO DAILY 12/16/20 01/17/21 History furosemide 20 mg PO DAILY 12/16/20 01/17/21 History metoprolol succinate 50 mg PO DAILY 12/16/20 01/17/21 History wqwakxir-zxs-jrlc-FA-lutein 1 tablet PO DAILY 12/16/20 01/17/21 History [Centrum Silver Women] omega 3-dho-ibe-fish oil [Fish Oil] 1 cap PO DAILY 12/16/20 01/17/21 History vitamin E 400 unit PO DAILY 12/16/20 01/17/21 History Allergies Allergy/AdvReac Type Severity Reaction Status Date / Time hydromorphone Allergy Mild Itching Verified 01/17/21 05:55 morphine Allergy Mild Itching Verified 01/17/21 05:55
[2021-01-31] VITALS (30 sets, daily range): BP systolic 100–130; BP diastolic 41–70; PULSE 56–72; RESP 16–26; TEMP 36.2–36.7; O2SAT 91–97
[2021-01-31] MEDS: PROPOFOL IV EMULSION 100 ML 16.85 MG IV CONT ×4 (02:41→19:49)
--- NOTE | 2021-01-31 02:45 | PC.NURSE ---
01/30/21 2200 Spoke with Boone in pharmacy due to propofol barcode not scanning. Boone states the order in in correctly and he will leave a note for the day pharmacist.
[2021-01-31 05:14] LABS: Alveolar/Arterial O2 Gradient 104.5 mmHg; Base Excess ABG -7.6 mEq/l (+/-2.0); Carboxyhemoglobin 0.3 % THb (0-2.0); Fractional Inspired Oxygen 30 %; HCO3 ABG 16.8 mEq/l (22.0-26.0); Oxygen Content ABG 11.5 %vol (16.0-22.0); Oxygen Saturation ABG 94.6 % (95.0-100.0); Oxyhemoglobin 92.5 % THb (90.0-100.0); PCO2 ABG 30.2 mmHg (35.0-45.0); PO2 ABG 73.9 mmHg (80.0-100.0); PO2 FiO2 Ratio Arterial Blood 2.46 %; Reduced Hemoglobin 7.2 %THb (0-5.0); Total Hemoglobin 8.8 g/dL (12.0-18.0); pH ABG 7.364 (7.350-7.450)
[2021-01-31 05:15] LABS: Arterial Blood Gas Ventilator rate 16 /MIN; Device VENTILATOR; Modified Allen's Test Pass; Site Drawn LEFT RADIAL
[2021-01-31 05:16] LABS: Arterial Blood Gas PEEP 5 cmH2O; Arterial Blood Gas Tidal Volume 360 ml; Arterial Blood Gas Vent Mode CMV
[2021-01-31] MEDS: CENTRAL LINE FLUSH 10 ML IV PUSH ×3 (05:34→21:33)
[2021-01-31] MEDS: HEPARIN SOD/D5W 100 UNITS/ML 25,000 UNITS/250 ML BAG 13 UNITS IV CONT (07:16)
[2021-01-31 07:26] LABS: Basophils Absolute Auto 0.1 K/mm3 (0.0-0.1); Basophils Percent Auto 0.5 % (0.2-1.2); Eosinophils Absolute Auto 0.7 K/mm3 (0-0.3); Eosinophils Percent Auto 2.9 % (0-4.4); Hematocrit 23.1 % (37.0-47.0); Hemoglobin 7.5 g/dL (12.0-15.0); Immature Granulocyte Absolute 2.17 K/mm3 (0.00-0.031); Immature Granulocyte Percent A 9.3 % (0-0.5); Lymphocytes Absolute Auto 2.14 K/mm3 (0.9-3.2); Lymphocytes Percent Auto 9.1 % (18.3-44.2); Mean Corpuscular HGB Conc 32.5 g/dl (32-36); Mean Corpuscular Hemoglobin 29.9 pg (26-34); Mean Platelet Volume 11.4 fl (7.4-10.4); Monocytes Absolute Auto 1.5 K/mm3 (0.1-0.6); Monocytes Percent Auto 6.2 % (2.6-8.5); Neutrophils Absolute Auto 16.9 K/mm3 (1.3-6.7); Platelet Count Result 316 k/mm3 (150-375); Red Blood Count 2.51 M/mm3 (4.2-5.4); Red Cell Distribution Width 15.2 % (11.5-14.5); White Blood Count 23.4 K/mm3 (4.5-10.0)
[2021-01-31 07:38] LABS: Alanine Aminotransferase 24 U/L (4-35); Albumin Level 3.2 g/dL (3.5-5.1); Alkaline Phosphatase 71 U/L (38-126); Anion Gap 11 mmol/L (8-16); Aspartate Amino Transferase 18 U/L (14-36); Bilirubin,Total 0.3 mg/dL (0.2-1.3); Blood Urea Nitrogen 81 mg/dL (7-17); Calcium 9.6 mg/dL (8.4-10.2); Carbon Dioxide 21 mmol/L (22-30); Chloride 101 mmol/L (98-107); Estimated CRCL calculation 14 ml/min; Estimated Glomerular Filt Rate 14; Glucose 100 mg/dL (65-105); Magnesium 2.5 mg/dL (1.6-2.3); Phosphorus 7.9 mg/dL (2.5-4.5); Sodium 133 mmol/L (137-145)
--- NOTE | 2021-01-31 07:54 | WPDINTPN ---
Progress Note: A&P Assessment and Plan (1) Acute respiratory failure: Code(s): J96.00 - Acute respiratory failure, unspecified whether with hypoxia or hypercapnia Status: Acute Assessment and Plan: Acute Respiratory failure secondary to pulmonary edema and pneumonia as patient had elevated white count and does show some areas consolidation on CT which could be atelectasis from effusion although CT mostly suggest pulmonary edema and effusions Continue full mechanical ventilation support to prevent hypoxemia/hypercarbia and end organ damage. ABGs reviewed, currently on 30% FiO2 and peep of 5 Chest x-ray reviewed Continue diuresis as tolerated Patient has failed daily weaning trial daily due to high RSBI. she had adequate RSBI on pressure support ventilation of 08/17 and even on that patient twice went to AFib with RVR due to respiratory distress ENT has been consulted for tracheostomy per discussion with patient's and nephew -continue cefepime (initiated on 01/22/2021) and levaquin (initiated on 01/27/21) - vancomycin was discontinued as blood cultures were negative and no MRSA in the sputum COVID PCR came back negative (2) Sepsis: Code(s): A41.9 - Sepsis, unspecified organism Status: Acute Assessment and Plan: Lactic acid was checked and was normal -patient was not a fluid responder on noninvasive hemodynamic monitoring -continue cefepime and Levaquin for Pseudomonas pneumonia -mean arterial pressures remain low will start Levophed to maintain adequate perfusion pressures to prevent end-organ damage -01/18/2021: Blood cultures negative x2 -01/21/2021: Sputum culture growing Pseudomonas pansensitive, Yeast was also isolated (3) Encephalopathy: Code(s): G93.40 - Encephalopathy, unspecified Status: Acute Assessment and Plan: Improved Could be related to embolic disease, infection, toxic metabolic encephalopathy, -EEG showed severe neurological deficit without seizure activity, consistent with organic a metabolic encephalopathy, possibility of hypoxic insult cannot be ruled out. -will further discuss with neurology -01/25/2021: Patient is open her eyes, tracks and follows simple commands. Off propofol. Status post Seroquel on 01/24/2021 -ammonia levels were elevated on 01/24/2021, patient given lactulose, repeat ammonia this morning is < 9. Lactulose on hold since patient has had multiple bowel movements (4) Pneumonia: Code(s): J18.9 - Pneumonia, unspecified organism Status: Acute Assessment and Plan: Since Pseudomonas pneumonia, sputum cultures growing Pseudomonas castellanos susceptible -continue cefepime and Levaquin -CT scan of the chest on 01/26/2021 showed extensive bilateral pneumonia, mild bilateral pleural effusion, cardiomegaly, status post cholecystectomy, status post hysterectomy Infectious disease is following (5) Acute pulmonary edema: Code(s): J81.0 - Acute pulmonary edema Status: Acute Assessment and Plan: Persistent bilateral infiltrates and opacities -diuresed well on 01/21, 01/22 (6) CHF (congestive heart failure): Qualifiers: Heart failure type: diastolic Heart failure chronicity: acute Qualified Code(s): I50.31 - Acute diastolic (congestive) heart failure Code(s): I50.9 - Heart failure, unspecified Status: Acute Assessment and Plan: ECHO Summary 1. Complete two-dimensional, color flow and Doppler transthoracic echocardiogram is performed. 2. There is moderate concentric increased left ventricular wall thickness. 3. Left ventricular systolic function is normal, estimated at 60-65%. 4. No wall-motion abnormalities. 5. Left atrial chamber dimension is moderately enlarged. 6. There is no regurgitation of the TAVR aortic valve. 7. Minimal normal transvalvular gradient. (7) Non-ST elevation [place] (NSTEMI): Code(s): I21.4 - Non-ST elevation (NSTEMI) myocardial infarction
[2021-01-31] MEDS: ATORVASTATIN 20 MG TABLET PO (08:27)
[2021-01-31] MEDS: PANTOPRAZOLE SODIUM IV 40 MG VIAL IV PUSH ×2 (08:27→21:32)
[2021-01-31] MEDS: CLOPIDOGREL BISULFATE 75 MG TABLET PO (08:27)
[2021-01-31] MEDS: ASPIRIN 81 MG CHEWABLE TABLET PO (08:27)
--- NOTE | 2021-01-31 08:43 | PM.IMPN ---
Progress Note: A&P Assessment and Plan (1) Sepsis: Code(s): A41.9 - Sepsis, unspecified organism Status: Acute Assessment and Plan: Pateint with soft BP and now with decreasing UOP and rising Cr. Concern for sepsis given the rising WBC. Levophed was added. Continue to closely monitor. WBC still high will continue current treatment. Monitor cultures. Repeat labs and chest x-ray. (2) Pneumonia: Code(s): J18.9 - Pneumonia, unspecified organism Status: Acute Assessment and Plan: Consider bacterial PNA - sputum growing Pseudomonas and yeast. Not terribly hypoxic making COVID less likely but not excluded. Rocephin changed to Cefepime and Vanco added 01/23/21. WBC peaked at 30K on 01/18/21 but trended down to 14K on 01/22. WBC climbed again so levaquin added 01/26; WBC peaked at 25.7K but back down today to 22K. On appropriate abx for the pseudomonas. Not covering the yeast but not felt to be causing a lower tract infection. Consider CDiff but not having diarrhea. Not on steroids and does not have CLL. CT Ch/A/P showing bilateral extensive PNA. Venous doppler of the left UE showing partial left basilic vein thrombosis the region of PICC catheter; already on Heparin. Follow. Appreciate store detective and ID input. Will continue current treatment and monitor labs. Repeat chest x-ray. (3) Encephalopathy: Code(s): G93.40 - Encephalopathy, unspecified Status: Acute Assessment and Plan: CT brain 01/21 showing no acute findings. EEG 01/22 showing severely abnormal record due to the presence of bihemispheric theta and delta activity even during sleep without any paroxysmal discharge ,these abnormalities could be consistent with organic or metabolic encephalopathy. Possibility of hypoxic insult cannot be ruled out . Concern for HIE but patient has been showing some signs of improvement. Wean sedation as tolerated. Appreciate neurology and store detective help. (4) Acute respiratory failure with hypoxemia: Code(s): J96.01 - Acute respiratory failure with hypoxia Status: Acute Assessment and Plan: Patient remains intubated but on minimal settings. Currently, IV Lasix on hold due to DEBRA. Sedation being adjusted. Continue to wean vent as tolerated. Appreciate help from store detective. (5) Hyponatremia: Code(s): E87.1 - Hypo-osmolality and hyponatremia Status: Acute Assessment and Plan: Sodium has been low in the low 130's but dropped to 127 today. Concern for dehydration with decreased UOP and rising Cr. Repeat urine studies showing Sharon 27 and FENa 0.65%. Not fluid response but she was given a fluid bolus. Monitor fluid status. (6) CHF (congestive heart failure): Qualifiers: Heart failure type: diastolic Heart failure chronicity: acute Qualified Code(s): I50.31 - Acute diastolic (congestive) heart failure Code(s): I50.9 - Heart failure, unspecified Status: Acute Assessment and Plan: Patietn with acute pulmonary edema. Patient remains on ventilator as noted. 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 Lisinopril and Lasix on hold due to rising Cr. Cardiology and store detective following. (7) Leukocytosis: Code(s): D72.829 - Elevated white blood cell count, unspecified Status: Acute Assessment and Plan: WBC climbing and Levaquin added 01/26. As above. (8) Non-ST elevation [place] (NSTEMI): Code(s): I21.4 - Non-ST elevation (NSTEMI) myocardial infarction Status: Acute Assessment and Plan: Cardiology following. Initial 2D echocardiogram at bedside with EF 55% along with mild hypokinesis of the mid and basal anterior wall and severe hypokinesis of the mid and basal inferolateral wall. ROMEL of 01/18/2021 with res
--- NOTE | 2021-01-31 09:47 | PM.PNCARD ---
Progress Note: A&P Additional Plan 75-year-old lady with: Recent transcatheter aortic valve replacement presenting with chest pain and embolic SC to the circumflex. Patient appears to have embolized from the TAVR stent material. This was addressed with PCI and stenting of the circumflex which was very challenging technically as the stent cage is across the ostia of the coronary arteries. Unfortunately patient remains dependent on ventilator support and plans are now in place for percutaneous gastrostomy tube and tracheostomy for long-term ventilator management Karlos Cedillo MD [facility] Subjective Date/time seen: Date of service: 01/31/21 09:48 Interval history: Patient remains sedated and on ventilatory support. Blood pressure okay overnight. Off norepinephrine. Follow some commands but unable to be weaned from the vent. Plan for trach and PEG. Plans for PEG tube later today and trach probably next week Exam Const: General: comfortable and no acute distress Other: Obese elderly lady on ventilator support in the ICU. HENMT: Mouth: Yes moist mucous membranes Eyes: Sclera: sclerae normal Pupils: Equal, round and reactive pupils present Neck: Neck: supple Thyroid: thyroid normal Resp: Other: Central large airway rhonchi noted Cardio: Rate: regular rate Rhythm: regular rhythm Skin: General skin exam: normal color Neuro: Other: Sedated Extrem: General: normal to inspection Objective Data Vital Signs Vital Signs: Vital Signs - 24 hr 01/30/21 10:00 01/30/21 10:24 01/30/21 10:45 Temperature Pulse Rate 87 86 183 H Respiratory Rate 29 H Blood Pressure 141/56 H Pulse Oximetry 92 92 01/30/21 10:50 01/30/21 11:00 01/30/21 11:09 Temperature Pulse Rate 139 H 166 H 136 H Respiratory Rate 30 H 27 H 22 H Blood Pressure Pulse Oximetry 01/30/21 11:10 01/30/21 11:15 01/30/21 12:00 Temperature 36.9 C Pulse Rate 160 H 76 77 Respiratory Rate 25 H Blood Pressure 121/47 L Pulse Oximetry 97 01/30/21 13:37 01/30/21 14:00 01/30/21 16:00 Temperature 36.8 C Pulse Rate 82 82 64 Respiratory Rate 26 H 20 Blood Pressure 128/49 L 112/48 L Pulse Oximetry 94 94 95 01/30/21 16:31 01/30/21 16:32 01/30/21 16:55 Temperature Pulse Rate 72 72 62 Respiratory Rate 20 Blood Pressure Pulse Oximetry 94 01/30/21 18:00 01/30/21 19:34 01/30/21 19:43 Temperature 36.5 C Pulse Rate 67 75 79 Respiratory Rate 27 H 26 H Blood Pressure 115/52 L 134/52 L Pulse Oximetry 96 95 93 01/30/21 20:00 01/30/21 20:26 01/30/21 22:00 Temperature Pulse Rate 72 75 65 Respiratory Rate 16 Blood Pressure Pulse Oximetry 01/30/21 22:38 01/30/21 23:07 01/31/21 00:00 Temperature Pulse Rate 71 61 61 Respiratory Rate 28 H Blood Pressure 119/41 L Pulse Oximetry 97 96 01/31/21 00:10 01/31/21 02:00 01/31/21 02:21 Temperature 36.7 C Pulse Rate 64 62 62 Respiratory Rate 18 17 Blood Pressure 112/44 L 107/42 L Pulse Oximetry 94 94 95 01/31/21 02:41 01/31/21 04:00 01/31/21 04:27 Temperature 36.3 C L Pulse Rate 61 62 62 Respiratory Rate 16 16 16 Blood Pressure 105/42 L Pulse Oximetry 94 01/31/21 04:53 01/31/21 05:34 01/31/21 06:00 Temperature Pulse Rate 59 L 58 L 58 L Respiratory Rate 16 Blood Pressure 100/41 L Pulse Oximetry 96 91 01/31/21 08:00 01/31/21 08:32 Temperature 36.3 C L Pulse Rate 60 56 L Respiratory Rate 16 16 Blood Pressure 121/52 L Pulse Oximetry 95 Intake/Output Intake/Output: Intake & Output 01/28/21 01/29/21 01/30/21 01/31/21 23:59 23:59 23:59 23:59 Intake Total 1328.8 951.2 2321 820 Output Total 1850 3215 1650 25 [facility] -521.2 -873.8 671 795 Meds/Results Medications: Active Medications Generic Name Dose Route Start Last Admin Trade Name Freq PRN Reason Stop Dose Admin Acetaminophen 650 mg 01/17/21 11:17 01/17/21 18:13 Acetaminophen 325 Mg Tablet PO 650 mg Q
--- NOTE | 2021-01-31 10:16 | WPDCN ---
Assessment and Plan Assessment and plan (1) Respiratory failure: Code(s): J96.90 - Respiratory failure, unspecified, unspecified whether with hypoxia or hypercapnia Status: Acute Assessment and Plan: Plan for OR next Wednesday for tracheostomy placement. Nursing obtained consent. Please call with any questions/concerns. [phone]. (2) Respiratory insufficiency: Code(s): R06.89 - Other abnormalities of breathing Status: Acute HPI Data of Consult Date/Time: 01/31/21 10:16 Requesting Physician: Sincere Henley MD Primary Care Provider: Maurilio Polanco MD Consult Narrative Narrative: Lakshmi Comer is a 75 year old female with respiratory failure/insufficiency. Consulted for tracheostomy placement. Fio2 30%, PEEP 5. Review of Systems Review of Systems: ROS unobtainable: Yes unobtainable due to endotracheal tube PMFSH Past Medical History Medical History (Updated 01/31/21 @ 10:18 by Young Peacock MD) Acute pulmonary edema Acute respiratory failure with hypoxemia CHF (congestive heart failure) Dysphagia Non-ST elevation CT (NSTEMI) Surgical History Surgical History S/P TAVR (transcatheter aortic valve replacement) Family History Family History Grandparent Hypertension Cerebrovascular accident Father Heart disease Social History Social History Smoking status: Never smoker Alcohol intake: never Substance use: never Substance use type: does not use Gender identity (if verbalized by the patient): Male Spiritual care concerns: No Meds Home Medications and Allergies Home Medications Medication Instructions Recorded Confirmed Type aspirin 81 mg PO DAILY 06/03/20 01/17/21 History calcitonin (salmon) 1 spray INTRANASAL DAILY 06/03/20 01/17/21 History lisinopril 30 mg PO DAILY 06/03/20 01/17/21 History spironolactone 25 mg PO DAILY 06/03/20 01/17/21 History venlafaxine 150 mg PO DAILY 06/03/20 01/17/21 History acetaminophen 500 mg PO Q6H PRN 12/16/20 01/17/21 History ascorbic acid (vitamin C) [Vitamin 500 mg PO DAILY 12/16/20 01/17/21 History C] cholecalciferol (vitamin D3) 50 mcg PO DAILY 12/16/20 01/17/21 History [Vitamin D3] clopidogrel 75 mg PO DAILY 12/16/20 01/17/21 History furosemide 20 mg PO DAILY 12/16/20 01/17/21 History metoprolol succinate 50 mg PO DAILY 12/16/20 01/17/21 History pajzqduy-dem-kknv-FA-lutein 1 tablet PO DAILY 12/16/20 01/17/21 History [Centrum Silver Women] omega 0-tkk-xtu-fish oil [Fish Oil] 1 cap PO DAILY 12/16/20 01/17/21 History vitamin E 400 unit PO DAILY 12/16/20 01/17/21 History Allergies Allergy/AdvReac Type Severity Reaction Status Date / Time hydromorphone Allergy Mild Itching Verified 01/17/21 05:55 morphine Allergy Mild Itching Verified 01/17/21 05:55 Vital Signs Vital Signs - 24 hr 01/30/21 10:24 01/30/21 10:45 01/30/21 10:50 Temperature Pulse Rate 86 183 H 139 H Respiratory Rate 30 H Blood Pressure Pulse Oximetry 92 01/30/21 11:00 01/30/21 11:09 01/30/21 11:10 Temperature Pulse Rate 166 H 136 H 160 H Respiratory Rate 27 H 22 H Blood Pressure Pulse Oximetry 01/30/21 11:15 01/30/21 12:00 01/30/21 13:37 Temperature 36.9 C Pulse Rate 76 77 82 Respiratory Rate 25 H Blood Pressure 121/47 L Pulse Oximetry 97 94 01/30/21 14:00 01/30/21 16:00 01/30/21 16:31 Temperature 36.8 C Pulse Rate 82 64 72 Respiratory Rate 26 H 20 Blood Pressure 128/49 L 112/48 L Pulse Oximetry 94 95 01/30/21 16:32 01/30/21 16:55 01/30/21 18:00 Temperature Pulse Rate 72 62 67 Respiratory Rate 20 27 H Blood Pressure 115/52 L Pulse Oximetry 94 96 01/30/21 19:34 01/30/21 19:43 01/30/21 20:00 Temperature 36.5 C Pulse Rate 75 79 72 Respiratory Rate 26 H Blood Pressure 134/52 L Pulse Oximetry 9
--- NOTE | 2021-01-31 12:04 | SUR.OPER ---
ENTERED ICU 10 AT 1046, BLOOD PRESSURE 115/49, 93%, HR 55, RESP 16. PT'S PROPOFOL DRIP MANAGED BY [employer] CLERK. START OF PROCEDURE AT 1122, B/P 121/55, 95%, 58, 18. END OF PROCEDURE AT 1132 B/P 145/52, 95%, 65, 20. PT RESTING COMFORTABLY.
--- NOTE | 2021-01-31 12:55 | PCDIET ---
Nutrition Follow-Up Complete: Nutrition Diagnosis: Inadequate oral intake related to oral intubation as evidenced by need for tube feeding. Nutrition Goal: Patient to meet estimated nutritional needs. Goal in progress. Tube feedings held this morning for PEG placement with plan to resume later today. Previously tolerating Vital 1.2 at goal of 40mL/hr with 30mL water flush every 4 hours. May need to consider change to Nepro if electrolytes remain elevated. Last recorded weight is 90 kg which is down from last review, despite +I/O. Bowel Motility: Smear BM on 01/29/21. Labs Reviewed: WBC (23.4), Hgb (7.5), Hct (23.1), BUN (81), Cr (3.2), Na (133), Alb (3.2), PO4 (7.9), Mg (2.5) Meds Noted: Lipitor, Levaquin, Cefepime, Lisinopril, Fentanyl, Lopressor, Levophed, Protonix, Miralax, Propofol (rate of 16.85mL/hr provides 445kcal per day) Additional Notes: No documented pressure sores. Will continue to monitor with same goal. Nutrition Monitoring and Evaluation: Follow up every Wednesday/Wednesday. Follow daily in ICU rounds.
[2021-01-31 14:55] LABS: Hematocrit 23.4 % (37.0-47.0); Hemoglobin 7.6 g/dL (12.0-15.0)
[2021-01-31 15:04] LABS: Partial Thromboplastin Time 82.1 SECONDS (22.3-36.8)
--- NOTE | 2021-01-31 16:18 | P.PNNP_ITS ---
Progress Note: A&P Assessment and Plan (1) DEBRA (acute kidney injury): Code(s): N17.9 - Acute kidney failure, unspecified Status: Acute Assessment and Plan: * had improved but now worsening * Originally: * multifactorial etiology - contrast exposure x 2 (from CT scan of chest and cardiac catheterization) - previous IV diuresis/prerenal component - NSTEMI - use of DARYL-I/diuretics prior to admission * renal ultrasound without evidence of obstruction or masses * creatinine peaked/plateaued at 2.0mg/dl and then improved down to 1.1mg/dl * Creatinine arely again starting on Wednesday. 1.7-2.1 and it seemed to have plateaued in the low 2s. However now it arely to above 3. - urine electrolytes repeated yesterday and are still non pre renal. - due to pneumonia/infection -- possible ATN? - consider atheroembolic disease. - consider AIN. Eosinophils are mildly elevated and peripheral smear. - could she be dry? Will hold off on diuretics for now. * Complements okay so far. * Urine eosinophils are negative. * Ultrasound shows no obstruction. (2) Acute respiratory failure with hypoxemia: Code(s): J96.01 - Acute respiratory failure with hypoxia Status: Acute Assessment and Plan: * due to pulmonary edema (flash pulmonary edema?) * on mechanical ventilation * numbers look okay. Patient is weak obviating extubated blue. * She is being seen for trach placement. It will probably happen tomorrow. (3) Non-ST elevation [place] (NSTEMI): Code(s): I21.4 - Non-ST elevation (NSTEMI) myocardial infarction Status: Acute Assessment and Plan: * s/p cardiac catheterizartion with stenting as noted * Cardiology following * continue supportive therapy (4) Encephalopathy: Code(s): G93.40 - Encephalopathy, unspecified Status: Acute Assessment and Plan: * Neurology following * EEG results noted * Still on sedatives at times. (5) S/P TAVR (transcatheter aortic valve replacement): Code(s): Z95.2 - Presence of prosthetic heart valve Status: Chronic Assessment and Plan: * valve appears to be functioning well by Echo * Cardiology on the case Subjective Date/time seen: 01/31/21 16:18 Interval history: Patient is sedated. Still on the ventilator. Peg placed today. Trach on Wednesday. Not interactive. Exam Narrative: Exam Narrative: WDWN in NAD skin no rash or subcu nodules head ncat lungs coarse bilaterally cor reg no rub or gallop abd BS+ nontender and soft ext no edema or cyanosis. Objective Data Vital Signs Vital Signs: Vital Signs - 24 hr 01/30/21 16:31 01/30/21 16:32 01/30/21 16:55 Temperature Pulse Rate 72 72 62 Respiratory Rate 20 Blood Pressure Pulse Oximetry 94 01/30/21 18:00 01/30/21 19:34 01/30/21 19:43 Temperature 36.5 C Pulse Rate 67 75 79 Respiratory Rate 27 H 26 H Blood Pressure 115/52 L 134/52 L Pulse Oximetry 96 95 93 01/30/21 20:00 01/30/21 20:26 01/30/21 22:00 Temperature Pulse Rate 72 75 65 Respiratory Rate 16 Blood Pressure Pulse Oximetry 01/30/21 22:38 01/30/21 23:07 05
--- NOTE | 2021-01-31 16:18 | PM.PNNEP ---
Progress Note: A&P Assessment and Plan (1) DEBRA (acute kidney injury): Code(s): N17.9 - Acute kidney failure, unspecified Status: Acute Assessment and Plan: had improved but now worsening Originally: multifactorial etiology - contrast exposure x 2 (from CT scan of chest and cardiac catheterization) - previous IV diuresis/prerenal component - NSTEMI - use of DARYL-I/diuretics prior to admission renal ultrasound without evidence of obstruction or masses creatinine peaked/plateaued at 2.0mg/dl and then improved down to 1.1mg/dl Creatinine arely again starting on Wednesday. 1.7-2.1 and it seemed to have plateaued in the low 2s. However now it arely to above 3. - urine electrolytes repeated yesterday and are still non pre renal. - due to pneumonia/infection -- possible ATN? - consider atheroembolic disease. - consider AIN. Eosinophils are mildly elevated and peripheral smear. - could she be dry? Will hold off on diuretics for now. Complements okay so far. Urine eosinophils are negative. Ultrasound shows no obstruction. (2) Acute respiratory failure with hypoxemia: Code(s): J96.01 - Acute respiratory failure with hypoxia Status: Acute Assessment and Plan: due to pulmonary edema (flash pulmonary edema?) on mechanical ventilation numbers look okay. Patient is weak obviating extubated blue. She is being seen for trach placement. It will probably happen tomorrow. (3) Non-ST elevation [place] (NSTEMI): Code(s): I21.4 - Non-ST elevation (NSTEMI) myocardial infarction Status: Acute Assessment and Plan: s/p cardiac catheterizartion with stenting as noted Cardiology following continue supportive therapy (4) Encephalopathy: Code(s): G93.40 - Encephalopathy, unspecified Status: Acute Assessment and Plan: Neurology following EEG results noted Still on sedatives at times. (5) S/P TAVR (transcatheter aortic valve replacement): Code(s): Z95.2 - Presence of prosthetic heart valve Status: Chronic Assessment and Plan: valve appears to be functioning well by Echo Cardiology on the case Subjective Date/time seen: 01/31/21 16:18 Interval history: Patient is sedated. Still on the ventilator. Peg placed today. Trach on Wednesday. Not interactive. Exam Narrative: Exam Narrative: WDWN in NAD skin no rash or subcu nodules head ncat lungs coarse bilaterally cor reg no rub or gallop abd BS+ nontender and soft ext no edema or cyanosis. Objective Data Vital Signs Vital Signs: Vital Signs - 24 hr 01/30/21 16:31 01/30/21 16:32 01/30/21 16:55 Temperature Pulse Rate 72 72 62 Respiratory Rate 20 Blood Pressure Pulse Oximetry 94 01/30/21 18:00 01/30/21 19:34 01/30/21 19:43 Temperature 36.5 C Pulse Rate 67 75 79 Respiratory Rate 27 H 26 H Blood Pressure 115/52 L 134/52 L Pulse Oximetry 96 95 93 01/30/21 20:00 01/30/21 20:26 01/30/21 22:00 Temperature Pulse Rate 72 75 65 Respiratory Rate 16 Blood Pressure Pulse Oximetry 01/30/21 22:38 01/30/21 23:07 01/31/21 00:00 Temperature Pulse Rate 71 61 61 Respiratory Rate 28 H Blood Pressure 119/41 L Pulse Oximetry 97 96 01/31/21 00:10 01/31/21 02:00 01/31/21 02:21 Temperature 36.7 C Pulse Rate 64 62 62 Respiratory Rate 18 17 Blood Pressure 112/44 L 107/42 L Pulse Oximetry 94 94 95 01/31/21 02:41 01/31/21 04:00 01/31/21 04:27 Temperature 36.3 C L Pulse Rate 61 62 62 Respiratory Rate 16 16 16 Blood Pressure 105/42 L Pulse Oximetry 94 01/31/21 04:53 01/31/21 05:34 01/31/21 06:00 Temperature Pulse Rate 59 L 58 L 58 L Respiratory Rate 16 Blood Pressure 100/41 L Pulse Oximetry 96 91 01/31/21 07:45 01/31/21 08:00 01/31/21 08:32 Temperature 36.3 C L Pulse Ra
--- NOTE | 2021-01-31 20:56 | PC.NURSE ---
Notified spouse Karlos Comer of need to cut patient's ring off of finger due to swelling and inability to remove it by any other method.
[2021-01-31 21:48] LABS: Partial Thromboplastin Time 156.3 SECONDS (22.3-36.8)
[2021-01-31 22:45] LABS: Partial Thromboplastin Time 96.9 SECONDS (22.3-36.8)
[2021-02-01] VITALS (27 sets, daily range): BP systolic 95–157; BP diastolic 46–97; PULSE 71–93; RESP 20–29; TEMP 36.5–37.2; O2SAT 92–98
[2021-02-01] MEDS: PROPOFOL IV EMULSION 100 ML 16.85 MG IV CONT ×4 (00:31→17:00)
[2021-02-01 04:36] LABS: Alveolar/Arterial O2 Gradient 91.8 mmHg; Base Excess ABG -7.2 mEq/l (+/-2.0); Carboxyhemoglobin 0.2 % THb (0-2.0); Fractional Inspired Oxygen 30 %; HCO3 ABG 16.8 mEq/l (22.0-26.0); Methemoglobin ABG 0.2 %THb (0-1.5); Oxygen Content ABG 12.7 %vol (16.0-22.0); Oxygen Saturation ABG 96.8 % (95.0-100.0); Oxyhemoglobin 95.1 % THb (90.0-100.0); PCO2 ABG 28.5 mmHg (35.0-45.0); PO2 ABG 88.6 mmHg (80.0-100.0); PO2 FiO2 Ratio Arterial Blood 2.95 %; Reduced Hemoglobin 4.5 %THb (0-5.0); Total Hemoglobin 9.4 g/dL (12.0-18.0); pH ABG 7.388 (7.350-7.450)
[2021-02-01 04:37] LABS: Device VENTILATOR; Modified Allen's Test Pass; Site Drawn LEFT RADIAL
[2021-02-01 04:38] LABS: Arterial Blood Gas PEEP 5 cmH2O; Arterial Blood Gas Tidal Volume 360 ml; Arterial Blood Gas Vent Mode CMV; Arterial Blood Gas Ventilator rate 16 /MIN
[2021-02-01] MEDS: METOPROLOL TARTRATE INJ 5 MG/5 ML VIAL 2.5 MG IV PUSH ×4 (04:56→20:46)
[2021-02-01] MEDS: CENTRAL LINE FLUSH 10 ML IV PUSH ×2 (04:57→20:45)
[2021-02-01 05:10] LABS: Basophils Absolute Auto 0.1 K/mm3 (0.0-0.1); Basophils Percent Auto 0.7 % (0.2-1.2); Eosinophils Absolute Auto 0.8 K/mm3 (0-0.3); Eosinophils Percent Auto 3.5 % (0-4.4); Hematocrit 23.5 % (37.0-47.0); Hemoglobin 7.9 g/dL (12.0-15.0); Immature Granulocyte Absolute 2.26 K/mm3 (0.00-0.031); Immature Granulocyte Percent A 10.5 % (0-0.5); Lymphocytes Absolute Auto 1.85 K/mm3 (0.9-3.2); Lymphocytes Percent Auto 8.6 % (18.3-44.2); Mean Corpuscular HGB Conc 33.6 g/dl (32-36); Mean Corpuscular Hemoglobin 30.3 pg (26-34); Mean Platelet Volume 12.2 fl (7.4-10.4); Monocytes Absolute Auto 1.2 K/mm3 (0.1-0.6); Monocytes Percent Auto 5.6 % (2.6-8.5); Neutrophils Absolute Auto 15.3 K/mm3 (1.3-6.7); Neutrophils Percent Auto 71.1 % (45.5-73.1); Platelet Count Result 333 k/mm3 (150-375); Red Blood Count 2.61 M/mm3 (4.2-5.4); Red Cell Distribution Width 15.1 % (11.5-14.5); White Blood Count 21.5 K/mm3 (4.5-10.0)
[2021-02-01 05:23] LABS: Partial Thromboplastin Time 88.3 SECONDS (22.3-36.8)
[2021-02-01 05:37] LABS: Alanine Aminotransferase 24 U/L (4-35); Albumin Level 3.5 g/dL (3.5-5.1); Alkaline Phosphatase 76 U/L (38-126); Anion Gap 12 mmol/L (8-16); Aspartate Amino Transferase 19 U/L (14-36); Bilirubin,Total 0.3 mg/dL (0.2-1.3); Blood Urea Nitrogen 92 mg/dL (7-17); Calcium 9.8 mg/dL (8.4-10.2); Carbon Dioxide 17 mmol/L (22-30); Chloride 99 mmol/L (98-107); Estimated CRCL calculation 13 ml/min; Estimated Glomerular Filt Rate 13; Glucose 109 mg/dL (65-105); Magnesium 2.6 mg/dL (1.6-2.3); Phosphorus 9.6 mg/dL (2.5-4.5); Sodium 128 mmol/L (137-145)
--- NOTE | 2021-02-01 07:53 | WPDINTPN ---
Progress Note: A&P Assessment and Plan (1) Acute respiratory failure: Code(s): J96.00 - Acute respiratory failure, unspecified whether with hypoxia or hypercapnia Status: Acute Assessment and Plan: Acute Respiratory failure secondary to pulmonary edema and pneumonia as patient had elevated white count and does show some areas consolidation on CT which could be atelectasis from effusion although CT mostly suggest pulmonary edema and effusions Continue full mechanical ventilation support to prevent hypoxemia/hypercarbia and end organ damage. ABGs reviewed, currently on 30% FiO2 and peep of 5 Chest x-ray reviewed Patient has failed daily weaning trial daily due to high RSBI. she had adequate RSBI on pressure support ventilation of 08/17 and even on that patient twice went to AFib with RVR due to respiratory distress ENT has been consulted for tracheostomy per discussion with patient's and nephew . Tracheostomy is pending and scheduled for early next week -continue cefepime (initiated on 01/22/2021) and levaquin (initiated on 01/27/21). Will continue through 02/02 - vancomycin was discontinued as blood cultures were negative and no MRSA in the sputum COVID PCR came back negative (2) Sepsis: Code(s): A41.9 - Sepsis, unspecified organism Status: Acute Assessment and Plan: Lactic acid was checked and was normal -patient was not a fluid responder on noninvasive hemodynamic monitoring -continue cefepime and Levaquin for Pseudomonas pneumonia -mean arterial pressures remain low will start Levophed to maintain adequate perfusion pressures to prevent end-organ damage -01/18/2021: Blood cultures negative x2 -01/21/2021: Sputum culture growing Pseudomonas pansensitive, Yeast was also isolated (3) Encephalopathy: Code(s): G93.40 - Encephalopathy, unspecified Status: Acute Assessment and Plan: Improved Could be related to embolic disease, infection, toxic metabolic encephalopathy, -EEG showed severe neurological deficit without seizure activity, consistent with organic a metabolic encephalopathy, possibility of hypoxic insult cannot be ruled out. -will further discuss with neurology -01/25/2021: Patient is open her eyes, tracks and follows simple commands. Off propofol. Status post Seroquel on 01/24/2021 -ammonia levels were elevated on 01/24/2021, patient given lactulose, repeat ammonia this morning is < 9. Lactulose on hold since patient has had multiple bowel movements (4) Pneumonia: Code(s): J18.9 - Pneumonia, unspecified organism Status: Acute Assessment and Plan: Since Pseudomonas pneumonia, sputum cultures growing Pseudomonas castellanos susceptible -continue cefepime and Levaquin -CT scan of the chest on 01/26/2021 showed extensive bilateral pneumonia, mild bilateral pleural effusion, cardiomegaly, status post cholecystectomy, status post hysterectomy Infectious disease is following (5) Acute pulmonary edema: Code(s): J81.0 - Acute pulmonary edema Status: Acute Assessment and Plan: Persistent bilateral infiltrates and opacities -diuresed well on 01/21, 01/22 (6) CHF (congestive heart failure): Qualifiers: Heart failure type: diastolic Heart failure chronicity: acute Qualified Code(s): I50.31 - Acute diastolic (congestive) heart failure Code(s): I50.9 - Heart failure, unspecified Status: Acute Assessment and Plan: ECHO Summary 1. Complete two-dimensional, color flow and Doppler transthoracic echocardiogram is performed. 2. There is moderate concentric increased left ventricular wall thickness. 3. Left ventricular systolic function is normal, estimated at 60-65%. 4. No wall-motion abnormalities. 5. Left atrial chamber dimension is moderately enlarged. 6. There is no regurgitation of the TAVR aortic valve. 7. Minimal normal transvalvular gradient. (7) Non-ST elevation [place] (NSTEMI): Code(s):
[2021-02-01] MEDS: SODIUM CHLORIDE 0.9% IV 500 ML IV CONT (08:03)
[2021-02-01] MEDS: SODIUM CHLORIDE 0.9% IV 1,000 ML 50 ML IV CONT (08:04)
--- NOTE | 2021-02-01 08:50 | PM.PNCARD ---
Progress Note: A&P Additional Plan 75-year-old lady with: History of aortic valve stenosis treated with TAVR valve several months ago and unfortunately presented with acute TN due to embolic phenomenon to the circumflex likely from the TAVR strut cage. The patient was revascularized with emergency PCI which was extremely difficult as the struts involved the ostia of the coronary arteries making it very difficult to engage the coronaries for intervention. Following this she is now in the ICU still on ventilator support and appears to be obviously very difficult to wean plans are made for tracheostomy early next week. Patient received a PEG tube yesterday. Karlos Cedillo MD [facility] Subjective Date/time seen: Date of service: 02/01/21 08:50 Interval history: Patient remains sedated and on ventilatory support. Blood pressure okay overnight. Off norepinephrine. Follow some commands but unable to be weaned from the vent. Received PEG tube yesterday. Staff indicate plans for tracheostomy early next week Exam Narrative: Exam Narrative: Intubated and sedated. Does not follow commands but opens eyes spontaneously and to voice. Const: General: comfortable and no acute distress Other: Obese elderly lady on ventilator support in the ICU. HENMT: General nose exam: no epistaxis Mouth: Yes moist mucous membranes Eyes: General: appearance normal, both eyes and all related structures Sclera: sclerae normal Pupils: Equal, round and reactive pupils present Neck: Neck: supple and no JVD Thyroid: thyroid normal Other: No carotid bruit, normal upstrokes JVD is difficult to assess but no obvious venous distention Resp: Effort & Inspection: normal respiratory effort Auscultation: rhonchi and diminished lung sounds Other: Central large airway rhonchi noted Cardio: Rate: regular rate Rhythm: regular rhythm Heart sounds: no murmurs Other: Soft systolic murmur at the base, no diastolic murmur no gallop GI: Inspection: non-distended Auscultation: normal bowel sounds Urinary Catheter: Urinary Catheter: patent and draining and urine clear Skin: General skin exam: normal color Neuro: Cranial nerves: Yes Equal, round and reactive pupils present Cognition (Neuro): normal cognition and abnormal cognition (sedated, unable to assess ) Other: Sedated Extrem: General: normal to inspection and edema (Mild upper extremity edema) Right lower extremity: no edema Left lower extremity: no edema Other: Good pulses, no edema Psych: Mental Status: mental status grossly abnormal Objective Data Vital Signs Vital Signs: Vital Signs - 24 hr 01/31/21 10:00 01/31/21 10:59 01/31/21 11:15 Temperature Pulse Rate 58 L 58 L 61 Respiratory Rate 21 H 18 Blood Pressure 115/49 L Pulse Oximetry 93 94 01/31/21 11:40 01/31/21 12:00 01/31/21 13:34 Temperature 36.4 C Pulse Rate 59 L 59 L 60 Respiratory Rate 26 H 21 H 16 Blood Pressure 119/49 L Pulse Oximetry 94 01/31/21 13:38 01/31/21 14:00 01/31/21 16:00 Temperature 36.2 C L Pulse Rate 60 57 L 61 Respiratory Rate 16 16 Blood Pressure 108/50 L 119/50 L Pulse Oximetry 94 94 96 01/31/21 17:17 01/31/21 18:00 01/31/21 19:45 Temperature Pulse Rate 65 62 63 Respiratory Rate 16 Blood Pressure 124/51 L Pulse Oximetry 95 96 96 01/31/21 20:00 01/31/21 20:01 01/31/21 22:00 Temperature 36.4 C Pulse Rate 70 69 70 Respiratory Rate 19 Blood Pressure 130/62 Pulse Oximetry 95 01/31/21 22:01 01/31/21 23:00 02/01/21 00:00 Temperature Pulse Rate 72 68 75 Respiratory Rate 20 Blood Pressure 111/70 Pulse Oximetry 96 97 02/01/21 00:01 02/01/21 02:00 02/01/21 02:01 Temperature 36.5 C Pulse Rate 75 78 83 Respiratory Rate 24 H 22 H Blood Pressure 128/90 129/61 Pulse Oximetry 95 95 96 02/01/21 04:00 02/01/21 04:01 02/01/21 04:56 Temperature 37.2 C Pulse Rate 86 88 87 Respiratory Rate 24 H Blood Pressure 108/67 Pulse Oximetry
[2021-02-01] MEDS: HEPARIN SOD/D5W 100 UNITS/ML 25,000 UNITS/250 ML BAG 13 UNITS IV CONT (08:58)
[2021-02-01] MEDS: oxyCODONE (*CRX) 5 MG/5 ML ORAL SOLN IR PO ×3 (09:01→20:44)
[2021-02-01] MEDS: PANTOPRAZOLE SODIUM IV 40 MG VIAL IV PUSH ×2 (09:01→20:45)
[2021-02-01] MEDS: ASPIRIN 81 MG CHEWABLE TABLET PO (09:01)
[2021-02-01] MEDS: ATORVASTATIN 20 MG TABLET PO (09:01)
[2021-02-01] MEDS: CLOPIDOGREL BISULFATE 75 MG TABLET PO (09:01)
--- NOTE | 2021-02-01 09:43 | WPDGIPROGNO ---
Progress Note: A&P Additional Plan JOSE RAMON HopkinsRamona gloria Cameron 01 Feb 2021 Intubated/sedated. Discussed with nurse. No PEG issues. Iain TF @ 40 cc/hr Soft/NT. Incision C/D/I A/P Stable POD # 1 s/p PEG. Please call if needed. MARTIN Najera [phone] Subjective Date/time seen: 02/01/21 09:43 Objective Data Vital Signs Vital Signs: Vital Signs - 24 hr 01/31/21 10:00 01/31/21 10:59 01/31/21 11:15 Temperature Pulse Rate 58 L 58 L 61 Respiratory Rate 21 H 18 Blood Pressure 115/49 L Pulse Oximetry 93 94 01/31/21 11:40 01/31/21 12:00 01/31/21 13:34 Temperature 36.4 C Pulse Rate 59 L 59 L 60 Respiratory Rate 26 H 21 H 16 Blood Pressure 119/49 L Pulse Oximetry 94 01/31/21 13:38 01/31/21 14:00 01/31/21 16:00 Temperature 36.2 C L Pulse Rate 60 57 L 61 Respiratory Rate 16 16 Blood Pressure 108/50 L 119/50 L Pulse Oximetry 94 94 96 01/31/21 17:17 01/31/21 18:00 01/31/21 19:45 Temperature Pulse Rate 65 62 63 Respiratory Rate 16 Blood Pressure 124/51 L Pulse Oximetry 95 96 96 01/31/21 20:00 01/31/21 20:01 01/31/21 22:00 Temperature 36.4 C Pulse Rate 70 69 70 Respiratory Rate 19 Blood Pressure 130/62 Pulse Oximetry 95 01/31/21 22:01 01/31/21 23:00 02/01/21 00:00 Temperature Pulse Rate 72 68 75 Respiratory Rate 20 Blood Pressure 111/70 Pulse Oximetry 96 97 02/01/21 00:01 02/01/21 02:00 02/01/21 02:01 Temperature 36.5 C Pulse Rate 75 78 83 Respiratory Rate 24 H 22 H Blood Pressure 128/90 129/61 Pulse Oximetry 95 95 96 02/01/21 04:00 02/01/21 04:01 02/01/21 04:56 Temperature 37.2 C Pulse Rate 86 88 87 Respiratory Rate 24 H Blood Pressure 108/67 Pulse Oximetry 95 02/01/21 05:04 02/01/21 06:00 02/01/21 06:02 Temperature Pulse Rate 87 78 78 Respiratory Rate 24 H Blood Pressure 95/69 L Pulse Oximetry 95 96 02/01/21 08:00 02/01/21 08:05 Temperature 36.5 C Pulse Rate 82 83 Respiratory Rate 24 H Blood Pressure 119/49 L Pulse Oximetry 96 96 Intake/Output Intake/Output: Intake & Output 01/29/21 01/30/21 01/31/21 02/01/21 23:59 23:59 23:59 23:59 Intake Total 951.2 2321 1130 1550 Output Total 1825 1650 225 400 Balance -873.8 933 735 1552 Meds/Results Medications: Active Medications Generic Name Dose Route Start Last Admin Trade Name Freq PRN Reason Stop Dose Admin Acetaminophen 650 mg 01/17/21 11:17 01/17/21 18:13 Acetaminophen 325 Mg Tablet PO 650 mg Q4H PRN Administration Mild Pain (1-3) or Fever Aspirin 81 mg 01/18/21 08:00 02/01/21 09:01 Aspirin 81 Mg Chewable Tablet PO 81 mg DAILY@0800 KINGA Administration Atorvastatin Calcium 20 mg 01/31/21 09:00 02/01/21 09:01 Atorvastatin 20 Mg Tablet PO 20 mg DAILY KINGA Administration Clopidogrel Bisulfate 75 mg 01/18/21 09:00 02/01/21 09:01 Clopidogrel Bisulfate 75 Mg Tablet PO 75 mg QAM KINGA Administration Heparin Sodium (Porcine) 4,000 units 01/17/21 10:08 01/23/21 07:56 Heparin Sodium 5,000 Units/Ml Vial IV PUSH 4,000 units PRN PRN Administration aPTT less than 55 seconds Heparin Sodium (Porcine) 2,500 units 01/17/21 10:08 01/25/21 08:22 Heparin Sodium 5,000 Units/Ml Vial IV PUSH 2,500 units PRN PRN Administration aPTT 55 - 70 seconds Heparin Sodium/Dextrose 25,000 units in 250 mls @ 13 mls/hr 01/17/21 10:10 02/01/21 09:02 Heparin Sodium/D5w 100 Units/Ml IV CONT Not Given .[id number] KINGA Protocol 1,300 UNITS/HR Fentanyl Citrate 2,500 mcg in 250 mls @ 0 mls/hr 01/17/21 21:55 01/20/21 12:24 Fentanyl 2,500 Mcg/Ns 250 Ml IV CONT Not Given .Q0M KINGA Protocol 0 MCG/HR Cefepime HCl 2 gm in 50 mls @ 100 mls/hr 01/23/21 13:00 02/01/21 00:58 Maxipime 2 Gm/D5w 50 Ml IVPB Infused Q12H KINGA Infusion Levofloxacin/Dextrose 750 mg in 150 mls @ 100 mls/hr 01/26/21 10:00 02/01/21 09:17 Levaquin 750 Mg/D5w 150 Ml IVPB 100 mls/h
--- NOTE | 2021-02-01 11:10 | P.PNNP_ITS ---
Progress Note: A&P Assessment and Plan (1) DEBRA (acute kidney injury): Code(s): N17.9 - Acute kidney failure, unspecified Status: Acute Assessment and Plan: * had improved but now worsening * Originally: * multifactorial etiology - contrast exposure x 2 (from CT scan of chest and cardiac catheterization) - previous IV diuresis/prerenal component - NSTEMI - use of DARYL-I/diuretics prior to admission * renal ultrasound without evidence of obstruction or masses * creatinine peaked/plateaued at 2.0mg/dl and then improved down to 1.1mg/dl * DEBRA * Creatinine arely again starting on Wednesday. 1.7-2.1 and it seemed to have plateaued in the low 2s. However now it arely to above 3. This seems to be a step davis rise in her creatinine. Stable in the mid 1s for a few days, then stable in the mid 2s for a few days, and now has risen to the low threes and stable again. The patient does have eosinophilia but negative urine eosinophils. Possibilities include allergic interstitial nephritis. She is on antibiotics. Another possibility would be atheroembolic disease. Unfortunately we cannot do anything to treat this. Will give steroids in case of allergic disorder. Discussed with . * Complements okay so far. * Urine eosinophils are negative. * Ultrasound shows no obstruction. (2) Acute respiratory failure with hypoxemia: Code(s): J96.01 - Acute respiratory failure with hypoxia Status: Acute Assessment and Plan: * due to pulmonary edema (flash pulmonary edema?) * on mechanical ventilation * numbers look okay. Patient is weak obviating extubated blue. * She is being seen for trach placement. It will probably happen tomorrow. (3) Non-ST elevation [place] (NSTEMI): Code(s): I21.4 - Non-ST elevation (NSTEMI) myocardial infarction Status: Acute Assessment and Plan: * s/p cardiac catheterizartion with stenting as noted * Cardiology following * continue supportive therapy (4) Encephalopathy: Code(s): G93.40 - Encephalopathy, unspecified Status: Acute Assessment and Plan: * Neurology following * EEG results noted * Still on sedatives at times. (5) S/P TAVR (transcatheter aortic valve replacement): Code(s): Z95.2 - Presence of prosthetic heart valve Status: Chronic Assessment and Plan: * valve appears to be functioning well by Echo * Cardiology on the case Subjective Date/time seen: 02/01/21 11:10 Interval history: Patient is sedated. Still on the ventilator. Peg placed yesterday. Tolerating tube feedings.. Trach on Wednesday. Not interactive. Exam Narrative: Exam Narrative: WDWN in NAD skin no rash or subcu nodules head ncat lungs coarse to auscultation cor reg no rub or gallop abd BS+ nontender and soft ext no edema Objective Data Vital Signs Vital Signs: Vital Signs - 24 hr 01/31/21 11:15 01/31/21 11:40 01/31/21 12:00 Temperature 36.4 C Pulse Rate 61 59 L 59 L Respiratory Rate 18 26 H 21 H Blood Pressure 119/49 L Pulse Oximetry 94 01/31/21 13:34 01/31/21 13:38 01/31/21 14:00 Temperature Pulse Rate 60 60 57 L Respiratory Rate 16 16 Blood Pressure 108/50 L Pulse Oximetry 94 94 01/31/21 16:00 01/31/21 17:17 01/31/21
--- NOTE | 2021-02-01 11:10 | PM.PNNEP ---
Progress Note: A&P Assessment and Plan (1) DEBRA (acute kidney injury): Code(s): N17.9 - Acute kidney failure, unspecified Status: Acute Assessment and Plan: had improved but now worsening Originally: multifactorial etiology - contrast exposure x 2 (from CT scan of chest and cardiac catheterization) - previous IV diuresis/prerenal component - NSTEMI - use of DARYL-I/diuretics prior to admission renal ultrasound without evidence of obstruction or masses creatinine peaked/plateaued at 2.0mg/dl and then improved down to 1.1mg/dl DEBRA Creatinine arely again starting on Wednesday. 1.7-2.1 and it seemed to have plateaued in the low 2s. However now it arely to above 3. This seems to be a step davis rise in her creatinine. Stable in the mid 1s for a few days, then stable in the mid 2s for a few days, and now has risen to the low threes and stable again. The patient does have eosinophilia but negative urine eosinophils. Possibilities include allergic interstitial nephritis. She is on antibiotics. Another possibility would be atheroembolic disease. Unfortunately we cannot do anything to treat this. Will give steroids in case of allergic disorder. Discussed with . Complements okay so far. Urine eosinophils are negative. Ultrasound shows no obstruction. (2) Acute respiratory failure with hypoxemia: Code(s): J96.01 - Acute respiratory failure with hypoxia Status: Acute Assessment and Plan: due to pulmonary edema (flash pulmonary edema?) on mechanical ventilation numbers look okay. Patient is weak obviating extubated blue. She is being seen for trach placement. It will probably happen tomorrow. (3) Non-ST elevation [place] (NSTEMI): Code(s): I21.4 - Non-ST elevation (NSTEMI) myocardial infarction Status: Acute Assessment and Plan: s/p cardiac catheterizartion with stenting as noted Cardiology following continue supportive therapy (4) Encephalopathy: Code(s): G93.40 - Encephalopathy, unspecified Status: Acute Assessment and Plan: Neurology following EEG results noted Still on sedatives at times. (5) S/P TAVR (transcatheter aortic valve replacement): Code(s): Z95.2 - Presence of prosthetic heart valve Status: Chronic Assessment and Plan: valve appears to be functioning well by Echo Cardiology on the case Subjective Date/time seen: 02/01/21 11:10 Interval history: Patient is sedated. Still on the ventilator. Peg placed yesterday. Tolerating tube feedings.. Trach on Wednesday. Not interactive. Exam Narrative: Exam Narrative: WDWN in NAD skin no rash or subcu nodules head ncat lungs coarse to auscultation cor reg no rub or gallop abd BS+ nontender and soft ext no edema Objective Data Vital Signs Vital Signs: Vital Signs - 24 hr 01/31/21 11:15 01/31/21 11:40 01/31/21 12:00 Temperature 36.4 C Pulse Rate 61 59 L 59 L Respiratory Rate 18 26 H 21 H Blood Pressure 119/49 L Pulse Oximetry 94 01/31/21 13:34 01/31/21 13:38 01/31/21 14:00 Temperature Pulse Rate 60 60 57 L Respiratory Rate 16 16 Blood Pressure 108/50 L Pulse Oximetry 94 94 01/31/21 16:00 01/31/21 17:17 01/31/21 18:00 Temperature 36.2 C L Pulse Rate 61 65 62 Respiratory Rate 16 16 Blood Pressure 119/50 L 124/51 L Pulse Oximetry 96 95 96 01/31/21 19:45 01/31/21 20:00 01/31/21 20:01 Temperature 36.4 C Pulse Rate 63 70 69 Respiratory Rate 19 Blood Pressure 130/62 Pulse Oximetry 96 95 01/31/21 22:00 01/31/21 22:01 01/31/21 23:00 Temperature Pulse Rate 70 72 68 Respiratory Rate 20 Blood Pressure 111/70 Pulse Oximetry 96 97 02/01/21 00:00 02/01/21 00:01 02/01/21 02:00 Temperature 36.5 C Pulse Rate 75 75 78 Respiratory Rate 24 H Blood Pressure 128/90 Pulse Oximetry 95 95 02/01/21 02:01
--- NOTE | 2021-02-01 12:44 | PM.IMPN ---
Progress Note: A&P Assessment and Plan (1) Sepsis: Code(s): A41.9 - Sepsis, unspecified organism Status: Acute Assessment and Plan: Pateint with soft BP and now with decreasing UOP and rising Cr. Concern for sepsis given the rising WBC. Levophed was added. Continue to closely monitor. WBC still high will continue current treatment. Monitor cultures. Repeat labs and chest x-ray. (2) Pneumonia: Code(s): J18.9 - Pneumonia, unspecified organism Status: Acute Assessment and Plan: Consider bacterial PNA - sputum growing Pseudomonas and yeast. Not terribly hypoxic making COVID less likely but not excluded. Rocephin changed to Cefepime and Vanco added 01/23/21. WBC peaked at 30K on 01/18/21 but trended down to 14K on 01/22. WBC climbed again so levaquin added 01/26; WBC peaked at 25.7K but back down today to 22K. On appropriate abx for the pseudomonas. Not covering the yeast but not felt to be causing a lower tract infection. Consider CDiff but not having diarrhea. Not on steroids and does not have CLL. CT Ch/A/P showing bilateral extensive PNA. Venous doppler of the left UE showing partial left basilic vein thrombosis the region of PICC catheter; already on Heparin. Follow. Appreciate balance bridge inspector and ID input. Will continue current treatment and monitor labs. Repeat chest x-ray. (3) Encephalopathy: Code(s): G93.40 - Encephalopathy, unspecified Status: Acute Assessment and Plan: CT brain 01/21 showing no acute findings. EEG 01/22 showing severely abnormal record due to the presence of bihemispheric theta and delta activity even during sleep without any paroxysmal discharge ,these abnormalities could be consistent with organic or metabolic encephalopathy. Possibility of hypoxic insult cannot be ruled out . Concern for HIE but patient has been showing some signs of improvement. Wean sedation as tolerated. Appreciate neurology and balance bridge inspector help. (4) Acute respiratory failure with hypoxemia: Code(s): J96.01 - Acute respiratory failure with hypoxia Status: Acute Assessment and Plan: Patient remains intubated but on minimal settings. Currently, IV Lasix on hold due to DEBRA. Sedation being adjusted. Continue to wean vent as tolerated. Appreciate help from balance bridge inspector. (5) Hyponatremia: Code(s): E87.1 - Hypo-osmolality and hyponatremia Status: Acute Assessment and Plan: Sodium has been low in the low 130's but dropped to 127 today. Concern for dehydration with decreased UOP and rising Cr. Repeat urine studies showing Sharon 27 and FENa 0.65%. Not fluid response but she was given a fluid bolus. Monitor fluid status. (6) CHF (congestive heart failure): Qualifiers: Heart failure type: diastolic Heart failure chronicity: acute Qualified Code(s): I50.31 - Acute diastolic (congestive) heart failure Code(s): I50.9 - Heart failure, unspecified Status: Acute Assessment and Plan: Patietn with acute pulmonary edema. Patient remains on ventilator as noted. 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 Lisinopril and Lasix on hold due to rising Cr. Cardiology and balance bridge inspector following. (7) Leukocytosis: Code(s): D72.829 - Elevated white blood cell count, unspecified Status: Acute Assessment and Plan: WBC climbing and Levaquin added 01/26. As above. (8) Non-ST elevation [place] (NSTEMI): Code(s): I21.4 - Non-ST elevation (NSTEMI) myocardial infarction Status: Acute Assessment and Plan: Cardiology following. Initial 2D echocardiogram at bedside with EF 55% along with mild hypokinesis of the mid and basal anterior wall and severe hypokinesis of the mid and basal inferolateral wall. ROMEL of 01/18/2021 with res
[2021-02-01] MEDS: predniSONE 20 MG TABLET 40 MG PO (13:29)
[2021-02-01] MEDS: PROPOFOL IV EMULSION 100 ML 19.66 MG IV CONT (23:57)
[2021-02-02] VITALS (29 sets, daily range): BP systolic 90–140; BP diastolic 37–82; PULSE 60–91; RESP 16–31; TEMP 36.4–37.1; O2SAT 93–100
[2021-02-02] MEDS: MICONAZOLE NITRATE 2% CREAM 30 GM TUBE 1 APPLIC TOPICAL ×3 (02:22→19:59)
[2021-02-02] MEDS: MICONAZOLE NITRATE 2% VAGINAL CREAM 45 GM TUBE 1 APPFUL VAGINAL ×2 (02:22→19:59)
[2021-02-02] MEDS: oxyCODONE (*CRX) 5 MG/5 ML ORAL SOLN IR PO ×4 (02:53→19:59)
[2021-02-02] MEDS: METOPROLOL TARTRATE INJ 5 MG/5 ML VIAL 2.5 MG IV PUSH ×4 (02:54→22:09)
[2021-02-02 04:01] LABS: Alveolar/Arterial O2 Gradient 101.5 mmHg; Base Excess ABG -9.2 mEq/l (+/-2.0); Carboxyhemoglobin 0.3 % THb (0-2.0); Fractional Inspired Oxygen 30 %; HCO3 ABG 14.9 mEq/l (22.0-26.0); Methemoglobin ABG 0.3 %THb (0-1.5); Oxygen Content ABG 11.5 %vol (16.0-22.0); Oxyhemoglobin 94.2 % THb (90.0-100.0); PCO2 ABG 26.2 mmHg (35.0-45.0); PO2 ABG 81.6 mmHg (80.0-100.0); PO2 FiO2 Ratio Arterial Blood 2.72 %; Reduced Hemoglobin 5.2 %THb (0-5.0); Total Hemoglobin 8.6 g/dL (12.0-18.0); pH ABG 7.373 (7.350-7.450)
[2021-02-02 04:02] LABS: Arterial Blood Gas PEEP 5 cmH2O; Arterial Blood Gas Tidal Volume 360 ml; Arterial Blood Gas Vent Mode CMV; Arterial Blood Gas Ventilator rate 16 /MIN; Device VENTILATOR; Modified Allen's Test Pass; Site Drawn LEFT RADIAL
[2021-02-02] MEDS: PROPOFOL IV EMULSION 100 ML 16.85 MG IV CONT ×4 (04:24→20:36)
[2021-02-02] MEDS: HEPARIN SOD/D5W 100 UNITS/ML 25,000 UNITS/250 ML BAG 13 UNITS IV CONT (05:06)
[2021-02-02] MEDS: CENTRAL LINE FLUSH 10 ML IV PUSH ×2 (05:12→22:10)
[2021-02-02 06:32] LABS: Albumin Level 3.3 g/dL (3.5-5.1); Anion Gap 12 mmol/L (8-16); Blood Urea Nitrogen 101 mg/dL (7-17); Calcium 9.4 mg/dL (8.4-10.2); Carbon Dioxide 15 mmol/L (22-30); Chloride 103 mmol/L (98-107); Estimated CRCL calculation 13 ml/min; Estimated Glomerular Filt Rate 13; Glucose 122 mg/dL (65-105); Potassium 5.6 mmol/L (3.4-5.0); Sodium 130 mmol/L (137-145)
[2021-02-02 06:35] LABS: Partial Thromboplastin Time 81.7 SECONDS (22.3-36.8)
--- NOTE | 2021-02-02 07:23 | PM.PNCARD ---
Progress Note: A&P Additional Plan 75-year-old lady with: Embolic myocardial infarction due to the stent structure of the recently implanted TAVR valve embolizing the circumflex. Patient is hemodynamically stable but still dependent on ventilator. For that reason tracheostomy is planned for early this coming week. No changes in cardiac management. Once she is finished having procedures oral anticoagulation needs to be started Karlos Cedillo MD [facility] Subjective Date/time seen: Date of service: 02/02/21 07:23 Interval history: 75-year-old female with: Acute embolic myocardial infarction to the circumflex artery on presentation due to embolic event from the recently implanted TAVR valve. Patient remains hemodynamically stable in the ICU still intubated and plans for tracheostomy on Wednesday or Wednesday of this coming week. Exam Narrative: Exam Narrative: Intubated and sedated. Does not follow commands but opens eyes spontaneously and to voice. Const: General: comfortable and no acute distress Other: Obese elderly lady on ventilator support in the ICU. HENMT: General nose exam: no epistaxis Mouth: Yes moist mucous membranes Eyes: General: appearance normal, both eyes and all related structures Sclera: sclerae normal Pupils: Equal, round and reactive pupils present Neck: Neck: supple and no JVD Thyroid: thyroid normal Other: No carotid bruit, normal upstrokes JVD is difficult to assess but no obvious venous distention Resp: Effort & Inspection: normal respiratory effort Auscultation: rhonchi and diminished lung sounds Other: Central large airway rhonchi noted Cardio: Rate: regular rate Rhythm: regular rhythm Heart sounds: no murmurs Other: Soft systolic murmur at the base, no diastolic murmur no gallop GI: Inspection: non-distended Auscultation: normal bowel sounds Urinary Catheter: Urinary Catheter: patent and draining and urine clear Skin: General skin exam: normal color Neuro: Cranial nerves: Yes Equal, round and reactive pupils present Cognition (Neuro): normal cognition and abnormal cognition (sedated, unable to assess ) Other: Sedated Extrem: General: normal to inspection and edema (Mild upper extremity edema) Right lower extremity: no edema Left lower extremity: no edema Other: Good pulses, no edema Psych: Mental Status: mental status grossly abnormal Objective Data Vital Signs Vital Signs: Vital Signs - 24 hr 02/01/21 08:00 02/01/21 08:05 02/01/21 10:00 Temperature 36.5 C Pulse Rate 82 83 82 Respiratory Rate 24 H 20 Blood Pressure 119/49 L 122/69 Pulse Oximetry 96 96 98 02/01/21 11:09 02/01/21 12:00 02/01/21 12:10 Temperature 36.7 C Pulse Rate 77 77 77 Respiratory Rate 20 20 Blood Pressure 112/60 Pulse Oximetry 95 96 02/01/21 14:00 02/01/21 14:20 02/01/21 16:00 Temperature 36.6 C Pulse Rate 82 71 79 Respiratory Rate 21 H 26 H Blood Pressure 111/46 L 157/55 H Pulse Oximetry 95 96 92 02/01/21 17:00 02/01/21 17:14 02/01/21 18:00 Temperature Pulse Rate 78 93 78 Respiratory Rate 28 H 28 H Blood Pressure 146/75 H Pulse Oximetry 96 96 02/01/21 19:45 02/01/21 20:00 02/01/21 20:46 Temperature 37.1 C Pulse Rate 80 78 82 Respiratory Rate 22 H Blood Pressure 152/60 H Pulse Oximetry 94 95 02/01/21 22:00 02/01/21 22:50 02/02/21 00:00 Temperature 37.1 C Pulse Rate 77 80 79 Respiratory Rate 29 H 27 H Blood Pressure 125/97 H 140/57 L Pulse Oximetry 94 95 95 02/02/21 02:00 02/02/21 02:54 02/02/21 04:00 Temperature 37.1 C Pulse Rate 77 82 65 Respiratory Rate 31 H 22 H Blood Pressure 128/82 105/48 L Pulse Oximetry 96 96 02/02/21 04:04 02/02/21 06:00 Temperature Pulse Rate 67 63 Respiratory Rate 19 Blood Pressure 101/51 L Pulse Oximetry 97 95 Intake/Output Intake/Output: Intake & Output 01/30/21 01/31/21 02/01/21 02/02/21 23:59 23:59 23:59 23:59 Intake Total 4706 2510 1338 1007 Output To
[2021-02-02] MEDS: SODIUM BICARBONATE 8.4% 50 MEQ/50 ML SYRINGE IV PUSH (08:05)
--- NOTE | 2021-02-02 08:33 | WPDINTPN ---
Progress Note: A&P Assessment and Plan (1) Acute respiratory failure: Code(s): J96.00 - Acute respiratory failure, unspecified whether with hypoxia or hypercapnia Status: Acute Assessment and Plan: Acute Respiratory failure secondary to pulmonary edema and pneumonia as patient had elevated white count and does show some areas consolidation on CT which could be atelectasis from effusion although CT mostly suggest pulmonary edema and effusions Continue full mechanical ventilation support to prevent hypoxemia/hypercarbia and end organ damage. ABGs reviewed, currently on 30% FiO2 and peep of 5 Chest x-ray reviewed Patient has failed daily weaning trial daily due to high RSBI. she had adequate RSBI on pressure support ventilation of 08/17 and even on that patient twice went to AFib with RVR due to respiratory distress ENT has been consulted for tracheostomy per discussion with patient's and nephew . Tracheostomy is pending and scheduled for early next week -continue cefepime (initiated on 01/22/2021) and levaquin (initiated on 01/27/21) through 02/02 to complete 10 day course of antibiotics - vancomycin was discontinued as blood cultures were negative and no MRSA in the sputum COVID PCR came back negative (2) DEBRA (acute kidney injury): Code(s): N17.9 - Acute kidney failure, unspecified Status: Acute Assessment and Plan: Likely multifactorial as patient was being diuresed for pulmonary edema and also received contrast with cardiac catheterization, infection/sepsis, hypotension. Monitor in electrolytes and urine output Creatinine initially had plateaued but now it is worsening again. Creatinine 3.5 Patient still has is producing decent amount of urine but may need hemodialysis if continues to worsen She was started on steroids for suspected interstitial nephritis by Nephrology yesterday Continue to hold further diuresis. Patient was given fluids yesterday Repeat kidney ultrasound was unremarkable I will add bicarb to treat the metabolic acidosis Will treat hyperkalemia - see below Appreciate Nephrology evaluation recommendation (3) Hyperkalemia: Code(s): E87.5 - Hyperkalemia Status: Acute Assessment and Plan: K 5.6 Will give bicarb 50 mEq IV push in start per tube bicarb Insulin and D50 Kayexalate 30 g for tube Recheck BMP later in the day (4) Sepsis: Code(s): A41.9 - Sepsis, unspecified organism Status: Acute Assessment and Plan: Lactic acid was checked and was normal -patient was not a fluid responder on noninvasive hemodynamic monitoring -continue cefepime and Levaquin for Pseudomonas pneumonia -mean arterial pressures remain low will start Levophed to maintain adequate perfusion pressures to prevent end-organ damage -01/18/2021: Blood cultures negative x2 -01/21/2021: Sputum culture growing Pseudomonas pansensitive, Yeast was also isolated (5) Pneumonia: Code(s): J18.9 - Pneumonia, unspecified organism Status: Acute Assessment and Plan: Since Pseudomonas pneumonia, sputum cultures growing Pseudomonas castellanos susceptible -continue cefepime and Levaquin -CT scan of the chest on 01/26/2021 showed extensive bilateral pneumonia, mild bilateral pleural effusion, cardiomegaly, status post cholecystectomy, status post hysterectomy Infectious disease is following (6) Acute pulmonary edema: Code(s): J81.0 - Acute pulmonary edema Status: Acute Assessment and Plan: Persistent bilateral infiltrates and opacities Diuresis on hold due to worsening renal function (7) CHF (congestive heart failure): Qualifiers: Heart failure type: diastolic Heart failure chronicity: acute Qualified Code(s): I50.31 - Acute diastolic (congestive) heart failure Code(s): I50.9 - Heart failure, unspecified Status: Acute Assessment and Plan: ECHO Summary 1. Complete two-dimensional, color flow and Doppler transthoracic
[2021-02-02] MEDS: predniSONE 20 MG TABLET 40 MG PO (09:12)
[2021-02-02] MEDS: ASPIRIN 81 MG CHEWABLE TABLET PO (09:12)
[2021-02-02] MEDS: ATORVASTATIN 20 MG TABLET PO (09:12)
[2021-02-02] MEDS: SODIUM POLYSTYRENE SULFONONATE 15 GM/60 ML BTL 30 GM PO (09:12)
[2021-02-02] MEDS: PANTOPRAZOLE SODIUM IV 40 MG VIAL IV PUSH ×2 (09:13→19:58)
[2021-02-02] MEDS: CLOPIDOGREL BISULFATE 75 MG TABLET PO (09:13)
[2021-02-02] MEDS: SODIUM BICARBONATE TAB 650 MG TABLET 1300 MG PO ×3 (09:13→16:29)
[2021-02-02] MEDS: DEXTROSE 50% 25 GM/50 ML SYRINGE IV PUSH ×2 (09:15→18:13)
[2021-02-02] MEDS: INSULIN HUMAN REGULAR (*BKC) 100 UNITS/ML IV PUSH (09:15)
--- NOTE | 2021-02-02 09:55 | PM.IMPN ---
Progress Note: A&P Assessment and Plan (1) Sepsis: Code(s): A41.9 - Sepsis, unspecified organism Status: Acute Assessment and Plan: Pateint with soft BP and now with decreasing UOP and rising Cr. Concern for sepsis given the rising WBC. Levophed was added. Continue to closely monitor. WBC still high will continue current treatment. Monitor cultures. Repeat labs and chest x-ray. (2) Pneumonia: Code(s): J18.9 - Pneumonia, unspecified organism Status: Acute Assessment and Plan: Consider bacterial PNA - sputum growing Pseudomonas and yeast. Not terribly hypoxic making COVID less likely but not excluded. Rocephin changed to Cefepime and Vanco added 01/23/21. WBC peaked at 30K on 01/18/21 but trended down to 14K on 01/22. WBC climbed again so levaquin added 01/26; WBC peaked at 25.7K but back down today to 22K. On appropriate abx for the pseudomonas. Not covering the yeast but not felt to be causing a lower tract infection. Consider CDiff but not having diarrhea. Not on steroids and does not have CLL. CT Ch/A/P showing bilateral extensive PNA. Venous doppler of the left UE showing partial left basilic vein thrombosis the region of PICC catheter; already on Heparin. Follow. Appreciate chief executive and ID input. Will continue current treatment and monitor labs. Repeat chest x-ray. (3) Encephalopathy: Code(s): G93.40 - Encephalopathy, unspecified Status: Acute Assessment and Plan: CT brain 01/21 showing no acute findings. EEG 01/22 showing severely abnormal record due to the presence of bihemispheric theta and delta activity even during sleep without any paroxysmal discharge ,these abnormalities could be consistent with organic or metabolic encephalopathy. Possibility of hypoxic insult cannot be ruled out . Concern for HIE but patient has been showing some signs of improvement. Wean sedation as tolerated. Appreciate neurology and chief executive help. (4) Acute respiratory failure with hypoxemia: Code(s): J96.01 - Acute respiratory failure with hypoxia Status: Acute Assessment and Plan: Patient remains intubated but on minimal settings. Currently, IV Lasix on hold due to DEBRA. Sedation being adjusted. Continue to wean vent as tolerated. Appreciate help from chief executive. (5) Hyponatremia: Code(s): E87.1 - Hypo-osmolality and hyponatremia Status: Acute Assessment and Plan: Sodium has been low in the low 130's but dropped to 127 today. Concern for dehydration with decreased UOP and rising Cr. Repeat urine studies showing Sharon 27 and FENa 0.65%. Not fluid response but she was given a fluid bolus. Monitor fluid status. (6) CHF (congestive heart failure): Qualifiers: Heart failure type: diastolic Heart failure chronicity: acute Qualified Code(s): I50.31 - Acute diastolic (congestive) heart failure Code(s): I50.9 - Heart failure, unspecified Status: Acute Assessment and Plan: Patietn with acute pulmonary edema. Patient remains on ventilator as noted. 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 Lisinopril and Lasix on hold due to rising Cr. Cardiology and chief executive following. (7) Leukocytosis: Code(s): D72.829 - Elevated white blood cell count, unspecified Status: Acute Assessment and Plan: WBC climbing and Levaquin added 01/26. As above. (8) Non-ST elevation [place] (NSTEMI): Code(s): I21.4 - Non-ST elevation (NSTEMI) myocardial infarction Status: Acute Assessment and Plan: Cardiology following. Initial 2D echocardiogram at bedside with EF 55% along with mild hypokinesis of the mid and basal anterior wall and severe hypokinesis of the mid and basal inferolateral wall. ROMEL of 01/18/2021 with res
--- NOTE | 2021-02-02 10:20 | P.PNNP_ITS ---
Progress Note: A&P Assessment and Plan (1) DEBRA (acute kidney injury): Code(s): N17.9 - Acute kidney failure, unspecified Status: Acute Assessment and Plan: * had improved but now worsening * Originally: * multifactorial etiology - contrast exposure x 2 (from CT scan of chest and cardiac catheterization) - previous IV diuresis/prerenal component - NSTEMI - use of DARYL-I/diuretics prior to admission * renal ultrasound without evidence of obstruction or masses * creatinine peaked/plateaued at 2.0mg/dl and then improved down to 1.1mg/dl * DEBRA * Creatinine rising in a stepwise pattern. * Atempting Prednisone to see if this helps. * Complements okay * Urine eosinophils are negative. * Ultrasound shows no obstruction. * She received a fluid bolus yesterday. * Follow the kidney function. Consider biopsy if safe to hold her anticoagulants? (2) Acute respiratory failure with hypoxemia: Code(s): J96.01 - Acute respiratory failure with hypoxia Status: Acute Assessment and Plan: * due to pulmonary edema (flash pulmonary edema?) * on mechanical ventilation * numbers look okay. Patient is weak obviating extubated blue. * She is being seen for trach placement. It will probably happen Wednesday * Her minute volume is 7, FiO2 30%, peep of 5, peak airway pressure not too bad. (3) Non-ST elevation [place] (NSTEMI): Code(s): I21.4 - Non-ST elevation (NSTEMI) myocardial infarction Status: Acute Assessment and Plan: * s/p cardiac catheterizartion with stenting as noted * Cardiology following * continue supportive therapy (4) Encephalopathy: Code(s): G93.40 - Encephalopathy, unspecified Status: Acute Assessment and Plan: * Neurology following * EEG results noted * Still on sedatives at times. (5) S/P TAVR (transcatheter aortic valve replacement): Code(s): Z95.2 - Presence of prosthetic heart valve Status: Chronic Assessment and Plan: * valve appears to be functioning well by Echo * Cardiology on the case Subjective Date/time seen: 02/02/21 10:20 Interval history: Patient is sedated. Still on the ventilator. Not interactive because of sedation. Exam Narrative: Exam Narrative: WDWN in NAD skin no rash or subcu nodules head ncat lungs coarse to auscultation cor reg no rub or gallop abd BS+ nontender and soft ext no edema Objective Data Vital Signs Vital Signs: Vital Signs - 24 hr 02/01/21 11:09 02/01/21 12:00 02/01/21 12:10 Temperature 36.7 C Pulse Rate 77 77 77 Respiratory Rate 20 20 Blood Pressure 112/60 Pulse Oximetry 95 96 02/01/21 14:00 02/01/21 14:20 02/01/21 16:00 Temperature 36.6 C Pulse Rate 82 71 79 Respiratory Rate 21 H 26 H Blood Pressure 111/46 L 157/55 H Pulse Oximetry 95 96 92 02/01/21 17:00 02/01/21 17:14 02/01/21 18:00 Temperature Pulse Rate 78 93 78 Respiratory Rate 28 H 28 H Blood Pressure 146/75 H Pulse Oximetry 96 96 02/01/21 19:45 02/01/21 20:00 02/01/21 20:46 Temperature 37.1 C Pulse Rate 80 78 82 Respiratory Rate 22 H Blood Pressure 152/60 H Pulse Oximetry 9
--- NOTE | 2021-02-02 10:20 | PM.PNNEP ---
Progress Note: A&P Assessment and Plan (1) DEBRA (acute kidney injury): Code(s): N17.9 - Acute kidney failure, unspecified Status: Acute Assessment and Plan: had improved but now worsening Originally: multifactorial etiology - contrast exposure x 2 (from CT scan of chest and cardiac catheterization) - previous IV diuresis/prerenal component - NSTEMI - use of DARYL-I/diuretics prior to admission renal ultrasound without evidence of obstruction or masses creatinine peaked/plateaued at 2.0mg/dl and then improved down to 1.1mg/dl DEBRA Creatinine rising in a stepwise pattern. Atempting Prednisone to see if this helps. Complements okay Urine eosinophils are negative. Ultrasound shows no obstruction. She received a fluid bolus yesterday. Follow the kidney function. Consider biopsy if safe to hold her anticoagulants? (2) Acute respiratory failure with hypoxemia: Code(s): J96.01 - Acute respiratory failure with hypoxia Status: Acute Assessment and Plan: due to pulmonary edema (flash pulmonary edema?) on mechanical ventilation numbers look okay. Patient is weak obviating extubated blue. She is being seen for trach placement. It will probably happen Wednesday Her minute volume is 7, FiO2 30%, peep of 5, peak airway pressure not too bad. (3) Non-ST elevation [place] (NSTEMI): Code(s): I21.4 - Non-ST elevation (NSTEMI) myocardial infarction Status: Acute Assessment and Plan: s/p cardiac catheterizartion with stenting as noted Cardiology following continue supportive therapy (4) Encephalopathy: Code(s): G93.40 - Encephalopathy, unspecified Status: Acute Assessment and Plan: Neurology following EEG results noted Still on sedatives at times. (5) S/P TAVR (transcatheter aortic valve replacement): Code(s): Z95.2 - Presence of prosthetic heart valve Status: Chronic Assessment and Plan: valve appears to be functioning well by Echo Cardiology on the case Subjective Date/time seen: 02/02/21 10:20 Interval history: Patient is sedated. Still on the ventilator. Not interactive because of sedation. Exam Narrative: Exam Narrative: WDWN in NAD skin no rash or subcu nodules head ncat lungs coarse to auscultation cor reg no rub or gallop abd BS+ nontender and soft ext no edema Objective Data Vital Signs Vital Signs: Vital Signs - 24 hr 02/01/21 11:09 02/01/21 12:00 02/01/21 12:10 Temperature 36.7 C Pulse Rate 77 77 77 Respiratory Rate 20 20 Blood Pressure 112/60 Pulse Oximetry 95 96 02/01/21 14:00 02/01/21 14:20 02/01/21 16:00 Temperature 36.6 C Pulse Rate 82 71 79 Respiratory Rate 21 H 26 H Blood Pressure 111/46 L 157/55 H Pulse Oximetry 95 96 92 02/01/21 17:00 02/01/21 17:14 02/01/21 18:00 Temperature Pulse Rate 78 93 78 Respiratory Rate 28 H 28 H Blood Pressure 146/75 H Pulse Oximetry 96 96 02/01/21 19:45 02/01/21 20:00 02/01/21 20:46 Temperature 37.1 C Pulse Rate 80 78 82 Respiratory Rate 22 H Blood Pressure 152/60 H Pulse Oximetry 94 95 02/01/21 22:00 02/01/21 22:50 02/02/21 00:00 Temperature 37.1 C Pulse Rate 77 80 79 Respiratory Rate 29 H 27 H Blood Pressure 125/97 H 140/57 L Pulse Oximetry 94 95 95 02/02/21 02:00 02/02/21 02:54 02/02/21 04:00 Temperature 37.1 C Pulse Rate 77 82 65 Respiratory Rate 31 H 22 H Blood Pressure 128/82 105/48 L Pulse Oximetry 96 96 02/02/21 04:04 02/02/21 06:00 02/02/21 07:39 Temperature Pulse Rate 67 63 83 Respiratory Rate 19 Blood Pressure 101/51 L Pulse Oximetry 97 95 94 02/02/21 08:00 02/02/21 09:13 02/02/21 10:00 Temperature 36.6 C Pulse Rate 72 83 72 Respiratory Rate 21 H 19 21 H Blood Pressure 126/55 L 126/54 L Pulse Oximetry 95 95 Intake/Output Intake/Output: Intake & Output
[2021-02-02 16:40] LABS: Anion Gap 12 mmol/L (8-16); Blood Urea Nitrogen 107 mg/dL (7-17); Calcium 9.2 mg/dL (8.4-10.2); Carbon Dioxide 17 mmol/L (22-30); Chloride 102 mmol/L (98-107); Estimated CRCL calculation 12 ml/min; Estimated Glomerular Filt Rate 12; Glucose 141 mg/dL (65-105); Potassium 5.7 mmol/L (3.4-5.0); Sodium 131 mmol/L (137-145)
[2021-02-02] MEDS: INSULIN HUMAN REGULAR (*BKC) 100 UNITS/ML 10 UNITS IV PUSH (18:13)
[2021-02-02] MEDS: SODIUM BICARBONATE 8.4% 50 MEQ/50 ML SYRINGE 100 MEQ IV PUSH (18:13)
[2021-02-03] VITALS (35 sets, daily range): BP systolic 93–126; BP diastolic 46–80; PULSE 60–90; RESP 16–33; TEMP 35.8–36.5; O2SAT 89–100
[2021-02-03] MEDS: HEPARIN SOD/D5W 100 UNITS/ML 25,000 UNITS/250 ML BAG 13 UNITS IV CONT (01:25)
[2021-02-03] MEDS: PROPOFOL IV EMULSION 100 ML 14.04 MG IV CONT ×3 (02:13→20:00)
[2021-02-03] MEDS: oxyCODONE (*CRX) 5 MG/5 ML ORAL SOLN IR PO ×4 (02:16→20:44)
[2021-02-03] MEDS: CENTRAL LINE FLUSH 10 ML IV PUSH ×3 (04:06→20:46)
[2021-02-03] MEDS: METOPROLOL TARTRATE INJ 5 MG/5 ML VIAL 2.5 MG IV PUSH ×4 (04:06→21:25)
[2021-02-03 04:26] LABS: Hematocrit 22.7 % (37.0-47.0); Hemoglobin 7.5 g/dL (12.0-15.0); Mean Corpuscular Hemoglobin 29.8 pg (26-34); Mean Corpuscular Volume 90.1 fl (80-100); Mean Platelet Volume 11.6 fl (7.4-10.4); Platelet Count Result 342 k/mm3 (150-375); Red Blood Count 2.52 M/mm3 (4.2-5.4); Red Cell Distribution Width 15.3 % (11.5-14.5); White Blood Count 20.8 K/mm3 (4.5-10.0)
[2021-02-03 04:36] LABS: Anion Gap 12 mmol/L (8-16); Blood Urea Nitrogen 111 mg/dL (7-17); Calcium 9.3 mg/dL (8.4-10.2); Carbon Dioxide 25 mmol/L (22-30); Chloride 98 mmol/L (98-107); Estimated CRCL calculation 11 ml/min; Estimated Glomerular Filt Rate 11; Glucose 123 mg/dL (65-105); Magnesium 2.5 mg/dL (1.6-2.3); Potassium 4.4 mmol/L (3.4-5.0); Sodium 135 mmol/L (137-145)
[2021-02-03 04:41] LABS: Base Excess ABG -2.4 mEq/l (+/-2.0); Carboxyhemoglobin 0.3 % THb (0-2.0); Fractional Inspired Oxygen 30 %; Methemoglobin ABG 0.3 %THb (0-1.5); Oxygen Content ABG 10.8 %vol (16.0-22.0); Oxygen Saturation ABG 95.1 % (95.0-100.0); Oxyhemoglobin 92.7 % THb (90.0-100.0); PCO2 ABG 35.7 mmHg (35.0-45.0); PO2 FiO2 Ratio Arterial Blood 2.47 %; Reduced Hemoglobin 6.7 %THb (0-5.0); Total Hemoglobin 8.2 g/dL (12.0-18.0); pH ABG 7.407 (7.350-7.450)
[2021-02-03 04:42] LABS: Arterial Blood Gas PEEP 5 cmH2O; Arterial Blood Gas Vent Mode CMV; Arterial Blood Gas Ventilator rate 16 /MIN; Device VENTILATOR; Modified Allen's Test Pass; Site Drawn LEFT RADIAL
[2021-02-03 04:43] LABS: Arterial Blood Gas Tidal Volume 360 ml
[2021-02-03 05:04] LABS: Estimated CRCL calculation 11 ml/min; Estimated Glomerular Filt Rate 11
--- NOTE | 2021-02-03 07:57 | WPDINTPN ---
Progress Note: A&P Assessment and Plan (1) Acute respiratory failure: Code(s): J96.00 - Acute respiratory failure, unspecified whether with hypoxia or hypercapnia Status: Acute Assessment and Plan: Acute Respiratory failure secondary to pulmonary edema and pneumonia as patient had elevated white count and does show some areas consolidation on CT which could be atelectasis from effusion although CT mostly suggest pulmonary edema and effusions Continue full mechanical ventilation support to prevent hypoxemia/hypercarbia and end organ damage. ABGs reviewed, currently on 30% FiO2 and peep of 5 Chest x-ray reviewed Patient has failed daily weaning trial daily due to high RSBI. she had adequate RSBI on pressure support ventilation of 08/17 and even on that patient twice went to AFib with RVR due to respiratory distress ENT has been consulted for tracheostomy per discussion with patient's and nephew . Tracheostomy is pending and scheduled for tomorrow Completed cefepime (initiated on 01/22/2021) and levaquin (initiated on 01/27/21) through 02/02 to complete 10 day course of antibiotics Vancomycin was discontinued as blood cultures were negative and no MRSA in the sputum COVID PCR came back negative (2) DEBRA (acute kidney injury): Code(s): N17.9 - Acute kidney failure, unspecified Status: Acute Assessment and Plan: Likely multifactorial as patient was being diuresed for pulmonary edema and also received contrast with cardiac catheterization, infection/sepsis, hypotension. Monitor in electrolytes and urine output Creatinine initially had plateaued but now it is worsening again. Creatinine 3.9 Patient still has is producing decent amount of urine but likely will need hemodialysis She was started on steroids for suspected interstitial nephritis by Nephrology on 02/01 Continue to hold further diuresis. Patient was given fluids yesterday Repeat kidney ultrasound was unremarkable Continue per tube bicarb to treat the metabolic acidosis but will decrease dose Will discuss with nephrology regarding getting a tunnel catheter placed tomorrow while patient is in the OR for tracheostomy and since heparin will be discontinued prior to the surgery (3) Hyperkalemia: Code(s): E87.5 - Hyperkalemia Status: Acute Assessment and Plan: Improved with bicarb insulin D50 and Kayexalate Continue to monitor (4) Pneumonia: Code(s): J18.9 - Pneumonia, unspecified organism Status: Acute Assessment and Plan: Since Pseudomonas pneumonia, sputum cultures growing Pseudomonas castellanos susceptible -continue cefepime and Levaquin -CT scan of the chest on 01/26/2021 showed extensive bilateral pneumonia, mild bilateral pleural effusion, cardiomegaly, status post cholecystectomy, status post hysterectomy Infectious disease is following (5) Acute pulmonary edema: Code(s): J81.0 - Acute pulmonary edema Status: Acute Assessment and Plan: Persistent bilateral infiltrates and opacities Diuresis on hold due to worsening renal function (6) CHF (congestive heart failure): Qualifiers: Heart failure type: diastolic Heart failure chronicity: acute Qualified Code(s): I50.31 - Acute diastolic (congestive) heart failure Code(s): I50.9 - Heart failure, unspecified Status: Acute Assessment and Plan: ECHO Summary 1. Complete two-dimensional, color flow and Doppler transthoracic echocardiogram is performed. 2. There is moderate concentric increased left ventricular wall thickness. 3. Left ventricular systolic function is normal, estimated at 60-65%. 4. No wall-motion abnormalities. 5. Left atrial chamber dimension is moderately enlarged. 6. There is no regurgitation of the TAVR aortic valve. 7. Minimal normal transvalvular gradient. (7) Non-ST elevation [place] (NSTEMI): Code(s): I21.4 - Non-ST elevation (NSTEMI) myocardial infarction Status: A
[2021-02-03] MEDS: PANTOPRAZOLE SODIUM IV 40 MG VIAL IV PUSH ×2 (08:05→20:46)
[2021-02-03] MEDS: ATORVASTATIN 20 MG TABLET PO (08:05)
[2021-02-03] MEDS: CLOPIDOGREL BISULFATE 75 MG TABLET PO (08:05)
[2021-02-03] MEDS: MICONAZOLE NITRATE 2% CREAM 30 GM TUBE 1 APPLIC TOPICAL ×2 (08:06→20:45)
[2021-02-03] MEDS: ASPIRIN 81 MG CHEWABLE TABLET PO (08:06)
[2021-02-03] MEDS: predniSONE 20 MG TABLET 40 MG PO (08:06)
[2021-02-03] MEDS: SODIUM BICARBONATE TAB 650 MG TABLET 1300 MG PO ×2 (08:07→16:44)
--- NOTE | 2021-02-03 08:55 | PM.IMPN ---
Progress Note: A&P Assessment and Plan (1) Sepsis: Code(s): A41.9 - Sepsis, unspecified organism Status: Acute Assessment and Plan: Pateint with soft BP and now with decreasing UOP and rising Cr. Concern for sepsis given the rising WBC. Levophed was added. Continue to closely monitor. WBC still high will continue current treatment. Monitor cultures. Repeat labs and chest x-ray. (2) Pneumonia: Code(s): J18.9 - Pneumonia, unspecified organism Status: Acute Assessment and Plan: Consider bacterial PNA - sputum growing Pseudomonas and yeast. Not terribly hypoxic making COVID less likely but not excluded. Rocephin changed to Cefepime and Vanco added 01/23/21. WBC peaked at 30K on 01/18/21 but trended down to 14K on 01/22. WBC climbed again so levaquin added 01/26; WBC peaked at 25.7K but back down today to 22K. On appropriate abx for the pseudomonas. Not covering the yeast but not felt to be causing a lower tract infection. Consider CDiff but not having diarrhea. Not on steroids and does not have CLL. CT Ch/A/P showing bilateral extensive PNA. Venous doppler of the left UE showing partial left basilic vein thrombosis the region of PICC catheter; already on Heparin. Follow. Appreciate licensed sales producer and ID input. Will continue current treatment and monitor labs. Repeat chest x-ray. (3) Encephalopathy: Code(s): G93.40 - Encephalopathy, unspecified Status: Acute Assessment and Plan: CT brain 01/21 showing no acute findings. EEG 01/22 showing severely abnormal record due to the presence of bihemispheric theta and delta activity even during sleep without any paroxysmal discharge ,these abnormalities could be consistent with organic or metabolic encephalopathy. Possibility of hypoxic insult cannot be ruled out . Concern for HIE but patient has been showing some signs of improvement. Wean sedation as tolerated. Appreciate neurology and licensed sales producer help. (4) Acute respiratory failure with hypoxemia: Code(s): J96.01 - Acute respiratory failure with hypoxia Status: Acute Assessment and Plan: Patient remains intubated but on minimal settings. Currently, IV Lasix on hold due to DEBRA. Sedation being adjusted. Continue to wean vent as tolerated. Appreciate help from licensed sales producer. (5) Hyponatremia: Code(s): E87.1 - Hypo-osmolality and hyponatremia Status: Acute Assessment and Plan: Sodium has been low in the low 130's but dropped to 127 today. Concern for dehydration with decreased UOP and rising Cr. Repeat urine studies showing Sharon 27 and FENa 0.65%. Not fluid response but she was given a fluid bolus. Monitor fluid status. (6) CHF (congestive heart failure): Qualifiers: Heart failure type: diastolic Heart failure chronicity: acute Qualified Code(s): I50.31 - Acute diastolic (congestive) heart failure Code(s): I50.9 - Heart failure, unspecified Status: Acute Assessment and Plan: Patietn with acute pulmonary edema. Patient remains on ventilator as noted. 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 Lisinopril and Lasix on hold due to rising Cr. Cardiology and licensed sales producer following. (7) Leukocytosis: Code(s): D72.829 - Elevated white blood cell count, unspecified Status: Acute Assessment and Plan: WBC climbing and Levaquin added 01/26. As above. (8) Non-ST elevation [place] (NSTEMI): Code(s): I21.4 - Non-ST elevation (NSTEMI) myocardial infarction Status: Acute Assessment and Plan: Cardiology following. Initial 2D echocardiogram at bedside with EF 55% along with mild hypokinesis of the mid and basal anterior wall and severe hypokinesis of the mid and basal inferolateral wall. ROMEL of 01/18/2021 with res
--- NOTE | 2021-02-03 10:39 | PCDIET ---
ICU Rounding Note: Patient has been tolerating Vital 1.2 at 40mL/hr with 30mL water flush every 4 hours. Recommended change to Nepro at 30mL/hr (1558kcal and 53g protein over 22 hours/day with Propofol at current rate). Last recorded weight is 95kg which is increased from last review. +I/O. Bowel Motility: BM x 3 today. Labs Reviewed: Hgb (7.5), Hct (22.7), Glu (123), BUN (111), Cr (3.9), Na (135), Mg (2.5) Meds Noted: Fentanyl, Lipitor, Lopressor, Protonix, Prednisone, Propofol (rate of 14.04mL/hr provides 370kcal per day) Additional Notes: Patient scheduled for tracheostomy and possible tunneled catheter tomorrow, 02/04/21. Would consider use of liquid/powder non-calcium based phosphorus binder and transition patient to bolus feeds, once able. Following daily in ICU rounds. Assessing/reassessing every Wednesday/Wednesday.
[2021-02-03 13:34] LABS: Partial Thromboplastin Time 100.3 SECONDS (22.3-36.8)
[2021-02-03] MEDS: PROPOFOL IV EMULSION 100 ML 16.85 MG IV CONT (13:50)
--- NOTE | 2021-02-03 14:42 | P.PNCROSS_ITS ---
Event Note Event Note Event Note: I spoke to patient's nephew by phone. He is listed as a salesperson [employer] and glassware in the patient's chart. I requested him to ask her to call ICU if he is able to contact him. I did talk to him about patient going for tracheostomy tomorrow and also plan to start her in hemodialysis and place dialysis catheter tomorrow. He is agreeable to starting hemodialysis if needed.
--- NOTE | 2021-02-03 15:35 | PM.CNGS ---
Assessment and Plan Assessment and plan (1) DEBRA (acute kidney injury): Code(s): N17.9 - Acute kidney failure, unspecified Status: Acute Assessment and Plan: Patient with acute renal failure that has progressively worsened with diminishing urine output. Nephrology following and would like to initiate hemodialysis. We have been consulted to place a tunneled hemodialysis catheter. The patient is scheduled for a tracheostomy tomorrow in the OR around 9:00am. I have discussed the patient's case with Dr. Soto. We will coordinate the tunneled hemodialysis catheter placement with the tracheostomy tomorrow morning so that both can be done while she is in the OR. This will minimize the interruption in her anticoagulation and keep the patient from requiring more than one transfer to the OR for these procedures. Thank you for allowing us to see the patient in consultation. (2) Respiratory failure: Code(s): J96.90 - Respiratory failure, unspecified, unspecified whether with hypoxia or hypercapnia Status: Acute (3) Non-ST elevation [place] (NSTEMI): Code(s): I21.4 - Non-ST elevation (NSTEMI) myocardial infarction Status: Acute (4) CHF (congestive heart failure): Qualifiers: Heart failure type: diastolic Heart failure chronicity: acute Qualified Code(s): I50.31 - Acute diastolic (congestive) heart failure Code(s): I50.9 - Heart failure, unspecified Status: Acute (5) Leukocytosis: Code(s): D72.829 - Elevated white blood cell count, unspecified Status: Acute Additional Plan I have discussed the patient's case and plan of care with Dr. Soto. History of Present Illness Consult details Consult date: 02/03/21 Reason for consult: other (Placement of tunneled dialysis catheter) Requesting physician: Sid Reid MD Narrative: This is a 75-year-old female who is intubated in the ICU and unable to provide any history. Therefore, history is obtained from review of the electronic medical record. She presented to the ER on 01/17/21 with chest pain and was admitted with an acute embolic myocardial infarction felt to be due to an embolic event from a recently implanted TAVR valve. She underwent cardiac catheterization with balloon angioplasty and stenting. Cardiology is following with the patient on a Heparin drip and dual antiplatelet therapy with ASA and Plavix. Her hospitalization has been complicated by acute respiratory failure, pneumonia, pulmonary edema, heart failure, persistent leukocytosis, and acute renal failure. Nephrology has been following the patient. Her creatinine and BUN have continued to worsen and her urine output has slowly declined. She is scheduled for a tracheostomy tomorrow in the OR and will have the Heparin drip held tomorrow morning for this procedure. Nephrology has requested our services to place a tunneled dialysis catheter in order to initiate hemodialysis. The patient is now seen in the ICU for surgical evaluation. Review of Systems Review of Systems: ROS unobtainable: Yes unobtainable due to endotracheal tube PMFSH Past Medical History Medical History Acute pulmonary edema Acute respiratory failure with hypoxemia CHF (congestive heart failure) Dysphagia Non-ST elevation [place] (NSTEMI) Surgical History Surgical History S/P TAVR (transcatheter aortic valve replacement) Family History Family History Grandparent Hypertension Cerebrovascular accident Father Heart disease Social History Social History Smoking status: Never smoker Alcohol intake: never Substance use: never Substance use type: does not use Gender identity (if verbalized by the patient): Male Spiritual care concerns: No Meds Home Medications
--- NOTE | 2021-02-03 16:09 | PM.PNNEP ---
Progress Note: A&P Assessment and Plan (1) DEBRA (acute kidney injury): Code(s): N17.9 - Acute kidney failure, unspecified Status: Acute Assessment and Plan: had improved initially but now worsening for the last week originally, multifactorial etiology: - contrast exposure x 2 (from CT scan of chest and cardiac catheterization) - previous IV diuresis/prerenal component - NSTEMI - use of DARYL-I/diuretics prior to admission renal ultrasound without evidence of obstruction or masses creatinine peaked/plateaued at 2.0mg/dl and then improved down to 1.1mg/dl now, however, creatinine has been steadily rising in a stepwise pattern trial of prednisone to see if this helps (possible AIN?) suspect she will likely need dialysis (hopefully temporarily) - Surgery consulted for placement of PermCath will initiate dialysis following HD catheter placement (2) Acute respiratory failure with hypoxemia: Code(s): J96.01 - Acute respiratory failure with hypoxia Status: Acute Assessment and Plan: due to pulmonary edema (flash pulmonary edema?) on mechanical ventilation unable to wean at this time tracheostomy tomorrow (3) Non-ST elevation [place] (NSTEMI): Code(s): I21.4 - Non-ST elevation (NSTEMI) myocardial infarction Status: Acute Assessment and Plan: s/p cardiac catheterizartion with stenting as noted Cardiology following continue supportive therapy (4) Encephalopathy: Code(s): G93.40 - Encephalopathy, unspecified Status: Acute Assessment and Plan: Neurology following EEG results noted still on sedatives at times. (5) S/P TAVR (transcatheter aortic valve replacement): Code(s): Z95.2 - Presence of prosthetic heart valve Status: Chronic Assessment and Plan: valve appears to be functioning well by Echo Cardiology on the case Long and extensive discussion (> 20 minutes) with patient's at bedside regarding the above issues including her renal dysfunction, uremia, fluid retention and the need for renal replacement therapy - he is in agreement with hemodialyisis catheter placement and initiation of [employer]/dialysis. I discussed this issue with Dr. Reid earlier today as well. Will continue to follow. 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 Exam Narrative: Exam Narrative: General: WD/WN female in NAD Heart: normal S1 and S2; no rub Lungs: clear to auscultation Abdomen: soft, nontender, nondistended, positive bowel sounds Extremities: no cyanosis or clubbing; trace edema Skin: warm and dry Objective Data Vital Signs Vital Signs: Vital Signs Temp Pulse Resp BP Pulse Ox 02/03/21 16:00 36.4 C L 80 29 H 124/59 L 94 02/03/21 14:00 84 33 H 116/80 93 02/03/21 13:50 84 32 H 02/03/21 13:32 84 92 02/03/21 12:00 36.3 C L 78 22 H 121/65 93 02/03/21 11:26 78 95 02/03/21 10:50 89 L 02/03/21 10:37 90 02/03/21 10:00 80 21 H 121/46 L 98 02/03/21 08:00 35.8 C L 79 24 H 126/60 95 02/03/21 07:55 78 21 H 97 02/03/21 06:00 70 21 H 96/53 L 100 02/03/21 04:22 71 97 02/03/21 04:06 84 02/03/21 04:00 36.5 C 88 24 H 122/77 97 02/03/21 03:29 86 24 H 96 02/03/21 02:13 80 21 H 02/03/21 02:00 77 22 H 121/56 L 98 02/03/21 01:50 66 99 02/03/21 01:27 66 16 02/03/21 00:00 36.4 C L 68 23 H 98/53 L 99 02/02/21 23:31 62 17 97 02/02/21 23:02 60 16 02/02/21 22:30 65 95 02/02/21 22:16 68 19 128/65 93 02/02/21 22:09 83 02/02/21 22:08 86 28 H
--- NOTE | 2021-02-03 16:09 | P.PNNP_ITS ---
Progress Note: A&P Assessment and Plan (1) DEBRA (acute kidney injury): Code(s): N17.9 - Acute kidney failure, unspecified Status: Acute Assessment and Plan: * had improved initially but now worsening for the last week * originally, multifactorial etiology: - contrast exposure x 2 (from CT scan of chest and cardiac catheterization) - previous IV diuresis/prerenal component - NSTEMI - use of DARYL-I/diuretics prior to admission * renal ultrasound without evidence of obstruction or masses * creatinine peaked/plateaued at 2.0mg/dl and then improved down to 1.1mg/dl * now, however, creatinine has been steadily rising in a stepwise pattern * trial of prednisone to see if this helps (possible AIN?) * suspect she will likely need dialysis (hopefully temporarily) - Surgery consulted for placement of PermCath * will initiate dialysis following HD catheter placement (2) Acute respiratory failure with hypoxemia: Code(s): J96.01 - Acute respiratory failure with hypoxia Status: Acute Assessment and Plan: * due to pulmonary edema (flash pulmonary edema?) * on mechanical ventilation * unable to wean at this time * tracheostomy tomorrow (3) Non-ST elevation [place] (NSTEMI): Code(s): I21.4 - Non-ST elevation (NSTEMI) myocardial infarction Status: Acute Assessment and Plan: * s/p cardiac catheterizartion with stenting as noted * Cardiology following * continue supportive therapy (4) Encephalopathy: Code(s): G93.40 - Encephalopathy, unspecified Status: Acute Assessment and Plan: * Neurology following * EEG results noted * still on sedatives at times. 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 I discussed this issue with Dr. Reid earlier today as well. Will continue to follow. 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 Exam Narrative: Exam Narrative: General: WD/WN female in NAD Heart: normal S1 and S2; no rub Lungs: clear to auscultation Abdomen: soft, nontender, nondistended, positive bowel sounds Extremities: no cyanosis or clubbing; trace edema Skin: warm and dry Objective Data Vital Signs Vital Signs: Vital Signs Temp Pulse Resp BP Pulse Ox 02/03/21 16:00 36.4 C L 80 29 H 124/59 L 94 02/03/21 14:00 84 33 H 116/80 93 02/03/21 13:50 84 32 H 02/03/21 13:32 84 92 02/03/21 12:00 36.3 C L 78 22 H 121/65 93 02/03/21 11:26 78 95 02/03/21 10:50 89 L 02/03/21 10:37 90 02/03/21 10:00 80 21 H 121/46 L 98 02/03/21 08:00 35.8 C L 79 24 H 126/60
--- NOTE | 2021-02-03 16:57 | WPDANESEPP ---
Anes - Eval Pre Procedure Procedure: Operation Date: 01/18/21 11:45 Proposed Procedures p Coronary Cath(Right) - Pavel Edge MD Operation Date: 01/31/21 16:00 Proposed Procedures p Esophagogastroduodenoscopy - Damien Peoples MD s Percutaneous Endoscopic Gastrostomy - Damien Peoples MD Operation Date: 02/04/21 09:00 Proposed Procedures p Tracheostomy - Young Peacock MD s Insertion Tunnelled Dialysis Catheter - Toi Soto DO Date/Time: 02/03/21 16:57 Pre Op Diagnosis: nstemi Patient Data Age: 75 Gender: F Height: 5 ft Weight: 95 kg Last Vital Signs Temp 97.5 F L 02/03/21 16:00 Pulse 68 02/03/21 16:50 Resp 29 H 02/03/21 16:00 BP 124/59 L 02/03/21 16:00 Pulse Ox 94 02/03/21 16:50 Allergies Allergy/AdvReac Type Severity Reaction Status Date / Time hydromorphone Allergy Mild Itching Verified 01/17/21 05:55 morphine Allergy Mild Itching Verified 01/17/21 05:55 Home Medications Medication Instructions Recorded Confirmed Type aspirin 81 mg PO DAILY 06/03/20 01/17/21 History calcitonin (salmon) 1 spray INTRANASAL DAILY 06/03/20 01/17/21 History lisinopril 30 mg PO DAILY 06/03/20 01/17/21 History spironolactone 25 mg PO DAILY 06/03/20 01/17/21 History venlafaxine 150 mg PO DAILY 06/03/20 01/17/21 History acetaminophen 500 mg PO Q6H PRN 12/16/20 01/17/21 History ascorbic acid (vitamin C) [Vitamin 500 mg PO DAILY 12/16/20 01/17/21 History C] cholecalciferol (vitamin D3) 50 mcg PO DAILY 12/16/20 01/17/21 History [Vitamin D3] clopidogrel 75 mg PO DAILY 12/16/20 01/17/21 History furosemide 20 mg PO DAILY 12/16/20 01/17/21 History metoprolol succinate 50 mg PO DAILY 12/16/20 01/17/21 History wbkrpgir-swd-lvmd-FA-lutein 1 tablet PO DAILY 12/16/20 01/17/21 History [[employer] [place] Women] omega 6-xch-nab-fish oil [Fish Oil] 1 cap PO DAILY 12/16/20 01/17/21 History vitamin E 400 unit PO DAILY 12/16/20 01/17/21 History Laboratory Tests 02/03/21 02/03/21 02/03/21 04:17 04:17 04:17 WBC 20.8 K/mm3 H K/mm3 (4.5-10.0) RBC 2.52 M/mm3 L M/mm3 (4.2-5.4) Hgb 7.5 g/dL L g/dL (12.0-15.0) Hct 22.7 % L % (37.0-47.0) MCV 90.1 fl fl (80-100) MCH 29.8 pg pg (26-34) MCHC 33.0 g/dl g/dl (32-36) RDW 15.3 % H % (11.5-14.5) Plt Count 342 k/mm3 k/mm3 (150-375) MPV 11.6 fl H fl (7.4-10.4) APTT Puncture Site ABG pH ABG pCO2 ABG pO2 ABG PO2/FiO2 Ratio ABG HCO3 ABG O2 Saturation ABG O2 Content ABG Base Excess A-a Gradient Oxyhemoglobin Carboxyhemoglobin Methemoglobin Reduced Hemoglobin Total Hemoglobin O2 Delivery Device O2 Liters/Min Minute Volume Vent Rate Vent Mode FiO2 Tidal Volume PEEP Peak Inspir Pressure Pressure Support Sodium 135 mmol/L L mmol/L (137-145) Potassium 4.4 mmol/L mmol/L (3.4-5.0) Chloride 98 mmol/L mmol/L (98-107) Carbon Dioxide 25 mmol/L mmol/L (22-30) Anion Gap 12 mmol/L mmol/L (8-16) BUN 111 mg/dL H mg/dL (7-17) Creatinine 3.90 mg/dL H mg/dL 3.90 mg/dL H mg/dL (0.7-1.0) (0.7-1.0) Estim Creat Clear Calc 11 ml/min ml/min 11 ml/min ml/min Estimated GFR 11 L 11 L (59 - ) (59 - ) Glucose 123 mg/dL H mg/dL (65-105) Calcium 9.3 mg/dL mg/dL (8.4-10.2) Magnesium 2.5 mg/dL H mg/dL (1.6-2.3) 02/03/21 02/03/21 02/03/21 04:17 04:19 13:07 WBC RBC Hgb Hct MCV MCH MCHC RDW Plt Count
--- NOTE | 2021-02-03 17:27 | WPDGIPROGNO ---
Progress Note: A&P Assessment and Plan (1) Dysphagia: Code(s): R13.10 - Dysphagia, unspecified Status: Acute Assessment and Plan: g-tube placed Wednesday because unable to wean off respirator, she is tolerating tube feeding- please call if questions (2) Respiratory failure: Code(s): J96.90 - Respiratory failure, unspecified, unspecified whether with hypoxia or hypercapnia Status: Acute Assessment and Plan: plan is tracheostomy tomorrow (3) DEBRA (acute kidney injury): Code(s): N17.9 - Acute kidney failure, unspecified Status: Acute Assessment and Plan: worsening renal failure, nephrology on board may need also dialysis (4) Non-ST elevation [place] (NSTEMI): Code(s): I21.4 - Non-ST elevation (NSTEMI) myocardial infarction Status: Acute (5) S/P TAVR (transcatheter aortic valve replacement): Code(s): Z95.2 - Presence of prosthetic heart valve Status: Chronic Subjective Date/time seen: 02/03/21 17:27 Interval history: noted worsening renal failure, still intubated. She is tolerating feeding by G-tube Review of Systems Review of Systems: All systems reviewed & are unremarkable except as noted in HPI and below Exam Const: Nutritional Appearance: obese Other: Patient intubated with eyes closed on exam. She opens eyes to her name and was able to track. HENMT: Head: normocephalic and atraumatic Mouth: Yes other (ET tube) Eyes: Sclera: sclerae normal Pupils: Equal, round and reactive pupils present Neck: Neck: normal visual inspection and supple Chest: Chest palpation & inspection: normal inspection of the chest Resp: Effort & Inspection: other (on mechanical ventilator) Auscultation: diminished lung sounds Cardio: Rate: regular rate Rhythm: regular rhythm GI: Inspection: non-distended GI Palp: Yes Soft to palpation and No Rigid due to palpation Auscultation: normal bowel sounds Rectal Exam: deferred Other: Gastrostomy tube in place with tube feedings Skin: General skin exam: normal color Neuro: Other: Limited due to ET tube and mental status. Did not follow simple commands on my exam. Extrem: General: normal to inspection and edema bilateral (lower extremities) Psych: Insight: Limited insight present (Psych) and Poor insight present (Psych) Judgement: Limited judgement present (Psych) and Poor judgement present (Psych) Objective Data Vital Signs Vital Signs: Vital Signs - 24 hr 02/02/21 18:00 02/02/21 19:00 02/02/21 20:00 Temperature 97.5 F L Pulse Rate 84 84 71 Respiratory Rate 31 H 24 H 19 Blood Pressure 108/52 L 114/64 103/45 L Pulse Oximetry 95 95 95 02/02/21 20:12 02/02/21 20:36 02/02/21 22:08 Temperature Pulse Rate 76 91 86 Respiratory Rate 25 H 28 H Blood Pressure Pulse Oximetry 95 02/02/21 22:09 02/02/21 22:16 02/02/21 22:30 Temperature Pulse Rate 83 68 65 Respiratory Rate 19 Blood Pressure 128/65 Pulse Oximetry 93 95 02/02/21 23:02 02/02/21 23:31 02/03/21 00:00 Temperature 97.5 F L Pulse Rate 60 62 68 Respiratory Rate 16 17 23 H Blood Pressure 98/53 L Pulse Oximetry 97 99 02/03/21 01:27 02/03/21 01:50 02/03/21 02:00 Temperature Pulse Rate 66 66 77 Respiratory Rate 16 22 H Blood Pressure 121/56 L Pulse Oximetry 99 98 02/03/21 02:13 02/03/21 03:29 02/03/21 04:00 Temperature 97.7 F Pulse Rate 80 86 88 Respiratory Rate 21 H 24 H 24 H Blood Pressure 122/77 Pulse Oximetry 96 97 02/03/21 04:06 02/03/21 04:22 02/03/21 06:00 Temperature Pulse Rate 84 71 70 Respiratory Rate 21 H Blood Pressure 96/53 L Pulse Oximetry 97 100 02/03/21 07:55 02/03/21 08:00 02/03/21 10:00 Temperature 96.5 F L Pulse Rate 78 79 80 Respiratory Rate 21 H 24 H 21 H Blood Pressure 126/60 121/46 L Pulse Oximetry 97 95 98 02/03/21 10:37 02/03/21 10:50 02/03/21 11:26 Temperature Pulse Rate 90 78 Respiratory Rate Blood Pressure Pulse
[2021-02-03 19:29] LABS: Partial Thromboplastin Time > 200.0 SECONDS (22.3-36.8)
[2021-02-03] MEDS: MICONAZOLE NITRATE 2% VAGINAL CREAM 45 GM TUBE 1 APPFUL VAGINAL (20:45)
[2021-02-04] VITALS (53 sets, daily range): BP systolic 90–158; BP diastolic 31–137; PULSE 56–107; RESP 16–30; TEMP 35.5–36.8; O2SAT 93–100
[2021-02-04 01:36] LABS: Partial Thromboplastin Time 68.9 SECONDS (22.3-36.8)
[2021-02-04] MEDS: PROPOFOL IV EMULSION 100 ML 16.85 MG IV CONT ×2 (02:23→21:38)
[2021-02-04] MEDS: oxyCODONE (*CRX) 5 MG/5 ML ORAL SOLN IR PO ×3 (02:34→21:45)
[2021-02-04] MEDS: HEPARIN SOD/D5W 100 UNITS/ML 25,000 UNITS/250 ML BAG 10 UNITS IV CONT (02:34)
[2021-02-04] MEDS: METOPROLOL TARTRATE INJ 5 MG/5 ML VIAL 2.5 MG IV PUSH ×3 (04:15→21:42)
[2021-02-04] MEDS: CENTRAL LINE FLUSH 10 ML IV PUSH ×3 (04:16→21:42)
[2021-02-04 04:32] LABS: Mean Corpuscular HGB Conc 33.8 g/dl (32-36); Mean Corpuscular Hemoglobin 30.6 pg (26-34); Mean Corpuscular Volume 90.4 fl (80-100); Mean Platelet Volume 11.5 fl (7.4-10.4); Platelet Count Result 319 k/mm3 (150-375); Red Blood Count 2.29 M/mm3 (4.2-5.4); Red Cell Distribution Width 15.4 % (11.5-14.5); White Blood Count 17.9 K/mm3 (4.5-10.0)
[2021-02-04 04:47] LABS: Hematocrit 20.7 % (37.0-47.0)
[2021-02-04 05:04] LABS: Alanine Aminotransferase 35 U/L (4-35); Albumin Level 3.3 g/dL (3.5-5.1); Alkaline Phosphatase 69 U/L (38-126); Anion Gap 13 mmol/L (8-16); Aspartate Amino Transferase 27 U/L (14-36); Bilirubin,Total 0.3 mg/dL (0.2-1.3); Blood Urea Nitrogen 119 mg/dL (7-17); Calcium 9.1 mg/dL (8.4-10.2); Carbon Dioxide 25 mmol/L (22-30); Chloride 97 mmol/L (98-107); Estimated CRCL calculation 10 ml/min; Estimated Glomerular Filt Rate 10; Glucose 93 mg/dL (65-105); Magnesium 2.4 mg/dL (1.6-2.3); Potassium 4.4 mmol/L (3.4-5.0); Sodium 135 mmol/L (137-145)
--- NOTE | 2021-02-04 05:05 | PC.NURSE ---
Dr. Ried notified of low H&H. Dr. Reid also notified of blood clot in catheter, was flushed and now no longer bright red. Hold heparin drip starting now for surgery at 0900. Type and screen, give 1 unit PRBC.
[2021-02-04] MEDS: SODIUM CHLORIDE 0.9% IV 250 ML 30 ML IV CONT (07:19)
[2021-02-04] MEDS: PANTOPRAZOLE SODIUM IV 40 MG VIAL IV PUSH ×2 (07:22→21:42)
[2021-02-04] MEDS: MICONAZOLE NITRATE 2% CREAM 30 GM TUBE 1 APPLIC TOPICAL ×2 (07:22→21:40)
--- NOTE | 2021-02-04 07:37 | WPDHPUPDATE1 ---
History and Physical Update Update Date/Time: 02/04/21 07:37 History and Physical has been reviewed, including an updated exam of the patient. There are NO changes in the patient's condition. Risks, benefits, and alternatives have been discussed and questions answered. Patient agrees to proceed with procedure.
[2021-02-04] MEDS: PROPOFOL IV EMULSION 100 ML 11.23 MG IV CONT (08:11)
--- NOTE | 2021-02-04 08:22 | P.PNNP_ITS ---
Progress Note: A&P Assessment and Plan (1) DEBRA (acute kidney injury): Code(s): N17.9 - Acute kidney failure, unspecified Status: Acute Assessment and Plan: * had improved initially but now worsening for the last week * originally, multifactorial etiology: - contrast exposure x 2 (from CT scan of chest and cardiac catheterization) - previous IV diuresis/prerenal component - NSTEMI - use of DARYL-I/diuretics prior to admission * renal ultrasound without evidence of obstruction or masses * creatinine peaked/plateaued at 2.0mg/dl and then improved down to 1.1mg/dl * now, however, creatinine has been steadily rising in a stepwise pattern * trial of prednisone to see if this helps (possible AIN?) * suspect she will likely need dialysis (hopefully temporarily) - Surgery consulted for placement of PermCath - to be done today * will initiate dialysis following HD catheter placement (2) Acute respiratory failure with hypoxemia: Code(s): J96.01 - Acute respiratory failure with hypoxia Status: Acute Assessment and Plan: * due to pulmonary edema (flash pulmonary edema?) * on mechanical ventilation * unable to wean at this time * tracheostomy today (3) Non-ST elevation [place] (NSTEMI): Code(s): I21.4 - Non-ST elevation (NSTEMI) myocardial infarction Status: Acute Assessment and Plan: * s/p cardiac catheterizartion with stenting as noted * Cardiology following * continue supportive therapy (4) Encephalopathy: Code(s): G93.40 - Encephalopathy, unspecified Status: Acute Assessment and Plan: * Neurology following * EEG results noted * still on sedatives at times/PRN (5) S/P TAVR (transcatheter aortic valve replacement): Code(s): Z95.2 - Presence of prosthetic heart valve Status: Chronic Assessment and Plan: * valve appears to be functioning well by Echo * Cardiology following as well Will continue to follow. Subjective Date/time seen: 02/04/21 08:22 No real change noted -- remains intubated and sedated; plan is for tracheostomy and tunneled HD catheter placement later this AM; no events/issues overnight or earlier this AM; no apparent distress noted at the time of my visit. Exam Narrative: Exam Narrative: General: WD/WN female in NAD; intubated/sedated Heart: normal S1 and S2; no rub Lungs: clear anteriorly; decreased at bases Abdomen: soft, nontender, nondistended, positive bowel sounds Extremities: no cyanosis or clubbing; trace edema Skin: warm and dry Objective Data Vital Signs Vital Signs: Vital Signs Temp Pulse Resp BP Pulse Ox 02/04/21 08:11 74 21 H 02/04/21 08:00 36.4 C L 75 21 H 109/65 100 02/04/21 07:54 77 95 02/04/21 07:30 36.4 C L 72 21 H 106/51 L 94 02/04/21 07:14 36.4 C L 74 25 H 129/65 93 02/04/21 06:07 63 16 02/04/21 06:00 36.4 C 56 L 16 96/49 L 99 02/04/21 04:17 64 16 02/04/21 04:15 64 02/04/21 04:14 74 100 02/04/21 04:00 36.5 C 75 18 119/64 100 02/04/21 02:25 60 17 02/04/21 02:23 60 17 02/04/21 02:00 60 18 105/51 L 95 02/04/21 01:09 71 95 02/04/21 00:00 36.4 C L 77 23 H 123/74 97 02/03/21 23:48 76 19 97 02/03/21 23:05 80 25 H
--- NOTE | 2021-02-04 08:22 | PM.PNNEP ---
Progress Note: A&P Assessment and Plan (1) DEBRA (acute kidney injury): Code(s): N17.9 - Acute kidney failure, unspecified Status: Acute Assessment and Plan: had improved initially but now worsening for the last week originally, multifactorial etiology: - contrast exposure x 2 (from CT scan of chest and cardiac catheterization) - previous IV diuresis/prerenal component - NSTEMI - use of DARYL-I/diuretics prior to admission renal ultrasound without evidence of obstruction or masses creatinine peaked/plateaued at 2.0mg/dl and then improved down to 1.1mg/dl now, however, creatinine has been steadily rising in a stepwise pattern trial of prednisone to see if this helps (possible AIN?) suspect she will likely need dialysis (hopefully temporarily) - Surgery consulted for placement of PermCath - to be done today will initiate dialysis following HD catheter placement (2) Acute respiratory failure with hypoxemia: Code(s): J96.01 - Acute respiratory failure with hypoxia Status: Acute Assessment and Plan: due to pulmonary edema (flash pulmonary edema?) on mechanical ventilation unable to wean at this time tracheostomy today (3) Non-ST elevation [place] (NSTEMI): Code(s): I21.4 - Non-ST elevation (NSTEMI) myocardial infarction Status: Acute Assessment and Plan: s/p cardiac catheterizartion with stenting as noted Cardiology following continue supportive therapy (4) Encephalopathy: Code(s): G93.40 - Encephalopathy, unspecified Status: Acute Assessment and Plan: Neurology following EEG results noted still on sedatives at times/PRN (5) S/P TAVR (transcatheter aortic valve replacement): Code(s): Z95.2 - Presence of prosthetic heart valve Status: Chronic Assessment and Plan: valve appears to be functioning well by Echo Cardiology following as well Will continue to follow. Subjective Date/time seen: 02/04/21 08:22 No real change noted -- remains intubated and sedated; plan is for tracheostomy and tunneled HD catheter placement later this AM; no events/issues overnight or earlier this AM; no apparent distress noted at the time of my visit. Exam Narrative: Exam Narrative: General: WD/WN female in NAD; intubated/sedated Heart: normal S1 and S2; no rub Lungs: clear anteriorly; decreased at bases Abdomen: soft, nontender, nondistended, positive bowel sounds Extremities: no cyanosis or clubbing; trace edema Skin: warm and dry Objective Data Vital Signs Vital Signs: Vital Signs Temp Pulse Resp BP Pulse Ox 02/04/21 08:11 74 21 H 02/04/21 08:00 36.4 C L 75 21 H 109/65 100 02/04/21 07:54 77 95 02/04/21 07:30 36.4 C L 72 21 H 106/51 L 94 02/04/21 07:14 36.4 C L 74 25 H 129/65 93 02/04/21 06:07 63 16 02/04/21 06:00 36.4 C 56 L 16 96/49 L 99 02/04/21 04:17 64 16 02/04/21 04:15 64 02/04/21 04:14 74 100 02/04/21 04:00 36.5 C 75 18 119/64 100 02/04/21 02:25 60 17 02/04/21 02:23 60 17 02/04/21 02:00 60 18 105/51 L 95 02/04/21 01:09 71 95 02/04/21 00:00 36.4 C L 77 23 H 123/74 97 02/03/21 23:48 76 19 97 02/03/21 23:05 80 25 H 02/03/21 23:00 77 25 H 125/56 L 96 02/03/21 22:21 76 97 02/03/21 22:00 61 18 94/46 L 96 02/03/21 21:25 76 02/03/21 20:00 36.1 C L 81 24 H 111/66 98 02/03/21 19:56 83 23 H 02/03/21 19:31 80 96 02/03/21 19:29 77 19 97 02/03/21 18:15 60 16 02/03/21 18:00 60 16 93/47 L 98 02/03/21 16:50 68 94 02/03/21 16:44 81 02/03/21 16:00 36.4 C L 80 29 H 124/59 L 94 02/03/21 14:00 84 33 H 116/80 93 02/03/21 13:50 84 32 H 02/03/21 13:32 84 92 02/03/21 12:00 36.3 C L 78 22 H 121/65 93 02/03/21 11:26 78 95 Intake/Output Int
--- NOTE | 2021-02-04 08:25 | PM.IMPN ---
Progress Note: A&P Assessment and Plan (1) Sepsis: Code(s): A41.9 - Sepsis, unspecified organism Status: Acute Assessment and Plan: Pateint with soft BP and now with decreasing UOP and rising Cr. Concern for sepsis given the rising WBC. Levophed was added. Continue to closely monitor. WBC still high will continue current treatment. Monitor cultures. Repeat labs and chest x-ray. (2) Pneumonia: Code(s): J18.9 - Pneumonia, unspecified organism Status: Acute Assessment and Plan: Consider bacterial PNA - sputum growing Pseudomonas and yeast. Not terribly hypoxic making COVID less likely but not excluded. Rocephin changed to Cefepime and Vanco added 01/23/21. WBC peaked at 30K on 01/18/21 but trended down to 14K on 01/22. WBC climbed again so levaquin added 01/26; WBC peaked at 25.7K but back down today to 22K. On appropriate abx for the pseudomonas. Not covering the yeast but not felt to be causing a lower tract infection. Consider CDiff but not having diarrhea. Not on steroids and does not have CLL. CT Ch/A/P showing bilateral extensive PNA. Venous doppler of the left UE showing partial left basilic vein thrombosis the region of PICC catheter; already on Heparin. Follow. Appreciate automation application engineer and ID input. Will continue current treatment and monitor labs. Repeat chest x-ray. (3) Encephalopathy: Code(s): G93.40 - Encephalopathy, unspecified Status: Acute Assessment and Plan: CT brain 01/21 showing no acute findings. EEG 01/22 showing severely abnormal record due to the presence of bihemispheric theta and delta activity even during sleep without any paroxysmal discharge ,these abnormalities could be consistent with organic or metabolic encephalopathy. Possibility of hypoxic insult cannot be ruled out . Concern for HIE but patient has been showing some signs of improvement. Wean sedation as tolerated. Appreciate neurology and automation application engineer help. (4) Acute respiratory failure with hypoxemia: Code(s): J96.01 - Acute respiratory failure with hypoxia Status: Acute Assessment and Plan: Patient remains intubated but on minimal settings. Currently, IV Lasix on hold due to DEBRA. Sedation being adjusted. Continue to wean vent as tolerated. Appreciate help from automation application engineer. (5) Hyponatremia: Code(s): E87.1 - Hypo-osmolality and hyponatremia Status: Acute Assessment and Plan: Sodium has been low in the low 130's but dropped to 127 today. Concern for dehydration with decreased UOP and rising Cr. Repeat urine studies showing Sharon 27 and FENa 0.65%. Not fluid response but she was given a fluid bolus. Monitor fluid status. (6) CHF (congestive heart failure): Qualifiers: Heart failure type: diastolic Heart failure chronicity: acute Qualified Code(s): I50.31 - Acute diastolic (congestive) heart failure Code(s): I50.9 - Heart failure, unspecified Status: Acute Assessment and Plan: Patietn with acute pulmonary edema. Patient remains on ventilator as noted. 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 Lisinopril and Lasix on hold due to rising Cr. Cardiology and automation application engineer following. (7) Leukocytosis: Code(s): D72.829 - Elevated white blood cell count, unspecified Status: Acute Assessment and Plan: WBC climbing and Levaquin added 01/26. As above. (8) Non-ST elevation [place] (NSTEMI): Code(s): I21.4 - Non-ST elevation (NSTEMI) myocardial infarction Status: Acute Assessment and Plan: Cardiology following. Initial 2D echocardiogram at bedside with EF 55% along with mild hypokinesis of the mid and basal anterior wall and severe hypokinesis of the mid and basal inferolateral wall. ROMEL of 01/18/2021 with res
[2021-02-04 08:30] LABS: INR 1.1; Partial Thromboplastin Time 34.6 SECONDS (22.3-36.8)
--- NOTE | 2021-02-04 08:51 | PM.IMHP ---
H&P: HPI History of Present Illness Date/Time: 02/04/21 08:51 75 year old female with respiratory failure. Plan for OR for tracheostomy. Chief Complaint: Respiratory Failure Review of Systems Review of Systems: ROS unobtainable: Yes unobtainable due to endotracheal tube PMFSH Past Medical History Medical History Acute pulmonary edema Acute respiratory failure with hypoxemia DEBRA (acute kidney injury) Anxiety Arthritis Atrial fibrillation CHF (congestive heart failure) Dysphagia Encephalopathy Hypertension Non-ST elevation [place] (NSTEMI) Pneumonia Respiratory failure Sepsis Surgical History Surgical History History of bilateral knee replacement Hx of tonsillectomy S/P TAVR (transcatheter aortic valve replacement) Family History Family History Grandparent Hypertension Cerebrovascular accident Father Heart disease Social History Social History Smoking status: Never smoker Alcohol intake: never Substance use: never Substance use type: does not use Gender identity (if verbalized by the patient): Male Spiritual care concerns: No Meds Home Medications and Allergies Home Medications Medication Instructions Recorded Confirmed Type aspirin 81 mg PO DAILY 06/03/20 01/17/21 History calcitonin (salmon) 1 spray INTRANASAL DAILY 06/03/20 01/17/21 History lisinopril 30 mg PO DAILY 06/03/20 01/17/21 History spironolactone 25 mg PO DAILY 06/03/20 01/17/21 History venlafaxine 150 mg PO DAILY 06/03/20 01/17/21 History acetaminophen 500 mg PO Q6H PRN 12/16/20 01/17/21 History ascorbic acid (vitamin C) [Vitamin 500 mg PO DAILY 12/16/20 01/17/21 History C] cholecalciferol (vitamin D3) 50 mcg PO DAILY 12/16/20 01/17/21 History [Vitamin D3] clopidogrel 75 mg PO DAILY 12/16/20 01/17/21 History furosemide 20 mg PO DAILY 12/16/20 01/17/21 History metoprolol succinate 50 mg PO DAILY 12/16/20 01/17/21 History jmkthiha-suv-irma-FA-lutein 1 tablet PO DAILY 12/16/20 01/17/21 History [Centrum Silver Women] omega 8-kis-dnb-fish oil [Fish Oil] 1 cap PO DAILY 12/16/20 01/17/21 History vitamin E 400 unit PO DAILY 12/16/20 01/17/21 History Allergies Allergy/AdvReac Type Severity Reaction Status Date / Time hydromorphone Allergy Mild Itching Verified 01/17/21 05:55 morphine Allergy Mild Itching Verified 01/17/21 05:55 Vital Signs Vital Signs - 24 hr 02/03/21 10:00 02/03/21 10:37 02/03/21 10:50 Temperature Pulse Rate 80 90 Respiratory Rate 21 H Blood Pressure 121/46 L Pulse Oximetry 98 89 L 02/03/21 11:26 02/03/21 12:00 02/03/21 13:32 Temperature 36.3 C L Pulse Rate 78 78 84 Respiratory Rate 22 H Blood Pressure 121/65 Pulse Oximetry 95 93 92 02/03/21 13:50 02/03/21 14:00 02/03/21 16:00 Temperature 36.4 C L Pulse Rate 84 84 80 Respiratory Rate 32 H 33 H 29 H Blood Pressure 116/80 124/59 L Pulse Oximetry 93 94 02/03/21 16:44 02/03/21 16:50 02/03/21 18:00 Temperature Pulse Rate 81 68 60 Respiratory Rate 16 Blood Pressure 93/47 L Pulse Oximetry 94 98 02/03/21 18:15 02/03/21 19:29 02/03/21 19:31 Temperature Pulse Rate 60 77 80 Respiratory Rate 16 19 Blood Pressure Pulse Oximetry 97 96 02/03/21 19:56 02/03/21 20:00 02/03/21 21:25 Temperature 36.1 C L Pulse Rate 83 81 76 Respiratory Rate 23 H 24 H Blood Pressure 111/66 Pulse Oximetry 98 02/03/21 22:00 02/03/21 22:21 02/03/21 23:00 Temperature Pulse Rate 61 76 77 Respiratory Rate 18 25 H Blood Pressure 94/46 L 125/56 L Pulse Oximetry 96 97 96 02/03/21 23:05 02/03/21 23:48 02/04/21 00:00 Temperature 36.4 C L Pulse Rate 80 76 77 Respiratory Rate 25 H 19 23 H Blood Pressure 123/74 Pulse Oximetry 97 97 02/04/21 01:09 02/04/21 02:00
--- NOTE | 2021-02-04 08:53 | WPDHPUPDATE1 ---
History and Physical Update Update Date/Time: 02/04/21 08:53 History and Physical has been reviewed, including an updated exam of the patient. There are NO changes in the patient's condition. Risks, benefits, and alternatives have been discussed and questions answered. Patient agrees to proceed with procedure.
--- NOTE | 2021-02-04 08:58 | WPDINTPN ---
Progress Note: A&P Assessment and Plan (1) Acute respiratory failure: Code(s): J96.00 - Acute respiratory failure, unspecified whether with hypoxia or hypercapnia Status: Acute Assessment and Plan: Acute Respiratory failure secondary to pulmonary edema and pneumonia as patient had elevated white count and does show some areas consolidation on CT which could be atelectasis from effusion although CT mostly suggest pulmonary edema and effusions Continue full mechanical ventilation support to prevent hypoxemia/hypercarbia and end organ damage. ABGs reviewed, currently on 35% FiO2 and peep of 5 Chest x-ray reviewed Patient has failed daily weaning trial daily due to high RSBI. she had adequate RSBI on pressure support ventilation of 08/17 and even on that patient twice went to AFib with RVR due to respiratory distress ENT has been consulted for tracheostomy per discussion with patient's and nephew . Tracheostomy scheduled for 02/04 Completed cefepime (initiated on 01/22/2021) and levaquin (initiated on 01/27/21) through 02/02 to complete 10 day course of antibiotics Vancomycin was discontinued as blood cultures were negative and no MRSA in the sputum COVID PCR came back negative (2) DEBRA (acute kidney injury): Code(s): N17.9 - Acute kidney failure, unspecified Status: Acute Assessment and Plan: Likely multifactorial as patient was being diuresed for pulmonary edema and also received contrast with cardiac catheterization, infection/sepsis, hypotension. Monitor in electrolytes and urine output Creatinine initially had plateaued but now it is worsening again. Creatinine 4.40 Patient still has is producing decent amount of urine but likely will need hemodialysis She was started on steroids for suspected interstitial nephritis by Nephrology on 02/01 Continue to hold further diuresis. Repeat kidney ultrasound was unremarkable Continue per tube bicarb to treat the metabolic acidosis but will decrease dose Patient to get a PermCath for hemodialysis today on 02/04 by surgery. Appreciate nephrology following the patient (3) Hyperkalemia: Code(s): E87.5 - Hyperkalemia Status: Acute Assessment and Plan: Improved with bicarb insulin D50 and Kayexalate Continue to monitor (4) Pneumonia: Code(s): J18.9 - Pneumonia, unspecified organism Status: Acute Assessment and Plan: Since Pseudomonas pneumonia, sputum cultures growing Pseudomonas castellanos susceptible -status post cefepime and Levaquin -CT scan of the chest on 01/26/2021 showed extensive bilateral pneumonia, mild bilateral pleural effusion, cardiomegaly, status post cholecystectomy, status post hysterectomy Infectious disease is following (5) Acute pulmonary edema: Code(s): J81.0 - Acute pulmonary edema Status: Acute Assessment and Plan: Persistent bilateral infiltrates and opacities Diuresis on hold due to worsening renal function (6) CHF (congestive heart failure): Qualifiers: Heart failure type: diastolic Heart failure chronicity: acute Qualified Code(s): I50.31 - Acute diastolic (congestive) heart failure Code(s): I50.9 - Heart failure, unspecified Status: Acute Assessment and Plan: ECHO Summary 1. Complete two-dimensional, color flow and Doppler transthoracic echocardiogram is performed. 2. There is moderate concentric increased left ventricular wall thickness. 3. Left ventricular systolic function is normal, estimated at 60-65%. 4. No wall-motion abnormalities. 5. Left atrial chamber dimension is moderately enlarged. 6. There is no regurgitation of the TAVR aortic valve. 7. Minimal normal transvalvular gradient. (7) Non-ST elevation [place] (NSTEMI): Code(s): I21.4 - Non-ST elevation (NSTEMI) myocardial infarction Status: Acute Assessment and Plan: Secondary to thrombus. Patient underwent PCI and had to MARIAN x 2 placed in circumf
--- NOTE | 2021-02-04 09:10 | PC.NURSE ---
To OR per bed, for tracheostomy and dialysis catheter placement. IV propofol infusing at 20mcg/kg/min.
--- NOTE | 2021-02-04 09:14 | WPDANESEFPP ---
Anes - Eval Final PreProcedure Day of Procedure 02/04/21 09:14 Patient weight: morbidly obese Heart: regular rate and rhythm Lungs: decreased breath sounds Airway: other (intubated) Neurological: unresponsive Last oral intake: >/= 8 hours ASA classification: IV Emergent: no Anesthetic plan: proceed Anesthesia type and monitoring: general and standard monitoring Informed Consent: The patient's anesthetic plan and its attendant risks and benefits were discussed with the patient/family/POA. Questions were solicited and answers provided to the satisfaction of the patient/family/POA.
[2021-02-04] MEDS: LIDO 1%/EPINEPHRINE 1:100,000 50 ML VIAL INFILTRATE (09:39)
[2021-02-04] MEDS: ceFAZolin SODIUM 1 GM VIAL 2 GM IV PUSH (09:44)
[2021-02-04] MEDS: HEPARIN SODIUM 5,000 UNITS/ML VIAL 5000 UNITS IRRIGATION (09:46)
[2021-02-04] MEDS: LIDO 1%/EPINEPHRINE 1:100,000 50 ML VIAL 20 ML INFILTRATE (09:48)
--- NOTE | 2021-02-04 10:08 | PM.PROC ---
Procedure Note - Detailed Date of procedure: 02/04/21 Pre-op diagnosis: nstemi Respiratory Failure Post-op diagnosis: same Procedure performed: Tracheostomy Description of procedure: The patient was correctly identified and consent was verified in her ICU room. Date on the consent was change to the appropriate date myself and a witness initial this. Patient was brought to the operating room and a time-out performed. General anesthesia was induced and endotracheal tube was loosened which was already in the patient's airway. Anesthesia was deepened. The patient was prepped and draped for the aforementioned procedure. 3 cc of 1% lidocaine with 1 100,000 parts epinephrine was injected deep to a preacher on surgical incision below the cricoid which was palpable. Fifteen blade was utilized to make a skin incision. Bovie electrocautery as well as some blunt dissection was utilized to dissect down to the level of the cricoid and trachea. These structures were easily identified. Cricoid hook was placed elevating the laryngeal framework. An incision was made between tracheal rings 2 and 3. Anesthesia slowly remove their endotracheal tube until the tip was no longer visible in the tracheotomy. A 7 proximal cuffed XLT trach was placed. Anesthesia confirmed end-tidal CO2 and appropriate placement. The [employer] use as well as cricoid were removed and 4 corner silk 3 0 trach sutures were placed. Drain sponge was placed. Velcro trach ties were placed. Hemostasis was excellent. Blood loss approximately 1-5 cc. I performed all dictated portions of the procedure. Care of the patient was turned over to Anesthesiology. Anesthesia: GETA Surgeon: Young Peacock MD Estimated blood loss (mL): 5 Drains: No Packing: No Pathology: none sent Complications: No immediate complications Condition: stable Disposition: ICU Findings: Seven proximal XLT cuffed trach placed between rings 2 and 3
[2021-02-04 10:23] LABS: Hepatitis B Surface Anti Res Negative
[2021-02-04] MEDS: HEPARIN SODIUM, PORCINE 10,000 UNITS/10 ML VIAL 4000 UNITS IV PUSH (10:24)
--- NOTE | 2021-02-04 10:34 | P.OP_ITS ---
Procedure Note - Detailed Date of procedure: 02/04/21 Pre-op diagnosis: Acute kidney failure, NSTEMI Post-op diagnosis: same Procedure performed: Right internal jugular Tunneled Dialysis Catheter placement using ultrasound and fluoroscopic guidance Description of procedure: * Procedure as well as risks, benefits, and alternatives were discussed with patient's family. Written consent was obtained and placed in chart prior to procedure. Patient was brought back to surgical suite. Placed supine on operating table. Time-out was done confirm patient procedure. General sedation was then administered by the Anesthesia Department. Her chest and neck area was prepped and draped in sterile fashion using chlorhexidine prep. Patient was placed in Trendelenburg position. SonoSite ultrasound was used to identify the right internal jugular vein. It was visualized as a compressible vessel just lateral to the carotid artery. 1% lidocaine with epinephrine was infiltrated directly over the vessel under ultrasound guidance. An 18 gauge introducer needle was then advanced under ultrasound guidance directly into the right internal jugular vein. Dark nonpulsatile blood was aspirated. A 0.035 in guidewire was then advanced through the needle under fluoroscopic guidance. The guidewire was visualized advancing all the way down into the superior vena cava. 1% lidocaine with epinephrine was then infiltrated on the right anterior chest and along the tract up to the guidewire insertion site. A 5 mm incision was made with a 15 blade scalpel. A small jovana incision was then also made at the insertion site at the neck. The tunneler was then advanced from the chest incision up to the neck incision and the catheter tubing was brought up through this tract. The dilator and sheath were then advanced over the guidewire under fluoroscopic visualization. The dilator and guidewire were then removed leaving the sheath in place. The catheter tubing was then advanced through the sheath under fluoroscopic guidance. The sheath was unsnapped and carefully peeled away. The catheter tubing was released underneath the neck incision. Fluoroscopy was used to confirm proper placement of the catheter tubing and no kinks along its path. The catheter was then hep-locked with Hep-Lock solution. The skin of the incisions was then approximated using 4-0 Monocryl subcuticular suture. Exofin glue was then applied at the neck incision and 2x2 gauze and Tegaderm drassing applied at the chest. The patient was then awakened from anesthesia and transferred to recovery. Implants: 24 cm Duraflow2 Dialysis Catheter Anesthesia: GETA and local (1% lidocaine with epinephrine) Surgeon: Toi Soto DO Estimated blood loss (mL): 10 Complications: No immediate complications Condition: stable Disposition: ICU Findings: * Ultrasound guidance was used to identify the right internal jugular vein. This was visualized as a compressible vessel just lateral to the carotid artery. The 18 gauge introducer needle was advanced under ultrasound guidance directly into the lumen of the internal jugular vein. Fluoroscopy was then used to guide advancement of the guidewire followed by the dilators and sheath. Final fluoroscopic images demonstrated the catheter tip in the distal SVC and no kinks along its path. Chest x-ray was pending to confirm placement.
--- NOTE | 2021-02-04 10:43 | PCDIET ---
Nutrition Follow-Up Complete: Nutrition Diagnosis: Inadequate oral intake related to oral intubation as evidenced by need for tube feeding. Nutrition Goal: Patient to meet estimated nutritional needs. Goal in progress. Patient currently NPO and off unit for placement of dialysis catheter and tracheostomy. Previously tolerating Nepro at 30mL/hr. Last recorded weight is 95 kg which is stable with last review. +I/O. Bowel Motility: BM x 3 on 02/03/21. Labs Reviewed: WBC (17.9), Hgb (7.0), Hct (20.7), BUN (111), Cr (4.4), Na (135), Alb (3.3), Mg (2.4) Meds Noted: Lipitor, Epogen, Sodium Bicarbonate, Fentanyl, Lopressor, Prednisone, Propofol (rate of 11.232mL/hr provides 296kcal per day) Additional Notes: No skin breakdown documented. Will continue to monitor with same goal. Nutrition Monitoring and Evaluation: Follow up every Wednesday/Wednesday. Follow daily in ICU rounds.
--- NOTE | 2021-02-04 11:00 | PC.NURSE ---
Returned from OR per bed.
[2021-02-04 11:30] LABS: Hepatitis B Surface Antigen Negative (Negative)
[2021-02-04 11:36] LABS: HAV RESULT Negative (Negative); Hepatitis B Core IgM Result Negative (Negative)
[2021-02-04] MEDS: predniSONE 20 MG TABLET PO (11:36)
[2021-02-04] MEDS: ATORVASTATIN 20 MG TABLET PO (11:36)
[2021-02-04] MEDS: SODIUM BICARBONATE TAB 650 MG TABLET 1300 MG PO ×2 (11:36→16:39)
[2021-02-04 16:10] LABS: Hepatitis C Virus Antibody Negative (Negative)
--- NOTE | 2021-02-04 16:48 | PM.PNCARD ---
Progress Note: A&P Assessment and Plan (1) Non-ST elevation [place] (NSTEMI): Code(s): I21.4 - Non-ST elevation (NSTEMI) myocardial infarction Status: Acute Assessment and Plan: Patient found to have occluded LCX, likely embolic event from the aortic valve prosthesis. Status post complex PCI/stenting. Continue dual antiplatelet therapy with aspirin and clopidogrel for now. Long-term, use single antiplatelet treatment with clopidogrel along with either apixaban or rivaroxaban. Post trach and PEG; will transition to long-term systemic anticoagulation such as Eliquis. Dose for patients with end-stage renal disease is not well defined but usually, based on age in weight, 5 mg b.i.d. will reduce dose if there is significant bleeding or drop in H&H. (2) Anemia: Code(s): D64.9 - Anemia, unspecified Status: Acute Assessment and Plan: H&H stable. Continue to monitor closely. (3) Atrial fibrillation: Code(s): I48.91 - Unspecified atrial fibrillation Status: Acute Assessment and Plan: New onset AFib with RVR self-limited. Added metoprolol 2.5 mg IV Q 6 hours as BP but will change to metoprolol tartrate 12.5 mg b.i.d.. Continue to monitor for recurrence. (4) Sepsis: Code(s): A41.9 - Sepsis, unspecified organism Status: Acute Assessment and Plan: HCAP. Antibiotics per ID service. (5) Acute respiratory failure: Code(s): J96.00 - Acute respiratory failure, unspecified whether with hypoxia or hypercapnia Status: Acute Assessment and Plan: Per ciritical care. Intubated, wean as tolerated. Plan trach due to inability to wean. (6) S/P TAVR (transcatheter aortic valve replacement): Code(s): Z95.2 - Presence of prosthetic heart valve Status: Chronic Assessment and Plan: No definite vegetation or thrombus reported on ROMEL. Normal valve function. (7) Acute pulmonary edema: Code(s): J81.0 - Acute pulmonary edema Status: Acute Assessment and Plan: Resolved. Patient remains intubated. Continue to wean vent support as appropriate. On IV abx. (8) Hypertension: Code(s): I10 - Essential (primary) hypertension Status: Acute Assessment and Plan: Currently taking metoprolol IVP. Will change to 12.5 mg per G-tube b.i.d.. (9) DEBRA (acute kidney injury): Code(s): N17.9 - Acute kidney failure, unspecified Status: Acute Assessment and Plan: Worsened; started dialysis 02/04/2021. (10) Encephalopathy: Code(s): G93.40 - Encephalopathy, unspecified Status: Acute Assessment and Plan: Improving. Subjective Date/time seen: 02/04/21 16:48 Interval history: 75-year-old female with: Acute embolic myocardial infarction to the circumflex artery on presentation due to embolic event from the recently implanted TAVR valve. Also: Respiratory failure, CHF, pneumonia, acute kidney failure. 02/02/2021: Patient remains hemodynamically stable in the ICU still intubated and plans for tracheostomy on Wednesday or Wednesday of this coming week. Date of service 02/04/2021: Patient had her tracheostomy and hemodialysis catheter placed this morning, getting dialysis now. Has been off of her heparin for these procedures and deemed okay to start Eliquis today by her surgeons. G-tube placed last Wednesday. Telemetry shows sinus rhythm and sinus tachycardia. Somewhat hypertensive at the moment but she is on dialysis. Remains on propofol drip. Review of Systems Review of Systems: Narrative: Review of systems obtained from the patient's nurse Rosanna, and EMR ROS unobtainable: Yes unobtainable due to endotracheal tube, unobtainable due to medical condition and unobtainable due to mental status Constitutional: Constitutional: Reports weakness Eyes: Eyes: Reports no additional eye complaints ENT: Reports system reviewed and no additional complaints, except as docum
[2021-02-04 21:10] LABS: Hematocrit 25.5 % (37.0-47.0); Hemoglobin 8.6 g/dL (12.0-15.0); Mean Corpuscular HGB Conc 33.7 g/dl (32-36); Mean Corpuscular Hemoglobin 30.1 pg (26-34); Mean Corpuscular Volume 89.2 fl (80-100); Mean Platelet Volume 11.5 fl (7.4-10.4); Platelet Count Result 300 k/mm3 (150-375); Red Blood Count 2.86 M/mm3 (4.2-5.4); Red Cell Distribution Width 15.3 % (11.5-14.5)
[2021-02-04 21:26] LABS: Anion Gap 9 mmol/L (8-16); Blood Urea Nitrogen 57 mg/dL (7-17); Calcium 9.4 mg/dL (8.4-10.2); Carbon Dioxide 26 mmol/L (22-30); Chloride 102 mmol/L (98-107); Estimated CRCL calculation 17 ml/min; Estimated Glomerular Filt Rate 18; Glucose 131 mg/dL (65-105); Phosphorus 6.2 mg/dL (2.5-4.5); Potassium 4.7 mmol/L (3.4-5.0); Sodium 137 mmol/L (137-145)
[2021-02-04] MEDS: MICONAZOLE NITRATE 2% VAGINAL CREAM 45 GM TUBE 1 APPFUL VAGINAL (21:40)
[2021-02-04] MEDS: APIXABAN 5 MG TABLET PO (21:40)
[2021-02-05] VITALS (40 sets, daily range): BP systolic 101–137; BP diastolic 37–104; PULSE 71–111; RESP 16–40; TEMP 36.4–37.3; O2SAT 91–100
[2021-02-05 00:14] LABS: Glucose Point of Care 115 mg/dl (65-105)
[2021-02-05 04:28] LABS: Hematocrit 24.8 % (37.0-47.0); Hemoglobin 8.2 g/dL (12.0-15.0); Mean Corpuscular HGB Conc 33.1 g/dl (32-36); Mean Corpuscular Hemoglobin 30.1 pg (26-34); Mean Corpuscular Volume 91.2 fl (80-100); Mean Platelet Volume 11.5 fl (7.4-10.4); Platelet Count Result 294 k/mm3 (150-375); Red Blood Count 2.72 M/mm3 (4.2-5.4); Red Cell Distribution Width 15.7 % (11.5-14.5); White Blood Count 19.9 K/mm3 (4.5-10.0)
[2021-02-05 04:43] LABS: Anion Gap 12 mmol/L (8-16); Blood Urea Nitrogen 64 mg/dL (7-17); Calcium 9.2 mg/dL (8.4-10.2); Carbon Dioxide 24 mmol/L (22-30); Chloride 103 mmol/L (98-107); Estimated CRCL calculation 15 ml/min; Estimated Glomerular Filt Rate 15; Glucose 101 mg/dL (65-105); Magnesium 2.2 mg/dL (1.6-2.3); Phosphorus 7.1 mg/dL (2.5-4.5); Potassium 4.5 mmol/L (3.4-5.0); Sodium 139 mmol/L (137-145)
[2021-02-05 05:08] LABS: Band Neutrophils Percent 6 % (0-6); Eosinophils Absolute Manual 0.19 K/mm3 (0.02-0.5); Eosinophils Percent Manual 1 % (0-4); Lymphocytes Absolute Manual 2.38 K/mm3 (1.1-4.5); Monocytes Absolute Manual 0.99 K/mm3 (0.1-0.90); Monocytes Percent Manual 5 % (3-9); Neutrophils Absolute Manual 16.31 K/mm3 (1.7-7.2); Neutrophils Percent Manual 76 % (46-73); Platelet Estimate Adequate (Adequate); Total Cells Counted 100
[2021-02-05 05:10] LABS: Alveolar/Arterial O2 Gradient 115.2 mmHg; Base Excess ABG -0.5 mEq/l (+/-2.0); Device VENTILATOR; Fractional Inspired Oxygen 35 %; HCO3 ABG 23.2 mEq/l (22.0-26.0); Modified Allen's Test Pass; Oxygen Content ABG 12.6 %vol (16.0-22.0); Oxygen Saturation ABG 97.6 % (95.0-100.0); Oxyhemoglobin 95.2 % THb (90.0-100.0); PCO2 ABG 34.2 mmHg (35.0-45.0); PO2 ABG 94.6 mmHg (80.0-100.0); Site Drawn LEFT RADIAL; Total Hemoglobin 9.3 g/dL (12.0-18.0); pH ABG 7.449 (7.350-7.450)
[2021-02-05 05:11] LABS: Arterial Blood Gas PEEP 5 cmH2O; Arterial Blood Gas Tidal Volume 360 ml; Arterial Blood Gas Vent Mode CMV; Arterial Blood Gas Ventilator rate 16 /MIN
[2021-02-05] MEDS: oxyCODONE (*CRX) 5 MG/5 ML ORAL SOLN IR PO ×4 (05:42→20:01)
[2021-02-05] MEDS: CENTRAL LINE FLUSH 10 ML IV PUSH ×3 (05:42→22:28)
--- NOTE | 2021-02-05 08:23 | WPDINTPN ---
Progress Note: A&P Assessment and Plan (1) Acute respiratory failure: Code(s): J96.00 - Acute respiratory failure, unspecified whether with hypoxia or hypercapnia Status: Acute Assessment and Plan: Acute Respiratory failure secondary to pulmonary edema and pneumonia as patient had elevated white count and does show some areas consolidation on CT which could be atelectasis from effusion although CT mostly suggest pulmonary edema and effusions Continue full mechanical ventilation support to prevent hypoxemia/hypercarbia and end organ damage. ABGs reviewed, currently on 35% FiO2 and peep of 5 Chest x-ray reviewed Tracheostomy placed on 02/04/2021 PEG tube placed on 01/31/2021 Completed cefepime (initiated on 01/22/2021) and levaquin (initiated on 01/27/21) through 02/02 to complete 10 day course of antibiotics Vancomycin was discontinued as blood cultures were negative and no MRSA in the sputum COVID PCR came back negative (2) DEBRA (acute kidney injury): Code(s): N17.9 - Acute kidney failure, unspecified Status: Acute Assessment and Plan: Likely multifactorial as patient was being diuresed for pulmonary edema and also received contrast with cardiac catheterization, infection/sepsis, hypotension. Monitor in electrolytes and urine output Creatinine initially had improved but worsened , dialysis catheter was placed on 02/04/2025 and patient started on dialysis Continues to make urine She was started on steroids for suspected interstitial nephritis by Nephrology on 02/01 Continue to hold further diuresis. Repeat kidney ultrasound was unremarkable Decrease bicarb per tube, will discuss with Nephrology regarding discontinuation has not patient will be receiving dialysis (3) Hyperkalemia: Code(s): E87.5 - Hyperkalemia Status: Acute Assessment and Plan: Improved with bicarb insulin D50 and Kayexalate Continue to monitor (4) Pneumonia: Code(s): J18.9 - Pneumonia, unspecified organism Status: Acute Assessment and Plan: Since Pseudomonas pneumonia, sputum cultures growing Pseudomonas castellanos susceptible -status post cefepime and Levaquin -CT scan of the chest on 01/26/2021 showed extensive bilateral pneumonia, mild bilateral pleural effusion, cardiomegaly, status post cholecystectomy, status post hysterectomy Infectious disease is following (5) Acute pulmonary edema: Code(s): J81.0 - Acute pulmonary edema Status: Acute Assessment and Plan: Persistent bilateral infiltrates and opacities Now on dialysis (6) CHF (congestive heart failure): Qualifiers: Heart failure type: diastolic Heart failure chronicity: acute Qualified Code(s): I50.31 - Acute diastolic (congestive) heart failure Code(s): I50.9 - Heart failure, unspecified Status: Acute Assessment and Plan: ECHO Summary 1. Complete two-dimensional, color flow and Doppler transthoracic echocardiogram is performed. 2. There is moderate concentric increased left ventricular wall thickness. 3. Left ventricular systolic function is normal, estimated at 60-65%. 4. No wall-motion abnormalities. 5. Left atrial chamber dimension is moderately enlarged. 6. There is no regurgitation of the TAVR aortic valve. 7. Minimal normal transvalvular gradient. (7) Non-ST elevation [place] (NSTEMI): Code(s): I21.4 - Non-ST elevation (NSTEMI) myocardial infarction Status: Acute Assessment and Plan: Secondary to thrombus. Patient underwent PCI and had to MARIAN x 2 placed in circumflex likely due to acute thrombotic occlusion ROMEL on 01/18/2021: Preserved LV systolic function with motion abnormalities as noted Stable, intact bioprosthetic aortic valve with preserved leaflet excursion of those visualized with suggestion of faint subvalvular thin filamentous mobile echodensity unable to further characterize. Appreciate cardiology following the patient, continue Plav
[2021-02-05] MEDS: APIXABAN 5 MG TABLET PO ×2 (08:41→20:00)
[2021-02-05] MEDS: METOPROLOL TARTRATE 12.5 MG TABLET FEED TUBE ×2 (08:41→20:00)
[2021-02-05] MEDS: ASPIRIN 81 MG CHEWABLE TABLET PO (08:41)
[2021-02-05] MEDS: PANTOPRAZOLE SODIUM IV 40 MG VIAL IV PUSH ×2 (08:42→20:01)
[2021-02-05] MEDS: CLOPIDOGREL BISULFATE 75 MG TABLET PO (08:42)
[2021-02-05] MEDS: ATORVASTATIN 20 MG TABLET PO (08:42)
[2021-02-05] MEDS: predniSONE 20 MG TABLET PO (08:42)
[2021-02-05] MEDS: MICONAZOLE NITRATE 2% CREAM 30 GM TUBE 1 APPLIC TOPICAL ×2 (08:43→20:01)
[2021-02-05] MEDS: SODIUM BICARBONATE TAB 650 MG TABLET PO ×2 (08:53→16:23)
[2021-02-05] MEDS: PROPOFOL IV EMULSION 100 ML 8.42 MG IV CONT (09:44)
--- NOTE | 2021-02-05 10:26 | WPDANESPN ---
Anes - Prog Note Post-Op Date/Time: 02/05/21 10:26 Cardiovascular status: normal Respiratory status: other (trach/vent) Airway patency: other (trach) Mental status: other (sedate) Post-Op hydration status: normal Vital Signs: Last Vital Signs Temp 36.9 C 02/05/21 09:21 Pulse 86 02/05/21 10:15 Resp 27 H 02/05/21 09:44 BP 111/98 H 02/05/21 10:15 Pulse Ox 97 02/05/21 09:21 Pain Score (VAS): 0 I/O: Intake & Output 02/04/21 02/05/21 02/05/21 23:59 07:59 15:59 Intake Total 315 440 100 Output Total 1050 350 Balance -735 90 100 Laboratory Tests 02/05/21 04:16 02/05/21 04:16 02/04/21 02/04/21 02/04/21 04:24 20:58 20:58 WBC 21.0 H RBC 2.86 L Hgb 8.6 L Hct 25.5 L MCV 89.2 MCH 30.1 MCHC 33.7 RDW 15.3 H Plt Count 300 MPV 11.5 H Immature Gran % (Auto) Neut % (Auto) Lymph % (Auto) Jackson % (Auto) Eos % (Auto) Baso % (Auto) Lymph # (Auto) Jackson # (Auto) Eos # (Auto) Baso # (Auto) Abs Immat Gran (auto) Absolute Neuts (auto) Absolute Nucleated RBC Total Counted Neutrophils % (Manual) Band Neutrophils % Lymphocytes % (Manual) Monocytes % (Manual) Eosinophils % (Manual) Nucleated RBC % Abs Neuts (Manual) Abs Lymphs (Manual) Abs Monocytes (Manual) Absolute Eos (Manual) Platelet Estimate Puncture Site ABG pH ABG pCO2 ABG pO2 ABG PO2/FiO2 Ratio ABG HCO3 ABG O2 Saturation ABG O2 Content ABG Base Excess A-a Gradient Oxyhemoglobin Total Hemoglobin O2 Delivery Device O2 Liters/Min Minute Volume Vent Rate Vent Mode FiO2 Tidal Volume PEEP Peak Inspir Pressure Pressure Support Sodium 137 Potassium 4.7 Chloride 102 Carbon Dioxide 26 Anion Gap 9 BUN 57 H D Creatinine 2.60 H Estim Creat Clear Calc 17 Estimated GFR 18 L Glucose 131 H POC Capillary Glucose Calcium 9.4 Phosphorus 6.2 H Magnesium 2.0 Hepatitis A IgM Ab Negative Hep Bs Antigen Negative Hep B Core IgM Ab Negative Hepatitis C Ab Screen Negative SARS-CoV-2 RNA (RT-PCR) 02/05/21 02/05/21 02/05/21 00:12 04:16 04:16 WBC 19.9 H RBC 2.72 L Hgb 8.2 L Hct 24.8 L MCV 91.2 MCH 30.1 MCHC 33.1 RDW 15.7 H Plt Count 294 MPV 11.5 H Immature Gran % (Auto) Not Reportable Neut % (Auto) Not Reportable Lymph % (Auto) Not Reportable Jackson % (Auto) Not Reportable Eos % (Auto) Not Reportable Baso % (Auto) Not Reportable Lymph # (Auto) Not Reportable Jackson # (Auto) Not Reportable Eos # (Auto) Not Reportable Baso # (Auto) Not Reportable Abs Immat Gran (auto) Not Reportable Absolute Neuts (auto) Not Reportable Absolute Nucleated RBC Not Reportable Total Counted 100 Neutrophils % (Manual) 76 H Band Neutrophils % 6 Lymphocytes % (Manual) 12.0 L Monocytes % (Manual) 5 Eosinophils % (Manual) 1 Nucleated RBC % Not Reportable Abs Neuts (Manual) 16.31 H Abs Lymphs (Manual) 2.38 Abs Monocytes (Manual) 0.99 H Absolute Eos (Manual) 0.19 Platelet Estimate Adequate Puncture Site ABG pH ABG pCO2 ABG pO2 ABG PO2/FiO2 Ratio ABG HCO3 ABG O2 Saturation ABG O2 Content ABG Base Excess A-a Gradient Oxyhemoglobin Total Hemoglobin O2 Delivery Device O2 Liters/Min Minute Volume Vent Rate Vent Mode FiO2 Tidal Volume PEEP Peak Inspir Pressure Pressure Support Sodium 139 Potassium 4.5 Chloride 103 Carbon Dioxide 24 Anion Gap 12 BUN 64 H Creatinine 3.00 H Estim Creat Clear Calc 15 Estimated GFR 15 L Glucose 101 POC Capillary Glucose 115 H Calcium 9.2 Phosphorus 7.1 H Magnesium 2.2 Hepatitis A IgM Ab Hep Bs Antigen Hep B Core IgM Ab Hepatitis C Ab Screen SARS-CoV-2 RNA (RT-PCR)
--- NOTE | 2021-02-05 10:50 | PCDIET ---
ICU Rounding Note: Patient tolerating Nepro at 30mL/hr with 30mL water flush every 4 hours via g-tube. Recommend increase in Nepro to 40mL/hr x 22 hours/day for 1584kcal and 71g protein daily. Verbal order obtained. Last recorded weight is 94kg which is down from last review. +I/O. Patient had 0.5L UF on 02/04/21 with plan for 1L UF today. Bowel Motility: Last documented BM on 02/03/21 x 3. Labs Reviewed: Hgb (8.2), Hct (24.8), BUN (64), Cr (3.0), PO4 (7.1) Meds Noted: Lipitor, Protonix, Epogen, Lopressor, Prednisone, Sodium Bicarbonate, Propofol (rate of 8.42mL/hr provides 222kcal per day) Additional Notes: MD order to decrease Propofol. Recommended higher tube feeding rate for this reason, along with increased protein needs with initiation of dialysis. Following daily in ICU rounds. Assessing/reassessing Wednesday/Wednesday.
--- NOTE | 2021-02-05 11:43 | PM.IMPN ---
Progress Note: A&P Assessment and Plan (1) Sepsis: Code(s): A41.9 - Sepsis, unspecified organism Status: Acute Assessment and Plan: Pateint with soft BP and now with decreasing UOP and rising Cr. Concern for sepsis given the rising WBC. Levophed w as added. Continue to closely monitor. Continue current treatment. (2) Pneumonia: Code(s): J18.9 - Pneumonia, unspecified organism Status: Acute Assessment and Plan: Consider bacterial PNA - sputum growing Pseudomonas and yeast. Not terribly hypoxic making COVID less likely . Rocephin changed to Cefepime and Vanco added 01/23/21. WBC peaked at 30K on 01/18/21 but trended down to 14K on 01/22. WBC climbed again so levaquin added 01/26; WBC peaked at 25.7K but back down today to 22K. On appropriate abx for the pseudomonas. Not covering the yeast but not felt to be causing a lower tract infection. Consider CDiff but not having diarrhea. Not on steroids and does not have CLL. CT Ch/A/P showing bilateral extensive PNA. Venous doppler of the left UE showing partial left basilic vein thrombosis the region of PICC catheter; already on Heparin. Follow. Appreciate self pay collector and ID input. Will continue current treatment and monitor labs. No improved (3) Encephalopathy: Code(s): G93.40 - Encephalopathy, unspecified Status: Acute Assessment and Plan: CT brain 01/21 showing no acute findings. EEG 01/22 showing severely abnormal record due to the presence of bihemispheric theta and delta activity even during sleep without any paroxysmal discharge ,these abnormalities could be consistent with organic or metabolic encephalopathy. Possibility of hypoxic insult cannot be ruled out . Concern for HIE but patient has been showing some signs of improvement. Wean sedation as tolerated. Appreciate neurology and self pay collector help. (4) Acute respiratory failure with hypoxemia: Code(s): J96.01 - Acute respiratory failure with hypoxia Status: Acute Assessment and Plan: Patient remains intubated but on minimal settings. Currently, IV Lasix on hold due to DEBRA. Sedation being adjusted. Continue to wean vent as tolerated. Appreciate help from self pay collector. (5) Hyponatremia: Code(s): E87.1 - Hypo-osmolality and hyponatremia Status: Acute Assessment and Plan: Monitor CMP. (6) CHF (congestive heart failure): Qualifiers: Heart failure type: diastolic Heart failure chronicity: acute Qualified Code(s): I50.31 - Acute diastolic (congestive) heart failure Code(s): I50.9 - Heart failure, unspecified Status: Acute Assessment and Plan: Most likely acute of chronic diastolic CHF exacerbation Patietn with acute pulmonary edema. Patient remains on ventilator as noted. 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 Lisinopril and Lasix on hold due to rising Cr. Cardiology and self pay collector following. (7) Leukocytosis: Code(s): D72.829 - Elevated white blood cell count, unspecified Status: Acute Assessment and Plan: Continue to monitor (8) Non-ST elevation [place] (NSTEMI): Code(s): I21.4 - Non-ST elevation (NSTEMI) myocardial infarction Status: Acute Assessment and Plan: Cardiology following. Initial 2D echocardiogram at bedside with EF 55% along with mild hypokinesis of the mid and basal anterior wall and severe hypokinesis of the mid and basal inferolateral wall. ROMEL of 01/18/2021 with results as noted above. Now S/P cardiac catheterization on 01/18/2021 with successful PCI to left circumflex. Most likely mechanism felt to be embolic source from TAVR to circumflex. Continue ASA, Plavix, heparin drip and metoprolol. Lisinopril held. Appreciate help from Cardiology. (9) DEBRA (acu
--- NOTE | 2021-02-05 12:17 | P.PNNP_ITS ---
Progress Note: A&P Assessment and Plan (1) DEBRA (acute kidney injury): Code(s): N17.9 - Acute kidney failure, unspecified Status: Acute Assessment and Plan: * had improved initially but now worsening for the last week * originally, multifactorial etiology: - contrast exposure x 2 (from CT scan of chest and cardiac catheterization) - previous IV diuresis/prerenal component - NSTEMI - use of DARYL-I/diuretics prior to admission * renal ultrasound without evidence of obstruction or masses * creatinine peaked/plateaued at 2.0mg/dl and then improved down to 1.1mg/dl * now, however, creatinine has been steadily rising in a stepwise pattern * trial of prednisone to see if this helps (possible AIN?) * s/p tunneled HD catheter * HD yesterday and HD today * follow trend of labs and UOP to assess for renal recovery (2) Acute respiratory failure with hypoxemia: Code(s): J96.01 - Acute respiratory failure with hypoxia Status: Acute Assessment and Plan: * due to pulmonary edema (flash pulmonary edema?) * on mechanical ventilation * unable to wean at this time * tracheostomy yesterday (02/04/21) (3) Non-ST elevation [place] (NSTEMI): Code(s): I21.4 - Non-ST elevation (NSTEMI) myocardial infarction Status: Acute Assessment and Plan: * s/p cardiac catheterizartion with stenting as noted * Cardiology following * continue supportive therapy (4) Encephalopathy: Code(s): G93.40 - Encephalopathy, unspecified Status: Acute Assessment and Plan: * Neurology following * EEG results noted * still on sedatives at times/PRN (5) S/P TAVR (transcatheter aortic valve replacement): Code(s): Z95.2 - Presence of prosthetic heart valve Status: Chronic Assessment and Plan: * valve appears to be functioning well by Echo * Cardiology following as well Will continue to follow. Subjective Date/time seen: 02/05/21 12:17 Tolerating dialysis at the time of my visit (seen on HD at around 12:00pm); m entation seems about the same although she appears to be opening her eyes at times (but not following commands); tolerated first dialysis treatment yesterday evening. Exam Narrative: Exam Narrative: General: WD/WN female in NAD; intubated/sedated Heart: normal S1 and S2; no rub Lungs: clear anteriorly; decreased at bases Abdomen: soft, nontender, nondistended, positive bowel sounds Extremities: no cyanosis or clubbing; trace edema Skin: warm and intact Objective Data Vital Signs Vital Signs: Vital Signs Temp Pulse Resp BP Pulse Ox 02/05/21 12:10 86 40 H 02/05/21 12:00 82 113/52 L 02/05/21 11:45 82 119/41 L 02/05/21 11:30 91 134/65 02/05/21 11:15 85 24 H 130/55 L 02/05/21 11:01 93 128/37 L 02/05/21 10:45 91 137/46 L 02/05/21 10:31 88 116/86 02/05/21 10:15 86 111/98 H 02/05/21 10:00 82 24 H 119/57 L 98 02/05/21 09:44 87 27 H 107/54 L 02/05/21 09:21 36.9 C 85 24 H 114/93 H 97 02/05/21 08:41 98 02/05/21 08:38 97 16 02/05/21 08:32 94 97 02/05/21 08:00 37.3 C 97 20 101/47 L 98 02/05/21 06:00 37.2 C 100 22 H 103/63 100 02/05/21 05:32 98 20 02/05/21 04:33 78 97
--- NOTE | 2021-02-05 12:17 | PM.PNNEP ---
Progress Note: A&P Assessment and Plan (1) DEBRA (acute kidney injury): Code(s): N17.9 - Acute kidney failure, unspecified Status: Acute Assessment and Plan: had improved initially but now worsening for the last week originally, multifactorial etiology: - contrast exposure x 2 (from CT scan of chest and cardiac catheterization) - previous IV diuresis/prerenal component - NSTEMI - use of DARYL-I/diuretics prior to admission renal ultrasound without evidence of obstruction or masses creatinine peaked/plateaued at 2.0mg/dl and then improved down to 1.1mg/dl now, however, creatinine has been steadily rising in a stepwise pattern trial of prednisone to see if this helps (possible AIN?) s/p tunneled HD catheter HD yesterday and HD today follow trend of labs and UOP to assess for renal recovery (2) Acute respiratory failure with hypoxemia: Code(s): J96.01 - Acute respiratory failure with hypoxia Status: Acute Assessment and Plan: due to pulmonary edema (flash pulmonary edema?) on mechanical ventilation unable to wean at this time tracheostomy yesterday (02/04/21) (3) Non-ST elevation [place] (NSTEMI): Code(s): I21.4 - Non-ST elevation (NSTEMI) myocardial infarction Status: Acute Assessment and Plan: s/p cardiac catheterizartion with stenting as noted Cardiology following continue supportive therapy (4) Encephalopathy: Code(s): G93.40 - Encephalopathy, unspecified Status: Acute Assessment and Plan: Neurology following EEG results noted still on sedatives at times/PRN (5) S/P TAVR (transcatheter aortic valve replacement): Code(s): Z95.2 - Presence of prosthetic heart valve Status: Chronic Assessment and Plan: valve appears to be functioning well by Echo Cardiology following as well Will continue to follow. Subjective Date/time seen: 02/05/21 12:17 Tolerating dialysis at the time of my visit (seen on HD at around 12:00pm); mentation seems about the same although she appears to be opening her eyes at times (but not following commands); tolerated first dialysis treatment yesterday evening. Exam Narrative: Exam Narrative: General: WD/WN female in NAD; intubated/sedated Heart: normal S1 and S2; no rub Lungs: clear anteriorly; decreased at bases Abdomen: soft, nontender, nondistended, positive bowel sounds Extremities: no cyanosis or clubbing; trace edema Skin: warm and intact Objective Data Vital Signs Vital Signs: Vital Signs Temp Pulse Resp BP Pulse Ox 02/05/21 12:10 86 40 H 02/05/21 12:00 82 113/52 L 02/05/21 11:45 82 119/41 L 02/05/21 11:30 91 134/65 02/05/21 11:15 85 24 H 130/55 L 02/05/21 11:01 93 128/37 L 02/05/21 10:45 91 137/46 L 02/05/21 10:31 88 116/86 02/05/21 10:15 86 111/98 H 02/05/21 10:00 82 24 H 119/57 L 98 02/05/21 09:44 87 27 H 107/54 L 02/05/21 09:21 36.9 C 85 24 H 114/93 H 97 02/05/21 08:41 98 02/05/21 08:38 97 16 02/05/21 08:32 94 97 02/05/21 08:00 37.3 C 97 20 101/47 L 98 02/05/21 06:00 37.2 C 100 22 H 103/63 100 02/05/21 05:32 98 20 02/05/21 04:33 78 97 02/05/21 04:00 88 25 H 128/52 L 100 02/05/21 02:20 93 94 02/05/21 02:00 100 25 H 115/60 95 02/05/21 00:16 90 20 02/05/21 00:00 88 25 H 128/52 L 100 02/04/21 23:00 92 94 02/04/21 22:00 91 23 H 138/95 H 97 02/04/21 21:42 90 02/04/21 21:07 107 H 21 H 02/04/21 20:00 88 21 H 130/55 L 97 02/04/21 19:40 105 H 95 02/04/21 19:39 105 H 02/04/21 19:17 36.4 C L 98 25 H 97/75 L 98 02/04/21 18:38 97 126/80 02/04/21 18:31 88 127/66 05/25/21 18:15 88 127/68 02/04/21 18:00 93 23 H 125/71 96 02/04/21 17:46 88 128/69 02/04/21 17:31 89 109/73 02/04/21 17
--- NOTE | 2021-02-05 15:22 | PC.NURSE ---
Dr. Huang notified of 15 beat run of V-Tach at 1436. New order for BMP and Mag level check. Call with results
[2021-02-05 15:37] LABS: Anion Gap 5 mmol/L (8-16); Blood Urea Nitrogen 28 mg/dL (7-17); Calcium 9.1 mg/dL (8.4-10.2); Carbon Dioxide 32 mmol/L (22-30); Chloride 101 mmol/L (98-107); Estimated CRCL calculation 24 ml/min; Estimated Glomerular Filt Rate 27; Glucose 129 mg/dL (65-105); Potassium 4.3 mmol/L (3.4-5.0); Sodium 138 mmol/L (137-145)
--- NOTE | 2021-02-05 15:39 | PC.NURSE ---
Notified Dr. Huang of lab results, with no change from this AM. No new orders at this time
--- NOTE | 2021-02-05 18:10 | PM.PNCARD ---
Progress Note: A&P Assessment and Plan (1) Non-ST elevation [place] (NSTEMI): Code(s): I21.4 - Non-ST elevation (NSTEMI) myocardial infarction Status: Acute Assessment and Plan: Patient found to have occluded LCX, which appears embolic event from the aortic valve prosthesis. Status post complex PCI/stenting. Continue dual antiplatelet therapy with aspirin and clopidogrel for now. AFter one month probably use single antiplatelet treatment with clopidogrel along with apixaban. Post trach and PEG. Started Eliquis 02/04/2021. Dose for patients with end-stage renal disease is not well defined but usually, based on age in weight, 5 mg b.i.d. will reduce dose if there is significant bleeding or drop in H&H. (2) Anemia: Code(s): D64.9 - Anemia, unspecified Status: Acute Assessment and Plan: H&H stable. Continue to monitor closely. (3) Atrial fibrillation: Code(s): I48.91 - Unspecified atrial fibrillation Status: Acute Assessment and Plan: New onset AFib with RVR self-limited. Brief runs SVT noted. Changed to metoprolol tartrate 12.5 mg b.i.d. Continue to monitor for recurrence. (4) Sepsis: Code(s): A41.9 - Sepsis, unspecified organism Status: Acute Assessment and Plan: HCAP. Worsening infiltrates. Pseudomonas growing fr sputm. Antibiotics per ID service. (5) Acute respiratory failure: Code(s): J96.00 - Acute respiratory failure, unspecified whether with hypoxia or hypercapnia Status: Acute Assessment and Plan: Per ciritical care. Now has trache. (6) S/P TAVR (transcatheter aortic valve replacement): Code(s): Z95.2 - Presence of prosthetic heart valve Status: Chronic Assessment and Plan: No definite vegetation or thrombus reported on ROMEL. Normal valve function. (7) Acute pulmonary edema: Code(s): J81.0 - Acute pulmonary edema Status: Acute Assessment and Plan: Diastolic CHF. Making urine and is getting dialysis. (8) Hypertension: Code(s): I10 - Essential (primary) hypertension Status: Acute Assessment and Plan: Controlled. Cont metoprolol 12.5 mg per G-tube b.i.d.. (9) DEBRA (acute kidney injury): Code(s): N17.9 - Acute kidney failure, unspecified Status: Acute Assessment and Plan: Worsened; started dialysis 02/04/2021. (10) Encephalopathy: Code(s): G93.40 - Encephalopathy, unspecified Status: Acute Assessment and Plan: Improving. Subjective Date/time seen: 02/05/21 18:10 Interval history: 75-year-old female with: Acute embolic myocardial infarction to the circumflex artery on presentation due to embolic event from the recently implanted TAVR valve. Also: Respiratory failure, CHF, pneumonia, acute kidney failure. 02/02/2021: Patient remains hemodynamically stable in the ICU still intubated and plans for tracheostomy on Wednesday or Wednesday of this coming week. 02/04/2021: Patient had her tracheostomy and hemodialysis catheter placed this morning, getting dialysis now. Has been off of her heparin for these procedures and deemed okay to start Eliquis today by her surgeons. G-tube placed last Wednesday. Telemetry shows sinus rhythm and sinus tachycardia. Somewhat hypertensive at the moment but she is on dialysis. Remains on propofol drip. Date of service 02/05/2021: Uneventful day, had dialysis. visiting at the bedside. Remains on propofol, tube feedings.. Telemetry shows sinus rhythm with frequent APCs and brief runs of SVT lasting a few seconds. Review of Systems Review of Systems: ROS unobtainable: Yes unobtainable due to endotracheal tube, unobtainable due to medical condition and unobtainable due to mental status Constitutional: Constitutional: Reports weakness Eyes: Eyes: Reports no additional eye complaints ENT: Reports system reviewed and no additional complaints, except as document
[2021-02-05 19:27] LABS: SARS-CoV-2 RNA PCR Negative
[2021-02-05] MEDS: MICONAZOLE NITRATE 2% VAGINAL CREAM 45 GM TUBE 1 APPFUL VAGINAL (20:00)
[2021-02-06] VITALS (33 sets, daily range): BP systolic 92–144; BP diastolic 44–73; PULSE 62–107; RESP 14–34; TEMP 36.6–37.3; O2SAT 90–100
[2021-02-06] MEDS: oxyCODONE (*CRX) 5 MG/5 ML ORAL SOLN IR PO ×4 (03:18→20:41)
[2021-02-06] MEDS: PROPOFOL IV EMULSION 100 ML 5.62 MG IV CONT ×2 (03:18→13:52)
[2021-02-06 04:37] LABS: Hematocrit 24.6 % (37.0-47.0); Mean Corpuscular HGB Conc 32.5 g/dl (32-36); Mean Corpuscular Hemoglobin 30.2 pg (26-34); Mean Corpuscular Volume 92.8 fl (80-100); Mean Platelet Volume 11.3 fl (7.4-10.4); Platelet Count Result 234 k/mm3 (150-375); Red Blood Count 2.65 M/mm3 (4.2-5.4); Red Cell Distribution Width 15.8 % (11.5-14.5)
[2021-02-06 04:59] LABS: Anion Gap 6 mmol/L (8-16); Blood Urea Nitrogen 44 mg/dL (7-17); Calcium 9.2 mg/dL (8.4-10.2); Carbon Dioxide 30 mmol/L (22-30); Chloride 100 mmol/L (98-107); Estimated CRCL calculation 15 ml/min; Estimated Glomerular Filt Rate 15; Glucose 106 mg/dL (65-105); Magnesium 2.2 mg/dL (1.6-2.3); Potassium 4.4 mmol/L (3.4-5.0); Sodium 136 mmol/L (137-145)
[2021-02-06 05:02] LABS: Alveolar/Arterial O2 Gradient 116.2 mmHg; Base Excess ABG 2.6 mEq/l (+/-2.0); Carboxyhemoglobin 0.3 % THb (0-2.0); Device VENTILATOR; Fractional Inspired Oxygen 35 %; HCO3 ABG 26.6 mEq/l (22.0-26.0); Methemoglobin ABG 0.3 %THb (0-1.5); Modified Allen's Test Pass; Oxygen Content ABG 14.9 %vol (16.0-22.0); Oxygen Saturation ABG 97.1 % (95.0-100.0); Oxyhemoglobin 95.4 % THb (90.0-100.0); PCO2 ABG 38.6 mmHg (35.0-45.0); PO2 ABG 88.5 mmHg (80.0-100.0); PO2 FiO2 Ratio Arterial Blood 2.53 %; Site Drawn LEFT RADIAL; pH ABG 7.456 (7.350-7.450)
[2021-02-06 05:03] LABS: Arterial Blood Gas PEEP 5 cmH2O; Arterial Blood Gas Vent Mode ASV
[2021-02-06] MEDS: CENTRAL LINE FLUSH 10 ML IV PUSH ×3 (06:25→21:13)
[2021-02-06] MEDS: ASPIRIN 81 MG CHEWABLE TABLET PO (07:32)
[2021-02-06] MEDS: SODIUM BICARBONATE TAB 650 MG TABLET PO (07:33)
[2021-02-06] MEDS: MICONAZOLE NITRATE 2% CREAM 30 GM TUBE 1 APPLIC TOPICAL ×2 (07:33→20:41)
[2021-02-06] MEDS: CLOPIDOGREL BISULFATE 75 MG TABLET PO (07:38)
[2021-02-06] MEDS: ATORVASTATIN 20 MG TABLET PO (07:38)
[2021-02-06] MEDS: APIXABAN 5 MG TABLET PO ×2 (07:38→20:42)
[2021-02-06] MEDS: PANTOPRAZOLE SODIUM IV 40 MG VIAL IV PUSH ×2 (07:38→20:42)
[2021-02-06] MEDS: predniSONE 20 MG TABLET PO (07:38)
[2021-02-06] MEDS: METOPROLOL TARTRATE 25 MG TABLET FEED TUBE ×2 (08:24→20:42)
[2021-02-06] MEDS: ALTEPLASE 2 MG VIAL (CATHFLO) IV PUSH (08:24)
--- NOTE | 2021-02-06 08:45 | WPDINTPN ---
Progress Note: A&P Assessment and Plan (1) Acute respiratory failure: Code(s): J96.00 - Acute respiratory failure, unspecified whether with hypoxia or hypercapnia Status: Acute Assessment and Plan: Acute Respiratory failure secondary to pulmonary edema and pneumonia as patient had elevated white count and does show some areas consolidation on CT which could be atelectasis from effusion although CT mostly suggest pulmonary edema and effusions Continue full mechanical ventilation support to prevent hypoxemia/hypercarbia and end organ damage. ABGs reviewed, currently on 35% FiO2 and peep of 5 Chest x-ray reviewed Tracheostomy placed on 02/04/2021 PEG tube placed on 01/31/2021 Completed cefepime (initiated on 01/22/2021) and levaquin (initiated on 01/27/21) through 02/02 to complete 10 day course of antibiotics Vancomycin was discontinued as blood cultures were negative and no MRSA in the sputum COVID PCR came back negative -placed patient on PSV mode of ventilation, 08/17, will start decreasing pressure support and will continue to try CPAP trials and spontaneous breathing trials. Will rest patient on ASV at night -keep propofol infusion at a minimal dose (2) DEBRA (acute kidney injury): Code(s): N17.9 - Acute kidney failure, unspecified Status: Acute Assessment and Plan: Likely multifactorial as patient was being diuresed for pulmonary edema and also received contrast with cardiac catheterization, infection/sepsis, hypotension. Monitor in electrolytes and urine output Creatinine initially had improved but worsened , dialysis catheter was placed on 02/04/2025 and patient started on dialysis Continues to make urine She was started on steroids for suspected interstitial nephritis by Nephrology on 02/01 Continue to hold further diuresis. Repeat kidney ultrasound was unremarkable Decrease bicarb per tube, will discuss with Nephrology regarding discontinuation has not patient will be receiving dialysis (3) Hyperkalemia: Code(s): E87.5 - Hyperkalemia Status: Acute Assessment and Plan: Improved with bicarb insulin D50 and Kayexalate Continue to monitor (4) Pneumonia: Code(s): J18.9 - Pneumonia, unspecified organism Status: Acute Assessment and Plan: Since Pseudomonas pneumonia, sputum cultures growing Pseudomonas castellanos susceptible -status post cefepime and Levaquin -CT scan of the chest on 01/26/2021 showed extensive bilateral pneumonia, mild bilateral pleural effusion, cardiomegaly, status post cholecystectomy, status post hysterectomy Infectious disease is following (5) Acute pulmonary edema: Code(s): J81.0 - Acute pulmonary edema Status: Acute Assessment and Plan: Persistent bilateral infiltrates and opacities Now on dialysis (6) CHF (congestive heart failure): Qualifiers: Heart failure type: diastolic Heart failure chronicity: acute Qualified Code(s): I50.31 - Acute diastolic (congestive) heart failure Code(s): I50.9 - Heart failure, unspecified Status: Acute Assessment and Plan: ECHO Summary 1. Complete two-dimensional, color flow and Doppler transthoracic echocardiogram is performed. 2. There is moderate concentric increased left ventricular wall thickness. 3. Left ventricular systolic function is normal, estimated at 60-65%. 4. No wall-motion abnormalities. 5. Left atrial chamber dimension is moderately enlarged. 6. There is no regurgitation of the TAVR aortic valve. 7. Minimal normal transvalvular gradient. (7) Non-ST elevation [place] (NSTEMI): Code(s): I21.4 - Non-ST elevation (NSTEMI) myocardial infarction Status: Acute Assessment and Plan: Secondary to thrombus. Patient underwent PCI and had to MARIAN x 2 placed in circumflex likely due to acute thrombotic occlusion ROMEL on 01/18/2021: Preserved LV systolic function with motion abnormalities as noted Stable, intact biopros
--- NOTE | 2021-02-06 11:02 | PM.IMPN ---
Progress Note: A&P Assessment and Plan (1) Sepsis: Code(s): A41.9 - Sepsis, unspecified organism Status: Acute Assessment and Plan: Pateint with soft BP and now with decreasing UOP and rising Cr. Concern for sepsis given the rising WBC. Levophed as needed. Continue to closely monitor. Patient completed course of antibiotic will get blood culture Continue current treatment. (2) Pneumonia: Code(s): J18.9 - Pneumonia, unspecified organism Status: Acute Assessment and Plan: Consider bacterial PNA - sputum growing Pseudomonas and yeast. Not terribly hypoxic making COVID less likely . Rocephin changed to Cefepime and Vanco added 01/23/21. WBC peaked at 30K on 01/18/21 but trended down to 14K on 01/22. WBC climbed again so levaquin added 01/26; WBC peaked at 25.7K but back down today to 22K. On appropriate abx for the pseudomonas. Not covering the yeast but not felt to be causing a lower tract infection. Consider CDiff but not having diarrhea. Not on steroids and does not have CLL. CT Ch/A/P showing bilateral extensive PNA. . Appreciate instructor hairspring and ID input. Completed course of IV antibiotics (3) Encephalopathy: Code(s): G93.40 - Encephalopathy, unspecified Status: Acute Assessment and Plan: CT brain 01/21 showing no acute findings. EEG 01/22 showing severely abnormal record due to the presence of bihemispheric theta and delta activity even during sleep without any paroxysmal discharge ,these abnormalities could be consistent with organic or metabolic encephalopathy. Possibility of hypoxic insult cannot be ruled out . Concern for HIE but patient has been showing some signs of improvement. Wean sedation as tolerated. Appreciate neurology and instructor hairspring help. (4) Acute respiratory failure with hypoxemia: Code(s): J96.01 - Acute respiratory failure with hypoxia Status: Acute Assessment and Plan: Patient remains intubated but on minimal settings. Secondary to pneumonia and flash pulmonary edema treated with diuresis Sedation being adjusted. Continue to wean vent as tolerated. Appreciate help from instructor hairspring. Currently on dialysis (5) Hyponatremia: Code(s): E87.1 - Hypo-osmolality and hyponatremia Status: Acute Assessment and Plan: Monitor CMP. (6) CHF (congestive heart failure): Qualifiers: Heart failure type: diastolic Heart failure chronicity: acute Qualified Code(s): I50.31 - Acute diastolic (congestive) heart failure Code(s): I50.9 - Heart failure, unspecified Status: Acute Assessment and Plan: Most likely acute of chronic diastolic CHF exacerbation Patietn with acute pulmonary edema. Patient remains on ventilator as noted. 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 Lisinopril and Lasix on hold due to rising Cr. Cardiology and instructor hairspring following. Dialysis (7) Leukocytosis: Code(s): D72.829 - Elevated white blood cell count, unspecified Status: Acute Assessment and Plan: Continue to monitor (8) Non-ST elevation [place] (NSTEMI): Code(s): I21.4 - Non-ST elevation (NSTEMI) myocardial infarction Status: Acute Assessment and Plan: Cardiology following. Initial 2D echocardiogram at bedside with EF 55% along with mild hypokinesis of the mid and basal anterior wall and severe hypokinesis of the mid and basal inferolateral wall. ROMEL of 01/18/2021 with results as noted above. Now S/P cardiac catheterization on 01/18/2021 with successful PCI to left circumflex. Most likely mechanism felt to be embolic source from TAVR to circumflex. Continue ASA, Plavix, heparin drip and metoprolol. Lisinopril held. Appreciate help from Cardiology. (9) DEBRA (acute kidney injury): Code(s): N
--- NOTE | 2021-02-06 11:24 | PCDIET ---
ICU Rounding Note: Patient tolerating Nepro at 40mL/hr with 30mL water flush every 4 hours via g-tube. Last recorded weight is 97.3kg which is increased from last review. Bowel Motility: Last documented BM on 02/03/21 x 3. RN giving Miralax. Labs Reviewed: WBC (19.0), Hgb (8.0), Hct (24.6), Glu (106), BUN (44), Cr (3.0), Na (136) Meds Noted: Lipitor, Levophed, Protonix, Prednisone, Fentanyl, Lopressor, Miralax, Sodium Bicarbonate, Propofol (rate of 2.808mL/hr provides 74kcal per day) Additional Notes: No pressure sores reported. Following daily in ICU rounds. Assessing/reassessing every Wednesday/Wednesday.
--- NOTE | 2021-02-06 13:53 | PM.PNCARD ---
Progress Note: A&P Assessment and Plan (1) Non-ST elevation [place] (NSTEMI): Code(s): I21.4 - Non-ST elevation (NSTEMI) myocardial infarction Status: Acute Assessment and Plan: ADm 01/18/21 w/ NSTEMI, Patient found to have occluded LCX, which appears embolic event from the aortic valve prosthesis. Status post complex PCI/stenting. Currently on triple therapy; DAPT for recent stent and apixaban started 02/04/2021 for PAF. Continue samel for now. After one month probably use single antiplatelet treatment with clopidogrel along with apixaban. Dose for patients with end-stage renal disease is not well defined but usually, based on age in weight, 5 mg b.i.d. will reduce dose if there is significant bleeding or drop in H&H. Seems to be tolerating it well so far, stable anemia. (2) Anemia: Code(s): D64.9 - Anemia, unspecified Status: Acute Assessment and Plan: H&H stable. Continue to monitor closely. (3) Atrial fibrillation: Code(s): I48.91 - Unspecified atrial fibrillation Status: Acute Assessment and Plan: New onset AFib with RVR self-limited. Brief runs SVT noted. Metoprolol tartrate increased to 25 mg BID 02/06/2021. Continue to monitor for recurrences. (4) Sepsis: Code(s): A41.9 - Sepsis, unspecified organism Status: Acute Assessment and Plan: PUlmonary infiltrates. Pseudomonas growing fr sputm. Antibiotics per ID service. (5) Acute respiratory failure: Code(s): J96.00 - Acute respiratory failure, unspecified whether with hypoxia or hypercapnia Status: Acute Assessment and Plan: Per ciritical care. Now has trache. (6) S/P TAVR (transcatheter aortic valve replacement): Code(s): Z95.2 - Presence of prosthetic heart valve Status: Chronic Assessment and Plan: No definite vegetation or thrombus reported on ROMEL. Normal valve function. (7) Acute pulmonary edema: Code(s): J81.0 - Acute pulmonary edema Status: Acute Assessment and Plan: Diastolic CHF, EF 60-65%, no MR on Echo. Making urine and is getting dialysis. Less edematous. (8) Hypertension: Code(s): I10 - Essential (primary) hypertension Status: Acute Assessment and Plan: Controlled. Cont metoprolol 12.5 mg per G-tube b.i.d.. (9) DEBRA (acute kidney injury): Code(s): N17.9 - Acute kidney failure, unspecified Status: Acute Assessment and Plan: Worsened; started dialysis 02/04/2021. (10) Encephalopathy: Code(s): G93.40 - Encephalopathy, unspecified Status: Acute Assessment and Plan: Improving. Subjective Date/time seen: 02/06/21 13:53 Interval history: 75-year-old female with: Acute embolic myocardial infarction to the circumflex artery on presentation due to embolic event from the recently implanted TAVR valve, s/p stent of CX 01/18/2021. Also: Respiratory failure, CHF, pneumonia, acute kidney failure, encephalopathy, brief PAF, brief SVT. Post trach, feeding tube and and PEG. Started Eliquis 02/04/2021 on top of DAPT. 02/02/2021: Patient remains hemodynamically stable in the ICU still intubated and plans for tracheostomy on Wednesday or Wednesday of this coming week. 02/04/2021: Patient had her tracheostomy and hemodialysis catheter placed this morning, getting dialysis now. Has been off of her heparin for these procedures and deemed okay to start Eliquis today by her surgeons. G-tube placed last Wednesday. Telemetry shows sinus rhythm and sinus tachycardia. Somewhat hypertensive at the moment but she is on dialysis. Remains on propofol drip. 02/05/2021: Uneventful day, had dialysis. visiting at the bedside. Remains on propofol, tube feedings. Telemetry shows sinus rhythm with frequent APCs and brief runs of SVT lasting a few
--- NOTE | 2021-02-06 15:00 | P.PNNP_ITS ---
Progress Note: A&P Assessment and Plan (1) DEBRA (acute kidney injury): Code(s): N17.9 - Acute kidney failure, unspecified Status: Acute Assessment and Plan: * had improved initially but now worsening for the last week * originally, multifactorial etiology: - contrast exposure x 2 (from CT scan of chest and cardiac catheterization) - previous IV diuresis/prerenal component - NSTEMI - use of DARYL-I/diuretics prior to admission * renal ultrasound without evidence of obstruction or masses * creatinine peaked/plateaued at 2.0mg/dl and then improved down to 1.1mg/dl * now, however, creatinine has been steadily rising in a stepwise pattern * trial of prednisone to see if this helps (possible AIN?) * s/p tunneled HD catheter (on 02/04/21) * HD yesterday and plan HD tomorrow * will d/c oral bicarbonate * follow trend of labs and UOP to assess for renal recovery (2) Acute respiratory failure with hypoxemia: Code(s): J96.01 - Acute respiratory failure with hypoxia Status: Acute Assessment and Plan: * due to pulmonary edema (flash pulmonary edema?) * on mechanical ventilation * unable to wean at this time * s/p tracheostomy (02/04/21) * will need LTACH (3) Non-ST elevation [place] (NSTEMI): Code(s): I21.4 - Non-ST elevation (NSTEMI) myocardial infarction Status: Acute Assessment and Plan: * s/p cardiac catheterizartion with stenting as noted * Cardiology following * continue supportive therapy (4) Encephalopathy: Code(s): G93.40 - Encephalopathy, unspecified Status: Acute Assessment and Plan: * Neurology following * EEG results noted * still on sedatives at times/PRN (5) S/P TAVR (transcatheter aortic valve replacement): Code(s): Z95.2 - Presence of prosthetic heart valve Status: Chronic Assessment and Plan: * valve appears to be functioning well by Echo * Cardiology following as well Will continue to follow. Subjective Date/time seen: 02/06/21 15:00 Tolerated dialysis treatment yesterday without any issues or problems; remains on ventilator support via tracheostomy (respiratory status seems stable); remains hemodynamically stable; no apparent distress; no events/issues overnight or earlier this AM; Exam Narrative: Exam Narrative: General: WD/WN female in NAD; intubated/sedated Heart: normal S1 and S2; no rub Lungs: clear anteriorly; decreased at bases Abdomen: soft, nontender, nondistended, positive bowel sounds Extremities: no cyanosis or clubbing; trace edema Skin: warm and intact Objective Data Vital Signs Vital Signs: Vital Signs Temp Pulse Resp BP Pulse Ox 02/06/21 14:07 74 94 02/06/21 14:00 93 29 H 143/71 H 92 02/06/21 13:52 85 34 H 02/06/21 13:36 101 H 33 H 02/06/21 12:00 37.1 C 84 25 H 135/56 L 94 02/06/21 11:34 85 99 02/06/21 11:15 88 33 H 90 02/06/21 10:22 83 34 H 02/06/21 10:00 80 27 H 137/58 L 91 02/06/21 09:53 63 02/06/21 08:24 81 02/06/21 08:19 83 97 02/06/21 08:00 101 H 02/06/21 07:52 95 23 H 90 02/06/21 07:47 102 H 24 H 02/06/21 07:31 37.1 C 100 23 H 144/73 H 94 02/06/21 06:00 80 16 131/54 L 98 02/06/21 05:04 77 98
--- NOTE | 2021-02-06 15:00 | PM.PNNEP ---
Progress Note: A&P Assessment and Plan (1) DEBRA (acute kidney injury): Code(s): N17.9 - Acute kidney failure, unspecified Status: Acute Assessment and Plan: had improved initially but now worsening for the last week originally, multifactorial etiology: - contrast exposure x 2 (from CT scan of chest and cardiac catheterization) - previous IV diuresis/prerenal component - NSTEMI - use of DARYL-I/diuretics prior to admission renal ultrasound without evidence of obstruction or masses creatinine peaked/plateaued at 2.0mg/dl and then improved down to 1.1mg/dl now, however, creatinine has been steadily rising in a stepwise pattern trial of prednisone to see if this helps (possible AIN?) s/p tunneled HD catheter (on 02/04/21) HD yesterday and plan HD tomorrow will d/c oral bicarbonate follow trend of labs and UOP to assess for renal recovery (2) Acute respiratory failure with hypoxemia: Code(s): J96.01 - Acute respiratory failure with hypoxia Status: Acute Assessment and Plan: due to pulmonary edema (flash pulmonary edema?) on mechanical ventilation unable to wean at this time s/p tracheostomy (02/04/21) will need LTACH (3) Non-ST elevation [place] (NSTEMI): Code(s): I21.4 - Non-ST elevation (NSTEMI) myocardial infarction Status: Acute Assessment and Plan: s/p cardiac catheterizartion with stenting as noted Cardiology following continue supportive therapy (4) Encephalopathy: Code(s): G93.40 - Encephalopathy, unspecified Status: Acute Assessment and Plan: Neurology following EEG results noted still on sedatives at times/PRN (5) S/P TAVR (transcatheter aortic valve replacement): Code(s): Z95.2 - Presence of prosthetic heart valve Status: Chronic Assessment and Plan: valve appears to be functioning well by Echo Cardiology following as well Will continue to follow. Subjective Date/time seen: 02/06/21 15:00 Tolerated dialysis treatment yesterday without any issues or problems; remains on ventilator support via tracheostomy (respiratory status seems stable); remains hemodynamically stable; no apparent distress; no events/issues overnight or earlier this AM; Exam Narrative: Exam Narrative: General: WD/WN female in NAD; intubated/sedated Heart: normal S1 and S2; no rub Lungs: clear anteriorly; decreased at bases Abdomen: soft, nontender, nondistended, positive bowel sounds Extremities: no cyanosis or clubbing; trace edema Skin: warm and intact Objective Data Vital Signs Vital Signs: Vital Signs Temp Pulse Resp BP Pulse Ox 02/06/21 14:07 74 94 02/06/21 14:00 93 29 H 143/71 H 92 02/06/21 13:52 85 34 H 02/06/21 13:36 101 H 33 H 02/06/21 12:00 37.1 C 84 25 H 135/56 L 94 02/06/21 11:34 85 99 02/06/21 11:15 88 33 H 90 02/06/21 10:22 83 34 H 02/06/21 10:00 80 27 H 137/58 L 91 02/06/21 09:53 63 02/06/21 08:24 81 02/06/21 08:19 83 97 02/06/21 08:00 101 H 02/06/21 07:52 95 23 H 90 02/06/21 07:47 102 H 24 H 02/06/21 07:31 37.1 C 100 23 H 144/73 H 94 02/06/21 06:00 80 16 131/54 L 98 02/06/21 05:04 77 98 02/06/21 04:09 81 98 02/06/21 04:00 37.1 C 81 19 131/57 L 97 02/06/21 02:00 97 26 H 130/59 L 91 02/06/21 01:28 93 97 02/06/21 00:00 37.3 C 107 H 28 H 116/66 94 02/05/21 22:54 110 H 96 02/05/21 22:00 71 23 H 118/46 L 96 02/05/21 20:00 37.2 C 89 27 H 121/74 91 02/05/21 19:38 84 92 02/05/21 18:00 96 24 H 117/49 L 100 02/05/21 17:25 107 H 96 02/05/21 16:23 111 H 20 Intake/Output Intake/Output: Intake & Output 02/03/21 02/04/21 02/05/21 02/06/21 23:59 23:59 23:59 23:59 Intake Total 2110 1175 935.2 642.8 Output Total 900 1550 1450 75 Balance 1210 -375 -514.8 567.
[2021-02-06] MEDS: polyethylene glycoL 3350 17 GM POWD.PACK PO (16:28)
[2021-02-06] MEDS: MICONAZOLE NITRATE 2% VAGINAL CREAM 45 GM TUBE 1 APPFUL VAGINAL (20:41)
[2021-02-07] VITALS (49 sets, daily range): BP systolic 92–132; BP diastolic 36–90; PULSE 59–99; RESP 15–40; TEMP 36.6–37.1; O2SAT 91–100
[2021-02-07] MEDS: PROPOFOL IV EMULSION 100 ML 5.62 MG IV CONT ×2 (01:08→12:12)
[2021-02-07] MEDS: oxyCODONE (*CRX) 5 MG/5 ML ORAL SOLN IR PO ×4 (02:34→21:07)
[2021-02-07 02:54] LABS: Basophils Absolute Auto 0.1 K/mm3 (0.0-0.1); Basophils Percent Auto 0.6 % (0.2-1.2); Eosinophils Percent Auto 4.8 % (0-4.4); Immature Granulocyte Absolute 1.03 K/mm3 (0.00-0.031); Immature Granulocyte Percent A 4.9 % (0-0.5); Lymphocytes Absolute Auto 2.09 K/mm3 (0.9-3.2); Mean Corpuscular Hemoglobin 30.3 pg (26-34); Mean Corpuscular Volume 94.7 fl (80-100); Mean Platelet Volume 11.4 fl (7.4-10.4); Monocytes Absolute Auto 1.2 K/mm3 (0.1-0.6); Monocytes Percent Auto 5.8 % (2.6-8.5); Neutrophils Absolute Auto 15.4 K/mm3 (1.3-6.7); Neutrophils Percent Auto 73.9 % (45.5-73.1); Nucleated Red Blood Cells Absolute Auto 0.1 K/mm3 (0.0-0.012); Nucleated Red Blood Cells Perc 0.2 % (0.0-0.2); Platelet Count Result 229 k/mm3 (150-375); Red Blood Count 2.64 M/mm3 (4.2-5.4); White Blood Count 20.9 K/mm3 (4.5-10.0)
[2021-02-07 02:59] LABS: Anion Gap 10 mmol/L (8-16); Blood Urea Nitrogen 69 mg/dL (7-17); Calcium 9.5 mg/dL (8.4-10.2); Carbon Dioxide 27 mmol/L (22-30); Chloride 98 mmol/L (98-107); Estimated CRCL calculation 10 ml/min; Estimated Glomerular Filt Rate 9; Glucose 115 mg/dL (65-105); Magnesium 2.5 mg/dL (1.6-2.3); Potassium 4.4 mmol/L (3.4-5.0); Sodium 135 mmol/L (137-145)
[2021-02-07 04:56] LABS: Base Excess ABG 0.8 mEq/l (+/-2.0); Carboxyhemoglobin 0.3 % THb (0-2.0); Fractional Inspired Oxygen 35 %; HCO3 ABG 25.1 mEq/l (22.0-26.0); Methemoglobin ABG 0.4 %THb (0-1.5); Oxygen Content ABG 11.7 %vol (16.0-22.0); Oxygen Saturation ABG 97.5 % (95.0-100.0); Oxyhemoglobin 95.7 % THb (90.0-100.0); PCO2 ABG 38.8 mmHg (35.0-45.0); PO2 ABG 95.4 mmHg (80.0-100.0); PO2 FiO2 Ratio Arterial Blood 2.73 %; Reduced Hemoglobin 3.6 %THb (0-5.0); Total Hemoglobin 8.6 g/dL (12.0-18.0); pH ABG 7.429 (7.350-7.450)
[2021-02-07 04:58] LABS: Arterial Blood Gas PEEP 5 cmH2O; Arterial Blood Gas Vent Mode ASV; Device VENTILATOR; Modified Allen's Test Pass; Site Drawn LEFT RADIAL
[2021-02-07] MEDS: CENTRAL LINE FLUSH 10 ML IV PUSH ×3 (06:38→21:05)
[2021-02-07] MEDS: METOPROLOL TARTRATE 25 MG TABLET FEED TUBE ×2 (08:45→21:05)
[2021-02-07] MEDS: MICONAZOLE NITRATE 2% CREAM 30 GM TUBE 1 APPLIC TOPICAL ×2 (08:45→21:06)
[2021-02-07] MEDS: ATORVASTATIN 20 MG TABLET PO (08:46)
[2021-02-07] MEDS: ASPIRIN 81 MG CHEWABLE TABLET PO (08:46)
[2021-02-07] MEDS: APIXABAN 5 MG TABLET PO ×2 (08:46→21:05)
[2021-02-07] MEDS: CLOPIDOGREL BISULFATE 75 MG TABLET PO (08:46)
[2021-02-07] MEDS: predniSONE 10 MG TABLET PO (08:47)
[2021-02-07] MEDS: PANTOPRAZOLE SODIUM IV 40 MG VIAL IV PUSH ×2 (08:47→21:05)
--- NOTE | 2021-02-07 09:05 | WPDINTPN ---
Progress Note: A&P Assessment and Plan (1) Acute respiratory failure: Code(s): J96.00 - Acute respiratory failure, unspecified whether with hypoxia or hypercapnia Status: Acute Assessment and Plan: Acute Respiratory failure secondary to pulmonary edema and pneumonia as patient had elevated white count and does show some areas consolidation on CT which could be atelectasis from effusion although CT mostly suggest pulmonary edema and effusions Continue full mechanical ventilation support to prevent hypoxemia/hypercarbia and end organ damage. ABGs reviewed, currently on 35% FiO2 and peep of 5 Chest x-ray reviewed Tracheostomy placed on 02/04/2021 PEG tube placed on 01/31/2021 Completed cefepime (initiated on 01/22/2021) and levaquin (initiated on 01/27/21) through 02/02 to complete 10 day course of antibiotics Vancomycin was discontinued as blood cultures were negative and no MRSA in the sputum COVID PCR came back negative -patient tolerated PSV mode 12/5 all day yesterday and had to be placed back on ASV. - restart pressure support mode today and wean the pressure support to 10/5 Will rest patient on ASV -keep propofol infusion at a minimal dose (2) DEBRA (acute kidney injury): Code(s): N17.9 - Acute kidney failure, unspecified Status: Acute Assessment and Plan: Likely multifactorial as patient was being diuresed for pulmonary edema and also received contrast with cardiac catheterization, infection/sepsis, hypotension. Monitor in electrolytes and urine output Creatinine initially had improved but worsened , dialysis catheter was placed on 02/04/2025 and patient started on dialysis Continues to make urine She was started on steroids for suspected interstitial nephritis by Nephrology on 02/01 Continue to hold further diuresis. Repeat kidney ultrasound was unremarkable Decrease bicarb per tube, will discuss with Nephrology regarding discontinuation has not patient will be receiving dialysis (3) Hyperkalemia: Code(s): E87.5 - Hyperkalemia Status: Acute Assessment and Plan: Improved with bicarb insulin D50 and Kayexalate Continue to monitor (4) Pneumonia: Code(s): J18.9 - Pneumonia, unspecified organism Status: Acute Assessment and Plan: Since Pseudomonas pneumonia, sputum cultures growing Pseudomonas castellanos susceptible -status post cefepime and Levaquin -CT scan of the chest on 01/26/2021 showed extensive bilateral pneumonia, mild bilateral pleural effusion, cardiomegaly, status post cholecystectomy, status post hysterectomy Infectious disease is following (5) Acute pulmonary edema: Code(s): J81.0 - Acute pulmonary edema Status: Acute Assessment and Plan: Persistent bilateral infiltrates and opacities Now on dialysis (6) CHF (congestive heart failure): Qualifiers: Heart failure chronicity: acute Heart failure type: diastolic Qualified Code(s): I50.31 - Acute diastolic (congestive) heart failure Code(s): I50.9 - Heart failure, unspecified Status: Acute Assessment and Plan: ECHO Summary 1. Complete two-dimensional, color flow and Doppler transthoracic echocardiogram is performed. 2. There is moderate concentric increased left ventricular wall thickness. 3. Left ventricular systolic function is normal, estimated at 60-65%. 4. No wall-motion abnormalities. 5. Left atrial chamber dimension is moderately enlarged. 6. There is no regurgitation of the TAVR aortic valve. 7. Minimal normal transvalvular gradient. (7) Non-ST elevation [place] (NSTEMI): Code(s): I21.4 - Non-ST elevation (NSTEMI) myocardial infarction Status: Acute Assessment and Plan: Secondary to thrombus. Patient underwent PCI and had to MARIAN x 2 placed in circumflex likely due to acute thrombotic occlusion ROMEL on 01/18/2021: Preserved LV systolic function with motion abnormalities as noted Stable, intact bioprosthetic
--- NOTE | 2021-02-07 10:16 | PM.IMPN ---
Progress Note: A&P Assessment and Plan (1) Sepsis: Code(s): A41.9 - Sepsis, unspecified organism Status: Acute Assessment and Plan: Pateint with soft BP and now with decreasing UOP and rising Cr. Concern for sepsis given the rising WBC. Levophed as needed. Continue to closely monitor. Patient completed course of antibiotic pending final blood culture Continue current treatment. Discussed with the nurse (2) Pneumonia: Code(s): J18.9 - Pneumonia, unspecified organism Status: Acute Assessment and Plan: Consider bacterial PNA - sputum growing Pseudomonas and yeast. Not terribly hypoxic making COVID less likely . Rocephin changed to Cefepime and Vanco added 01/23/21. WBC peaked at 30K on 01/18/21 but trended down to 14K on 01/22. WBC climbed again so levaquin added 01/26; WBC peaked at 25.7K but back down today to 22K. On appropriate abx for the pseudomonas. Not covering the yeast but not felt to be causing a lower tract infection. Consider CDiff but not having diarrhea. Not on steroids and does not have CLL. CT Ch/A/P showing bilateral extensive PNA. . Appreciate stamp machine servicer and ID input. Completed course of IV antibiotics Pending repeat blood culture still have leukocytosis also patient currently on steroid (3) Encephalopathy: Code(s): G93.40 - Encephalopathy, unspecified Status: Acute Assessment and Plan: CT brain 01/21 showing no acute findings. EEG 01/22 showing severely abnormal record due to the presence of bihemispheric theta and delta activity even during sleep without any paroxysmal discharge ,these abnormalities could be consistent with organic or metabolic encephalopathy. Possibility of hypoxic insult cannot be ruled out . Concern for HIE but patient has been showing some signs of improvement. Wean sedation as tolerated. Appreciate neurology and stamp machine servicer help. (4) Acute respiratory failure with hypoxemia: Code(s): J96.01 - Acute respiratory failure with hypoxia Status: Acute Assessment and Plan: Patient remains intubated but on minimal settings. Secondary to pneumonia and flash pulmonary edema treated with diuresis Sedation being adjusted. Continue to wean vent as tolerated. Appreciate help from stamp machine servicer. Currently on dialysis (5) Hyponatremia: Code(s): E87.1 - Hypo-osmolality and hyponatremia Status: Acute Assessment and Plan: Monitor CMP. (6) CHF (congestive heart failure): Qualifiers: Heart failure type: diastolic Heart failure chronicity: acute Qualified Code(s): I50.31 - Acute diastolic (congestive) heart failure Code(s): I50.9 - Heart failure, unspecified Status: Acute Assessment and Plan: Most likely acute of chronic diastolic CHF exacerbation Patietn with acute pulmonary edema. Patient remains on ventilator as noted. 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 Lisinopril and Lasix on hold due to rising Cr. Cardiology and stamp machine servicer following. Dialysis (7) Leukocytosis: Code(s): D72.829 - Elevated white blood cell count, unspecified Status: Acute Assessment and Plan: Continue to monitor blood culture (8) Non-ST elevation [place] (NSTEMI): Code(s): I21.4 - Non-ST elevation (NSTEMI) myocardial infarction Status: Acute Assessment and Plan: Cardiology following. Initial 2D echocardiogram at bedside with EF 55% along with mild hypokinesis of the mid and basal anterior wall and severe hypokinesis of the mid and basal inferolateral wall. ROMEL of 01/18/2021 with results as noted above. Now S/P cardiac catheterization on 01/18/2021 with successful PCI to left circumflex. Most likely mechanism felt to be embolic source from TAVR to circumflex. Continue ASA, Plavix, heparin
[2021-02-07] MEDS: AMIODARONE HCL 100 MG TABLET PO (10:33)
[2021-02-07] MEDS: EPOETIN ALFA-EPBX 10,000 UNITS/ML VIAL 10000 UNITS IV PUSH (10:42)
--- NOTE | 2021-02-07 11:18 | PCDIET ---
Nutrition Follow-Up Complete: Nutrition Diagnosis: Inadequate oral intake related to oral intubation as evidenced by need for tube feeding. Nutrition Goal: Patient to meet estimated nutritional needs. Goal met. Patient tolerating Nepro at 40mL/hr with 30mL water flush every 4 hours. Last recorded weight is 98.8 kg which is increased from last review. +I/O. Bowel Motility: Last documented BM on 02/03/21. RN aware and giving Miralax today. Reports good bowel sounds and flatus. Labs Reviewed: Hgb (8.0), Hct (25.0), BUN (69), Cr (4.6), Na (135), PO4 (8.0), Mg (2.5) Meds Noted: Propofol (rate of 5.616mL/hr provides 148kcal per day), Lipitor, Lopressor, Protonix, Epogen, Fentanyl, Levophed, Miralax, Prednisone Additional Notes: No documented pressure sores. Will continue to monitor with same goal. Nutrition Monitoring and Evaluation: Follow up every Wednesday/Wednesday. Follow daily in ICU rounds.
--- NOTE | 2021-02-07 14:21 | P.PNNP_ITS ---
Progress Note: A&P Assessment and Plan (1) DEBRA (acute kidney injury): Code(s): N17.9 - Acute kidney failure, unspecified Status: Acute Assessment and Plan: * had improved initially but now worsening for the last week * originally, multifactorial etiology: - contrast exposure x 2 (from CT scan of chest and cardiac catheterization) - previous IV diuresis/prerenal component - NSTEMI - use of DARYL-I/diuretics prior to admission * renal ultrasound without evidence of obstruction or masses * creatinine peaked/plateaued at 2.0mg/dl and then improved down to 1.1mg/dl * now, however, creatinine has been steadily rising in a stepwise pattern * trial of prednisone to see if this helps (possible AIN?) this hasn't helped much. will let it wean off. * s/p tunneled HD catheter (on 02/04/21) * HD today then wednesday. check in am to see if she needs it tomorrow as well. * follow trend of labs and UOP to assess for renal recovery (2) Acute respiratory failure with hypoxemia: Code(s): J96.01 - Acute respiratory failure with hypoxia Status: Acute Assessment and Plan: * due to pulmonary edema (flash pulmonary edema?) * on mechanical ventilation * unable to wean at this time * s/p tracheostomy (02/04/21) * will need LTACH at some point. (3) Non-ST elevation [place] (NSTEMI): Code(s): I21.4 - Non-ST elevation (NSTEMI) myocardial infarction Status: Acute Assessment and Plan: * s/p cardiac catheterizartion with stenting as noted * Cardiology following * continue supportive therapy (4) Encephalopathy: Code(s): G93.40 - Encephalopathy, unspecified Status: Acute Assessment and Plan: * Neurology following * EEG results noted * still on sedatives at times/PRN (5) S/P TAVR (transcatheter aortic valve replacement): Code(s): Z95.2 - Presence of prosthetic heart valve Status: Chronic Assessment and Plan: * valve appears to be functioning well by Echo * Cardiology following as well Subjective Date/time seen: 02/07/21 14:22 Interval history: Patient is lying comfortably. Still on the ventilator. Not interactive. On HD dashawn it well so far. Set to remove a net of 2500cc Exam Narrative: Exam Narrative: General: WD/WN female in NAD; intubated/sedated Heart: normal S1 and S2; no rub Lungs: clear anteriorly; decreased at bases Abdomen: soft, nontender, nondistended, positive bowel sounds Extremities: no cyanosis or clubbing; trace edema Skin: No rash Objective Data Vital Signs Vital Signs: Vital Signs - 24 hr 02/06/21 15:12 02/06/21 16:00 02/06/21 16:11 Temperature 36.8 C Pulse Rate 74 73 89 Respiratory Rate 18 18 28 H Blood Pressure 111/44 L Pulse Oximetry 96 99 02/06/21 16:41 02/06/21 17:54 02/06/21 18:00 Temperature Pulse Rate 69 69 64 Respiratory Rate 18 18 Blood Pressure 117/45 L Pulse Oximetry 98 100 02/06/21 20:00 02/06/21 20:42 02/06/21 22:00 Temperature 36.6 C Pulse Rate 80 73 62 Respiratory Rate 23 H 14 Blood Pressure 92/71 L 104/50 L Pulse Oximetry 94 93 02/06/21 23:00 02/07/21 00:00 02/07/21 02:00 Temperature 36.6 C Pulse Rate 66 74 69
--- NOTE | 2021-02-07 14:21 | PM.PNNEP ---
Progress Note: A&P Assessment and Plan (1) DEBRA (acute kidney injury): Code(s): N17.9 - Acute kidney failure, unspecified Status: Acute Assessment and Plan: had improved initially but now worsening for the last week originally, multifactorial etiology: - contrast exposure x 2 (from CT scan of chest and cardiac catheterization) - previous IV diuresis/prerenal component - NSTEMI - use of DARYL-I/diuretics prior to admission renal ultrasound without evidence of obstruction or masses creatinine peaked/plateaued at 2.0mg/dl and then improved down to 1.1mg/dl now, however, creatinine has been steadily rising in a stepwise pattern trial of prednisone to see if this helps (possible AIN?) this hasn't helped much. will let it wean off. s/p tunneled HD catheter (on 02/04/21) HD today then wednesday. check in am to see if she needs it tomorrow as well. follow trend of labs and UOP to assess for renal recovery (2) Acute respiratory failure with hypoxemia: Code(s): J96.01 - Acute respiratory failure with hypoxia Status: Acute Assessment and Plan: due to pulmonary edema (flash pulmonary edema?) on mechanical ventilation unable to wean at this time s/p tracheostomy (02/04/21) will need LTACH at some point. (3) Non-ST elevation [place] (NSTEMI): Code(s): I21.4 - Non-ST elevation (NSTEMI) myocardial infarction Status: Acute Assessment and Plan: s/p cardiac catheterizartion with stenting as noted Cardiology following continue supportive therapy (4) Encephalopathy: Code(s): G93.40 - Encephalopathy, unspecified Status: Acute Assessment and Plan: Neurology following EEG results noted still on sedatives at times/PRN (5) S/P TAVR (transcatheter aortic valve replacement): Code(s): Z95.2 - Presence of prosthetic heart valve Status: Chronic Assessment and Plan: valve appears to be functioning well by Echo Cardiology following as well Subjective Date/time seen: 02/07/21 14:22 Interval history: Patient is lying comfortably. Still on the ventilator. Not interactive. On HD dashawn it well so far. Set to remove a net of 2500cc Exam Narrative: Exam Narrative: General: WD/WN female in NAD; intubated/sedated Heart: normal S1 and S2; no rub Lungs: clear anteriorly; decreased at bases Abdomen: soft, nontender, nondistended, positive bowel sounds Extremities: no cyanosis or clubbing; trace edema Skin: No rash Objective Data Vital Signs Vital Signs: Vital Signs - 24 hr 02/06/21 15:12 02/06/21 16:00 02/06/21 16:11 Temperature 36.8 C Pulse Rate 74 73 89 Respiratory Rate 18 18 28 H Blood Pressure 111/44 L Pulse Oximetry 96 99 02/06/21 16:41 02/06/21 17:54 02/06/21 18:00 Temperature Pulse Rate 69 69 64 Respiratory Rate 18 18 Blood Pressure 117/45 L Pulse Oximetry 98 100 02/06/21 20:00 02/06/21 20:42 02/06/21 22:00 Temperature 36.6 C Pulse Rate 80 73 62 Respiratory Rate 23 H 14 Blood Pressure 92/71 L 104/50 L Pulse Oximetry 94 93 02/06/21 23:00 02/07/21 00:00 02/07/21 02:00 Temperature 36.6 C Pulse Rate 66 74 69 Respiratory Rate 26 H 15 Blood Pressure 103/82 129/58 L Pulse Oximetry 98 96 92 02/07/21 04:00 02/07/21 05:00 02/07/21 06:00 Temperature 36.8 C Pulse Rate 74 71 90 Respiratory Rate 18 26 H Blood Pressure 101/48 L 110/90 Pulse Oximetry 100 94 94 02/07/21 07:26 02/07/21 07:59 02/07/21 08:00 Temperature Pulse Rate 77 73 68 Respiratory Rate 16 23 H Blood Pressure Pulse Oximetry 96 97 02/07/21 08:45 02/07/21 09:00 02/07/21 09:10 Temperature 37.1 C Pulse Rate 83 86 82 Respiratory Rate 29 H Blood Pressure 125/72 132/49 L Pulse Oximetry 97 02/07/21 09:15 02/07/21 09:24 02/07/21 09:30 Temperature 36.9 C Pulse Rate 80 79 77 Respiratory Rate 31 H Blood Pressure 116
--- NOTE | 2021-02-07 14:31 | PM.PNGS ---
Progress Note: A&P Assessment and Plan (1) Respiratory failure: Code(s): J96.90 - Respiratory failure, unspecified, unspecified whether with hypoxia or hypercapnia Status: Acute Assessment and Plan: Trach ties removed. Ok for nursing to change drain sponge and trach ties. Please please ensure appropriate tightness of ties, two fingers at most beneath them. Subjective Subjective Date/Time Seen: 02/07/21 14:31 Objective Data Vital Signs Vital Signs: Vital Signs - 24 hr 02/06/21 15:12 02/06/21 16:00 02/06/21 16:11 Temperature 36.8 C Pulse Rate 74 73 89 Respiratory Rate 18 18 28 H Blood Pressure 111/44 L Pulse Oximetry 96 99 02/06/21 16:41 02/06/21 17:54 02/06/21 18:00 Temperature Pulse Rate 69 69 64 Respiratory Rate 18 18 Blood Pressure 117/45 L Pulse Oximetry 98 100 02/06/21 20:00 02/06/21 20:42 02/06/21 22:00 Temperature 36.6 C Pulse Rate 80 73 62 Respiratory Rate 23 H 14 Blood Pressure 92/71 L 104/50 L Pulse Oximetry 94 93 02/06/21 23:00 02/07/21 00:00 02/07/21 02:00 Temperature 36.6 C Pulse Rate 66 74 69 Respiratory Rate 26 H 15 Blood Pressure 103/82 129/58 L Pulse Oximetry 98 96 92 02/07/21 04:00 02/07/21 05:00 02/07/21 06:00 Temperature 36.8 C Pulse Rate 74 71 90 Respiratory Rate 18 26 H Blood Pressure 101/48 L 110/90 Pulse Oximetry 100 94 94 02/07/21 07:26 02/07/21 07:59 02/07/21 08:00 Temperature Pulse Rate 77 73 68 Respiratory Rate 16 23 H Blood Pressure Pulse Oximetry 96 97 02/07/21 08:45 02/07/21 09:00 02/07/21 09:10 Temperature 37.1 C Pulse Rate 83 86 82 Respiratory Rate 29 H Blood Pressure 125/72 132/49 L Pulse Oximetry 97 02/07/21 09:15 02/07/21 09:24 02/07/21 09:30 Temperature 36.9 C Pulse Rate 80 79 77 Respiratory Rate 31 H Blood Pressure 116/73 116/73 114/57 L Pulse Oximetry 96 05/28/21 09:45 02/07/21 09:55 02/07/21 10:00 Temperature Pulse Rate 72 76 76 Respiratory Rate 40 H 37 H Blood Pressure 127/53 L 123/63 Pulse Oximetry 99 02/07/21 10:01 02/07/21 10:15 02/07/21 10:22 Temperature Pulse Rate 80 74 74 Respiratory Rate Blood Pressure 123/63 Pulse Oximetry 96 100 02/07/21 10:30 02/07/21 10:33 02/07/21 10:45 Temperature Pulse Rate 73 73 70 Respiratory Rate Blood Pressure 130/37 L 117/38 L Pulse Oximetry 02/07/21 11:00 02/07/21 11:06 02/07/21 11:15 Temperature Pulse Rate 70 75 78 Respiratory Rate 27 H Blood Pressure 124/76 125/52 L Pulse Oximetry 100 02/07/21 11:30 02/07/21 11:45 02/07/21 12:00 Temperature Pulse Rate 59 L 68 83 Respiratory Rate 19 Blood Pressure 103/36 L 107/54 L 113/44 L Pulse Oximetry 98 02/07/21 12:12 02/07/21 12:15 02/07/21 13:52 Temperature 37.1 C Pulse Rate 74 78 78 Respiratory Rate 20 26 H Blood Pressure 106/41 L Pulse Oximetry 02/07/21 13:53 Temperature Pulse Rate 87 Respiratory Rate 91 H Blood Pressure 127/59 L Pulse Oximetry 21 L Intake/Output Intake/Output: Intake & Output 02/04/21 02/05/21 02/06/21 02/07/21 23:59 23:59 23:59 23:59 Intake Total 1175 935.2 1132.8 768 Output Total 1550 9219 228 6331 Balance -375 -514.8 1007.8 -1782 Meds/Results Medications: Active Medications Generic Name Dose Route Start Last Admin Trade Name Freq PRN Reason Stop Dose Admin Acetaminophen 650 mg 01/17/21 11:17 01/17/21 18:13 Acetaminophen 325 Mg Tablet PO 650 mg Q4H PRN Administration Mild Pain (1-3) or Fever Alteplase, Recombinant 2 mg 02/06/21 07:30 02/06/21 08:24 Alteplase 2 Mg Vial (Cathflo) IV PUSH 2 mg ONCE PRN Administration Line Occlusion Amiodarone HCl 100 mg 02/07/21 09:30 02/07/21 10:33 Amiodarone Hcl 100 Mg Tablet PO 100 mg DAILY@0800 KINGA Administration Apixaban 5 mg 02/04/21 21:00 02/07/21 08:46 Apixaban 5 Mg Tablet PO 5 mg Q12HR KINGA Administration Aspirin 81 mg 01/18/21 08:00 05
[2021-02-07] MEDS: PROPOFOL IV EMULSION 100 ML 11.23 MG IV CONT (21:03)
[2021-02-07] MEDS: MICONAZOLE NITRATE 2% VAGINAL CREAM 45 GM TUBE 1 APPFUL VAGINAL (21:05)
[2021-02-08] VITALS (40 sets, daily range): BP systolic 97–151; BP diastolic 48–118; PULSE 55–90; RESP 15–41; TEMP 36.1–36.8; O2SAT 90–100
[2021-02-08] MEDS: oxyCODONE (*CRX) 5 MG/5 ML ORAL SOLN IR PO ×4 (02:39→20:10)
[2021-02-08] MEDS: PROPOFOL IV EMULSION 100 ML 11.23 MG IV CONT ×2 (03:52→17:44)
[2021-02-08 05:12] LABS: Alveolar/Arterial O2 Gradient 204.4 mmHg; Base Excess ABG -0.8 mEq/l (+/-2.0); Carboxyhemoglobin 0.3 % THb (0-2.0); Fractional Inspired Oxygen 50 %; Methemoglobin ABG 0.2 %THb (0-1.5); Oxygen Content ABG 12.6 %vol (16.0-22.0); Oxygen Saturation ABG 98.6 % (95.0-100.0); PCO2 ABG 29.4 mmHg (35.0-45.0); PO2 FiO2 Ratio Arterial Blood 2.38 %; Reduced Hemoglobin 2.5 %THb (0-5.0); Site Drawn LEFT RADIAL; Total Hemoglobin 9.1 g/dL (12.0-18.0); pH ABG 7.491 (7.350-7.450)
[2021-02-08 05:13] LABS: Arterial Blood Gas Minute Volume 6 LPM; Arterial Blood Gas PEEP 5 cmH2O; Arterial Blood Gas Vent Mode ASV; Device VENTILATOR; Modified Allen's Test Unable to perform
[2021-02-08] MEDS: CENTRAL LINE FLUSH 10 ML IV PUSH ×3 (06:13→20:09)
[2021-02-08 06:47] LABS: Albumin Level 3.5 g/dL (3.5-5.1); Anion Gap 9 mmol/L (8-16); Blood Urea Nitrogen 52 mg/dL (7-17); Calcium 9.6 mg/dL (8.4-10.2); Carbon Dioxide 28 mmol/L (22-30); Chloride 99 mmol/L (98-107); Estimated CRCL calculation 12 ml/min; Estimated Glomerular Filt Rate 12; Glucose 110 mg/dL (65-105); Phosphorus 6.1 mg/dL (2.5-4.5); Potassium 4.2 mmol/L (3.4-5.0); Sodium 136 mmol/L (137-145)
[2021-02-08] MEDS: AMIODARONE HCL 100 MG TABLET PO (08:09)
[2021-02-08] MEDS: ATORVASTATIN 20 MG TABLET PO (08:09)
[2021-02-08] MEDS: APIXABAN 5 MG TABLET PO ×2 (08:09→20:07)
[2021-02-08] MEDS: ASPIRIN 81 MG CHEWABLE TABLET PO (08:09)
[2021-02-08] MEDS: predniSONE 10 MG TABLET PO (08:09)
[2021-02-08] MEDS: CLOPIDOGREL BISULFATE 75 MG TABLET PO (08:09)
[2021-02-08] MEDS: PANTOPRAZOLE SODIUM IV 40 MG VIAL IV PUSH ×2 (08:10→20:08)
[2021-02-08] MEDS: METOPROLOL TARTRATE 25 MG TABLET FEED TUBE ×2 (08:10→20:07)
[2021-02-08] MEDS: MICONAZOLE NITRATE 2% CREAM 30 GM TUBE 1 APPLIC TOPICAL ×2 (08:11→20:08)
[2021-02-08] MEDS: PROPOFOL IV EMULSION 100 ML 8.42 MG IV CONT (08:14)
--- NOTE | 2021-02-08 09:21 | WPDINTPN ---
Progress Note: A&P Assessment and Plan (1) Acute respiratory failure: Code(s): J96.00 - Acute respiratory failure, unspecified whether with hypoxia or hypercapnia Status: Acute Assessment and Plan: Acute Respiratory failure secondary to pulmonary edema and pneumonia as patient had elevated white count and does show some areas consolidation on CT which could be atelectasis from effusion although CT mostly suggest pulmonary edema and effusions Continue full mechanical ventilation support to prevent hypoxemia/hypercarbia and end organ damage. ABGs reviewed, currently on 35% FiO2 and peep of 5 Chest x-ray reviewed Tracheostomy placed on 02/04/2021 PEG tube placed on 01/31/2021 Completed cefepime (initiated on 01/22/2021) and levaquin (initiated on 01/27/21) through 02/02 to complete 10 day course of antibiotics Vancomycin was discontinued as blood cultures were negative and no MRSA in the sputum COVID PCR came back negative -patient tolerated PSV mode 12/5 for a few hours yesterday and had to be placed back on ASV. -place patient on pressure support again today Will rest patient on ASV at night -keep propofol infusion at a minimal dose (2) DEBRA (acute kidney injury): Code(s): N17.9 - Acute kidney failure, unspecified Status: Acute Assessment and Plan: Likely multifactorial as patient was being diuresed for pulmonary edema and also received contrast with cardiac catheterization, infection/sepsis, hypotension. Monitor in electrolytes and urine output Creatinine initially had improved but worsened , dialysis catheter was placed on 02/04/2025 and patient started on dialysis Continues to make urine She was started on steroids for suspected interstitial nephritis by Nephrology on 02/01 Continue to hold further diuresis. Repeat kidney ultrasound was unremarkable (3) Hyperkalemia: Code(s): E87.5 - Hyperkalemia Status: Acute Assessment and Plan: Improved with bicarb insulin D50 and Kayexalate Continue to monitor (4) Pneumonia: Code(s): J18.9 - Pneumonia, unspecified organism Status: Acute Assessment and Plan: Since Pseudomonas pneumonia, sputum cultures growing Pseudomonas castellanos susceptible -status post cefepime and Levaquin -CT scan of the chest on 01/26/2021 showed extensive bilateral pneumonia, mild bilateral pleural effusion, cardiomegaly, status post cholecystectomy, status post hysterectomy Infectious disease is following (5) Acute pulmonary edema: Code(s): J81.0 - Acute pulmonary edema Status: Acute Assessment and Plan: Persistent bilateral infiltrates and opacities Now on dialysis (6) CHF (congestive heart failure): Qualifiers: Heart failure type: diastolic Heart failure chronicity: acute Qualified Code(s): I50.31 - Acute diastolic (congestive) heart failure Code(s): I50.9 - Heart failure, unspecified Status: Acute Assessment and Plan: ECHO Summary 1. Complete two-dimensional, color flow and Doppler transthoracic echocardiogram is performed. 2. There is moderate concentric increased left ventricular wall thickness. 3. Left ventricular systolic function is normal, estimated at 60-65%. 4. No wall-motion abnormalities. 5. Left atrial chamber dimension is moderately enlarged. 6. There is no regurgitation of the TAVR aortic valve. 7. Minimal normal transvalvular gradient. (7) Non-ST elevation [place] (NSTEMI): Code(s): I21.4 - Non-ST elevation (NSTEMI) myocardial infarction Status: Acute Assessment and Plan: Secondary to thrombus. Patient underwent PCI and had to MARIAN x 2 placed in circumflex likely due to acute thrombotic occlusion ROMEL on 01/18/2021: Preserved LV systolic function with motion abnormalities as noted Stable, intact bioprosthetic aortic valve with preserved leaflet excursion of those visualized with suggestion of faint subvalvular thin filamentous mobile echodens
[2021-02-08] MEDS: DORNASE ALFA INH SOLN 1 MG/ML 2.5 ML AMP 2.5 MG INHALATION ×2 (10:17→20:30)
[2021-02-08] MEDS: polyethylene glycoL 3350 17 GM POWD.PACK PO (10:38)
--- NOTE | 2021-02-08 10:57 | PCDIET ---
ICU Rounding Note: Patient tolerating Nepro at goal fo 40mL/hr with 30mL water flush every 4 hours. Last recorded weight is 96.8kg which is up from last review, despite -I/O. Noted 2.5L UF on 02/07/21. Bowel Motility: Last documented BM on 02/03/21 x 3. changing Miralax from prn to scheduled. Labs Reviewed: Glu (110), BUN (52), Cr (3.7), Na (136), PO4 (6.1), Mg (2.5) Meds Noted: Propofol (rate of 8.42mL/hr provides 222kcal over 24 hour period), Lipitor, Lopressor, Roxicodone, Protonix Additional Notes: No pressure sores documented. Following daily in ICU rounds. Assessing/reassessing every Wednesday/Wednesday.
--- NOTE | 2021-02-08 11:08 | P.PNNP_ITS ---
Progress Note: A&P Assessment and Plan (1) DEBRA (acute kidney injury): Code(s): N17.9 - Acute kidney failure, unspecified Status: Acute Assessment and Plan: * had improved initially but now worsening for the last week * originally, multifactorial etiology: - contrast exposure x 2 (from CT scan of chest and cardiac catheterization) - previous IV diuresis/prerenal component - NSTEMI - use of DARYL-I/diuretics prior to admission * renal ultrasound without evidence of obstruction or masses * creatinine peaked/plateaued at 2.0mg/dl and then improved down to 1.1mg/dl * now, however, creatinine has been steadily rising in a stepwise pattern * trial of prednisone to see if this helps (possible AIN?) this hasn't helped much. will let it wean off. * s/p tunneled HD catheter (on 02/04/21) * Urine output is low. * Hemodialysis on Wednesday. (2) Acute respiratory failure with hypoxemia: Code(s): J96.01 - Acute respiratory failure with hypoxia Status: Acute Assessment and Plan: * due to pulmonary edema (flash pulmonary edema?) * on mechanical ventilation * unable to wean at this time * s/p tracheostomy (02/04/21) * will need LTACH at some point. (3) Non-ST elevation [place] (NSTEMI): Code(s): I21.4 - Non-ST elevation (NSTEMI) myocardial infarction Status: Acute Assessment and Plan: * s/p cardiac catheterizartion with stenting as noted * Cardiology following * continue supportive therapy (4) Encephalopathy: Code(s): G93.40 - Encephalopathy, unspecified Status: Acute Assessment and Plan: * Neurology following * EEG results noted (5) S/P TAVR (transcatheter aortic valve replacement): Code(s): Z95.2 - Presence of prosthetic heart valve Status: Chronic Assessment and Plan: * valve appears to be functioning well by Echo * Cardiology following as well Subjective Date/time seen: 02/08/21 11:08 Interval history: Patient is lying comfortably. Still on the ventilator. Not interactive. She has a tracheostomy. Exam Narrative: Exam Narrative: General: WD/WN female in NAD; intubated/sedated Heart: normal S1 and S2; no rub Lungs: clear anteriorly; decreased at bases Abdomen: soft, nontender, nondistended, positive bowel sounds Extremities: trace edema Skin: No rash or subcu nodules Objective Data Vital Signs Vital Signs: Vital Signs - 24 hr 02/07/21 11:15 02/07/21 11:30 02/07/21 11:45 Temperature Pulse Rate 78 59 L 68 Respiratory Rate Blood Pressure 125/52 L 103/36 L 107/54 L Pulse Oximetry 02/07/21 12:00 02/07/21 12:12 02/07/21 12:15 Temperature 37.1 C Pulse Rate 83 74 78 Respiratory Rate 19 20 26 H Blood Pressure 113/44 L 106/41 L Pulse Oximetry 98 02/07/21 13:52 02/07/21 13:53 02/07/21 14:02 Temperature Pulse Rate 78 87 74 Respiratory Rate 21 H Blood Pressure 127/59 L Pulse Oximetry 91 99 02/07/21 14:45 02/07/21 15:14 02/07/21 16:00 Temperature 36.9 C Pulse Rate 70 90 95 Respiratory Rate 22 H 22 H 16 Blood Pressure 92/39 L Pulse Oximetry 94 97 02/07/21 16:06 02/07/21
--- NOTE | 2021-02-08 11:08 | PM.PNNEP ---
Progress Note: A&P Assessment and Plan (1) DEBRA (acute kidney injury): Code(s): N17.9 - Acute kidney failure, unspecified Status: Acute Assessment and Plan: had improved initially but now worsening for the last week originally, multifactorial etiology: - contrast exposure x 2 (from CT scan of chest and cardiac catheterization) - previous IV diuresis/prerenal component - NSTEMI - use of DARYL-I/diuretics prior to admission renal ultrasound without evidence of obstruction or masses creatinine peaked/plateaued at 2.0mg/dl and then improved down to 1.1mg/dl now, however, creatinine has been steadily rising in a stepwise pattern trial of prednisone to see if this helps (possible AIN?) this hasn't helped much. will let it wean off. s/p tunneled HD catheter (on 02/04/21) Urine output is low. Hemodialysis on Wednesday. (2) Acute respiratory failure with hypoxemia: Code(s): J96.01 - Acute respiratory failure with hypoxia Status: Acute Assessment and Plan: due to pulmonary edema (flash pulmonary edema?) on mechanical ventilation unable to wean at this time s/p tracheostomy (02/04/21) will need LTACH at some point. (3) Non-ST elevation [place] (NSTEMI): Code(s): I21.4 - Non-ST elevation (NSTEMI) myocardial infarction Status: Acute Assessment and Plan: s/p cardiac catheterizartion with stenting as noted Cardiology following continue supportive therapy (4) Encephalopathy: Code(s): G93.40 - Encephalopathy, unspecified Status: Acute Assessment and Plan: Neurology following EEG results noted (5) S/P TAVR (transcatheter aortic valve replacement): Code(s): Z95.2 - Presence of prosthetic heart valve Status: Chronic Assessment and Plan: valve appears to be functioning well by Echo Cardiology following as well Subjective Date/time seen: 02/08/21 11:08 Interval history: Patient is lying comfortably. Still on the ventilator. Not interactive. She has a tracheostomy. Exam Narrative: Exam Narrative: General: WD/WN female in NAD; intubated/sedated Heart: normal S1 and S2; no rub Lungs: clear anteriorly; decreased at bases Abdomen: soft, nontender, nondistended, positive bowel sounds Extremities: trace edema Skin: No rash or subcu nodules Objective Data Vital Signs Vital Signs: Vital Signs - 24 hr 02/07/21 11:15 02/07/21 11:30 02/07/21 11:45 Temperature Pulse Rate 78 59 L 68 Respiratory Rate Blood Pressure 125/52 L 103/36 L 107/54 L Pulse Oximetry 02/07/21 12:00 02/07/21 12:12 02/07/21 12:15 Temperature 37.1 C Pulse Rate 83 74 78 Respiratory Rate 19 20 26 H Blood Pressure 113/44 L 106/41 L Pulse Oximetry 98 02/07/21 13:52 02/07/21 13:53 02/07/21 14:02 Temperature Pulse Rate 78 87 74 Respiratory Rate 21 H Blood Pressure 127/59 L Pulse Oximetry 91 99 02/07/21 14:45 02/07/21 15:14 02/07/21 16:00 Temperature 36.9 C Pulse Rate 70 90 95 Respiratory Rate 22 H 22 H 16 Blood Pressure 92/39 L Pulse Oximetry 94 97 02/07/21 16:06 02/07/21 17:54 02/07/21 18:00 Temperature Pulse Rate 69 89 87 Respiratory Rate 15 Blood Pressure Pulse Oximetry 96 02/07/21 18:18 02/07/21 18:20 02/07/21 20:00 Temperature 36.9 C Pulse Rate 99 87 86 Respiratory Rate 27 H 23 H 26 H Blood Pressure 100/66 112/71 Pulse Oximetry 94 97 02/07/21 20:12 02/07/21 21:03 02/07/21 21:05 Temperature Pulse Rate 86 74 84 Respiratory Rate 15 Blood Pressure Pulse Oximetry 95 02/07/21 22:00 02/07/21 23:04 02/07/21 23:52 Temperature Pulse Rate 84 95 Respiratory Rate 27 H Blood Pressure 127/53 L Pulse Oximetry 95 95 96 02/08/21 00:00 02/08/21 01:56 02/08/21 02:02 Temperature 36.8 C Pulse Rate 90 83 68 Respiratory Rate 17 18 Blood Pressure 136/63 126/56 L Pulse Oximetry 9
--- NOTE | 2021-02-08 11:19 | PM.PNCARD ---
Progress Note: A&P Assessment and Plan (1) Non-ST elevation [place] (NSTEMI): Code(s): I21.4 - Non-ST elevation (NSTEMI) myocardial infarction Status: Acute Assessment and Plan: ADm 01/18/21 w/ NSTEMI, Patient found to have occluded LCX, which appears embolic event from the aortic valve prosthesis. Status post complex PCI/stenting. Currently on triple therapy; DAPT for recent stent and apixaban started 02/04/2021 for PAF. Continue samel for now. After one month , use single antiplatelet treatment with clopidogrel along with apixaban. (2) Anemia: Code(s): D64.9 - Anemia, unspecified Status: Acute Assessment and Plan: Continue to monitor closely. (3) Atrial fibrillation: Code(s): I48.91 - Unspecified atrial fibrillation Status: Acute Assessment and Plan: New onset AFib with RVR self-limited. Brief runs SVT noted. continue metoprolol tartrate Continue to monitor for recurrences. (4) Sepsis: Code(s): A41.9 - Sepsis, unspecified organism Status: Acute Assessment and Plan: management per ID service. (5) Acute respiratory failure: Code(s): J96.00 - Acute respiratory failure, unspecified whether with hypoxia or hypercapnia Status: Acute Assessment and Plan: Per ciritical care. Now has trache. (6) S/P TAVR (transcatheter aortic valve replacement): Code(s): Z95.2 - Presence of prosthetic heart valve Status: Chronic Assessment and Plan: No definite vegetation or thrombus reported on ROMEL. Normal valve function. (7) Acute pulmonary edema: Code(s): J81.0 - Acute pulmonary edema Status: Acute (8) Hypertension: Code(s): I10 - Essential (primary) hypertension Status: Acute (9) DEBRA (acute kidney injury): Code(s): N17.9 - Acute kidney failure, unspecified Status: Acute Assessment and Plan: management per Nephrology (10) Encephalopathy: Code(s): G93.40 - Encephalopathy, unspecified Status: Acute Assessment and Plan: modest improvement Additional Plan Awaiting placement Subjective Date/time seen: 02/08/21 11:19 Interval history: Date of service 02/08/2021: Patient is lying comfortably. Status post trach and PEG Exam Narrative: Exam Narrative: PHYSICAL EXAMINATION: GENERAL: minimally responsive MENTAL STATUS: minimally response EYES: eyes closed EARS: External ears appear normal NOSE: Normal and patent NECK: status post trach CHEST: vent sounds HEART: Normal rate, regular rhythm with ectopic beats ABDOMEN: Soft NEUROLOGICAL: minimally responsive MUSCULOSKELETAL: No major deformity, no amputation EXTREMITIES: . Edema SKIN: no cyanosis Objective Data Vital Signs Vital Signs: Vital Signs - 24 hr 02/07/21 11:30 02/07/21 11:45 02/07/21 12:00 Temperature Pulse Rate 59 L 68 83 Respiratory Rate 19 Blood Pressure 103/36 L 107/54 L 113/44 L Pulse Oximetry 98 02/07/21 12:12 02/07/21 12:15 02/07/21 13:52 Temperature 37.1 C Pulse Rate 74 78 78 Respiratory Rate 20 26 H Blood Pressure 106/41 L Pulse Oximetry 02/07/21 13:53 02/07/21 14:02 02/07/21 14:45 Temperature Pulse Rate 87 74 70 Respiratory Rate 21 H 22 H Blood Pressure 127/59 L Pulse Oximetry 91 99 02/07/21 15:14 02/07/21 16:00 02/07/21 16:06 Temperature 36.9 C Pulse Rate 90 95 69 Respiratory Rate 22 H 16 15 Blood Pressure 92/39 L Pulse Oximetry 94 97 02/07/21 17:54 02/07/21 18:00 02/07/21 18:18 Temperature Pulse Rate 89 87 99 Respiratory Rate 27 H Blood Pressure 100/66 Pulse Oximetry 96 94 02/07/21 18:20 02/07/21 20:00 02/07/21 20:12 Temperature 36.9 C Pulse Rate 87 86 86 Respiratory Rate 23 H 26 H Blood Pressure 112/71 Pulse Oxim
[2021-02-08] MEDS: MICONAZOLE NITRATE 2% VAGINAL CREAM 45 GM TUBE 1 APPFUL VAGINAL (20:08)
[2021-02-09] VITALS (36 sets, daily range): BP systolic 102–140; BP diastolic 37–99; PULSE 52–78; RESP 17–39; TEMP 36.1–36.8; O2SAT 60–100
[2021-02-09] MEDS: PROPOFOL IV EMULSION 100 ML 11.23 MG IV CONT (02:14)
[2021-02-09] MEDS: CENTRAL LINE FLUSH 10 ML IV PUSH ×3 (05:02→20:16)
[2021-02-09] MEDS: PANTOPRAZOLE SODIUM IV 40 MG VIAL IV PUSH ×2 (07:52→20:15)
[2021-02-09] MEDS: MICONAZOLE NITRATE 2% CREAM 30 GM TUBE 1 APPLIC TOPICAL ×2 (07:52→20:20)
--- NOTE | 2021-02-09 08:01 | WPDINTPN ---
Progress Note: A&P Assessment and Plan (1) Acute respiratory failure: Code(s): J96.00 - Acute respiratory failure, unspecified whether with hypoxia or hypercapnia Status: Acute Assessment and Plan: Acute Respiratory failure secondary to pulmonary edema and pneumonia as patient had elevated white count and does show some areas consolidation on CT which could be atelectasis from effusion although CT mostly suggest pulmonary edema and effusions Continue full mechanical ventilation support to prevent hypoxemia/hypercarbia and end organ damage. ABGs reviewed, currently on 35% FiO2 and peep of 5 Chest x-ray reviewed Tracheostomy placed on 02/04/2021 PEG tube placed on 01/31/2021 Completed cefepime (initiated on 01/22/2021) and levaquin (initiated on 01/27/21) through 02/02 to complete 10 day course of antibiotics Vancomycin was discontinued as blood cultures were negative and no MRSA in the sputum COVID PCR came back negative - 02/07/21 sputum cultures growing gram-negative bacilli, awaiting identification and sensitivity - Zosyn initiated on 02/09/2021 ( renally dosed as patient has on dialysis) -patient tolerated PSV mode 12/5 for a few hours yesterday and had to be placed back on ASV. -place patient on pressure support again today Will rest patient on ASV at night -keep propofol infusion at a minimal dose, start Seroquel, may be able to wean down propofol (2) DEBRA (acute kidney injury): Code(s): N17.9 - Acute kidney failure, unspecified Status: Acute Assessment and Plan: Likely multifactorial as patient was being diuresed for pulmonary edema and also received contrast with cardiac catheterization, infection/sepsis, hypotension. Monitor in electrolytes and urine output Creatinine initially had improved but worsened , dialysis catheter was placed on 02/04/2025 and patient started on dialysis Continues to make urine She was started on steroids for suspected interstitial nephritis by Nephrology on 02/01 Continue to hold further diuresis. Repeat kidney ultrasound was unremarkable (3) Hyperkalemia: Code(s): E87.5 - Hyperkalemia Status: Acute Assessment and Plan: Improved with bicarb insulin D50 and Kayexalate Continue to monitor (4) Pneumonia: Code(s): J18.9 - Pneumonia, unspecified organism Status: Acute Assessment and Plan: Since Pseudomonas pneumonia, sputum cultures growing Pseudomonas castellanos susceptible -status post cefepime and Levaquin -CT scan of the chest on 01/26/2021 showed extensive bilateral pneumonia, mild bilateral pleural effusion, cardiomegaly, status post cholecystectomy, status post hysterectomy Infectious disease is following (5) Acute pulmonary edema: Code(s): J81.0 - Acute pulmonary edema Status: Acute Assessment and Plan: Persistent bilateral infiltrates and opacities Now on dialysis (6) CHF (congestive heart failure): Qualifiers: Heart failure type: diastolic Heart failure chronicity: acute Qualified Code(s): I50.31 - Acute diastolic (congestive) heart failure Code(s): I50.9 - Heart failure, unspecified Status: Acute Assessment and Plan: ECHO Summary 1. Complete two-dimensional, color flow and Doppler transthoracic echocardiogram is performed. 2. There is moderate concentric increased left ventricular wall thickness. 3. Left ventricular systolic function is normal, estimated at 60-65%. 4. No wall-motion abnormalities. 5. Left atrial chamber dimension is moderately enlarged. 6. There is no regurgitation of the TAVR aortic valve. 7. Minimal normal transvalvular gradient. (7) Non-ST elevation [place] (NSTEMI): Code(s): I21.4 - Non-ST elevation (NSTEMI) myocardial infarction Status: Acute Assessment and Plan: Secondary to thrombus. Patient underwent PCI and had to MARIAN x 2 placed in circumflex likely due to acute thrombotic occlusion ROMEL on 01/18/2021:
[2021-02-09] MEDS: DORNASE ALFA INH SOLN 1 MG/ML 2.5 ML AMP 2.5 MG INHALATION ×2 (08:03→19:44)
[2021-02-09 08:09] LABS: Basophils Absolute Auto 0.2 K/mm3 (0.0-0.1); Basophils Percent Auto 0.8 % (0.2-1.2); Eosinophils Absolute Auto 1.2 K/mm3 (0-0.3); Eosinophils Percent Auto 6.2 % (0-4.4); Hematocrit 23.9 % (37.0-47.0); Hemoglobin 7.7 g/dL (12.0-15.0); Immature Granulocyte Absolute 0.68 K/mm3 (0.00-0.031); Immature Granulocyte Percent A 3.5 % (0-0.5); Lymphocytes Absolute Auto 1.44 K/mm3 (0.9-3.2); Lymphocytes Percent Auto 7.5 % (18.3-44.2); Mean Corpuscular HGB Conc 32.2 g/dl (32-36); Mean Corpuscular Hemoglobin 30.6 pg (26-34); Mean Corpuscular Volume 94.8 fl (80-100); Mean Platelet Volume 12.3 fl (7.4-10.4); Monocytes Percent Auto 5.1 % (2.6-8.5); Neutrophils Absolute Auto 14.9 K/mm3 (1.3-6.7); Neutrophils Percent Auto 76.9 % (45.5-73.1); Platelet Count Result 233 k/mm3 (150-375); Red Blood Count 2.52 M/mm3 (4.2-5.4); Red Cell Distribution Width 16.1 % (11.5-14.5); White Blood Count 19.3 K/mm3 (4.5-10.0)
[2021-02-09 08:13] LABS: Alanine Aminotransferase 19 U/L (4-35); Albumin Level 3.4 g/dL (3.5-5.1); Alkaline Phosphatase 92 U/L (38-126); Anion Gap 11 mmol/L (8-16); Aspartate Amino Transferase 20 U/L (14-36); Bilirubin,Total 0.3 mg/dL (0.2-1.3); Blood Urea Nitrogen 75 mg/dL (7-17); Calcium 9.6 mg/dL (8.4-10.2); Carbon Dioxide 25 mmol/L (22-30); Chloride 96 mmol/L (98-107); Estimated CRCL calculation 9 ml/min; Estimated Glomerular Filt Rate 8; Glucose 109 mg/dL (65-105); Magnesium 2.7 mg/dL (1.6-2.3); Phosphorus 7.9 mg/dL (2.5-4.5); Potassium 4.5 mmol/L (3.4-5.0); Sodium 132 mmol/L (137-145)
[2021-02-09] MEDS: ASPIRIN 81 MG CHEWABLE TABLET PO (09:23)
[2021-02-09] MEDS: AMIODARONE HCL 100 MG TABLET PO (09:23)
[2021-02-09] MEDS: APIXABAN 5 MG TABLET PO ×2 (09:23→20:13)
[2021-02-09] MEDS: polyethylene glycoL 3350 17 GM POWD.PACK PO (09:23)
[2021-02-09] MEDS: METOPROLOL TARTRATE 25 MG TABLET FEED TUBE ×2 (09:24→20:13)
[2021-02-09] MEDS: QUEtiapine FUMARATE 12.5 MG TABLET PO ×2 (09:24→20:14)
[2021-02-09] MEDS: predniSONE 10 MG TABLET PO (09:24)
[2021-02-09] MEDS: ATORVASTATIN 20 MG TABLET PO (09:24)
[2021-02-09] MEDS: CLOPIDOGREL BISULFATE 75 MG TABLET PO (09:24)
--- NOTE | 2021-02-09 09:54 | PM.IMPN ---
Progress Note: A&P Assessment and Plan (1) Sepsis: Code(s): A41.9 - Sepsis, unspecified organism Status: Acute Assessment and Plan: Pateint with soft BP and now with decreasing UOP and rising Cr. Concern for sepsis given the rising WBC. Levophed as needed. Continue to closely monitor. Patient completed course of antibiotic Continue current treatment. (2) Pneumonia: Code(s): J18.9 - Pneumonia, unspecified organism Status: Acute Assessment and Plan: Consider bacterial PNA - sputum growing Pseudomonas and yeast. Not terribly hypoxic making COVID less likely . Rocephin changed to Cefepime and Vanco added 01/23/21. WBC peaked at 30K on 01/18/21 but trended down to 14K on 01/22. WBC climbed again so levaquin added 01/26; WBC peaked at 25.7K but back down today to 22K. On appropriate abx for the pseudomonas. Not covering the yeast but not felt to be causing a lower tract infection. Consider CDiff but not having diarrhea. Not on steroids and does not have CLL. CT Ch/A/P showing bilateral extensive PNA. . Appreciate laborer [employer] and ID input. Completed course of IV antibiotics repeat blood culture negative so far pending final culture still have leukocytosis also patient currently on steroid (3) Encephalopathy: Code(s): G93.40 - Encephalopathy, unspecified Status: Acute Assessment and Plan: CT brain 01/21 showing no acute findings. EEG 01/22 showing severely abnormal record due to the presence of bihemispheric theta and delta activity even during sleep without any paroxysmal discharge ,these abnormalities could be consistent with organic or metabolic encephalopathy. Possibility of hypoxic insult cannot be ruled out . Concern for HIE but patient has been showing some signs of improvement. Wean sedation as tolerated. Appreciate neurology and laborer [address] help. (4) Acute respiratory failure with hypoxemia: Code(s): J96.01 - Acute respiratory failure with hypoxia Status: Acute Assessment and Plan: Patient remains intubated but on minimal settings. Secondary to pneumonia and flash pulmonary edema treated with diuresis Sedation being adjusted. Continue to wean vent as tolerated. Appreciate help from laborer road. Currently on dialysis (5) Hyponatremia: Code(s): E87.1 - Hypo-osmolality and hyponatremia Status: Acute Assessment and Plan: Monitor CMP. (6) CHF (congestive heart failure): Qualifiers: Heart failure chronicity: acute Heart failure type: diastolic Qualified Code(s): I50.31 - Acute diastolic (congestive) heart failure Code(s): I50.9 - Heart failure, unspecified Status: Acute Assessment and Plan: Most likely acute of chronic diastolic CHF exacerbation Patietn with acute pulmonary edema. Patient remains on ventilator as noted. 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 Lisinopril and Lasix on hold due to rising Cr. Cardiology and laborer road following. Dialysis (7) Leukocytosis: Code(s): D72.829 - Elevated white blood cell count, unspecified Status: Acute Assessment and Plan: Continue to monitor negative blood culture blood culture (8) Non-ST elevation [place] (NSTEMI): Code(s): I21.4 - Non-ST elevation (NSTEMI) myocardial infarction Status: Acute Assessment and Plan: Cardiology following. Initial 2D echocardiogram at bedside with EF 55% along with mild hypokinesis of the mid and basal anterior wall and severe hypokinesis of the mid and basal inferolateral wall. . Now S/P cardiac catheterization on 01/18/2021 with successful PCI to left circumflex. Most likely mechanism felt to be embolic source from TAVR to circumflex. Continue ASA, Plavix, heparin drip and metoprolol. Lisinopril held. Abby
--- NOTE | 2021-02-09 10:42 | P.PNNP_ITS ---
Progress Note: A&P Assessment and Plan (1) DEBRA (acute kidney injury): Code(s): N17.9 - Acute kidney failure, unspecified Status: Acute Assessment and Plan: * had improved initially but now worsening for the last week * originally, multifactorial etiology: - contrast exposure x 2 (from CT scan of chest and cardiac catheterization) - previous IV diuresis/prerenal component - NSTEMI - use of DARYL-I/diuretics prior to admission * renal ultrasound without evidence of obstruction or masses * Urine electrolytes are non pre renal. Urine eosinophils are negative * She had peripheral eosinophilia earlier on and so steroids were attempted but this did not help. 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 * Now patient is an uric and dependent on dialysis. (2) Acute respiratory failure with hypoxemia: Code(s): J96.01 - Acute respiratory failure with hypoxia Status: Acute Assessment and Plan: * due to pulmonary edema (flash pulmonary edema?) * on mechanical ventilation * unable to wean at this time * s/p tracheostomy (02/04/21) * Evaluation underway for transfer to LTAC. (3) Non-ST elevation [place] (NSTEMI): Code(s): I21.4 - Non-ST elevation (NSTEMI) myocardial infarction Status: Acute Assessment and Plan: * s/p cardiac catheterizartion with stenting as noted * Cardiology following * continue supportive therapy (4) Encephalopathy: Code(s): G93.40 - Encephalopathy, unspecified Status: Acute Assessment and Plan: * Neurology following * EEG results noted (5) S/P TAVR (transcatheter aortic valve replacement): Code(s): Z95.2 - Presence of prosthetic heart valve Status: Chronic Assessment and Plan: * valve appears to be functioning well by Echo * Cardiology following as well Subjective Date/time seen: 02/09/21 10:42 Interval history: Patient is lying comfortably. Still on the ventilator. Not interactive. Exam Narrative: Exam Narrative: General: WD/WN female in NAD; intubated/sedated Heart: normal S1 and S2; no rub or gallop Lungs: clear anteriorly; decreased at bases Abdomen: soft, nontender, nondistended, positive bowel sounds Extremities: trace edema and no cyanosis Skin: No rash Objective Data Vital Signs Vital Signs: Vital Signs - 24 hr 02/08/21 10:59 02/08/21 11:11 02/08/21 12:00 Temperature Pulse Rate 71 72 75 Respiratory Rate 25 H 28 H Blood Pressure Pulse Oximetry 97 97 02/08/21 12:14 02/08/21 13:52 02/08/21 14:00 Temperature 36.7 C Pulse Rate 70 81 71 Respiratory Rate 27 H 22 H Blood Pressure 108/56 L 122/57 L Pulse Oximetry 98 96 97 02/08/21 16:00 02/08/21 16:40 02/08/21 17:44 Temperature 36.8 C Pulse Rate 79 80 78 Respiratory Rate 26 H 27 H Blood Pressure Pulse Oximetry 96 97 02/08/21 18:00 02/08/21 20:00 02/08/21 20:02 Temperature 36.1 C L Pulse Rate 79 73 77 Respiratory Rate 22 H 20 Blood Pressure 151/118 H 136/61 Pulse Oximetry 97 100 02/08/21 20:07 02/08/21 20:30 02/08/21
--- NOTE | 2021-02-09 10:42 | PM.PNNEP ---
Progress Note: A&P Assessment and Plan (1) DEBRA (acute kidney injury): Code(s): N17.9 - Acute kidney failure, unspecified Status: Acute Assessment and Plan: had improved initially but now worsening for the last week originally, multifactorial etiology: - contrast exposure x 2 (from CT scan of chest and cardiac catheterization) - previous IV diuresis/prerenal component - NSTEMI - use of DARYL-I/diuretics prior to admission renal ultrasound without evidence of obstruction or masses Urine electrolytes are non pre renal. Urine eosinophils are negative She had peripheral eosinophilia earlier on and so steroids were attempted but this did not help. 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 Now patient is an uric and dependent on dialysis. (2) Acute respiratory failure with hypoxemia: Code(s): J96.01 - Acute respiratory failure with hypoxia Status: Acute Assessment and Plan: due to pulmonary edema (flash pulmonary edema?) on mechanical ventilation unable to wean at this time s/p tracheostomy (02/04/21) Evaluation underway for transfer to LTAC. (3) Non-ST elevation [place] (NSTEMI): Code(s): I21.4 - Non-ST elevation (NSTEMI) myocardial infarction Status: Acute Assessment and Plan: s/p cardiac catheterizartion with stenting as noted Cardiology following continue supportive therapy (4) Encephalopathy: Code(s): G93.40 - Encephalopathy, unspecified Status: Acute Assessment and Plan: Neurology following EEG results noted (5) S/P TAVR (transcatheter aortic valve replacement): Code(s): Z95.2 - Presence of prosthetic heart valve Status: Chronic Assessment and Plan: valve appears to be functioning well by Echo Cardiology following as well Subjective Date/time seen: 02/09/21 10:42 Interval history: Patient is lying comfortably. Still on the ventilator. Not interactive. Exam Narrative: Exam Narrative: General: WD/WN female in NAD; intubated/sedated Heart: normal S1 and S2; no rub or gallop Lungs: clear anteriorly; decreased at bases Abdomen: soft, nontender, nondistended, positive bowel sounds Extremities: trace edema and no cyanosis Skin: No rash Objective Data Vital Signs Vital Signs: Vital Signs - 24 hr 02/08/21 10:59 02/08/21 11:11 02/08/21 12:00 Temperature Pulse Rate 71 72 75 Respiratory Rate 25 H 28 H Blood Pressure Pulse Oximetry 97 97 02/08/21 12:14 02/08/21 13:52 02/08/21 14:00 Temperature 36.7 C Pulse Rate 70 81 71 Respiratory Rate 27 H 22 H Blood Pressure 108/56 L 122/57 L Pulse Oximetry 98 96 97 02/08/21 16:00 02/08/21 16:40 02/08/21 17:44 Temperature 36.8 C Pulse Rate 79 80 78 Respiratory Rate 26 H 27 H Blood Pressure Pulse Oximetry 96 97 02/08/21 18:00 02/08/21 20:00 02/08/21 20:02 Temperature 36.1 C L Pulse Rate 79 73 77 Respiratory Rate 22 H 20 Blood Pressure 151/118 H 136/61 Pulse Oximetry 97 100 02/08/21 20:07 02/08/21 20:30 02/08/21 20:45 Temperature Pulse Rate 69 65 61 Respiratory Rate 24 H 21 H Blood Pressure Pulse Oximetry 02/08/21 22:00 02/08/21 22:01 02/08/21 22:33 Temperature Pulse Rate 55 L 55 L 71 Respiratory Rate 22 H 41 H Blood Pressure 97/48 L 134/95 H Pulse Oximetry 100 02/08/21 23:21 02/09/21 00:00 02/09/21 00:33 Temperature 36.8 C Pulse Rate 76 73 65 Respiratory Rate 20 Blood Pressure 110/47 L Pulse Oximetry 96 100 02/09/21 02:00 02/09/21 02:10 02/09/21 04:00 Temperature Pulse Rate 70 67 59 L Respiratory Rate 30 H Blood Pressure 112/45 L Pulse Oximetry 100 02/09/21 04:01 02/09/21 04:39 02/09/21 04:55 Temperature 36.1 C L Pulse Rate 59 L 59 L 58 L Respiratory Rate 22 H 23 H Blood Pressure 105/3
[2021-02-09] MEDS: PROPOFOL IV EMULSION 100 ML 8.42 MG IV CONT ×2 (11:27→22:05)
[2021-02-09] MEDS: VENLAFAXINE HCL 75 MG TABLET PO ×2 (11:27→20:14)
[2021-02-09] MEDS: MICONAZOLE NITRATE 2% VAGINAL CREAM 45 GM TUBE 1 APPFUL VAGINAL (20:11)
[2021-02-10] VITALS (45 sets, daily range): BP systolic 89–148; BP diastolic 30–72; PULSE 52–72; RESP 14–34; TEMP 36.2–37.2; O2SAT 94–100
[2021-02-10] MEDS: CENTRAL LINE FLUSH 10 ML IV PUSH ×2 (05:41→20:53)
[2021-02-10 05:52] LABS: Basophils Absolute Auto 0.1 K/mm3 (0.0-0.1); Basophils Percent Auto 0.6 % (0.2-1.2); Eosinophils Absolute Auto 0.8 K/mm3 (0-0.3); Eosinophils Percent Auto 4.2 % (0-4.4); Hematocrit 21.8 % (37.0-47.0); Hemoglobin 7.1 g/dL (12.0-15.0); Immature Granulocyte Absolute 0.59 K/mm3 (0.00-0.031); Immature Granulocyte Percent A 3.2 % (0-0.5); Lymphocytes Absolute Auto 1.54 K/mm3 (0.9-3.2); Lymphocytes Percent Auto 8.5 % (18.3-44.2); Mean Corpuscular HGB Conc 32.6 g/dl (32-36); Mean Corpuscular Hemoglobin 29.7 pg (26-34); Mean Corpuscular Volume 91.2 fl (80-100); Mean Platelet Volume 11.5 fl (7.4-10.4); Monocytes Absolute Auto 0.9 K/mm3 (0.1-0.6); Neutrophils Absolute Auto 14.3 K/mm3 (1.3-6.7); Neutrophils Percent Auto 78.5 % (45.5-73.1); Platelet Count Result 228 k/mm3 (150-375); Red Blood Count 2.39 M/mm3 (4.2-5.4); Red Cell Distribution Width 16.2 % (11.5-14.5); White Blood Count 18.2 K/mm3 (4.5-10.0)
[2021-02-10 06:12] LABS: Anion Gap 15 mmol/L (8-16); Blood Urea Nitrogen 97 mg/dL (7-17); Calcium 9.4 mg/dL (8.4-10.2); Carbon Dioxide 22 mmol/L (22-30); Chloride 94 mmol/L (98-107); Estimated CRCL calculation 7 ml/min; Estimated Glomerular Filt Rate 6; Glucose 105 mg/dL (65-105); Phosphorus 10.4 mg/dL (2.5-4.5); Potassium 5.6 mmol/L (3.4-5.0); Sodium 131 mmol/L (137-145)
[2021-02-10] MEDS: DORNASE ALFA INH SOLN 1 MG/ML 2.5 ML AMP 2.5 MG INHALATION ×2 (07:21→19:43)
[2021-02-10] MEDS: ALBUTEROL SULFATE NEB 2.5 MG/0.5 ML INH 15 MG INHALATION (07:41)
[2021-02-10] MEDS: PROPOFOL IV EMULSION 100 ML 8.42 MG IV CONT ×2 (08:36→18:59)
--- NOTE | 2021-02-10 08:36 | WPDINTPN ---
Progress Note: A&P Assessment and Plan (1) Acute respiratory failure: Code(s): J96.00 - Acute respiratory failure, unspecified whether with hypoxia or hypercapnia Status: Acute Assessment and Plan: Acute Respiratory failure secondary to pulmonary edema and pneumonia -chest x-ray and ABGs reviewed -continue ASV mode of ventilation. Placed patient on PSV 12/5 yesterday and tolerated it for approximately 2 hours. -currently on 35% FiO2 and peep of 5 Tracheostomy placed on 02/04/2021 PEG tube placed on 01/31/2021 Completed cefepime (initiated on 01/22/2021) and levaquin (initiated on 01/27/21) through 02/02 to complete 10 day course of antibiotics Vancomycin was discontinued as blood cultures were negative and no MRSA in the sputum COVID PCR came back negative - 02/07/21 sputum cultures growing 2 strains of Pseudomonas susceptible to Zosyn - Zosyn initiated on 02/09/2021 ( renally dosed as patient has on dialysis) -keep propofol infusion at a minimal dose, continue low dose Seroquel, may be able to wean down propofol (2) DEBRA (acute kidney injury): Code(s): N17.9 - Acute kidney failure, unspecified Status: Acute Assessment and Plan: Likely multifactorial as patient was being diuresed for pulmonary edema and also received contrast with cardiac catheterization, infection/sepsis, hypotension. Monitor in electrolytes and urine output Creatinine initially had improved but worsened , dialysis catheter was placed on 02/04/2025 and patient started on dialysis Continues to make minimal urine She was started on steroids for suspected interstitial nephritis which was discontinued on 02/09/2021 by Nephrology Continue to hold further diuresis. Repeat kidney ultrasound was unremarkable (3) Hyperkalemia: Code(s): E87.5 - Hyperkalemia Status: Acute Assessment and Plan: Improved with bicarb insulin D50 and Kayexalate Continue to monitor (4) Pneumonia: Code(s): J18.9 - Pneumonia, unspecified organism Status: Acute Assessment and Plan: Pseudomonas pneumonia, sputum cultures growing Pseudomonas -status post cefepime and Levaquin -repeat sputum cultures on 02/07/2021 growing 2 strains of Pseudomonas continue Zosyn -CT scan of the chest on 01/26/2021 showed extensive bilateral pneumonia, mild bilateral pleural effusion, cardiomegaly, status post cholecystectomy, status post hysterectomy Infectious disease is following (5) Acute pulmonary edema: Code(s): J81.0 - Acute pulmonary edema Status: Acute Assessment and Plan: Persistent bilateral infiltrates and opacities Now on dialysis (6) CHF (congestive heart failure): Qualifiers: Heart failure type: diastolic Heart failure chronicity: acute Qualified Code(s): I50.31 - Acute diastolic (congestive) heart failure Code(s): I50.9 - Heart failure, unspecified Status: Acute Assessment and Plan: ECHO Summary 1. Complete two-dimensional, color flow and Doppler transthoracic echocardiogram is performed. 2. There is moderate concentric increased left ventricular wall thickness. 3. Left ventricular systolic function is normal, estimated at 60-65%. 4. No wall-motion abnormalities. 5. Left atrial chamber dimension is moderately enlarged. 6. There is no regurgitation of the TAVR aortic valve. 7. Minimal normal transvalvular gradient. (7) Non-ST elevation [place] (NSTEMI): Code(s): I21.4 - Non-ST elevation (NSTEMI) myocardial infarction Status: Acute Assessment and Plan: Secondary to thrombus. Patient underwent PCI and had to MARIAN x 2 placed in circumflex likely due to acute thrombotic occlusion ROMEL on 01/18/2021: Preserved LV systolic function with motion abnormalities as noted Stable, intact bioprosthetic aortic valve with preserved leaflet excursion of those visualized with suggestion of faint subvalvular thin filamentous mobile echodensity unab
[2021-02-10] MEDS: SODIUM BICARBONATE 8.4% 50 MEQ/50 ML SYRINGE IV PUSH (08:38)
[2021-02-10] MEDS: DEXTROSE 50% 25 GM/50 ML SYRINGE IV PUSH (08:40)
[2021-02-10] MEDS: INSULIN HUMAN REGULAR (*BKC) 100 UNITS/ML 10 UNITS IV PUSH (08:43)
[2021-02-10] MEDS: MICONAZOLE NITRATE 2% CREAM 30 GM TUBE 1 APPLIC TOPICAL ×2 (08:47→21:01)
[2021-02-10] MEDS: ASPIRIN 81 MG CHEWABLE TABLET PO (08:48)
[2021-02-10] MEDS: ATORVASTATIN 20 MG TABLET PO (08:49)
[2021-02-10] MEDS: AMIODARONE HCL 100 MG TABLET PO (08:49)
[2021-02-10] MEDS: METOPROLOL TARTRATE 25 MG TABLET FEED TUBE ×2 (08:50→20:51)
[2021-02-10] MEDS: APIXABAN 5 MG TABLET PO ×2 (08:50→20:50)
[2021-02-10] MEDS: CLOPIDOGREL BISULFATE 75 MG TABLET PO (08:50)
[2021-02-10] MEDS: VENLAFAXINE HCL 75 MG TABLET PO ×2 (08:51→20:53)
[2021-02-10] MEDS: QUEtiapine FUMARATE 12.5 MG TABLET PO ×2 (08:51→20:53)
[2021-02-10] MEDS: polyethylene glycoL 3350 17 GM POWD.PACK PO (08:51)
--- NOTE | 2021-02-10 08:53 | PM.IMPN ---
Progress Note: A&P Assessment and Plan (1) Sepsis: Code(s): A41.9 - Sepsis, unspecified organism Status: Acute Assessment and Plan: Pateint with soft BP and now with decreasing UOP and rising Cr. Concern for sepsis given the rising WBC. Levophed as needed. Continue to closely monitor. Patient completed course of antibiotic Continue current treatment. (2) Pneumonia: Code(s): J18.9 - Pneumonia, unspecified organism Status: Acute Assessment and Plan: Consider bacterial PNA - sputum growing Pseudomonas and yeast. Not terribly hypoxic making COVID less likely . Rocephin changed to Cefepime and Vanco added 01/23/21. WBC peaked at 30K on 01/18/21 but trended down to 14K on 01/22. WBC climbed again so levaquin added 01/26; WBC peaked at 25.7K but back down today to 22K. On appropriate abx for the pseudomonas. Not covering the yeast but not felt to be causing a lower tract infection. Consider CDiff but not having diarrhea. Not on steroids and does not have CLL. CT Ch/A/P showing bilateral extensive PNA. . Appreciate vocational rehabilitation administrator and ID input. Completed course of IV antibiotics repeat blood culture negative so far pending final culture still have leukocytosis also patient currently on steroid repeat sputum culture positive for Pseudomonas patient was restarted on Zosyn on 02/09/2021 (3) Encephalopathy: Code(s): G93.40 - Encephalopathy, unspecified Status: Acute Assessment and Plan: CT brain 01/21 showing no acute findings. EEG 01/22 showing severely abnormal record due to the presence of bihemispheric theta and delta activity even during sleep without any paroxysmal discharge ,these abnormalities could be consistent with organic or metabolic encephalopathy. Possibility of hypoxic insult cannot be ruled out . Concern for HIE but patient has been showing some signs of improvement. Wean sedation as tolerated. Appreciate neurology and vocational rehabilitation administrator help. (4) Acute respiratory failure with hypoxemia: Code(s): J96.01 - Acute respiratory failure with hypoxia Status: Acute Assessment and Plan: Patient remains intubated but on minimal settings. Secondary to pneumonia and flash pulmonary edema treated with diuresis Sedation being adjusted. Continue to wean vent as tolerated. Appreciate help from vocational rehabilitation administrator. Currently on dialysis (5) Hyponatremia: Code(s): E87.1 - Hypo-osmolality and hyponatremia Status: Acute Assessment and Plan: Monitor CMP. (6) CHF (congestive heart failure): Qualifiers: Heart failure type: diastolic Heart failure chronicity: acute Qualified Code(s): I50.31 - Acute diastolic (congestive) heart failure Code(s): I50.9 - Heart failure, unspecified Status: Acute Assessment and Plan: Most likely acute of chronic diastolic CHF exacerbation Patietn with acute pulmonary edema. Patient remains on ventilator as noted. 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 Lisinopril and Lasix on hold due to rising Cr. Cardiology and vocational rehabilitation administrator following. Dialysis (7) Leukocytosis: Code(s): D72.829 - Elevated white blood cell count, unspecified Status: Acute Assessment and Plan: Continue to monitor negative blood culture blood culture (8) Non-ST elevation [place] (NSTEMI): Code(s): I21.4 - Non-ST elevation (NSTEMI) myocardial infarction Status: Acute Assessment and Plan: Cardiology following. Initial 2D echocardiogram at bedside with EF 55% along with mild hypokinesis of the mid and basal anterior wall and severe hypokinesis of the mid and basal inferolateral wall. . Now S/P cardiac catheterization on 01/18/2021 with successful PCI to left circumflex. Most likely mechanism felt to be embolic source from
[2021-02-10] MEDS: PANTOPRAZOLE SODIUM IV 40 MG VIAL IV PUSH ×2 (08:54→20:52)
[2021-02-10] MEDS: SODIUM POLYSTYRENE SULFONONATE 15 GM/60 ML BTL 30 GM PO (08:59)
--- NOTE | 2021-02-10 09:29 | P.PNNP_ITS ---
Progress Note: A&P Assessment and Plan (1) DEBRA (acute kidney injury): Code(s): N17.9 - Acute kidney failure, unspecified Status: Acute Assessment and Plan: * had improved initially but now worsened and on dialysis * originally, multifactorial etiology: - contrast exposure x 2 (from CT scan of chest and cardiac catheterization) - previous IV diuresis/prerenal component - NSTEMI - use of DARYL-I/diuretics prior to admission * renal ultrasound without evidence of obstruction or masses * Urine electrolytes are non pre renal. Urine eosinophils are negative * She had peripheral eosinophilia earlier on and so steroids were attempted but this did not help. 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 * Now patient is oliguric and dependent on dialysis. (2) Acute respiratory failure with hypoxemia: Code(s): J96.01 - Acute respiratory failure with hypoxia Status: Acute Assessment and Plan: * due to pulmonary edema (flash pulmonary edema?) * on mechanical ventilation * unable to wean at this time * s/p tracheostomy (02/04/21) * Evaluation underway for transfer to LTAC. (3) Non-ST elevation [place] (NSTEMI): Code(s): I21.4 - Non-ST elevation (NSTEMI) myocardial infarction Status: Acute Assessment and Plan: * s/p cardiac catheterizartion with stenting as noted * Cardiology following * continue supportive therapy (4) Encephalopathy: Code(s): G93.40 - Encephalopathy, unspecified Status: Acute Assessment and Plan: * Neurology following * EEG results noted (5) S/P TAVR (transcatheter aortic valve replacement): Code(s): Z95.2 - Presence of prosthetic heart valve Status: Chronic Assessment and Plan: * valve appears to be functioning well by Echo * Cardiology following as well Subjective Date/time seen: 02/10/21 09:29 Interval history: Patient is lying comfortably. Still on the ventilator. She opened her eyes when I called her name but otherwise not interact Exam Narrative: Exam Narrative: General: WD/WN female in NAD; intubated/sedated Heart: normal S1 and S2; Lungs: clear anteriorly; decreased at bases Abdomen: soft, nontender, nondistended, positive bowel sounds Extremities: trace edema and no cyanosis Skin: No rash or subcu nodules Objective Data Vital Signs Vital Signs: Vital Signs - 24 hr 02/09/21 10:00 02/09/21 10:47 02/09/21 12:00 Temperature 36.3 C L Pulse Rate 58 L 67 60 Respiratory Rate 20 28 H Blood Pressure 102/47 L 140/62 Pulse Oximetry 100 99 60 L 02/09/21 13:57 02/09/21 14:00 02/09/21 15:31 Temperature Pulse Rate 61 65 Respiratory Rate 32 H Blood Pressure 140/99 H Pulse Oximetry 98 96 96 02/09/21 16:00 02/09/21 16:48 02/09/21 18:00 Temperature Pulse Rate 54 L 57 L 53 L Respiratory Rate 20 20 Blood Pressure 106/50 L 102/58 L Pulse Oximetry 98 95 97 02/09/21 19:44 02/09/21 19:45 02/09/21 20:00 Temperature 36.6 C Pulse Rate 76 55 L 53 L Respiratory Rate 17 24 H Blood Pressure 109/52 L Pulse Oximetry 100 96 02/09/21 20:13 02/09/21 20:45 02/09/21 21:46
--- NOTE | 2021-02-10 09:29 | PM.PNNEP ---
Progress Note: A&P Assessment and Plan (1) DEBRA (acute kidney injury): Code(s): N17.9 - Acute kidney failure, unspecified Status: Acute Assessment and Plan: had improved initially but now worsened and on dialysis originally, multifactorial etiology: - contrast exposure x 2 (from CT scan of chest and cardiac catheterization) - previous IV diuresis/prerenal component - NSTEMI - use of DARYL-I/diuretics prior to admission renal ultrasound without evidence of obstruction or masses Urine electrolytes are non pre renal. Urine eosinophils are negative She had peripheral eosinophilia earlier on and so steroids were attempted but this did not help. 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 Now patient is oliguric and dependent on dialysis. (2) Acute respiratory failure with hypoxemia: Code(s): J96.01 - Acute respiratory failure with hypoxia Status: Acute Assessment and Plan: due to pulmonary edema (flash pulmonary edema?) on mechanical ventilation unable to wean at this time s/p tracheostomy (02/04/21) Evaluation underway for transfer to LTAC. (3) Non-ST elevation [place] (NSTEMI): Code(s): I21.4 - Non-ST elevation (NSTEMI) myocardial infarction Status: Acute Assessment and Plan: s/p cardiac catheterizartion with stenting as noted Cardiology following continue supportive therapy (4) Encephalopathy: Code(s): G93.40 - Encephalopathy, unspecified Status: Acute Assessment and Plan: Neurology following EEG results noted (5) S/P TAVR (transcatheter aortic valve replacement): Code(s): Z95.2 - Presence of prosthetic heart valve Status: Chronic Assessment and Plan: valve appears to be functioning well by Echo Cardiology following as well Subjective Date/time seen: 02/10/21 09:29 Interval history: Patient is lying comfortably. Still on the ventilator. She opened her eyes when I called her name but otherwise not interact Exam Narrative: Exam Narrative: General: WD/WN female in NAD; intubated/sedated Heart: normal S1 and S2; Lungs: clear anteriorly; decreased at bases Abdomen: soft, nontender, nondistended, positive bowel sounds Extremities: trace edema and no cyanosis Skin: No rash or subcu nodules Objective Data Vital Signs Vital Signs: Vital Signs - 24 hr 02/09/21 10:00 02/09/21 10:47 02/09/21 12:00 Temperature 36.3 C L Pulse Rate 58 L 67 60 Respiratory Rate 20 28 H Blood Pressure 102/47 L 140/62 Pulse Oximetry 100 99 60 L 02/09/21 13:57 02/09/21 14:00 02/09/21 15:31 Temperature Pulse Rate 61 65 Respiratory Rate 32 H Blood Pressure 140/99 H Pulse Oximetry 98 96 96 02/09/21 16:00 02/09/21 16:48 02/09/21 18:00 Temperature Pulse Rate 54 L 57 L 53 L Respiratory Rate 20 20 Blood Pressure 106/50 L 102/58 L Pulse Oximetry 98 95 97 02/09/21 19:44 02/09/21 19:45 02/09/21 20:00 Temperature 36.6 C Pulse Rate 76 55 L 53 L Respiratory Rate 17 24 H Blood Pressure 109/52 L Pulse Oximetry 100 96 02/09/21 20:13 02/09/21 20:45 02/09/21 21:46 Temperature Pulse Rate 53 L 53 L 55 L Respiratory Rate 28 H 36 H Blood Pressure Pulse Oximetry 02/09/21 22:00 02/09/21 22:05 02/09/21 22:59 Temperature Pulse Rate 52 L 52 L 53 L Respiratory Rate 22 H 22 H Blood Pressure 125/53 L Pulse Oximetry 96 98 02/10/21 00:00 02/10/21 01:37 02/10/21 02:00 Temperature 36.7 C Pulse Rate 60 52 L 53 L Respiratory Rate 34 H 31 H Blood Pressure 148/54 H 106/52 L Pulse Oximetry 94 100 97 02/10/21 04:00 02/10/21 05:13 02/10/21 05:40 Temperature 36.8 C Pulse Rate 55 L 55 L 55 L Respiratory Rate 24 H 17 Blood Pressure 101/30 L Pulse Oximetry 98 100 02/10/21 06:00 02/10/21 07:23 02/10/21 07:25 Temperature Pulse Rate 57 L 57 L 57 L Respiratory Rate 19 21 H Blo
[2021-02-10 10:17] LABS: Anion Gap 17 mmol/L (8-16); Blood Urea Nitrogen 101 mg/dL (7-17); Calcium 9.5 mg/dL (8.4-10.2); Carbon Dioxide 22 mmol/L (22-30); Chloride 92 mmol/L (98-107); Estimated CRCL calculation 7 ml/min; Estimated Glomerular Filt Rate 6; Glucose 104 mg/dL (65-105); Potassium 4.5 mmol/L (3.4-5.0); Sodium 131 mmol/L (137-145)
[2021-02-11] VITALS (26 sets, daily range): BP systolic 96–129; BP diastolic 37–67; PULSE 49–72; RESP 14–27; TEMP 36.4–36.6; O2SAT 95–100
[2021-02-11] MEDS: CENTRAL LINE FLUSH 10 ML IV PUSH ×3 (04:02→21:58)
[2021-02-11 04:28] LABS: Basophils Absolute Auto 0.1 K/mm3 (0.0-0.1); Basophils Percent Auto 0.6 % (0.2-1.2); Eosinophils Percent Auto 5.9 % (0-4.4); Immature Granulocyte Absolute 0.42 K/mm3 (0.00-0.031); Immature Granulocyte Percent A 2.5 % (0-0.5); Lymphocytes Absolute Auto 1.14 K/mm3 (0.9-3.2); Lymphocytes Percent Auto 6.7 % (18.3-44.2); Mean Corpuscular HGB Conc 33.3 g/dl (32-36); Mean Corpuscular Hemoglobin 30.8 pg (26-34); Mean Corpuscular Volume 92.5 fl (80-100); Mean Platelet Volume 12.4 fl (7.4-10.4); Neutrophils Absolute Auto 13.3 K/mm3 (1.3-6.7); Neutrophils Percent Auto 78.3 % (45.5-73.1); Platelet Count Result 220 k/mm3 (150-375); Red Blood Count 2.27 M/mm3 (4.2-5.4); Red Cell Distribution Width 16.5 % (11.5-14.5)
[2021-02-11 05:02] LABS: Alanine Aminotransferase 33 U/L (4-35); Albumin Level 3.3 g/dL (3.5-5.1); Alkaline Phosphatase 121 U/L (38-126); Anion Gap 11 mmol/L (8-16); Aspartate Amino Transferase 36 U/L (14-36); Bilirubin,Total 0.4 mg/dL (0.2-1.3); Blood Urea Nitrogen 54 mg/dL (7-17); Calcium 8.6 mg/dL (8.4-10.2); Carbon Dioxide 30 mmol/L (22-30); Chloride 95 mmol/L (98-107); Estimated CRCL calculation 11 ml/min; Estimated Glomerular Filt Rate 11; Glucose 110 mg/dL (65-105); Magnesium 2.3 mg/dL (1.6-2.3); Phosphorus 6.8 mg/dL (2.5-4.5); Potassium 3.9 mmol/L (3.4-5.0); Sodium 136 mmol/L (137-145)
[2021-02-11] MEDS: PROPOFOL IV EMULSION 100 ML 8.42 MG IV CONT ×2 (05:57→16:33)
--- NOTE | 2021-02-11 07:00 | WPDINTPN ---
Progress Note: A&P Assessment and Plan (1) Acute respiratory failure: Code(s): J96.00 - Acute respiratory failure, unspecified whether with hypoxia or hypercapnia Status: Acute Assessment and Plan: Acute Respiratory failure secondary to pulmonary edema and pneumonia -chest x-ray and ABGs reviewed -continue ASV mode of ventilation. Placed patient on PSV 12/5 yesterday and tolerated it for approximately 2 hours. -currently on 35% FiO2 and peep of 5 Tracheostomy placed on 02/04/2021 PEG tube placed on 01/31/2021 Completed cefepime (initiated on 01/22/2021) and levaquin (initiated on 01/27/21) through 02/02 to complete 10 day course of antibiotics Vancomycin was discontinued as blood cultures were negative and no MRSA in the sputum COVID PCR came back negative - 02/07/21 sputum cultures growing 2 strains of Pseudomonas susceptible to Zosyn - Zosyn initiated on 02/09/2021 ( renally dosed as patient has on dialysis) -identification is susceptibility showed intermediate to Zosyn. Will switch to imipenem -keep propofol infusion at a minimal dose, continue low dose Seroquel, may be able to wean down propofol -added p.r.n. oxycodone and Ativan try to wean propofol of (2) DEBRA (acute kidney injury): Code(s): N17.9 - Acute kidney failure, unspecified Status: Acute Assessment and Plan: Likely multifactorial as patient was being diuresed for pulmonary edema and also received contrast with cardiac catheterization, infection/sepsis, hypotension. Monitor in electrolytes and urine output Creatinine initially had improved but worsened , dialysis catheter was placed on 02/04/2025 and patient started on dialysis Continues to make minimal urine She was started on steroids for suspected interstitial nephritis which was discontinued on 02/09/2021 by Nephrology Repeat kidney ultrasound was unremarkable (3) Pneumonia: Code(s): J18.9 - Pneumonia, unspecified organism Status: Acute Assessment and Plan: Pseudomonas pneumonia, sputum cultures growing Pseudomonas -status post cefepime and Levaquin -repeat sputum cultures on 02/07/2021 growing 2 strains of Pseudomonas continue Zosyn - Zosyn initiated on 02/09/2021 ( renally dosed as patient has on dialysis) -identification is susceptibility showed intermediate to Zosyn. Will switch to imipenem -CT scan of the chest on 01/26/2021 showed extensive bilateral pneumonia, mild bilateral pleural effusion, cardiomegaly, status post cholecystectomy, status post hysterectomy Infectious disease is following (4) Acute pulmonary edema: Code(s): J81.0 - Acute pulmonary edema Status: Acute Assessment and Plan: Persistent bilateral infiltrates and opacities Now on dialysis (5) CHF (congestive heart failure): Qualifiers: Heart failure type: diastolic Heart failure chronicity: acute Qualified Code(s): I50.31 - Acute diastolic (congestive) heart failure Code(s): I50.9 - Heart failure, unspecified Status: Acute Assessment and Plan: ECHO Summary 1. Complete two-dimensional, color flow and Doppler transthoracic echocardiogram is performed. 2. There is moderate concentric increased left ventricular wall thickness. 3. Left ventricular systolic function is normal, estimated at 60-65%. 4. No wall-motion abnormalities. 5. Left atrial chamber dimension is moderately enlarged. 6. There is no regurgitation of the TAVR aortic valve. 7. Minimal normal transvalvular gradient. (6) Non-ST elevation [place] (NSTEMI): Code(s): I21.4 - Non-ST elevation (NSTEMI) myocardial infarction Status: Acute Assessment and Plan: Secondary to thrombus. Patient underwent PCI and had to MARIAN x 2 placed in circumflex likely due to acute thrombotic occlusion ROMEL on 01/18/2021: Preserved LV systolic function with motion abnormalities as noted Stable, intact bioprosthetic aortic valve with preserved leaflet excursi
--- NOTE | 2021-02-11 08:26 | P.PNNP_ITS ---
Progress Note: A&P Assessment and Plan (1) DEBRA (acute kidney injury): Code(s): N17.9 - Acute kidney failure, unspecified Status: Acute Assessment and Plan: * had improved initially but now worsened and on dialysis * originally, multifactorial etiology: - contrast exposure x 2 (from CT scan of chest and cardiac catheterization) - previous IV diuresis/prerenal component - NSTEMI - use of DARYL-I/diuretics prior to admission * renal ultrasound without evidence of obstruction or masses * Urine electrolytes are non pre renal. Urine eosinophils are negative * She had peripheral eosinophilia earlier on and so steroids were attempted but this did not help. 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 * Had hemodialysis yesterday. * Will schedule for tomorrow. (2) Acute respiratory failure with hypoxemia: Code(s): J96.01 - Acute respiratory failure with hypoxia Status: Acute Assessment and Plan: * due to pulmonary edema (flash pulmonary edema?) * on mechanical ventilation * unable to wean at this time most likely due to weakness. * s/p tracheostomy (02/04/21) * Evaluation underway for transfer to LTAC. (3) Non-ST elevation [place] (NSTEMI): Code(s): I21.4 - Non-ST elevation (NSTEMI) myocardial infarction Status: Acute Assessment and Plan: * s/p cardiac catheterizartion with stenting as noted * Cardiology following * continue supportive therapy (4) Encephalopathy: Code(s): G93.40 - Encephalopathy, unspecified Status: Acute Assessment and Plan: * Neurology following * EEG results noted (5) S/P TAVR (transcatheter aortic valve replacement): Code(s): Z95.2 - Presence of prosthetic heart valve Status: Chronic Assessment and Plan: * valve appears to be functioning well by Echo * Cardiology following as well Subjective Date/time seen: 02/11/21 08:26 Interval history: Patient is lying comfortably. Still on the ventilator. She regards examiner to some degree but otherwise does not interact. Exam Narrative: Exam Narrative: WDWN in NAD skin no rash head ncat lungs clear cor reg no rub abd BS+ nontender and soft ext no edema. Objective Data Vital Signs Vital Signs: Vital Signs - 24 hr 02/10/21 08:36 02/10/21 08:49 02/10/21 08:50 Temperature Pulse Rate 61 70 62 Respiratory Rate 20 24 H Blood Pressure Pulse Oximetry 02/10/21 09:00 02/10/21 10:00 02/10/21 11:00 Temperature Pulse Rate 72 Respiratory Rate 23 H Blood Pressure 112/51 L 110/34 L 97/45 L Pulse Oximetry 95 02/10/21 11:43 02/10/21 12:00 02/10/21 13:40 Temperature 36.3 C L 37.2 C Pulse Rate 61 59 L 57 L Respiratory Rate 17 15 Blood Pressure 100/35 L 125/44 L Pulse Oximetry 100 100 02/10/21 13:45 02/10/21 14:00 02/10/21 14:15 Temperature Pulse Rate 62 59 L 59 L Respiratory Rate 14 Blood Pressure 121/47 L 118/49 L 123/52 L Pulse Oximetry 100 02/10/21 14:30 02/10/21 14:45 02/10/21 14:47 Temperature Pulse Rate 60 62 62 Respiratory Rate Blood Pressure 118/
--- NOTE | 2021-02-11 08:26 | PM.PNNEP ---
Progress Note: A&P Assessment and Plan (1) DEBRA (acute kidney injury): Code(s): N17.9 - Acute kidney failure, unspecified Status: Acute Assessment and Plan: had improved initially but now worsened and on dialysis originally, multifactorial etiology: - contrast exposure x 2 (from CT scan of chest and cardiac catheterization) - previous IV diuresis/prerenal component - NSTEMI - use of DARYL-I/diuretics prior to admission renal ultrasound without evidence of obstruction or masses Urine electrolytes are non pre renal. Urine eosinophils are negative She had peripheral eosinophilia earlier on and so steroids were attempted but this did not help. 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 Had hemodialysis yesterday. Will schedule for tomorrow. (2) Acute respiratory failure with hypoxemia: Code(s): J96.01 - Acute respiratory failure with hypoxia Status: Acute Assessment and Plan: due to pulmonary edema (flash pulmonary edema?) on mechanical ventilation unable to wean at this time most likely due to weakness. s/p tracheostomy (02/04/21) Evaluation underway for transfer to LTAC. (3) Non-ST elevation [place] (NSTEMI): Code(s): I21.4 - Non-ST elevation (NSTEMI) myocardial infarction Status: Acute Assessment and Plan: s/p cardiac catheterizartion with stenting as noted Cardiology following continue supportive therapy (4) Encephalopathy: Code(s): G93.40 - Encephalopathy, unspecified Status: Acute Assessment and Plan: Neurology following EEG results noted (5) S/P TAVR (transcatheter aortic valve replacement): Code(s): Z95.2 - Presence of prosthetic heart valve Status: Chronic Assessment and Plan: valve appears to be functioning well by Echo Cardiology following as well Subjective Date/time seen: 02/11/21 08:26 Interval history: Patient is lying comfortably. Still on the ventilator. She regards examiner to some degree but otherwise does not interact. Exam Narrative: Exam Narrative: WDWN in NAD skin no rash head ncat lungs clear cor reg no rub abd BS+ nontender and soft ext no edema. Objective Data Vital Signs Vital Signs: Vital Signs - 24 hr 02/10/21 08:36 02/10/21 08:49 02/10/21 08:50 Temperature Pulse Rate 61 70 62 Respiratory Rate 20 24 H Blood Pressure Pulse Oximetry 02/10/21 09:00 02/10/21 10:00 02/10/21 11:00 Temperature Pulse Rate 72 Respiratory Rate 23 H Blood Pressure 112/51 L 110/34 L 97/45 L Pulse Oximetry 95 02/10/21 11:43 02/10/21 12:00 02/10/21 13:40 Temperature 36.3 C L 37.2 C Pulse Rate 61 59 L 57 L Respiratory Rate 17 15 Blood Pressure 100/35 L 125/44 L Pulse Oximetry 100 100 02/10/21 13:45 02/10/21 14:00 02/10/21 14:15 Temperature Pulse Rate 62 59 L 59 L Respiratory Rate 14 Blood Pressure 121/47 L 118/49 L 123/52 L Pulse Oximetry 100 02/10/21 14:30 02/10/21 14:45 02/10/21 14:47 Temperature Pulse Rate 60 62 62 Respiratory Rate Blood Pressure 118/49 L 116/37 L Pulse Oximetry 100 02/10/21 15:00 02/10/21 15:15 02/10/21 15:30 Temperature Pulse Rate 69 64 64 Respiratory Rate Blood Pressure 89/72 L 128/46 L 119/36 L Pulse Oximetry 02/10/21 15:45 02/10/21 16:00 02/10/21 16:01 Temperature 36.4 C Pulse Rate 70 64 62 Respiratory Rate 21 H Blood Pressure 117/38 L 99/53 L 99/53 L Pulse Oximetry 100 02/10/21 16:16 02/10/21 16:30 02/10/21 16:45 Temperature 36.7 C Pulse Rate 68 69 62 Respiratory Rate 17 Blood Pressure 107/49 L 92/38 L 110/40 L Pulse Oximetry 99 02/10/21 17:18 02/10/21 18:00 02/10/21 19:43 Temperature Pulse Rate 65 71 62 Respiratory Rate 20 17 Blood Pressure 142/46 H Pulse Oximetry 99 100 02/10/21 19:44 02/10/21 19:50 02/10/21 20:00 Temperature Pulse Rate 60 56 L
[2021-02-11] MEDS: DORNASE ALFA INH SOLN 1 MG/ML 2.5 ML AMP 2.5 MG INHALATION ×2 (08:50→20:13)
--- NOTE | 2021-02-11 08:50 | PM.PNCARD ---
Progress Note: A&P Assessment and Plan (1) Non-ST elevation [place] (NSTEMI): Code(s): I21.4 - Non-ST elevation (NSTEMI) myocardial infarction Status: Acute Assessment and Plan: ADm 01/18/21 w/ NSTEMI, Patient found to have occluded LCX, which appears embolic event from the aortic valve prosthesis. Status post complex PCI/stenting. Currently on triple therapy; DAPT for recent stent and apixaban started 02/04/2021 for PAF. Continue samel for now. After one month , use single antiplatelet treatment with clopidogrel along with apixaban. PATIENT IS AWAITING PLACEMENT. (2) Anemia: Code(s): D64.9 - Anemia, unspecified Status: Acute Assessment and Plan: Continue to monitor closely. (3) Atrial fibrillation: Code(s): I48.91 - Unspecified atrial fibrillation Status: Acute Assessment and Plan: New onset AFib with RVR self-limited. Brief runs SVT noted. continue metoprolol tartrate Continue to monitor for recurrences. (4) Sepsis: Code(s): A41.9 - Sepsis, unspecified organism Status: Acute Assessment and Plan: management per ID service. (5) Acute respiratory failure: Code(s): J96.00 - Acute respiratory failure, unspecified whether with hypoxia or hypercapnia Status: Acute Assessment and Plan: Per ciritical care. Now has trach And awaiting placement (6) S/P TAVR (transcatheter aortic valve replacement): Code(s): Z95.2 - Presence of prosthetic heart valve Status: Chronic Assessment and Plan: No definite vegetation or thrombus reported on ROMEL. Normal valve function. (7) Acute pulmonary edema: Code(s): J81.0 - Acute pulmonary edema Status: Acute (8) Hypertension: Code(s): I10 - Essential (primary) hypertension Status: Acute (9) DEBRA (acute kidney injury): Code(s): N17.9 - Acute kidney failure, unspecified Status: Acute Assessment and Plan: management per Nephrology (10) Encephalopathy: Code(s): G93.40 - Encephalopathy, unspecified Status: Acute Assessment and Plan: modest improvement Subjective Date/time seen: 02/11/21 08:50 Interval history: Date of service 02/08/2021: Patient is lying comfortably. Status post trach and PEG Date of service 02/11/2021; patient is lying down in the bed, does not appear to be in distress. Response minimally. Exam Narrative: Exam Narrative: PHYSICAL EXAMINATION: GENERAL: minimally responsive MENTAL STATUS: minimally response EYES: eyes closed EARS: External ears appear normal NOSE: Normal and patent NECK: status post trach CHEST: vent sounds HEART: Normal rate, regular rhythm with ectopic beats ABDOMEN: Soft NEUROLOGICAL: minimally responsive MUSCULOSKELETAL: No major deformity, no amputation EXTREMITIES: . Edema SKIN: no cyanosis Objective Data Vital Signs Vital Signs: Vital Signs - 24 hr 02/10/21 09:00 02/10/21 10:00 02/10/21 11:00 Temperature Pulse Rate 72 Respiratory Rate 23 H Blood Pressure 112/51 L 110/34 L 97/45 L Pulse Oximetry 95 02/10/21 11:43 02/10/21 12:00 02/10/21 13:40 Temperature 36.3 C L 37.2 C Pulse Rate 61 59 L 57 L Respiratory Rate 17 15 Blood Pressure 100/35 L 125/44 L Pulse Oximetry 100 100 02/10/21 13:45 02/10/21 14:00 02/10/21 14:15 Temperature Pulse Rate 62 59 L 59 L Respiratory Rate 14 Blood Pressure 121/47 L 118/49 L 123/52 L Pulse Oximetry 100 02/10/21 14:30 02/10/21 14:45 02/10/21 14:47 Temperature Pulse Rate 60 62 62 Respiratory Rate Blood Pressure 118/49 L 116/37 L Pulse Oximetry 100 02/10/21 15:00 02/10/21 15:15 02/10/21 15:30 Temperature Pulse Rate 69 64 64 Respiratory Rate Blood Pressure 89/72 L 128/46 L 119/36 L Pulse Ox
[2021-02-11] MEDS: CLOPIDOGREL BISULFATE 75 MG TABLET PO (09:09)
[2021-02-11] MEDS: ASPIRIN 81 MG CHEWABLE TABLET PO (09:09)
[2021-02-11] MEDS: ATORVASTATIN 20 MG TABLET PO (09:09)
[2021-02-11] MEDS: QUEtiapine FUMARATE 12.5 MG TABLET PO ×2 (09:09→20:19)
[2021-02-11] MEDS: VENLAFAXINE HCL 75 MG TABLET PO ×2 (09:09→20:19)
[2021-02-11] MEDS: AMIODARONE HCL 100 MG TABLET PO (09:09)
[2021-02-11] MEDS: APIXABAN 5 MG TABLET PO ×2 (09:09→20:20)
[2021-02-11] MEDS: METOPROLOL TARTRATE 25 MG TABLET FEED TUBE ×2 (09:09→20:19)
[2021-02-11] MEDS: PANTOPRAZOLE SODIUM IV 40 MG VIAL IV PUSH ×2 (09:10→20:18)
[2021-02-11] MEDS: MICONAZOLE NITRATE 2% CREAM 30 GM TUBE 1 APPLIC TOPICAL ×2 (09:10→20:19)
[2021-02-11] MEDS: oxyCODONE (*CRX) 5 MG/5 ML ORAL SOLN IR PO ×2 (09:15→20:11)
--- NOTE | 2021-02-11 11:34 | PCDIET ---
Nutrition Follow-Up Complete: Nutrition Diagnosis: Inadequate oral intake related to oral intubation as evidenced by need for tube feeding. Nutrition Goal: Patient to meet estimated nutritional needs. Goal met. Patient tolerating Nepro at 40mL/hr goal rate with 30mL water flush every 4 hours. Awaiting LTAC placement. Last recorded weight is 94.5 kg which is stable with last review. Patient had 1.5L UF on 02/10/21. Bowel Motility: BM x 2 today. Labs Reviewed: WBC (17.0), Hgb (7.0), Hct (21.0), BUN (54), Cr (4.1), Na (136), PO4 (6.8), Alb (3.3) Meds Noted: Lipitor, Plavix, Primaxin, Lopressor, Protonix, Propofol (rate of 8.42mL/hr provides 222kcal per day) Additional Notes: No documented pressure sores. Will continue to monitor with same goal. Nutrition Monitoring and Evaluation: Follow up every Wednesday/Wednesday. Follow daily in ICU rounds.
--- NOTE | 2021-02-11 16:59 | PM.IMPN ---
Progress Note: A&P Assessment and Plan (1) Sepsis: Code(s): A41.9 - Sepsis, unspecified organism Status: Acute Assessment and Plan: Pateint with persistently elevated WBC but lowest today at 17K. No fevers. Patient has completed course of antibiotics. Zosyn changed to Primaxin today. Continue to monitor. (2) Pneumonia: Code(s): J18.9 - Pneumonia, unspecified organism Status: Acute Assessment and Plan: CXR showing unchanged diffuse bilateral lung disease. Sputum culture again growing Pseudomonas 02/08. Repeat blood culture NGTD. Zosyn started 02/09 but Zosyn changed to Primaxin today. Continue to follow WBC (3) Encephalopathy: Code(s): G93.40 - Encephalopathy, unspecified Status: Acute Assessment and Plan: CT brain 01/21 showing no acute findings. EEG 01/22 showing severely abnormal record due to the presence of bihemispheric theta and delta activity even during sleep without any paroxysmal discharge ,these abnormalities could be consistent with organic or metabolic encephalopathy. Possibility of hypoxic insult cannot be ruled out . Concern for HIE but patient has been showing some signs of improvement. Wean sedation as tolerated. Appreciate neurology and certified coding specialist help. (4) Acute respiratory failure with hypoxemia: Code(s): J96.01 - Acute respiratory failure with hypoxia Status: Acute Assessment and Plan: Patient remains intubated via trach. Secondary to pneumonia and flash pulmonary edema treated with diuresis. Sedation being adjusted. Continue to wean vent as tolerated. Appreciate help from certified coding specialist. Currently on dialysis (5) CHF (congestive heart failure): Qualifiers: Heart failure chronicity: acute Heart failure type: diastolic Qualified Code(s): I50.31 - Acute diastolic (congestive) heart failure Code(s): I50.9 - Heart failure, unspecified Status: Acute Assessment and Plan: Most likely acute of chronic diastolic CHF exacerbation. Patietnhad acute pulmonary edema. Patient remains on ventilator as noted. 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 Lisinopril and Lasix on hold due to rising Cr. Cardiology and certified coding specialist following. Continue HD to control fluid status (6) Leukocytosis: Code(s): D72.829 - Elevated white blood cell count, unspecified Status: Acute Assessment and Plan: Negative blood cultures. Continue to monitor. (7) Non-ST elevation [place] (NSTEMI): Code(s): I21.4 - Non-ST elevation (NSTEMI) myocardial infarction Status: Acute Assessment and Plan: Cardiology following. Initial 2D echocardiogram at bedside with EF 55% along with mild hypokinesis of the mid and basal anterior wall and severe hypokinesis of the mid and basal inferolateral wall. ROMEL on 01/18/2021: Preserved LV systolic function with motion abnormalities as noted, intact bioprosthetic AV with preserved leaflet excursion of those visualized with suggestion of faint subvalvular thin filamentous mobile echodensity unable to further characterize. Now S/P cardiac catheterization on 01/18/2021 with successful PCI to left circumflex. Most likely mechanism felt to be embolic source from TAVR to circumflex. Continue ASA, Plavix, and metoprolol. Lisinopril held. Appreciate help from Cardiology. (8) DEBRA (acute kidney injury): Code(s): N17.9 - Acute kidney failure, unspecified Status: Acute Assessment and Plan: Worsening renal function gradually. Most likely ATN possible interstitial nephritis on steroid 02/01/2021. Hemodialysis catheter was placed. Dialysis was started on 02/05/2021. Nephrology following and appreciate their input. Tunnelled HD catheter in place now. (9) Anemia: Code(s): D64.9 - Ane
[2021-02-12] VITALS (48 sets, daily range): BP systolic 105–146; BP diastolic 30–65; PULSE 46–88; RESP 15–36; TEMP 36.2–36.9; O2SAT 96–100
[2021-02-12] MEDS: PROPOFOL IV EMULSION 100 ML 8.42 MG IV CONT ×2 (01:08→11:15)
[2021-02-12] MEDS: LORazepam INJ (*CRX) 2 MG/ML VIAL IV PUSH ×3 (01:48→19:38)
[2021-02-12 05:16] LABS: Mean Corpuscular HGB Conc 32.4 g/dl (32-36); Mean Corpuscular Hemoglobin 30.5 pg (26-34); Mean Corpuscular Volume 94.2 fl (80-100); Mean Platelet Volume 12.3 fl (7.4-10.4); Platelet Count Result 225 k/mm3 (150-375); Red Blood Count 2.23 M/mm3 (4.2-5.4); Red Cell Distribution Width 16.5 % (11.5-14.5); White Blood Count 15.9 K/mm3 (4.5-10.0)
[2021-02-12 05:36] LABS: Hemoglobin 6.8 g/dL (12.0-15.0)
[2021-02-12 05:40] LABS: Albumin Level 3.3 g/dL (3.5-5.1); Anion Gap 15 mmol/L (8-16); Blood Urea Nitrogen 74 mg/dL (7-17); Calcium 8.8 mg/dL (8.4-10.2); Carbon Dioxide 27 mmol/L (22-30); Chloride 93 mmol/L (98-107); Estimated CRCL calculation 8 ml/min; Estimated Glomerular Filt Rate 7; Glucose 112 mg/dL (65-105); Phosphorus 9.1 mg/dL (2.5-4.5); Sodium 135 mmol/L (137-145)
[2021-02-12] MEDS: CENTRAL LINE FLUSH 10 ML IV PUSH ×3 (06:32→21:30)
--- NOTE | 2021-02-12 06:45 | P.PNNP_ITS ---
Progress Note: A&P Assessment and Plan (1) DEBRA (acute kidney injury): Code(s): N17.9 - Acute kidney failure, unspecified Status: Acute Assessment and Plan: * had improved initially but now worsened and on dialysis * originally, multifactorial etiology: - contrast exposure x 2 (from CT scan of chest and cardiac catheterization) - previous IV diuresis/prerenal component - NSTEMI - use of DARYL-I/diuretics prior to admission * renal ultrasound without evidence of obstruction or masses * Urine electrolytes are non pre renal. Urine eosinophils are negative * She had peripheral eosinophilia earlier on and so steroids were attempted but this did not help. 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 * Had hemodialysis Wednesday. * She is scheduled for another treatment today. (2) Acute respiratory failure with hypoxemia: Code(s): J96.01 - Acute respiratory failure with hypoxia Status: Acute Assessment and Plan: * unable to wean at this time most likely due to weakness. * s/p tracheostomy (02/04/21) * Evaluation underway for transfer to LTAC. (3) Non-ST elevation [place] (NSTEMI): Code(s): I21.4 - Non-ST elevation (NSTEMI) myocardial infarction Status: Acute Assessment and Plan: * s/p cardiac catheterizartion with stenting as noted * Cardiology following * continue supportive therapy (4) Encephalopathy: Code(s): G93.40 - Encephalopathy, unspecified Status: Acute Assessment and Plan: * Neurology following * EEG results noted (5) S/P TAVR (transcatheter aortic valve replacement): Code(s): Z95.2 - Presence of prosthetic heart valve Status: Chronic Assessment and Plan: * valve appears to be functioning well by Echo * Cardiology following as well Subjective Date/time seen: 02/12/21 06:45 Interval history: Patient is lying comfortably. Still on the ventilator. not very interactive. Exam Narrative: Exam Narrative: WDWN in NAD skin no rash head ncat lungs Mildly coarse upper airway noise. cor reg no rub abd BS+ nontender and soft ext no edema. Objective Data Vital Signs Vital Signs: Vital Signs - 24 hr 02/11/21 08:00 02/11/21 08:56 02/11/21 09:09 Temperature 36.4 C Pulse Rate 72 65 66 Respiratory Rate 18 22 H Blood Pressure 106/60 Pulse Oximetry 100 100 02/11/21 10:00 02/11/21 11:04 02/11/21 12:00 Temperature 36.6 C Pulse Rate 53 L 54 L 55 L Respiratory Rate 14 17 Blood Pressure 96/44 L 108/44 L Pulse Oximetry 100 100 95 02/11/21 14:00 02/11/21 14:01 02/11/21 16:00 Temperature 36.6 C Pulse Rate 65 68 52 L Respiratory Rate 22 H 14 Blood Pressure 129/67 108/47 L Pulse Oximetry 100 99 100 02/11/21 17:21 02/11/21 18:00 02/11/21 19:00 Temperature Pulse Rate 64 65 66 Respiratory Rate 22 H 17 Blood Pressure 115/53 L Pulse Oximetry 99 98 02/11/21 20:00 02/11/21 20:19 02/11/21 20:49 Temperature 36.5 C Pulse Rate 70 62 55 L Respiratory Rate 18 Blood Pressure 117/57 L Pulse Oximetry 100
--- NOTE | 2021-02-12 06:45 | PM.PNNEP ---
Progress Note: A&P Assessment and Plan (1) DEBRA (acute kidney injury): Code(s): N17.9 - Acute kidney failure, unspecified Status: Acute Assessment and Plan: had improved initially but now worsened and on dialysis originally, multifactorial etiology: - contrast exposure x 2 (from CT scan of chest and cardiac catheterization) - previous IV diuresis/prerenal component - NSTEMI - use of DARYL-I/diuretics prior to admission renal ultrasound without evidence of obstruction or masses Urine electrolytes are non pre renal. Urine eosinophils are negative She had peripheral eosinophilia earlier on and so steroids were attempted but this did not help. 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 Had hemodialysis Wednesday. She is scheduled for another treatment today. (2) Acute respiratory failure with hypoxemia: Code(s): J96.01 - Acute respiratory failure with hypoxia Status: Acute Assessment and Plan: unable to wean at this time most likely due to weakness. s/p tracheostomy (02/04/21) Evaluation underway for transfer to LTAC. (3) Non-ST elevation [place] (NSTEMI): Code(s): I21.4 - Non-ST elevation (NSTEMI) myocardial infarction Status: Acute Assessment and Plan: s/p cardiac catheterizartion with stenting as noted Cardiology following continue supportive therapy (4) Encephalopathy: Code(s): G93.40 - Encephalopathy, unspecified Status: Acute Assessment and Plan: Neurology following EEG results noted (5) S/P TAVR (transcatheter aortic valve replacement): Code(s): Z95.2 - Presence of prosthetic heart valve Status: Chronic Assessment and Plan: valve appears to be functioning well by Echo Cardiology following as well Subjective Date/time seen: 02/12/21 06:45 Interval history: Patient is lying comfortably. Still on the ventilator. not very interactive. Exam Narrative: Exam Narrative: WDWN in NAD skin no rash head ncat lungs Mildly coarse upper airway noise. cor reg no rub abd BS+ nontender and soft ext no edema. Objective Data Vital Signs Vital Signs: Vital Signs - 24 hr 02/11/21 08:00 02/11/21 08:56 02/11/21 09:09 Temperature 36.4 C Pulse Rate 72 65 66 Respiratory Rate 18 22 H Blood Pressure 106/60 Pulse Oximetry 100 100 02/11/21 10:00 02/11/21 11:04 02/11/21 12:00 Temperature 36.6 C Pulse Rate 53 L 54 L 55 L Respiratory Rate 14 17 Blood Pressure 96/44 L 108/44 L Pulse Oximetry 100 100 95 02/11/21 14:00 02/11/21 14:01 02/11/21 16:00 Temperature 36.6 C Pulse Rate 65 68 52 L Respiratory Rate 22 H 14 Blood Pressure 129/67 108/47 L Pulse Oximetry 100 99 100 02/11/21 17:21 02/11/21 18:00 02/11/21 19:00 Temperature Pulse Rate 64 65 66 Respiratory Rate 22 H 17 Blood Pressure 115/53 L Pulse Oximetry 99 98 02/11/21 20:00 02/11/21 20:19 02/11/21 20:49 Temperature 36.5 C Pulse Rate 70 62 55 L Respiratory Rate 18 Blood Pressure 117/57 L Pulse Oximetry 100 02/11/21 21:00 02/11/21 22:00 02/11/21 23:00 Temperature Pulse Rate 52 L 49 L 63 Respiratory Rate 15 15 27 H Blood Pressure 119/54 L Pulse Oximetry 100 96 02/11/21 23:44 02/12/21 00:00 02/12/21 01:00 Temperature 36.4 C Pulse Rate 55 L 56 L 55 L Respiratory Rate 15 15 15 Blood Pressure 125/43 L Pulse Oximetry 100 100 02/12/21 01:08 02/12/21 01:47 02/12/21 02:00 Temperature Pulse Rate 55 L 67 59 L Respiratory Rate 16 29 H 15 Blood Pressure 129/48 L 145/60 H Pulse Oximetry 98 02/12/21 03:00 02/12/21 04:00 02/12/21 05:00 Temperature 36.4 C L Pulse Rate 55 L 53 L 54 L Respiratory Rate 20 17 Blood Pressure 110/56 L Pulse Oximetry 100 100 02/12/21 06:00 Temperature Pulse Rate 54 L Respiratory Rate 15 Blood Pressure 117/49 L Pulse Oximetry 100 Intake/Output Intake
[2021-02-12] MEDS: METOPROLOL TARTRATE 25 MG TABLET FEED TUBE ×2 (08:08→21:30)
[2021-02-12] MEDS: AMIODARONE HCL 100 MG TABLET PO (08:08)
[2021-02-12] MEDS: APIXABAN 5 MG TABLET PO ×2 (08:09→21:33)
[2021-02-12] MEDS: CLOPIDOGREL BISULFATE 75 MG TABLET PO (08:09)
[2021-02-12] MEDS: VENLAFAXINE HCL 75 MG TABLET PO ×2 (08:09→21:30)
--- NOTE | 2021-02-12 08:14 | PM.IMPN ---
Progress Note: A&P Assessment and Plan (1) Sepsis: Code(s): A41.9 - Sepsis, unspecified organism Status: Acute Assessment and Plan: Pateint with persistently elevated WBC but trending down since 02/07/21 to 16K today. No fevers. Sputum stil growing pseudomonas. BCx NGTD. Patient had completed a course of antibiotics prior (last abx 02/02) but Zosyn added 02/09 and changed to Primaxin 02/11/21. BP stable. Continue to monitor. (2) Pneumonia: Code(s): J18.9 - Pneumonia, unspecified organism Status: Acute Assessment and Plan: CXR 02/11 showing unchanged diffuse bilateral lung disease. Sputum culture again growing Pseudomonas 02/08. Repeat blood cultures 02/06 NGTD. Zosyn started 02/09 but Zosyn changed to Primaxin 02/11. WBC 21K on 02/07 and has trended downward since to 16K today. Continue to follow WBC. (3) Encephalopathy: Code(s): G93.40 - Encephalopathy, unspecified Status: Acute Assessment and Plan: CT brain 01/21 showing no acute findings. EEG 01/22 showing severely abnormal record due to the presence of bihemispheric theta and delta activity even during sleep without any paroxysmal discharge ,these abnormalities could be consistent with organic or metabolic encephalopathy. Possibility of hypoxic insult cannot be ruled out . Concern for HIE but patient has been showing some signs of improvement. Wean sedation as tolerated. Appreciate neurology and tobacco drummer help. MRI brain when able but repeat CT brain to assess for any changes. (4) Acute respiratory failure with hypoxemia: Code(s): J96.01 - Acute respiratory failure with hypoxia Status: Acute Assessment and Plan: Patient remains intubated via trach. Secondary to pneumonia and flash pulmonary edema treated with diuresis. Trach placed 02/04. Sedation being adjusted. Continue to wean vent as tolerated. Appreciate help from tobacco drummer. Abx as detailed above. (5) CHF (congestive heart failure): Qualifiers: Heart failure chronicity: acute Heart failure type: diastolic Qualified Code(s): I50.31 - Acute diastolic (congestive) heart failure Code(s): I50.9 - Heart failure, unspecified Status: Acute Assessment and Plan: Most likely acute of chronic diastolic CHF exacerbation. Patient had acute pulmonary edema. Patient remains on ventilator as noted. 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 Lisinopril and Lasix on hold due to rising Cr. Cardiology and tobacco drummer following. Continue HD to control fluid status (6) Leukocytosis: Code(s): D72.829 - Elevated white blood cell count, unspecified Status: Acute Assessment and Plan: Negative blood cultures. Continue to monitor. (7) Non-ST elevation [place] (NSTEMI): Code(s): I21.4 - Non-ST elevation (NSTEMI) myocardial infarction Status: Acute Assessment and Plan: Cardiology following. Initial 2D echocardiogram at bedside with EF 55% along with mild hypokinesis of the mid and basal anterior wall and severe hypokinesis of the mid and basal inferolateral wall. ROMEL on 01/18/2021: Preserved LV systolic function with motion abnormalities as noted, intact bioprosthetic AV with preserved leaflet excursion of those visualized with suggestion of faint subvalvular thin filamentous mobile echodensity unable to further characterize. Now S/P cardiac catheterization on 01/18/2021 with successful PCI to left circumflex. Most likely mechanism felt to be embolic source from TAVR to circumflex. Continue ASA, Plavix, Lipitor and metoprolol. Lisinopril held. Appreciate help from Cardiology. (8) DEBRA (acute kidney injury): Code(s): N17.9 - Acute kidney failure, unspecified Status: Acute Assessment and Plan: Worsening renal
[2021-02-12] MEDS: PANTOPRAZOLE SODIUM IV 40 MG VIAL IV PUSH ×2 (08:20→21:29)
[2021-02-12] MEDS: ATORVASTATIN 20 MG TABLET PO (08:20)
[2021-02-12] MEDS: polyethylene glycoL 3350 17 GM POWD.PACK PO (08:20)
[2021-02-12] MEDS: ASPIRIN 81 MG CHEWABLE TABLET PO (08:20)
[2021-02-12] MEDS: MICONAZOLE NITRATE 2% CREAM 30 GM TUBE 1 APPLIC TOPICAL ×2 (08:20→21:31)
[2021-02-12] MEDS: DORNASE ALFA INH SOLN 1 MG/ML 2.5 ML AMP 2.5 MG INHALATION ×2 (08:31→20:04)
[2021-02-12] MEDS: QUEtiapine FUMARATE 25 MG TABLET PO ×2 (08:34→21:33)
--- NOTE | 2021-02-12 08:46 | WPDINTPN ---
Progress Note: A&P Assessment and Plan (1) Acute respiratory failure: Code(s): J96.00 - Acute respiratory failure, unspecified whether with hypoxia or hypercapnia Status: Acute Assessment and Plan: Acute Respiratory failure secondary to pulmonary edema and pneumonia -chest x-ray and ABGs reviewed -continue ASV mode of ventilation. Placed patient on PSV 12/5 yesterday and tolerated it for approximately 2 hours. -currently on 35% FiO2 and peep of 5 Tracheostomy placed on 02/04/2021 PEG tube placed on 01/31/2021 Completed cefepime (initiated on 01/22/2021) and levaquin (initiated on 01/27/21) through 02/02 to complete 10 day course of antibiotics Vancomycin was discontinued as blood cultures were negative and no MRSA in the sputum COVID PCR came back negative - 02/07/21 sputum cultures growing 2 strains of Pseudomonas susceptible to Zosyn - Zosyn initiated on 02/09/2021 ( renally dosed as patient has on dialysis) -identification is susceptibility showed intermediate to Zosyn. Switched to imipenem 02/11 -keep propofol infusion at a minimal dose, continue low dose Seroquel, may be able to wean down propofol -added p.r.n. oxycodone and Ativan try to wean propofol of (2) DEBRA (acute kidney injury): Code(s): N17.9 - Acute kidney failure, unspecified Status: Acute Assessment and Plan: Likely multifactorial as patient was being diuresed for pulmonary edema and also received contrast with cardiac catheterization, infection/sepsis, hypotension. Monitor in electrolytes and urine output Creatinine initially had improved but worsened , dialysis catheter was placed on 02/04/2025 and patient started on dialysis Continues to make minimal urine She was started on steroids for suspected interstitial nephritis which was discontinued on 02/09/2021 by Nephrology Repeat kidney ultrasound was unremarkable (3) Pneumonia: Code(s): J18.9 - Pneumonia, unspecified organism Status: Acute Assessment and Plan: Pseudomonas pneumonia, sputum cultures growing Pseudomonas -status post cefepime and Levaquin -repeat sputum cultures on 02/07/2021 growing 2 strains of Pseudomonas continue Zosyn - Zosyn initiated on 02/09/2021 ( renally dosed as patient has on dialysis) -identification is susceptibility showed intermediate to Zosyn. Switch to imipenem 02/11 -CT scan of the chest on 01/26/2021 showed extensive bilateral pneumonia, mild bilateral pleural effusion, cardiomegaly, status post cholecystectomy, status post hysterectomy (4) Acute pulmonary edema: Code(s): J81.0 - Acute pulmonary edema Status: Acute Assessment and Plan: Persistent bilateral infiltrates and opacities Now on dialysis (5) CHF (congestive heart failure): Qualifiers: Heart failure type: diastolic Heart failure chronicity: acute Qualified Code(s): I50.31 - Acute diastolic (congestive) heart failure Code(s): I50.9 - Heart failure, unspecified Status: Acute Assessment and Plan: ECHO Summary 1. Complete two-dimensional, color flow and Doppler transthoracic echocardiogram is performed. 2. There is moderate concentric increased left ventricular wall thickness. 3. Left ventricular systolic function is normal, estimated at 60-65%. 4. No wall-motion abnormalities. 5. Left atrial chamber dimension is moderately enlarged. 6. There is no regurgitation of the TAVR aortic valve. 7. Minimal normal transvalvular gradient. (6) Non-ST elevation PR (NSTEMI): Code(s): I21.4 - Non-ST elevation (NSTEMI) myocardial infarction Status: Acute Assessment and Plan: Secondary to thrombus. Patient underwent PCI and had to MARIAN x 2 placed in circumflex likely due to acute thrombotic occlusion ROMEL on 01/18/2021: Preserved LV systolic function with motion abnormalities as noted Stable, intact bioprosthetic aortic valve with preserved leaflet excursion of those visualized with sugge
--- NOTE | 2021-02-12 09:08 | PM.PNCARD ---
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 No additional cardiac reccs today Mamadou Subjective Date/time seen: 02/12/21 09:08 Interval history: Date of service: Sedated in ICU on ventilator Exam Narrative: Exam Narrative: PHYSICAL EXAMINATION: GENERAL: minimally responsive MENTAL STATUS: minimally response EYES: eyes closed EARS: External ears appear normal NOSE: Normal and patent NECK: status post trach CHEST: vent sounds HEART: Normal rate, regular rhythm with ectopic beats ABDOMEN: Soft NEUROLOGICAL: minimally responsive MUSCULOSKELETAL: No major deformity, no amputation EXTREMITIES: . Edema SKIN: no cyanosis Const: General: comfortable, no acute distress and confusion Orientation/consciousness: confusion Other: Obese elderly lady on ventilator support in the ICU. HENMT: General nose exam: no epistaxis Mouth: Yes moist mucous membranes Eyes: General: appearance normal, both eyes and all related structures Sclera: sclerae normal Pupils: Equal, round and reactive pupils present EOM: EOMs intact bilaterally Neck: Neck: supple and no JVD Thyroid: thyroid normal Other: No carotid bruit, normal upstrokes JVD is difficult to assess but no obvious venous distention Resp: Effort & Inspection: normal respiratory effort Auscultation: clear to auscultation bilaterally, rhonchi and diminished lung sounds Other: Central large airway rhonchi noted Cardio: Rate: regular rate Rhythm: regular rhythm Heart sounds: no murmurs Other: Soft systolic murmur at the base, no diastolic murmur no gallop GI: Inspection: non-distended Auscultation: normal bowel sounds Urinary Catheter: Urinary Catheter: patent and draining and urine clear Skin: General skin exam: normal color Neuro: General: confusion Cranial nerves: Yes Equal, round and reactive pupils present Cognition (Neuro): normal cognition and abnormal cognition Other: Patient did squeeze my fingers and wiggle her toes for me. Extrem: General: normal to inspection, edema (Mild upper and lower extremity edema) and no pedal edema Right lower extremity: no edema Left lower extremity: no edema Other: Good pulses, no edema Psych: Mental Status: mental status grossly abnormal Objective Data Vital Signs Vital Signs: Vital Signs - 24 hr 02/11/21 09:09 02/11/21 10:00 02/11/21 11:04 Temperature Pulse Rate 66 53 L 54 L Respiratory Rate 14 Blood Pressure 96/44 L Pulse Oximetry 100 100 02/11/21 12:00 02/11/21 14:00 02/11/21 14:01 Temperature 36.6 C Pulse Rate 55 L 65 68 Respiratory Rate 17 22 H Blood Pressure 108/44 L 129/67 Pulse Oximetry 95 100 99 02/11/21 16:00 02/11/21 17:21 02/11/21 18:00 Temperature 36.6 C Pulse Rate 52 L 64 65 Respiratory Rate 14 22 H Blood Pressure 108/47 L 115/53 L Pulse Oximetry 100 99 98 02/11/21 19:00 02/11/21 20:00 02/11/21 20:19 Temperature 36.5 C Pulse Rate 66 70 62 Respiratory Rate 17 18 Blood Pressure 117/57 L Pulse Oximetry 100 02/11/21 20:49 02/11/21 21:00 02/11/21 22:00 Temperature Pulse Rate 55 L 52 L 49 L Respiratory Rate 15 15 Blood Pressure 119/54 L Pulse Oximetry 100 02/11/21 23:00 02/11/21 23:44 02/12/21 00:00 Temperature 36.4 C Pulse Rate 63 55 L 56 L Respiratory Rate 27 H 15 15 Blood Pressure 125/43 L Pulse Oximetry 96 100 100 02/12/21 01:00 02/12/21 01:08 02/12/21 01:47 Temperature Pulse Rate 55 L 55 L 67 Respiratory Rate 15 16 29 H Blood Pressure 129/48 L Pulse Oximetry 02/12/21 02:00 02/12/21 03:00 02/12/21 04:00 Temperature 36.4 C L Pulse Rate 59 L 55 L 53 L Respiratory Rate 15 20 17 Blood Pressure 145/60 H 110/56 L Pulse Oximetry 98 100 02/12/21 05:00 02/12/21 06:00 02/12/21 06:56
--- NOTE | 2021-02-12 10:52 | PCDIET ---
ICU Rounding Note: Patient tolerating Nepro at 40mL/hr goal rate with 30mL water flush every 4 hours. Awaiting transfer to LTAC. Last recorded weight is 92.8kg which is down from last review. +I/O. Plan for dialysis today. Bowel Motility: BM x 1 today. Labs Reviewed: Hgb (6.8), Hct (21.0), Glu (112), BUN (74), Cr (5.6), Na (135), Alb (3.3), PO4 (9.1) Meds Noted: Amiodarone, Pulmozyme, Lipitor, Primaxin, Ativan, Lopressor, Protonix, Miralax, Propofol (rate of 8.42mL/hr provides 222kcal per day) Additional Notes: Patient receiving 1 unit RBC today. No documented pressure sores. Following daily in ICU rounds. Assessing/reassessing every Wednesday/Wednesday.
--- NOTE | 2021-02-12 11:56 | PM.TDS ---
Transfer Discharge Sum: Prov Provider Date of admission: 01/17/21 11:17 Primary care physician: Maurilio Polanco MD Admitting clinician: Karon Lux MD Consults: 01/17/21 Consult to Physician Routine Comment: Consulting Provider: Sid Reid director call center sales/MD group to consult: dr franco box finisher Reason for consultation: intubation and central line Has provider been notified: Yes 01/17/21 11:20 Consult to Physician Routine Comment: Consulting Provider: Karlos Cedillo Reason for consultation: cp/elevated trop Has provider been notified: Yes 01/20/21 Consult to Physician Routine Comment: OFFICE NOTIFIED OF CONSULT Consulting Provider: Dalia Toledo director call center sales/MD group to consult: Nephrology Reason for consultation: DEBRA Has provider been notified: Yes 01/22/21 08:04 Consult to Physician Routine Comment: called md with consult Consulting Provider: Albino Marsh director call center sales/MD group to consult: NEUROLOGY Reason for consultation: encephalopathy, possible seizure Has provider been notified: Yes 01/26/21 09:21 Consult to Physician Routine Comment: DR. PAINTER BUSTOS Consulting Provider: Silvestre Moscoso director call center sales/MD group to consult: Infectious disease Reason for consultation: Pseudomonas pneumonia, worsening leukocytosis, mechanical ventilation Has provider been notified: Yes 01/30/21 Consult to Physician Routine Comment: SPOKE WITH DR. LAGOS Consulting Provider: Young Lagos director call center sales/MD group to consult: Ayush Reason for consultation: Trach Has provider been notified: Yes Consult to Physician Routine Comment: SPOKE WITH DR. TAYLOR Consulting Provider: Damien Taylor director call center sales/MD group to consult: GI Reason for consultation: PEG tube Has provider been notified: Yes 01/31/21 Consult to Dietitian Routine Reason for Consult:: for tube feeding, ok to start in 6 hours (using g-tube) 02/03/21 Consult to Physician Routine Comment: OFFICE NOTIFIED OF CONSULT Consulting Provider: Toi Soto director call center sales/MD group to consult: Surgery Reason for consultation: Tunneled HD Cath, Trach Scheduled for tomorrow, Pt will be off of Heparin Has provider been notified: Yes DS: Discharge Diagnosis Discharge Diagnosis (1) Sepsis: Code(s): A41.9 - Sepsis, unspecified organism Status: Acute Assessment and Plan: Pateint with persistently elevated WBC but trending down since 02/07/21 to 16K today. No fevers. Sputum stil growing pseudomonas. BCx NGTD. Patient had completed a course of antibiotics prior (last abx 02/02) but Zosyn added 02/09 and changed to Primaxin 02/11/21. BP stable. Continue to monitor. (2) Pneumonia: Code(s): J18.9 - Pneumonia, unspecified organism Status: Acute Assessment and Plan: CXR 02/11 showing unchanged diffuse bilateral lung disease. Sputum culture again growing Pseudomonas 02/08. Repeat blood cultures 02/06 NGTD. Zosyn started 02/09 but Zosyn changed to Primaxin 02/11. WBC 21K on 02/07 and has trended downward since to 16K today. Continue to follow WBC. (3) Encephalopathy: Code(s): G93.40 - Encephalopathy, unspecified Status: Acute Assessment and Plan: CT brain 01/21 showing no acute findings. EEG 01/22 showing severely abnormal record due to the presence of bihemispheric theta and delta activity even during sleep without any paroxysmal discharge ,these abnormalities could be consistent with organic or metabolic encephalopathy. Possibility of hypoxic insult cannot be ruled out . Concern for HIE but patient has been showing some signs of improvement. Wean sedation as tolerated. Appreciate neurology and box finisher help. MRI brain when able but repeat CT brain to assess for any changes. (4) Acute respiratory failure with hypoxemia: Code(s): J96.01 - Acute respiratory failure with hypoxia Status: Acute Assessment and Plan: Patien
[2021-02-12 17:40] LABS: Hematocrit 25.7 % (37.0-47.0); Hemoglobin 8.4 g/dL (12.0-15.0)
--- NOTE | 2021-02-12 18:29 | PC.NURSE ---
Report called to Zeny DERAS at [facility]. Patient to be transported to room 206 via [facility]. Patient audrey ring sent home with spouse,and he is aware that patient is being transported to [place] later this evening.
[2021-02-12] MEDS: oxyCODONE (*CRX) 5 MG/5 ML ORAL SOLN IR PO (18:46)
[2021-02-13] VITALS (7 sets, daily range): BP systolic 102–158; BP diastolic 47–92; PULSE 61–80; RESP 15–32; TEMP 36.4–36.7; O2SAT 96–100
[2021-02-13] MEDS: LORazepam INJ (*CRX) 2 MG/ML VIAL IV PUSH ×2 (02:21→07:40)
[2021-02-13 04:38] LABS: Hematocrit 25.9 % (37.0-47.0); Hemoglobin 8.3 g/dL (12.0-15.0); Mean Corpuscular Hemoglobin 30.1 pg (26-34); Mean Corpuscular Volume 93.8 fl (80-100); Mean Platelet Volume 12.3 fl (7.4-10.4); Platelet Count Result 244 k/mm3 (150-375); Red Blood Count 2.76 M/mm3 (4.2-5.4); Red Cell Distribution Width 16.1 % (11.5-14.5)
[2021-02-13 04:57] LABS: Alanine Aminotransferase 37 U/L (4-35); Albumin Level 3.6 g/dL (3.5-5.1); Alkaline Phosphatase 145 U/L (38-126); Anion Gap 12 mmol/L (8-16); Aspartate Amino Transferase 38 U/L (14-36); Bilirubin,Total 0.5 mg/dL (0.2-1.3); Blood Urea Nitrogen 41 mg/dL (7-17); Carbon Dioxide 29 mmol/L (22-30); Chloride 95 mmol/L (98-107); Estimated CRCL calculation 12 ml/min; Estimated Glomerular Filt Rate 12; Glucose 102 mg/dL (65-105); Magnesium 2.1 mg/dL (1.6-2.3); Potassium 3.7 mmol/L (3.4-5.0); Sodium 136 mmol/L (137-145)
[2021-02-13] MEDS: CENTRAL LINE FLUSH 10 ML IV PUSH (05:15)
--- NOTE | 2021-02-13 06:41 | PC.NURSE ---
Spoke with BRAEDEN Velazquez at [place] and gave updates on patient status. Anticipating ambulance to arrive here at 0700 for transport this morning to [place]. and pt aware of delay in transfer to [facility].
[2021-02-13] MEDS: AMIODARONE HCL 100 MG TABLET PO (07:43)
[2021-02-13] MEDS: ASPIRIN 81 MG CHEWABLE TABLET PO (07:43)
[2021-02-13] MEDS: MIDAZOLAM HCL (*CRX) 2 MG/2 ML VIAL 4 MG IV PUSH (08:28)
--- NOTE | 2021-02-13 08:49 | PM.TDS ---
Transfer Discharge Sum: Prov Provider Date of admission: 01/17/21 11:17 Primary care physician: Maurilio Polanco MD Admitting clinician: Karon Lux MD Consults: 01/17/21 Consult to Physician Routine Comment: Consulting Provider: Sid Reid call person/MD group to consult: dr franco financial services associate Reason for consultation: intubation and central line Has provider been notified: Yes 01/17/21 11:20 Consult to Physician Routine Comment: Consulting Provider: Karlos Cedillo Reason for consultation: cp/elevated trop Has provider been notified: Yes 01/20/21 Consult to Physician Routine Comment: OFFICE NOTIFIED OF CONSULT Consulting Provider: Dalia Toledo call person/MD group to consult: Nephrology Reason for consultation: DEBRA Has provider been notified: Yes 01/22/21 08:04 Consult to Physician Routine Comment: called md with consult Consulting Provider: Albino Marsh call person/MD group to consult: NEUROLOGY Reason for consultation: encephalopathy, possible seizure Has provider been notified: Yes 01/26/21 09:21 Consult to Physician Routine Comment: DR. PAINTER BUSTOS Consulting Provider: Silvestre Moscoso call person/MD group to consult: Infectious disease Reason for consultation: Pseudomonas pneumonia, worsening leukocytosis, mechanical ventilation Has provider been notified: Yes 01/30/21 Consult to Physician Routine Comment: SPOKE WITH DR. LAGOS Consulting Provider: Young Lagos call person/MD group to consult: Ayush Reason for consultation: Trach Has provider been notified: Yes Consult to Physician Routine Comment: SPOKE WITH DR. TAYLOR Consulting Provider: Damien Taylor call person/MD group to consult: GI Reason for consultation: PEG tube Has provider been notified: Yes 01/31/21 Consult to Dietitian Routine Reason for Consult:: for tube feeding, ok to start in 6 hours (using g-tube) 02/03/21 Consult to Physician Routine Comment: OFFICE NOTIFIED OF CONSULT Consulting Provider: Toi Soto call person/MD group to consult: Surgery Reason for consultation: Tunneled HD Cath, Trach Scheduled for tomorrow, Pt will be off of Heparin Has provider been notified: Yes Attending physician on discharge: Beth,Elfego Discharging clinician: Elfego Campos Anticipated date of transfer: 02/13/21 Receiving physician/facility: [facility] DS: Admitting Diagnosis Admitting Diagnosis Admitting Diagnosis: Acute Respiratory Failure DS: Discharge Diagnosis Discharge Diagnosis (1) Sepsis: Code(s): A41.9 - Sepsis, unspecified organism Status: Acute Assessment and Plan: Pateint with persistently elevated WBC. No fevers. Sputum still growing pseudomonas and yeast. BCx negative. Patient had completed a course of antibiotics prior (last abx 02/02) but Zosyn added 02/09 and changed to Primaxin 02/11/21. BP stable and tolerating anti-HTN medications. (2) Pneumonia: Code(s): J18.9 - Pneumonia, unspecified organism Status: Acute Assessment and Plan: CXR 02/13 showing unchanged diffuse bilateral lung disease. Sputum culture again growing Yeast and Pseudomonas 02/08 (two types of pseudomonas with the 2nd type has more of a resistant pattern). Repeat blood cultures 02/06 negative. Zosyn started 02/09 but Zosyn changed to Primaxin 02/11. WBC 21K on 02/07 and has waxed/waned since. (3) Encephalopathy: Code(s): G93.40 - Encephalopathy, unspecified Status: Acute Assessment and Plan: CT brain 01/21 showing no acute findings. EEG 01/22 showing severely abnormal record due to the presence of bihemispheric theta and delta activity even during sleep without any paroxysmal discharge ,these abnormalities could be consistent with organic or metabolic encephalopathy. Possibility of hypoxic insult cannot be ruled out . Could be related to embolic disease, infection, toxic metabolic encephalopathy. Appr
[2021-02-13] MEDS: PROPOFOL IV EMULSION 100 ML 2.76 MG IV CONT (08:52)
[2023-07-12 20:51] LABS: Anion Gap 5 mmol/L (8-16); Blood Urea Nitrogen 33 mg/dL (7-17); Calcium 9.5 mg/dL (8.4-10.2); Carbon Dioxide 27 mmol/L (22-30); Chloride 106 mmol/L (98-107); Estimated CRCL calculation 30 ml/min; Estimated Glomerular Filt Rate 36; Glucose 92 mg/dL (65-110); Potassium 4.6 mmol/L (3.4-5.0)
== END 2021-02-13 09:05 | DRG 3 ==
LOC: ANHED 11:14 → ANHIMU 17:20 → ANHICU 01-20 17:55 → ANHIMU 02-14 11:31
PROVIDERS: Emergency Medicine; Internal Medicine; Internal Medicine Cardiovascular Disease; Internal Medicine Gastroenterology; Internal Medicine Interventional Cardiology; Internal Medicine Nephrology; Otolaryngology; Surgery; Admitting Provider Hospitalist; Emergency Provider Emergency Medicine; PCP Family Medicine Adolescent Medicine; Visit Provider Internal Medicine
PROC: 4A023N7 Measurement of Cardiac Sampling and Pressure, Left Heart, Percutaneous Approach (ICD-10-PCS; CPT 93452; principal; 2021-01-18 11:45)
PROC: 027035Z Dilation of Coronary Artery, One Artery with Two Drug-eluting Intraluminal Devices, Percutaneous Approach (ICD-10-PCS; CPT 92928; 2021-01-18 11:45)
PROC: 027035Z Dilation of Coronary Artery, One Artery with Two Drug-eluting Intraluminal Devices, Percutaneous Approach (ICD-10-PCS; 2021-01-18 11:45)
PROC: B24BZZ4 Ultrasonography of Heart with Aorta, Transesophageal (ICD-10-PCS; CPT 93312; 2021-01-18 11:45)
PROC: 0DJ08ZZ Inspection of Upper Intestinal Tract, Via Natural or Artificial Opening Endoscopic (ICD-10-PCS; CPT 43235; principal; 2021-01-31 16:00)
PROC: 0DH63UZ Insertion of Feeding Device into Stomach, Percutaneous Approach (ICD-10-PCS; CPT 43246; 2021-01-31 16:00)
PROC: 0B110F4 Bypass Trachea to Cutaneous with Tracheostomy Device, Open Approach (ICD-10-PCS; principal; 2021-02-04 09:00)
PROC: 0JH63XZ Insertion of Tunneled Vascular Access Device into Chest Subcutaneous Tissue and Fascia, Percutaneous Approach (ICD-10-PCS; CPT 36908; 2021-02-04 09:00)
DX: I97.190 Other postprocedural cardiac functional disturbances following cardiac surgery (principal); I21.4 Non-ST elevation (NSTEMI) myocardial infarction; J96.01 Acute respiratory failure with hypoxia; J15.1 Pneumonia due to Pseudomonas; A41.9 Sepsis, unspecified organism; I50.33 Acute on chronic diastolic (congestive) heart failure; N17.9 Acute kidney failure, unspecified; G93.40 Encephalopathy, unspecified; T82.817A Embolism due to cardiac prosthetic devices, implants and grafts, initial encounter; E87.1 Hypo-osmolality and hyponatremia; N12 Tubulo-interstitial nephritis, not specified as acute or chronic; Z20.822 Contact with and (suspected) exposure to COVID-19; Z79.82 Long term (current) use of aspirin; Z95.2 Presence of prosthetic heart valve; Z85.3 Personal history of malignant neoplasm of breast; T80.89XA Other complications following infusion, transfusion and therapeutic injection, initial encounter; Y82.8 Other medical devices associated with adverse incidents; Y92.230 Patient room in hospital as the place of occurrence of the external cause; E66.9 Obesity, unspecified; Z68.39 Body mass index [BMI] 39.0-39.9, adult; E87.8 Other disorders of electrolyte and fluid balance, not elsewhere classified; E87.6 Hypokalemia; I11.0 Hypertensive heart disease with heart failure; Y84.8 Other medical procedures as the cause of abnormal reaction of the patient, or of later complication, without mention of misadventure at the time of the procedure; Y92.9 Unspecified place or not applicable; D64.9 Anemia, unspecified; Y95 Nosocomial condition; F41.9 Anxiety disorder, unspecified; R13.10 Dysphagia, unspecified; E87.5 Hyperkalemia; I48.91 Unspecified atrial fibrillation; I49.3 Ventricular premature depolarization; M19.90 Unspecified osteoarthritis, unspecified site; K20.90 Esophagitis, unspecified without bleeding; K44.9 Diaphragmatic hernia without obstruction or gangrene
CPT/HCPCS: 36415; 36430; 36569; 36600; 43246; 70450; 71045; 71250; 71275; 74176; 76775; 77001; 80048; 80053; 80069; 80074; 80202; 81001; 82140; 82375; 82436; 82565; 82570; 82607; 82728; 82746; 82805; 82948; 83050; 83540; 83550; 83605; 83690; 83735; 83880; 84100; 84133; 84156; 84300; 84443; 84478; 84484; 85014; 85018; 85025; 85027; 85380; 85610; 85730; 85999; 86160; 86162; 86706; 86850; 86900; 86901; 86923; 87040; 87070; 87077; 87186; 87205; 93005; 93306; 93308; 93312; 93320; 93325; 93458; 93970; 94002; 94003; 94640; 95816; 96374; 96375; 96376; 99291; A9270; C1725; C1750; C1751; C1760; C1769; C1874; C1887; C1894; C8924; C9113; C9600; C9803; G0257; G0269; J0171; J0690; J0692; J0743; J1644; J1815; J1940; J1956; J2060; J2250; J2370; J2543; J2704; J2930; J2997; J3010; J3370; J7030; J7040; J7050; J7512; P9016; Q5106; Q9957; Q9967; U0003; U0005